=== PATIENT | male | born 1960 | race Caucasian/White ===

== ENCOUNTER → 2016-12-23 | Outpatient (CLI) | payer BC | END | disposition home or self-care (01) | LOC: C.PATHSPEC 11:30 | PROVIDERS: ATTEND Urology | DX: R97.20 Elevated prostate specific antigen [PSA] (principal); N41.1 Chronic prostatitis ==

== ENCOUNTER 2020-03-27 06:36 | Inpatient (IN) ==
[~2020-03-27 06:36] MED LIST: HEPARIN (PORCINE) 1000 UNIT/ML 10 ML (CATH LAB USE ONLY) ONE; MIDAZOLAM HCL 1 MG/ML 2ML VIAL ONE; NITROGLYCERIN/D5W 100MCG/ML 20ML SYR ONE; fentaNYL citrate 100 MCG/2 ML VIAL ONE; niCARdipine HCL INJ 2.5 MG/ML 10 ML AMP ONE
--- OUTSIDE RECORDS SUMMARY | 2020-03-27 06:38 | External Medical Summary | Continuity of Care Document ---
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 Refills: 0 Lisinopril TABS , M.D. Refills: 0 metFORMIN HCl TABS , M.D. Refills: 0 Procedures Procedures not documented Immunizations Immunizations not documented Family History Father Family history of arthritis (V17.7) (Z82.61) Status: Active Social History - Smoking Status Never smoked tobacco Plan of Treatment Planned Observations Planned Goals not documented Results No Known Results Results not documented
[2020-03-27] MEDS ORDERED: BIVALIRUDIN 250 MG VIAL (CATH LAB ONLY) ONE (06:40)
--- NOTE | 2020-03-27 06:48 | Emergency Department Note ---
Impression & Plan Acute ST elevation myocardial infarction (STEMI), Elevated troponin, Hypertension ED Provider Note NAME: JAMILAH MEDINA AGE: 59 SEX: M ARRIVES VIA: Ambulance INFORMANT: Patient, ED PROVIDER(S): Steve Cabezas MD CHIEF COMPLAINT: Chest pain PLAN: Disposition: Admit MEDICAL DECISION MAKING: The patient is a 59-year-old gentleman with a past medical history of obesity, hypertension, hyperlipidemia, diabetes, hypoventilation syndrome/ALMA who presents emergency department with substernal chest pain that began at 430 that felt like a severe pressure on his chest with med command call receiving transmitted EKG concerning for ST elevation MA. Heart alert activated in the field. Patient received aspirin en route, nitroglycerin, and fentanyl. He reports feeling healthy prior today and denies fevers, chills, cough, congestion, nausea, vomiting, diarrhea, urinary symptoms. Has any known COVID- 19 exposures. On arrival patient is uncomfortable but no acute distress, afebrile with stable vital signs. He reports residual 5/10 pain. Pulses are equal. EKG in the emergency department demonstrates anterior as well as some inferior ST elevations with reciprocal depression in AVR. Dr. Kang reviewed with Dr. Spear, interventional cardiology, after medical command call. WBC, H/H and platelets within normal limits. Chemistry without metabolic acidosis. Electrolytes and LFTs unremarkable. Initial troponin elevated at 0.5. COVID-19 RNA, NAAT test was negative. Patient's daughter at the bedside was updated. Dr. Flores, interventional cardiology, evaluated patient at bedside. Consented and taken to cath-lab for intervention. Heparin and Ticagrelor to be given in Cath-lab. Case was discussed with Lupe Rubio, [facility] PAC, with Remy [facility] hospitalist who will evaluate the patient for admission following cath-lab intervention. Triage Nursing notes reviewed and agree them. Prior medical records reviewed Vital Signs: reviewed and remarkable for no significant abnormalities Differential diagnosis: Cardiac ischemia, aortic dissection, pulmonary embolism, pneumothorax, pneumonia, pericarditis, myocarditis, esophageal rupture, GERD, cholecystitis, pancreatitis, musculoskeletal, as well as other pathologies. ER treatment provided: See below. Diagnostics interpreted by me: ECG: Normal sinus rhythm, 62 bpm, no ectopy, anterior and inferior ST elevations with reciprocal depression in aVR. Cardiac Monitoring: An order for continuous cardiac monitoring was placed and demonstrated Normal sinus rhythm, 62 bpm, no ectopy. Laboratory studies: See below Imaging studies: XR chest 1V portable CLINICAL HISTORY: Atypical chest pain COMPARISON STUDY: 12/20/2017 FINDINGS: The heart is mildly enlarged. There is mild elevation of interstitium. Mild pulmonary vascular congestion is suspected. There is no focal pulmonary consolidation. There are no significant pleural effusions.[ IMPRESSION: Cardiomegaly and suspected mild pulmonary vascular congestion. No evidence of focal pulmonary consolidation ACT 112: Negative or not required by law. Consultation(s): Dr. Spear, interventional cardiology, per Dr. Kang after medical command call. Dr. Flores, interventional cardiology, evaluated patient at bedside, taken to cath-lab for intervention. Case was discussed with Luep Rubio, [facility] PAC, with Remy [facility] hospitalist who will evaluate the patient for admission following cath-lab intervention. HPI: The patient is a 59-year-old gentleman with a past medical history of obesity, hypertension, hyperlipidemia, diabetes, hypoventilation syndrome/ALMA who presents emergency department with substernal chest pain that began at 430 that felt like a severe pressure on his chest with med command call receiving tr ansmitted EKG concerning for ST elevation MA. Heart alert activated in the field. Patient received aspirin in route, nitroglycerin, fentanyl. He reports feeling healthy prior today and denies fevers, chills, cough, congestion, nausea, vomiting, diarrhea, urinary symptoms. Has any known COVID-19 exposures ROS: See above HPI for pertinent positives & negatives. A total of 10 systems reviewed and were otherwise negative. PAST MEDICAL HISTORY:See Below PAST SURGICAL HISTORY:See Below FAMILY HISTORY:See Below SOCIAL HISTORY:See Below HOME MEDICATIONS:See Below ALLERGIES:See Below VITALS:See Below PHYSICAL EXAMINATION: GENERAL: Awake, alert, uncomfortable-appearing, in no distress, 51.2. HENT: Normocephalic, atraumatic. Oropharynx unremarkable. EYES: Normal conjunctiva. Sclera non-icteric. NECK: Supple. No nuchal rigidity. FROM. No JVD. RESPIRATORY: Clear to auscultation. CARDIAC: Regular rate, normal rhythm. Extremities warm and well perfused. Pulses equal. ABDOMEN: Soft, non-distended. No tenderness to palpation. No rebound or guarding. No masses. RECTAL: Deferred. MUSCULOSKELETAL: Chest examination reveals no tenderness. The back is symmetric al on inspection without obvious abnormality. There is no CVA tenderness to palpation. No joint edema. LOWER EXTREMITIES: Calves are equal size bilaterally and non-tender. No edema. No discoloration. NEURO: Normal sensorium. No sensory or motor deficits noted. SKIN: No rash or jaundice noted. ED COURSE: Critical Care: I have personally spent greater than 35 minutes of critical care time in the direct management of this patient. This includes bedside care, interpretation of diagnostic studies, and testing, discussion with consultants, patient, and family members, and other required patient management activities. This 35 minutes is in excess of all separately billable procedures. Steve Cabezas MD Past Med/Surg History Medical History Acute ST elevation myocardial infarction (STEMI) Angioedema due to angiotensin converting enzyme inhibitor (KENDELL-I) Atrial fibrillation follows with Dr. Damico Chronic venous stasis dermatitis Diabetes mellitus, type 2 Elevated troponin Hyperlipidemia Hypertension On anticoagulant therapy warfarin daily Surgical History History of colonoscopy Hx of prostate biopsy benign S/P coronary artery stent placement Successful PCI of mid LAD with single drug-eluting stent (3.0 x 33 mm Xience; postdilated with 4.0 NC) Dr Flores, 03/27/20 Family History Father Family history of reaction to anesthesia "heart rate went irregular, was able to fix quick", not sure what he had done or what he was given Cancer Mother Diabetes Sister Celiac disease Denies family history of Heart disease Myocardial infarction Social History Smoking Status: Former smoker packs per day: 1; Years Smoked: 15; Smoking End Date: 1987; Second Hand Exposure: No; Hx Alcohol Use: No Hx Substance Use: No Preferred Language: Serbian Communication Ability: Effective Auto Winder Required: No Beliefs That Will Affect Care: None marital status: Current Living Situation: Spouse current occupational status: employed 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 Feels Safe at Home: Yes Safety Concerns: Feels Safe At This Time Assistive Devices: Glasses Allergies Allergies Allergy/AdvReac Type Severity Reaction Status Date / Time lisinopril Allergy Severe Difficulty Verified 03/27/20 06:43 Breathing Home Meds Home Medications Medication Instructions Recorded Confirmed aspirin 81 mg PO QAM 03/05/18 03/27/20 furosemide [Lasix] 40 mg PO QAM 03/05/18 03/27/20 metoprolol succinate 25 mg PO QAM 03/05/18 03/27/20 spironolactone 25 mg PO QAM 03/05/18 03/27/20 atorvastatin 40 mg PO HS 03/27/20 03/27/20 empagliflozin 25 mg PO DAILY 03/27/20 03/27/20 metformin 2,000 mg PO PM 03/27/20 03/27/20 Previous Rx's Medication Instructions Recorded potassium chloride [Klor-Con] 20 meq PO BID #100 ea 12/21/17 Results & Data (ED) Vital Signs Vital Signs - 24 hr 03/27/20 06:41 03/27/20 07:08 Temperature 36.7 C Temperature Source Oral Pulse Rate 67 66 Pulse Rhythm Regular Pulse Strength Normal Respiratory Rate 21 20 Respiratory Effort / Characteristics Non-Labored Spontaneous Respiratory Depth Normal Respiratory Pattern Regular Blood Pressure 127/73 126/68 Blood Pressure Mean 91 Blood Pressure Position Sitting Pulse Oximetry 96 96 Oxygen Delivery Method Nasal Cannula Nasal Cannula Oxygen Flow Rate 4 2 Sepsis Recent Fever Within 48 Hours No Sepsis New/Unexplained Change in Mental Status No Sepsis Action Taken by Nursing No Action Required Laboratory Data Attestation: I reviewed the patient's lab results. Result diagrams: 03/27/20 06:43 03/27/20 06:43 Lab Results 03/27/20 03/27/20 03/27/20 Range/Units 06:42 06:42 06:43 WBC 10.53 (4.8-10.8) K/uL RBC 5.19 (4.7-6.1) M/uL Hgb 14.8 (14.0-18.0) g/dL POC Hgb (14.0-18.0) g/dl Hct 44.1 (42-52) % POC Hct (42-52) % MCV 85.0 (80-100) fL MCH 28.5 (25-34) pg MCHC 33.6 (32-36) g/dL RDW Std Deviation 44.1 (36.4-46.3) fL RDW Coeff of Stella 14.2 (11.5-14.5) % Plt Count 218 (130-400) K/uL MPV 10.2 (7.4-10.4) fL Immature Gran % (Auto) 0.4 % Neut % (Auto) 68.9 % Lymph % (Auto) 19.8 % Baxter % (Auto) 6.8 % Eos % (Auto) 3.8 % Baso % (Auto) 0.3 % Neut # (Auto) 7.25 H (1.4-6.5) K/uL Lymph # (Auto) 2.09 (1.2-3.4) K/uL Baxter # (Auto) 0.72 H (0.11-0.59) K/uL Eos # (Auto) 0.40 (0-0.5) K/uL Baso # (Auto) 0.03 (0-0.2) K/uL Immature Gran # (Auto) 0.04 H (0.00-0.02) K/uL PT (9.0-12.0) Seconds INR (0.9-1.1) APTT (21.0-31.0) Seconds PTT Ratio Activ Coag Time Kaolin (94-140) SECONDS POC Sodium (135-144) mmol/L Sodium (136-145) mmol/L POC Potassium (3.3-5.0) mmol/L Potassium (3.5-5.1) mmol/L POC Chloride (101-112) mmol/L Chloride (98-107) mmol/L Carbon Dioxide (21-32) mmol/L POC Total CO2 (24-31) mmol/L Anion Gap (3-11) POC Anion Gap (16-25) mmol/L POC BUN (7-18) mg/dl BUN (7-18) mg/dl Creatinine (0.6-1.4) mg/dl POC Creatinine (0.6-1.3) mg/dl Est Cr Clr Drug Dosing ml/min Est GFR ( Amer) Est GFR (Non-Af Amer) BUN/Creatinine Ratio (10-20) Glucose (70-99) mg/dl POC Glucose (other) (70-99) mg/dl Calcium (8.5-10.1) mg/dl POC Ioniz Calcium Quinton (1.12-1.32) mmol/l Magnesium (1.8-2.4) mg/dl Total Bilirubin (0.2-1) mg/dl AST (15-37) U/L ALT (12-78) U/L Alkaline Phosphatase (45-117) U/L Total Creatine Kinase (39-308) U/L CK-MB (CK-2) (0.5-3.6) ng/ml CK/CKMB % Calc (0-3.0) Troponin I (0-0.045) ng/ml Total Protein (6.4-8.2) gm/dl Albumin (3.4-5.0) gm/dl Globulin (2.5-4.0) gm/dl Albumin/Globulin Ratio (0.9-2) Lipase (73-393) U/L Procalcitonin (0-0.5) ng/ml TSH (0.300-4.500) uIu/ml COVID-19 Eval [facility] SARS-CoV-2, RNA, NAAT NEGATIVE (NEGATIVE) 03/27/20 03/27/20 03/27/20 Range/Units 06:43 06:43 06:44 WBC (4.8-10.8) K/uL RBC (4.7-6.1) M/uL Hgb (14.0-18.0) g/dL POC Hgb (14.0-18.0) g/dl Hct (42-52) % POC Hct (42-52) % MCV (80-100) fL MCH (25-34) pg MCHC (32-36) g/dL RDW Std Deviation (36.4-46.3) fL RDW Coeff of Stella (11.5-14.5) % Plt Count (130-400) K/uL MPV (7.4-10.4) fL Immature Gran % (Auto) % Neut % (Auto) % Lymph % (Auto) % Baxter % (Auto) % Eos % (Auto) % Baso % (Auto) % Neut # (Auto) (1.4-6.5) K/uL Lymph # (Auto) (1.2-3.4) K/uL Baxter # (Auto) (0.11-0.59) K/uL Eos # (Auto) (0-0.5) K/uL Baso # (Auto) (0-0.2) K/uL Immature Gran # (Auto) (0.00-0.02) K/uL PT 10.0 (9.0-12.0) Seconds INR 1.0 (0.9-1.1) APTT 23.9 (21.0-31.0) Seconds PTT Ratio 0.9 Activ Coag Time Kaolin (94-140) SECONDS POC Sodium (135-144) mmol/L Sodium 141 (136-145) mmol/L POC Potassium (3.3-5.0) mmol/L Potassium 4.2 (3.5-5.1) mmol/L POC Chloride (101-112) mmol/L Chloride 109 H (98-107) mmol/L Carbon Dioxide 24 (21-32) mmol/L POC Total CO2 (24-31) mmol/L Anion Gap 8.0 (3-11) POC Anion Gap (16-25) mmol/L POC BUN (7-18) mg/dl BUN 20 H (7-18) mg/dl Creatinine 0.98 (0.6-1.4) mg/dl POC Creatinine (0.6-1.3) mg/dl Est Cr Clr Drug Dosing 138.0 ml/min Est GFR ( Amer) 96.7 Est GFR (Non-Af Amer) 83.5 BUN/Creatinine Ratio 20.3 H (10-20) Glucose 182 H (70-99) mg/dl POC Glucose (other) (70-99) mg/dl Calcium 9.3 (8.5-10.1) mg/dl POC Ioniz Calcium Quinton (1.12-1.32) mmol/l Magnesium 2.1 (1.8-2.4) mg/dl Total Bilirubin 0.3 (0.2-1) mg/dl AST 20 (15-37) U/L ALT 29 (12-78) U/L Alkaline Phosphatase 78 (45-117) U/L Total Creatine Kinase 90 (39-308) U/L CK-MB (CK-2) 3.6 (0.5-3.6) ng/ml CK/CKMB % Calc 4.0 H (0-3.0) Troponin I 0.554 H* (0-0.045) ng/ml Total Protein 7.4 (6.4-8.2) gm/dl Albumin 3.3 L (3.4-5.0) gm/dl Globulin 4.1 H (2.5-4.0) gm/dl Albumin/Globulin Ratio 0.8 L (0.9-2) Lipase 222 (73-393) U/L Procalcitonin < 0.05 (0-0.5) ng/ml TSH 3.220 (0.300-4.500) uIu/ml COVID-19 Eval Order SARS-CoV-2, RNA, NAAT (NEGATIVE) 03/27/20 03/27/20 03/27/20 Range/Units 06:59 07:34 07:56 WBC (4.8-10.8) K/uL RBC (4.7-6.1) M/uL Hgb (14.0-18.0) g/dL POC Hgb 14.3 (14.0-18.0) g/dl Hct (42-52) % POC Hct 42 (42-52) % MCV (80-100) fL MCH (25-34) pg MCHC (32-36) g/dL RDW Std Deviation (36.4-46.3) fL RDW Coeff of Stella (11.5-14.5) % Plt Count (130-400) K/uL MPV (7.4-10.4) fL Immature Gran % (Auto) % Neut % (Auto) % Lymph % (Auto) % Baxter % (Auto) % Eos % (Auto) % Baso % (Auto) % Neut # (Auto) (1.4-6.5) K/uL Lymph # (Auto) (1.2-3.4) K/uL Baxter # (Auto) (0.11-0.59) K/uL Eos # (Auto) (0-0.5) K/uL Baso # (Auto) (0-0.2) K/uL Immature Gran # (Auto) (0.00-0.02) K/uL PT (9.0-12.0) Seconds INR (0.9-1.1) APTT (21.0-31.0) Seconds PTT Ratio Activ Coag Time Kaolin 246 H 263 H (94-140) SECONDS POC Sodium 139 (135-144) mmol/L Sodium (136-145) mmol/L POC Potassium 4.0 (3.3-5.0) mmol/L Potassium (3.5-5.1) mmol/L POC Chloride 105 (101-112) mmol/L Chloride (98-107) mmol/L Carbon Dioxide (21-32) mmol/L POC Total CO2 23 L (24-31) mmol/L Anion Gap (3-11) POC Anion Gap 16.0 (16-25) mmol/L POC BUN 20 H (7-18) mg/dl BUN (7-18) mg/dl Creatinine (0.6-1.4) mg/dl POC Creatinine 0.8 (0.6-1.3) mg/dl Est Cr Clr Drug Dosing ml/min Est GFR ( Amer) Est GFR (Non-Af Amer) BUN/Creatinine Ratio (10-20) Glucose (70-99) mg/dl POC Glucose (other) 191 H (70-99) mg/dl Calcium (8.5-10.1) mg/dl POC Ioniz Calcium Quinton 1.24 (1.12-1.32) mmol/l Magnesium (1.8-2.4) mg/dl Total Bilirubin (0.2-1) mg/dl AST (15-37) U/L ALT (12-78) U/L Alkaline Phosphatase (45-117) U/L Total Creatine Kinase (39-308) U/L CK-MB (CK-2) (0.5-3.6) ng/ml CK/CKMB % Calc (0-3.0) Troponin I (0-0.045) ng/ml Total Protein (6.4-8.2) gm/dl Albumin (3.4-5.0) gm/dl Globulin (2.5-4.0) gm/dl Albumin/Globulin Ratio (0.9-2) Lipase (73-393) U/L Procalcitonin (0-0.5) ng/ml TSH (0.300-4.500) uIu/ml COVID-19 Eval Order SARS-CoV-2, RNA, NAAT (NEGATIVE) Administered Medications Aspirin (Aspirin 81 Mg Ectab) 81 mg PO QAM [facility] Stop: 04/26/20 08:59 Last Admin: 03/27/20 10:40 Dose: 81 mg Documented by: [id number] Atorvastatin Calcium (Atorvastatin 40 Mg Tab) 80 mg PO QAM [facility] Stop: 04/26/20 08:59 Last Admin: 03/27/20 10:40 Dose: 80 mg Documented by: [id number] Ceftriaxone Sodium 2,000 mg/ (Dextrose) 70 mls @ 140 mls/hr IV Q24H [facility] Stop: 04/03/20 10:29 Last Infusion: 03/27/20 11:33 Dose: 0 mls/hr Documented by: [id number] Admin: 03/27/20 10:40 Dose: 140 mls/hr Documented by: [id number] Insulin Aspart (Insulin Aspart 100 Units/Ml 3 Ml Pen) 0 units SC ACHS [facility] Stop: 04/26/20 11:29 Last Admin: 03/27/20 12:27 Dose: 4 units Documented by: [id number] Cosigned by: [id number] Metoprolol Tartrate (Metoprolol Tartrate 25 Mg Tab) 25 mg PO BID [facility] Stop: 04/26/20 08:59 Last Admin: 03/27/20 10:40 Dose: 25 mg Documented by: [id number] Spironolactone (Spironolactone 25 Mg Tab) 25 mg PO QAM [facility] Stop: 04/26/20 08:59 Last Admin: 03/27/20 10:40 Dose: 25 mg Documented by: [id number] Discontinued Medications Bivalirudin (Bivalirudin 250 Mg Vial (Heel Turner Only)) Confirm Administered Dose 250 mg .ROUTE .STK-MED ONE Stop: 03/27/20 06:41 Last Admin: 03/27/20 08:44 Dose: Not Given Documented by: [id number] Eptifibatide (Eptifibatide 2 Mg/Ml 10 Ml Vial ([facility] Use Only)) Confirm Administered Dose 20 mg IV .STK-MED ONE Stop: 03/27/20 07:33 Last Admin: 03/27/20 08:46 Dose: Not Given Documented by: [id number] Eptifibatide (Eptifibatide 0.75 Mg/Ml 75mg Vial (Heel Turner Use Only)) Confirm Administered Dose 75 mg .ROUTE .STK-MED ONE Stop: 03/27/20 07:34 Last Admin: 03/27/20 08:46 Dose: Not Given Documented by: [id number] Eptifibatide (Eptifibatide 2 Mg/Ml 10 Ml Vial (Heel Turner Use Only)) Confirm Administered Dose 20 mg IV .STK-MED ONE Stop: 03/27/20 07:36 Last Admin: 03/27/20 08:46 Dose: Not Given Documented by: [id number] Fentanyl Citrate (Fentanyl Citrate 100 Mcg/2 Ml Vial) Confirm Administered Dose 100 mcg .ROUTE .STK-MED ONE Stop: 03/27/20 06:34 Last Admin: 03/27/20 07:03 Dose: 100 mcg Documented by: [id number] Fentanyl Citrate (Fentanyl Citrate 100 Mcg/2 Ml Vial) Confirm Administered Dose 100 mcg .ROUTE .STK-MED ONE Stop: 03/27/20 07:03 Last Admin: 03/27/20 08:45 Dose: Not Given Documented by: [id number] Fentanyl Citrate (Fentanyl Citrate 100 Mcg/2 Ml Vial) 100 mcg IV NOW STA Stop: 03/27/20 07:05 Last Admin: 03/27/20 08:45 Dose: Not Given Documented by: [id number] Fentanyl Citrate (Fentanyl Citrate 100 Mcg/2 Ml Vial) Confirm Administered Dose 100 mcg .ROUTE .STK-MED ONE Stop: 03/27/20 08:17 Last Admin: 03/27/20 08:46 Dose: Not Given Documented by: [id number] Heparin Sodium (Porcine) (Heparin (Porcine) 1000 Unit/Ml 10 Ml (Heel Turner Use Only)) Confirm Administered Dose 10,000 units .ROUTE .STK-MED ONE Stop: 03/27/20 06:34 Last Admin: 03/27/20 08:44 Dose: Not Given Documented by: [id number] Heparin Sodium (Porcine) (Heparin Sod (Porcine) 1000 Unit/Ml 10 Ml Vial) Confirm Administered Dose 10,000 units .ROUTE .STK-MED ONE Stop: 03/27/20 06:54 Last Admin: 03/27/20 08:45 Dose: Not Given Documented by: [id number] Heparin Sodium/Sodium Chloride (Heparin In Nss Infusion 1000 Unit/500 Ml (2 U/Ml) Bag) Confirm Administered Dose 3,000 units IV .STK-MED ONE Stop: 03/27/20 06:34 Last Admin: 03/27/20 08:44 Dose: Not Given Documented by: [id number] Heparin Sodium/Sodium Chloride (Heparin In Nss Infusion 1000 Unit/500 Ml (2 U/Ml) Bag) Confirm Administered Dose 3,000 units IV .STK-MED ONE Stop: 03/27/20 08:17 Last Admin: 03/27/20 08:46 Dose: Not Given Documented by: [id number] Insulin Glargine (Insulin Glargine Solostar 100 Units/Ml 3 Ml Pen) 20 units SC NOW STA Stop: 03/27/20 10:20 Last Admin: 03/27/20 10:41 Dose: 20 units Documented by: [id number] Cosigned by: [id number] Midazolam HCl (Midazolam Hcl 1 Mg/Ml 2ml Vial) Confirm Administered Dose 2 mg .ROUTE .STK-MED ONE Stop: 03/27/20 06:33 Last Admin: 03/27/20 08:43 Dose: Not Given Documented by: [id number] Midazolam HCl (Midazolam Hcl 1 Mg/Ml 2ml Vial) Confirm Administered Dose 2 mg .ROUTE .STK-MED ONE Stop: 03/27/20 08:17 Last Admin: 03/27/20 08:46 Dose: Not Given Documented by: [id number] Nicardipine HCl (Nicardipine Hcl Inj 2.5 Mg/Ml 10 Ml Amp) Confirm Administered Dose 25 mg .ROUTE .STK-MED ONE Stop: 03/27/20 06:34 Last Admin: 03/27/20 08:44 Dose: Not Given Documented by: [id number] Nitroglycerin/Dextrose (Nitroglycerin/D5w 100mcg/Ml 20ml Syr) Confirm Administered Dose 2,000 mcg .ROUTE .STK-MED ONE Stop: 03/27/20 06:34 Last Admin: 03/27/20 08:44 Dose: Not Given Documented by: [id number] Ticagrelor (Ticagrelor 90 Mg Tab) Confirm Administered Dose 180 mg PO .STK-MED ONE Stop: 03/27/20 06:54 Last Admin: 03/27/20 08:46 Dose: 180 mg Documented by: [id number] Discharge Plan Visit Data Chief Complaint: Chest Pain Stated Complaint: CHEST PAIN ED Provider: Steve Cabezas Discharge Problem: Acute ST elevation myocardial infarction (STEMI), Elevated troponin, Hypertension Patient Disposition: Admitted As Inpatient Discharge Instructions Interventions: ED Discharge Assessment Last Done: 03/27/20 07:08 Discharge Problem: Acute ST elevation myocardial infarction (STEMI) Qualifiers: Involved coronary artery: unspecified coronary artery Qualified Code(s): I21.3 - ST elevation (STEMI) myocardial infarction of unspecified site Hypertension Qualifiers: Hypertension type: unspecified Qualified Code(s): I10 - Essential (primary) hypertension
[2020-03-27 06:53] LABS: Basophils # (auto) 0.03 K/uL (0-0.2); Basophils % (auto) 0.3 %; Eosinophils % (auto) 3.8 %; Hematocrit (blood only) 44.1 % (42-52); Hemoglobin 14.8 g/dL (14.0-18.0); Immature Granulocytes # (auto) 0.04 K/uL (0.00-0.02); Immature Granulocytes % (auto) 0.4 %; Lymphocytes # (auto) 2.09 K/uL (1.2-3.4); Lymphocytes % (auto) 19.8 %; Mean Corpuscular Hemoglobin 28.5 pg (25-34); Mean Corpuscular Hgb Conc 33.6 g/dL (32-36); Mean Platelet Volume 10.2 fL (7.4-10.4); Monocytes # (auto) 0.72 K/uL (0.11-0.59); Monocytes % (auto) 6.8 %; Neutrophils # (auto) 7.25 K/uL (1.4-6.5); Neutrophils % (auto) 68.9 %; Platelet Count 218 K/uL (130-400); RDW Coefficient of Variation 14.2 % (11.5-14.5); RDW Standard Deviation 44.1 fL (36.4-46.3); Red Blood Count 5.19 M/uL (4.7-6.1); White Blood Count 10.53 K/uL (4.8-10.8)
[2020-03-27] MEDS ORDERED: TICAGRELOR 90 MG TAB PO ONE (06:53)
[2020-03-27] MEDS ORDERED: HEPARIN SOD (PORCINE) 1000 UNIT/ML ONE (06:53)
[2020-03-27] MEDS ORDERED: fentaNYL citrate 100 MCG/2 ML VIAL ONE ×2 (07:02→08:16)
[2020-03-27] MEDS ORDERED: fentaNYL citrate 100 MCG/2 ML VIAL IV STA (07:04)
[2020-03-27 07:10] LABS: Albumin Level 3.3 gm/dl (3.4-5.0); BUN Creatinine Ratio 20.3 (10-20); Calcium 9.3 mg/dl (8.5-10.1); Est GFR (African American) 96.7; Est GFR (Non-African American) 83.5; Magnesium 2.1 mg/dl (1.8-2.4); Potassium 4.2 mmol/L (3.5-5.1)
--- NOTE | 2020-03-27 07:10 | XRay Report ---
XR chest 1V portable CLINICAL HISTORY: Atypical chest pain COMPARISON STUDY: 12/20/2017 FINDINGS: The heart is mildly enlarged. There is mild elevation of interstitium. Mild pulmonary vascu lar congestion is suspected. There is no focal pulmonary consolidation. There are no significant pleu ral effusions.[ IMPRESSION: Cardiomegaly and suspected mild pulmonary vascular congestion. No evidence of focal pulmo nary consolidation ACT 112: Negative or not required by law. Electronically signed by: Jordan Erickson M.D. 03/27/2020 7:08 AM
[2020-03-27 07:11] LABS: iSTAT Creatinine 0.8 mg/dl (0.6-1.3); iSTAT Hemoglobin 14.3 g/dl (14.0-18.0); iSTAT Ionized Calcium 1.24 mmol/l (1.12-1.32)
[2020-03-27 07:14] LABS: Partial Thromboplastin Ratio 0.9; Partial Thromboplastin Time 23.9 Seconds (21.0-31.0)
[2020-03-27 07:30] LABS: Albumin Globulin Ratio 0.8 (0.9-2); Bilirubin,Total 0.3 mg/dl (0.2-1); Creatine Kinase MB 3.6 ng/ml (0.5-3.6); Globulin 4.1 gm/dl (2.5-4.0); Thyroid Stimulating Hormone 3.22 uIu/ml (0.300-4.500); Total Protein 7.4 gm/dl (6.4-8.2); Troponin I 0.554 ng/ml (0-0.045)
[2020-03-27] MEDS ORDERED: EPTIFIBATIDE 2 MG/ML 10 ML VIAL (CATH LAB USE ONLY) IV ONE ×2 (07:32→07:35)
[2020-03-27] MEDS ORDERED: EPTIFIBATIDE 0.75 MG/ML 75MG VIAL (CATH LAB USE ONLY) ONE (07:33)
--- NOTE | 2020-03-27 08:11 | Pre Anesthesia Assessment ---
Date of Service March 27, 2020 Pre Sedation Assessment Vital Signs Temp Pulse Resp BP Pulse Ox 03/27/20 07:08 66 20 126/68 96 03/27/20 06:41 98.1 F 67 21 127/73 96 Cardiovascular RRR, no murmur, no edema Respiratory normal respiratory effort, lungs clear to auscultation Pre-Sedation Airway Assessment Smoking Status: Former smoker Hx Sleep Apnea: Yes Hx Difficult Intubation: No Short, Thick Neck: No Thyromental Distance: > or= 3.5 Finger Breadths Oral Cavity: + Dental Abnormalities Mallampati Class: III ASA: ASA3 Procedure Planning Contraindications for Sedation: none Current Medications Reviewed: Yes Notes The planned sedation has been discussed with the patient. Informed Consent was obtained. I have identified the patient, determined the appropriateness of sedation and have assessed the patient immediately prior to the procedure. All medicine(s) and interventions are by my order.
[2020-03-27] MEDS ORDERED: ICU PROTOCOL FOR HYPERGLYCEMIA PRN (08:14)
[2020-03-27] MEDS ORDERED: ONDANSETRON INJ 2 MG/ML 2 ML VIAL IV PRN (08:14)
[2020-03-27] MEDS ORDERED: NITROGLYCERIN SL 0.4 MG/TAB TAB SL PRN (08:14)
[2020-03-27] MEDS ORDERED: MIDAZOLAM HCL 1 MG/ML 2ML VIAL ONE (08:16)
--- NOTE | 2020-03-27 08:24 | Post Anesthesia Assessment ---
Date of Service March 27, 2020 Post Sedation Assessment Vital Signs Temp Pulse Resp BP Pulse Ox 03/27/20 07:08 66 20 126/68 96 03/27/20 06:41 98.1 F 67 21 127/73 96 Recovery Score Activity: Moves 4 extremities Respiration: Deep Breath/Cough Circulation: +/-20% PreAnes Value Consciousness: Fully Awake Oxygen Saturation: O2 needed for >90% Discharge Sedation Level of Care: Fast Track Phase II Post Sedation Plan On clinical assessment, the patient appears to have tolerated the sedation without complications. Patient is recovering as anticipated. Patient will continue to be monitored by nursing and may be discharged when sedation discharge criteria are met per below protocol. Upon Completions of procedure up to 15 minutes continue every 5 minute vital signs and the P.A.R. score; then discharge to a Phase I or Fast Track to Phase II per the following guidelines: * Discharge Patient to appropriate Phase II area if PAR is 8 or greater or return to pre- procedure baseline. The post - procedure orders will be as directed. * If PAR score is less than 8 or not return to pre-procedure baseline then patient will follow Phase I monitoring till PAR is reached for Phase II. The Phase I may be done in procedure room or may call to secure a Phase I area. * If naloxone or flumazenil are used for reversal, hold in Phase I for continued monitoring from when last reversal dose was given for a minimum of 60 minutes or longer pending the nurse and/or physician discretion of patient condition before discharge to Phase II. Please call the Sedation Physician to re-evaluate and complete post-note for discharge to Phase II area. Do NOT discharge from procedure sedation or Phase 1 until post- sedation evaluation note is complete by procedure /sedation MD Sedation Discharge Instructions to be given to the patient at discharge to home.
[2020-03-27] MEDS ORDERED: MoRPHine SULFATE 2 MG/ML CARP IV PRN (08:35)
--- NOTE | 2020-03-27 08:47 | Cardiac Catheterization ---
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 Cardiac Status Clinical evaluation leading to the procedure CAD Presenation: STEMI Anginal Classification: CCS IV Heart Failure: No Cardiogenic Shock within 24 Hours: No Cardiac Arrest within 24 Hours: No Imaging Studies Past 6 Months: No Stress Studies Past 6 Months: No Diagnostic Physicians Name: Gold Flores MD Status: Emergency Closure Device Percutaneous Entry Location: Radial Closure Device: Radial Band Recommendations: PCI without planned CABG PCI Indication: Immediate PCI for STEMI Lesion Segment Name: Mid LAD Culprit Artery: Yes Stenosis Prior to Rx (%): 100 Chronic Total Occlusion: No IVUS: No FFR: No Pre-Procedure CHARLES Flow: 0 Previously Treated Lesion: No Lesion Complexity: Non-High/Non-C Lesion Length (mm): 25 Thrombus Present: Yes Bifurcation Lesion: No Guidewire Across Lesion: Stenosis Post-Procedure (%): 0 Post-Procedure CHARLES Flow: 3 Devices(s) Deployed: Yes Yes Intraprocedure Events Significant Disection: No Perforation: No Cardiac Cath Procedure Full Procedure Date March 27, 2020 Pre-Procedure Diagnosis Pre-Procedure Diagnosis: STEMI AUC Score AUC Score: 9 Post-Procedure Diagnosis Post-Procedure Diagnosis: Severe CAD, Successful PCI and Elevated Intracardiac Pressures Procedure(s) Performed Procedure(s) Performed: Coronary Angiography, Left Heart Cath and Drug Eluting Stent Disciplinary Hearing Officer Gold Flores MD Director Of Home Health Services(s) Jay Estimated Blood Loss Estimated Blood Loss: 15 Medication(s) Medication(s): Fentanyl, Heparin, Integrilin, Lidocaine 1%, Nicardipine, Nitroglycerin and Versed Medication(s): Ticagrelor Summary of Findings Indication: STEMI/Heart Alert Access: 6 Fr right radial artery Catheters: EBU 3.5 guide, diagnostic JR4 Findings: LM -large caliber, angiographically normal LAD -large caliber, 100% acute earlymid LAD occlusion just after takeoff of first septal Circumflex -large caliber, no significant disease RCA -dominant, large caliber, small R-PDA with mild diffuse disease. LVEDP -29 -- PCI -- Antithrombotic therapy: Heparin, ticagrelor, IC Integrilin Procedure: Left main cannulated with EBU 3.5 guide BMW wire passed across lesion into distal vessel Mid LAD lesion predilated with 2.5 and 3.0 compliant balloons Dilated lesion stented with 3.0 x 33 mm Xience Sophia drug-eluting stent Stent post-dilated with 4.0 noncompliant balloon IC vasodilators administered for spasm Post procedure CHARLES 3 flow, stent well expanded with minimal residual stenosis and no apparent cardiac complications. Arterial Closure: TR band Summary: 1. Anterior STEMI/100% acute earlymid LAD occlusion 2. Minimal nonculprit CAD 3. Elevated intracardiac filling pressure 4. Successful PCI of mid LAD with single drug-eluting stent (3.0 x 33 mm Xience; postdilated with 4.0 NC). 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 Trend troponins until peak, Check Echo Uptitrate beta-sudheer High-dose statin Consult cardiac Rehab Hemodynamics Rest Ao:: 129/82/110 Final Ao: 138/81/101 LV: 141/29 Recommendations Recommendations: PCI without planned CABG Specimens Specimens: None Radiation Exposure (mGy) 3205 Contrast (mls) 115 Fluids (cc crystalloids) Fluids (cc crystalloids): 115 Drains Drains: None Anesthesia Moderate start 7: 19, and 8: 03 Procedural Complication(s) None Disposition ICU I attest to the content of the Intraoperative Record and any orders documented therein. Any exceptions are noted below. [facility] Card Cath Procedure Codes Cardiac Catheterization Procedure 1: Cardiovascular Cath Procedures: 59130 Coronaries and LHC (+/-LV) Moderate Sedation Procedure 1: Sedation/Anesthesia: 55022 Mod Sedation by the same physician;Init15 Min Child Age 5 & Up Procedure 2: Sedation/Anesthesia: 14844 Mod Sedation by the same physician; Ea [id number] Minutes Stenting Procedure 1: Cardiovascular Stent Procedures: 63268 Perc transluminal revascularization of acute sub/total occl, aMI PG Care Time/CCT Total # of Minutes Spent Total Time Spent with Patient: Total time spent is greater than 50% in coordination of care (as documented) at patient's floor/unit and/or counseling patient:
--- NOTE | 2020-03-27 09:23 | Critical Care Consultation ---
Date of Consultation March 27, 2020 Assessment & Plan (1) Acute ST elevation myocardial infarction (STEMI): Continue post STEMI care with high-dose statin, aspirin, Brilinta and beta-sudheer. Not a candidate for KENDELL inhibitors due to history of angioedema. He is currently on spironolactone for low EF. Echo pending. Encouraged weight loss. Encourage CPAP compliance. Monitor in the ICU for today. Appreciate cardiology input. Wound care nurse consult placed for lower extremity venous stasis changes. (2) Obstructive sleep apnea: (3) Hypertension: (4) Elevated troponin: (5) Chronic venous stasis dermatitis: History of Present Illness Reason for Consultation: Post STEMI ICU monitoring. Requesting Physician: Dr. Gold Flores Attending Physician: Gold Flores MD History of Present Illness 59-year-old male with past medical history of obesity, hypertension, hyperlipidemia, diabetes mellitus, ALMA who presented to the hospital at around 4:30 in the morning due to severe chest pain. EKG was concerning for ST elevation NM. Heart code was activated. Patient underwent coronary catheterization by Dr. Gold Flores. Anterior STEMI/100% acute early mid LAD occlusion was noted. Elevated intracardiac filling pressures were seen. Successful PCI of the mid LAD with single drug-eluting stent was completed. Patient is currently on beta-sudheer, high-dose statin, aspirin and Brilinta. Patient was also started on low-dose spironolactone. Patient continues to have mild 5 out of 10 chest pain in the center of his chest. His is dull pain. He denies any nausea or vomiting. He did feel sweaty this morning. He notes that he has a chronic right lower extremity infection and was recently treated with antibiotics. He says he has 2 to 3 days left of antibiotics. Allergies Allergy/AdvReac Type Severity Reaction Status Date / Time lisinopril Allergy Severe Difficulty Verified 03/27/20 06:43 Breathing Home Medications Medication Instructions Recorded Confirmed Type potassium chloride [Klor-Con] 20 meq PO BID #100 ea 12/21/17 03/27/20 Rx aspirin 81 mg PO QAM 03/05/18 03/27/20 History furosemide [Lasix] 40 mg PO QAM 03/05/18 03/27/20 History metoprolol succinate 25 mg PO QAM 03/05/18 03/27/20 History spironolactone 25 mg PO QAM 03/05/18 03/27/20 History atorvastatin 40 mg PO HS 03/27/20 03/27/20 History empagliflozin 25 mg PO DAILY 03/27/20 03/27/20 History metformin 2,000 mg PO PM 03/27/20 03/27/20 History Patient History Medical History (Updated 03/27/20 @ 09:33 by Stevan Hussein MD) Acute ST elevation myocardial infarction (STEMI) Atrial fibrillation follows with Dr. 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 Beliefs That Will Affect Care: None Current Living Situation: Spouse Feels Safe at Home: Yes Safety Concerns: Feels Safe At This Time Assistive Devices: Glasses Review of Systems Review of Systems: All systems reviewed & are unremarkable except as noted in HPI & below Physical Exam Constitutional: WD/WN, vitals as above + obese Eyes: PERRL, conjunctivae normal, anicteric sclerae ENMT: external ear and nose normal, oropharynx normal Neck: trachea midline, no thyromegaly Respiratory: normal respiratory effort, lungs clear to auscultation Cardiovascular: RRR, no murmur, no edema Gastrointestinal (Abdomen): normal bowel sounds, soft, nontender, no hepatosplenomegaly Musculoskeletal: no cyanosis or clubbing, extremities motor strength 5/5 Skin: no rashes, warm and dry Neurologic: PERRL, EOMI, accommodation nl, no face palsy, no dysarthria Psychiatric: A+Ox3, euthymic affect Results & Data Results & Data ([facility]) Vital Signs (Past 12 Hours) Vital Signs Temp Pulse Resp BP Pulse Ox 03/27/20 08:49 98.4 F 69 16 154/84 H 95 03/27/20 08:45 74 14 94 03/27/20 08:35 97.3 F L 03/27/20 08:33 73 14 149/90 H 93 03/27/20 08:30 79 20 94 03/27/20 07:08 66 20 126/68 96 03/27/20 06:41 98.1 F 67 21 127/73 96 I reviewed the vital signs, labs and imaging Coding Level of Care Code 75073 Inpt Consult Level [address] elevation myocardial infarction (STEMI) I21.3 Obstructive sleep apnea G47.33 Hypertension I10 Elevated troponin R77.8 Chronic venous stasis dermatitis I87.2
--- NOTE | 2020-03-27 10:00 | History & Physical Report ---
Date of Service March 27, 2020 Assessment & Plan (1) Acute ST elevation myocardial infarction (STEMI): (2) Elevated troponin: This is a 59-year-old male who has significant past medical history of T2DM, HTN, HLD, PAF not on oral anticoagulation, KENDELL inhibitor angioedema, chronic lower extremity lymphedema, chronic venous stasis dermatitis, obesity hypoventilation syndrome and ALMA who presented to ED as part alert secondary to chest pain, nausea diaphoresis starting at 4 AM with notable anterior and inferior ST elevations. Anterior STEMI/100% acute early-mid LAD Occlusion, minimal nonculprit CAD, elevated intracardiac filling pressure Successful PCI of mid LAD with single drug-eluting stent (3.0 x 33 mm Xience; postdilated with 4.0 NC). Loaded with ticagrelor 180mg in mechanical laboratory technician [facility] echo, cycle troponins Continue to DAPT x 1 year High-dose statin Uptitrate beta-sudheer as blood pressure allows Contraindication to KENDELL inhibitor secondary to angioedema Manage risk factors including obesity, ALMA, diabetes and HTN (3) Diabetes mellitus: Last A1c 8.3 on 03/16/2020, uncontrolled A1c in a.m. 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 (4) Chronic venous stasis dermatitis: Bilateral chronic venous stasis dermatitis with increased edema/redness to right lateral pretibial region with erythema and mild drainage has been on outpt keflex x 6 days obtain procalcitonin, consult wound nurse obtain b/l venous Doppler IV rocephin for now (5) Atrial fibrillation: R/R controlled hx of PAF, follows [facility] cards not on oral anticoagulation, pt stopped himself continue metoprolol CHADSvasc2 score - 4 (6) Hypertension: BP 148/80 On metoprolol, Lasix and Aldactone Lasix on hold, reevaluate and resume as able (7) Morbid obesity: Morbid obesity, BMI 51.2 Encourage lifestyle and diet modification (8) Obstructive sleep apnea: does not use home cpap do not see sleep study in [facility] will need ALMA evaluation as outpt if not already completed (9) 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: loaded with ticagrelor in mechanical laboratory technician no mechanical ppx given venous stasis dermatitis reassess daily need for chemical prophylaxis DISPO: ICU PCP: Shira FULL CODE Pt was seen and examined in collaboration with Dr. Alberto, please see addendum Admission and Anticipated Discharge Date Admission Date: March 27, 2020 History of Present Illness Chief Complaint: Chest pain, N and diaphoresis @ 4a.m. Primary Care Provider: Howard Silva MD This is a 59-year-old male who has significant past medical history of T2DM, HTN, HLD, PAF not on oral anticoagulation, KENDELL inhibitor angioedema, chronic lower extremity lymphedema, chronic venous stasis dermatitis, obesity hypoventilation syndrome and ALMA who presented to ED as part alert secondary to chest pain, nausea diaphoresis starting at 4 AM with notable anterior and inferior ST elevations. Patient underwent coronary catheterization by Dr. Flores and had resultant anterior STEMI/100% acute early mid LAD occlusion with elevated intracardiac filling pressure. He underwent successful PCI to mid LAD with a single ASUNCION. He was loaded with ticagrelor in [facility]. He was transferred to ICU for further cardiac monitoring. Currently he feels much improved but does still complain of substernal chest pain, 5/10, "feels like a burning like heartburn." He denies any residual diaphoresis, lightheadedness, dizziness or nausea. He states this morning when symptoms started he did feel dizzy and lightheaded. He currently denies any recent illness, fever, chills, sweats, syncope, shortness of breath, palpitations, nausea, vomiting, abdominal pain, changes bowel or urinary habits. He does complain of increased lower extremity edema right greater than left. He states right has been increasingly more red and he is currently on oral Keflex prescribed by his outpatient provider. He does take Lasix and Aldactone to help manage swelling. 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 He does have some openings on his lateral right lower extremity side with drainage. Allergies Allergy/AdvReac Type Severity Reaction Status Date / Time lisinopril Allergy Severe Difficulty Verified 03/27/20 06:43 Breathing Home Medications Medication Instructions Recorded Confirmed Type potassium chloride [Klor-Con] 20 meq PO BID #100 ea 12/21/17 03/27/20 Rx aspirin 81 mg PO QAM 03/05/18 03/27/20 History furosemide [Lasix] 40 mg PO QAM 03/05/18 03/27/20 History metoprolol succinate 25 mg PO QAM 03/05/18 03/27/20 History spironolactone 25 mg PO QAM 03/05/18 03/27/20 History atorvastatin 40 mg PO HS 03/27/20 03/27/20 History empagliflozin 25 mg PO DAILY 03/27/20 03/27/20 History metformin 2,000 mg PO PM 03/27/20 03/27/20 History Past Med/Surg History Medical History (Updated 03/27/20 @ 11:04 by Lupe Rubio PA-C) Acute ST elevation myocardial infarction (STEMI) Angioedema due to angiotensin converting enzyme inhibitor (KENDELL-I) Atrial fibrillation follows with Dr. Damico Chronic venous stasis dermatitis Diabetes mellitus, type 2 Elevated troponin Hyperlipidemia Hypertension On anticoagulant therapy warfarin daily Surgical History (Updated 03/27/20 @ 10:58 by Lupe Rubio PA-C) History of colonoscopy Hx of prostate biopsy benign S/P coronary artery stent placement Successful PCI of mid LAD with single drug-eluting stent (3.0 x 33 mm Xience; postdilated with 4.0 NC) Dr Flores, 03/27/20 Family History (Updated 03/27/20 @ 10:59 by Lupe Rubio PA-C) Father Family history of reaction to anesthesia "heart rate went irregular, was able to fix quick", not sure what he had done or what he was given Cancer Mother Diabetes Sister Celiac disease Denies family history of Heart disease Myocardial infarction Social History (Updated 03/27/20 @ 10:59 by Lupe Rubio PA-C) Smoking Status: Former smoker packs per day: 1; Years Smoked: 15; Smoking End Date: 1987; Second Hand Exposure: No; Hx Alcohol Use: No Hx Substance Use: No Preferred Language: Kyrgyz Communication Ability: Effective Buggy Operator Required: No Beliefs That Will Affect Care: None marital status: Current Living Situation: Spouse current occupational status: employed 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 Travel Feels Safe at Home: Yes Safety Concerns: Feels Safe At This Time Assistive Devices: Glasses Review of Systems Review of Systems: All systems reviewed & are unremarkable except as noted in HPI & below Physical Exam Physical Exam: Constitutional: Morbidly obese, male, unkempt facial hair, WD/WN, vitals as above, NAD, sitting up in bed, pleasant, conversing easily Head: Normocephalic, Atraumatic Eyes: PERRL, conjunctivae normal, anicteric sclerae ENMT: external ear and nose normal, oropharynx normal Neck: trachea midline, no thyromegaly normal visual inspection Respiratory: normal respiratory effort, lungs clear to auscultation, no wheeze, rales, rhonchi. Normal insp/exp effort, no accessory muscle use Cardiovascular: RRR, no murmur, significant lower extremity lymphedema with nodular change, right greater than left, erythema and warmth to lateral right pretibial region, negative Homans Vessels: no JVD or carotid bruit Chest: normal inspection of chest Abdomen: normal bowel sounds, soft, nontender, no hepatosplenomegaly Musculoskeletal: no cyanosis or clubbing, extremities motor strength 5/5 Skin: no rashes, warm and dry normal turgor Neurologic: PERRL, EOMI, accommodation nl, no face palsy, no dysarthria CN's II-XI intact bilaterally and moves all extremities Psychiatric: A+Ox3, euthymic affect : deferred Results & Data Results & Data ([facility]) Vital Signs (Past 12 Hours) Vital Signs Temp Pulse Pulse Resp BP Pulse Ox 03/27/20 09:30 68 14 94 03/27/20 09:21 68 17 94 03/27/20 09:19 68 15 148/80 H 96 03/27/20 09:10 68 16 96 03/27/20 09:04 73 16 152/89 H 94 03/27/20 09:00 69 15 95 03/27/20 08:51 69 16 95 03/27/20 08:49 36.9 C 69 16 154/84 H 95 03/27/20 08:45 74 14 94 03/27/20 08:35 36.3 C L 70 16 93 03/27/20 08:33 73 14 149/90 H 93 03/27/20 08:30 79 20 94 03/27/20 07:08 66 20 126/68 96 03/27/20 06:41 36.7 C 67 21 127/73 96 Diagnostic Findings CXR: IMPRESSION: Cardiomegaly and suspected mild pulmonary vascular congestion. No evidence of focal pulmonary consolidation Cardiac Cath Findings: LM -large caliber, angiographically normal LAD -large caliber, 100% acute earlymid LAD occlusion just after takeoff of first septal Circumflex -large caliber, no significant disease RCA -dominant, large caliber, no significant disease LVEDP -29 -- PCI -- Antithrombotic therapy: Heparin, ticagrelor, IC Integrilin Procedure: Left main cannulated with EBU 3.5 guide BMW wire passed across lesion into distal vessel Mid LAD lesion predilated with 2.5 and 3.0 compliant balloons Dilated lesion stented with 3.0 x 33 mm Xience Sophia drug-eluting stent Stent post-dilated with 4.0 noncompliant balloon IC vasodilators administered for spasm Post procedure CHARLES 3 flow, stent well expanded with minimal residual stenosis and no apparent cardiac complications. Arterial Closure: TR band Summary: 1. Anterior STEMI/100% acute earlymid LAD occlusion 2. Minimal nonculprit CAD 3. Elevated intracardiac filling pressure 4. Successful PCI of mid LAD with single drug-eluting stent (3.0 x 33 mm Xience; postdilated with 4.0 NC). Recommendations: Admit to ICU for continued monitoring Loaded with ticagrelor 180 mg in [facility] Continue dual-antiplatelet therapy for at least 1 year. Trend troponins until peak, Check Echo Uptitrate beta-sudheer High-dose statin Consult cardiac Rehab Medications Administered Aspirin (Aspirin 81 Mg Ectab) 81 mg PO QAM [facility] Stop: 04/26/20 08:59 Last Admin: 03/27/20 10:40 Dose: 81 mg Documented by: [id number] Atorvastatin Calcium (Atorvastatin 40 Mg Tab) 80 mg PO QAM [facility] Stop: 04/26/20 08:59 Last Admin: 03/27/20 10:40 Dose: 80 mg Documented by: [id number] Ceftriaxone Sodium 2,000 mg/ (Dextrose) 70 mls @ 140 mls/hr IV Q24H [facility] Stop: 04/03/20 10:29 Last Admin: 03/27/20 10:40 Dose: 140 mls/hr Documented by: [id number] Metoprolol Tartrate (Metoprolol Tartrate 25 Mg Tab) 25 mg PO BID [facility] Stop: 04/26/20 08:59 Last Admin: 03/27/20 10:40 Dose: 25 mg Documented by: [id number] Spironolactone (Spironolactone 25 Mg Tab) 25 mg PO QAM [facility] Stop: 04/26/20 08:59 Last Admin: 03/27/20 10:40 Dose: 25 mg Documented by: [id number] Discontinued Medications Bivalirudin (Bivalirudin 250 Mg Vial ([facility] Only)) Confirm Administered Dose 250 mg .ROUTE .STK-MED ONE Stop: 03/27/20 06:41 Last Admin: 03/27/20 08:44 Dose: Not Given Documented by: [id number] Eptifibatide (Eptifibatide 2 Mg/Ml 10 Ml Vial ([facility] Use Only)) Confirm Administered Dose 20 mg IV .STK-MED ONE Stop: 03/27/20 07:33 Last Admin: 03/27/20 08:46 Dose: Not Given Documented by: [id number] Eptifibatide (Eptifibatide 0.75 Mg/Ml 75mg Vial ([facility] Use Only)) Confirm Administered Dose 75 mg .ROUTE .STK-MED ONE Stop: 03/27/20 07:34 Last Admin: 03/27/20 08:46 Dose: Not Given Documented by: [id number] Eptifibatide (Eptifibatide 2 Mg/Ml 10 Ml Vial ([facility] Use Only)) Confirm Administered Dose 20 mg IV .STK-MED ONE Stop: 03/27/20 07:36 Last Admin: 03/27/20 08:46 Dose: Not Given Documented by: [id number] Fentanyl Citrate (Fentanyl Citrate 100 Mcg/2 Ml Vial) Confirm Administered Dose 100 mcg .ROUTE .STK-MED ONE Stop: 03/27/20 06:34 Last Admin: 03/27/20 07:03 Dose: 100 mcg Documented by: [id number] Fentanyl Citrate (Fentanyl Citrate 100 Mcg/2 Ml Vial) Confirm Administered Dose 100 mcg .ROUTE .STK-MED ONE Stop: 03/27/20 07:03 Last Admin: 03/27/20 08:45 Dose: Not Given Documented by: [id number] Fentanyl Citrate (Fentanyl Citrate 100 Mcg/2 Ml Vial) 100 mcg IV NOW STA Stop: 03/27/20 07:05 Last Admin: 03/27/20 08:45 Dose: Not Given Documented by: [id number] Fentanyl Citrate (Fentanyl Citrate 100 Mcg/2 Ml Vial) Confirm Administered Dose 100 mcg .ROUTE .STK-MED ONE Stop: 03/27/20 08:17 Last Admin: 02/16/21 08:46 Dose: Not Given Documented by: [id number] Heparin Sodium (Porcine) (Heparin (Porcine) 1000 Unit/Ml 10 Ml ([facility] Use Only)) Confirm Administered Dose 10,000 units .ROUTE .STK-MED ONE Stop: 03/27/20 06:34 Last Admin: 03/27/20 08:44 Dose: Not Given Documented by: [id number] Heparin Sodium (Porcine) (Heparin Sod (Porcine) 1000 Unit/Ml 10 Ml Vial) Confirm Administered Dose 10,000 units .ROUTE .STK-MED ONE Stop: 03/27/20 06:54 Last Admin: 03/27/20 08:45 Dose: Not Given Documented by: [id number] Heparin Sodium/Sodium Chloride (Heparin In Nss Infusion 1000 Unit/500 Ml (2 U/Ml) Bag) Confirm Administered Dose 3,000 units IV .STK-MED ONE Stop: 03/27/20 06:34 Last Admin: 03/27/20 08:44 Dose: Not Given Documented by: [id number] Heparin Sodium/Sodium Chloride (Heparin In Nss Infusion 1000 Unit/500 Ml (2 U/Ml) Bag) Confirm Administered Dose 3,000 units IV .STK-MED ONE Stop: 03/27/20 08:17 Last Admin: 03/27/20 08:46 Dose: Not Given Documented by: [id number] Insulin Glargine (Insulin Glargine Solostar 100 Units/Ml 3 Ml Pen) 20 units SC NOW STA Stop: 03/27/20 10:20 Last Admin: 03/27/20 10:41 Dose: 20 units Documented by: [id number] Cosigned by: [id number] Midazolam HCl (Midazolam Hcl 1 Mg/Ml 2ml Vial) Confirm Administered Dose 2 mg .ROUTE .STK-MED ONE Stop: 03/27/20 06:33 Last Admin: 03/27/20 08:43 Dose: Not Given Documented by: [id number] Midazolam HCl (Midazolam Hcl 1 Mg/Ml 2ml Vial) Confirm Administered Dose 2 mg .ROUTE .STK-MED ONE Stop: 03/27/20 08:17 Last Admin: 03/27/20 08:46 Dose: Not Given Documented by: [id number] Nicardipine HCl (Nicardipine Hcl Inj 2.5 Mg/Ml 10 Ml Amp) Confirm Administered Dose 25 mg .ROUTE .STK-MED ONE Stop: 03/27/20 06:34 Last Admin: 03/27/20 08:44 Dose: Not Given Documented by: [id number] Nitroglycerin/Dextrose (Nitroglycerin/D5w 100mcg/Ml 20ml Syr) Confirm Administered Dose 2,000 mcg .ROUTE .STK-MED ONE Stop: 03/27/20 06:34 Last Admin: 03/27/20 08:44 Dose: Not Given Documented by: [id number] Ticagrelor (Ticagrelor 90 Mg Tab) Confirm Administered Dose 180 mg PO .STK-MED ONE Stop: 03/27/20 06:54 Last Admin: 03/27/20 08:46 Dose: 180 mg Documented by: [id number] ECG Rate (beats per minute): 70 Findings: + acute ischemic change COVID-19 Results Results COVID-19 Adm Lab Results: RBC 5.19 M/uL (4.7-6.1) 03/27/20 WBC 10.53 K/uL (4.8-10.8) 03/27/20 Hgb 14.8 g/dL (14.0-18.0) 03/27/20 Hct 44.1 % (42-52) 03/27/20 Plt Count 218 K/uL (130-400) 03/27/20 Neutrophils (%) (Auto) 68.9 % 03/27/20 Lymphocytes (%) (Auto) 19.8 % 03/27/20 Monocytes # (Auto) 0.72 K/uL (0.11-0.59) H 03/27/20 Eosinophils # (Auto) 0.40 K/uL (0-0.5) 03/27/20 Immature Granulocyte % (Auto) 0.4 % 03/27/20 Neutrophils # (Auto) 7.25 K/uL (1.4-6.5) H 03/27/20 Lymphocytes # (Auto) 2.09 K/uL (1.2-3.4) 03/27/20 Monocytes # (Auto) 0.72 K/uL (0.11-0.59) H 03/27/20 Eosinophils # (Auto) 0.40 K/uL (0-0.5) 03/27/20 Basophils # (Auto) 0.03 K/uL (0-0.2) 03/27/20 Immature Granulocyte # (Auto) 0.04 K/uL (0.00-0.02) H 03/27/20 Na 141 mmol/L (136-145) 03/27/20 K 4.2 mmol/L (3.5-5.1) 03/27/20 Cl 109 mmol/L (98-107) H 03/27/20 CO2 24 mmol/L (21-32) 03/27/20 Anion Gap 8.0 (3-11) 03/27/20 BUN 20 mg/dl (7-18) H 03/27/20 Creatinine 0.98 mg/dl (0.6-1.4) 03/27/20 BUN/Creatinine Ratio 20.3 (10-20) H 03/27/20 Glucose Level 182 mg/dl (70-99) H 03/27/20 Ca 9.3 mg/dl (8.5-10.1) 03/27/20 Total Bilirubin 0.3 mg/dl (0.2-1) 03/27/20 AST/SGOT 20 U/L (15-37) 03/27/20 ALT/SGPT 29 U/L (12-78) 03/27/20 Alkaline Phosphatase 78 U/L (45-117) 03/27/20 Total Protein 7.4 gm/dl (6.4-8.2) 03/27/20 Albumin 3.3 gm/dl (3.4-5.0) L 03/27/20 Globulin 4.1 gm/dl (2.5-4.0) H 03/27/20 Albumin/Globulin Ratio 0.8 (0.9-2) L 03/27/20 Total CK 90 U/L (39-308) 03/27/20 Troponin I 0.554 ng/ml (0-0.045) H* 03/27/20 Procalcitonin < 0.05 ng/ml (0-0.5) 03/27/20 PTT 23.9 Seconds (21.0-31.0) 03/27/20 INR 1.0 (0.9-1.1) 03/27/20 SARS-CoV-2, RNA, NAAT NEGATIVE (NEGATIVE) 03/27/20 Chest X-Ray 03/27/20 Code Status & VTE Plan Code Status Full Code VTE Prophylaxis Plan VTE Prophylaxis will be ordered: Yes Supervising Physician Co-Signing Physician Notes - STEMI status post PCI of mid LAD with a drug-eluting stent -Concern for possible lower extremity cellulitis - History of hypertension, hyperlipidemia, diabetes mellitus type 2, morbid obesity, obesity hypoventilation syndrome, paroxysmal atrial fibrillation not taking anticoagulation by choice, angioedema with KENDELL - Noncompliance Patient was seen in the ICU post cardiac catheterization. He was doing okay. Still continues to have minimal chest pain. Hemodynamically doing okay. Rest of the review of system is negative. Continue dual antiplatelet therapy for at least 1 year as per cardiology. Continue to trend troponin. Thoracic echo is pending. Continue with beta- sudheer and statin. Cardiac rehab at discharge. Started on ceftriaxone for possible lower extremity cellulitis. Thoracic echo is pending. I performed a history and physical examination of the patient on 03/27/20, including specifically History & Physical. I have discussed the patient's management with the advanced practitioner. Please refer to the Lupe Rubio note for the documented findings and plan of care.
[2020-03-27] MEDS ORDERED: CARBOHYDRATES FOR HYPOGLYCEMIA PO PRN (10:03)
[2020-03-27] MEDS ORDERED: GLUCOSE 40% GEL 15 GM TUBE PO PRN (10:03)
[2020-03-27] MEDS ORDERED: DEXTROSE 50% 50 ML SYRINGE IV PRN (10:03)
[2020-03-27] MEDS ORDERED: GLUCAGON FOR INJ 1 MG VIAL SQ PRN (10:03)
[2020-03-27] MEDS ORDERED: GLUCOSE 10 TABS/TUBE PO PRN (10:03)
--- NOTE | 2020-03-27 10:12 | Cardiology Consultation ---
Date of Consultation March 27, 2020 Assessment & Plan (1) Acute ST elevation myocardial infarction (STEMI): (2) Angioedema due to angiotensin converting enzyme inhibitor (EVERETT-I): (3) Hypertension: (4) Hyperlipidemia: (5) Diabetes mellitus: (6) Morbid obesity: (7) Obesity hypoventilation syndrome: (8) Obstructive sleep apnea: (9) Paroxysmal atrial fibrillation with rapid ventricular response: (10) Chronic venous stasis dermatitis: The patient presented with acute ST segment elevation myocardial infarction due to acute occlusion of his mid LAD. He underwent successful intervention with a drug-eluting stent x1 to the mid LAD and loaded with ticagrelor He has been doing well in the intensive care unit since intervention. a single 11 beat run of V. tach this afternoon, asymptomatic. Started on beta-blockade this a.m. Echocardiogram shows moderately reduced LV systolic function with hypokinesis of the LAD distribution. We will transition to evidence-based beta-sudheer in the a.m. Given his history of angioedema due to EVERETT inhibitor no EVERETT or ARB will be initiated. We will likely start on spironolactone prior to discharge to help improve his EF. We will continue to monitor in the ICU for 24 hours and then on telemetry for 48. Patient states he agrees with the above plan. History of Present Illness Attending Physician: Gold Flores MD History of Present Illness Patient seen and examined status post PCI in the ICU. Currently out of bed in chair states that he feels well. Still some slight chest discomfort, 1 out of 10 but nowhere near as severe as presentation. He awoke this morning feeling ill. He thought he was having a very severe case of acid reflux with severe burning in the center of his chest that also had a pressure component to it. He was diaphoretic and short of breath. He became concerned and called his son who was able to rendezvous him with the ambulance. EKG in the field showed ST segment elevations in the inferior and anterior leads and a heart alert was called. He was taken emergently to the cardiac Director Of Instruction where he was found to have a 100% occlusion of his early to mid LAD. He underwent successful PCI with drug-eluting stent and loaded with ticagrelor. Afterwards he was transferred to the ICU where he continued to have slight chest discomfort for the rest of the afternoon. Overall though he feels much better than presentation. He denies any previous similar episodes in the past. Past medical history as per most recent outpatient cardiology visit: 1. Paroxysmal atrial fibrillation, no recurrence on outpatient monitor. metoprolol. Patient chose to stop coumadin. 2. Angioedema from [place] inhibitors 3. Obesity 4. Diabetes mellitus 5. Hypo ventilations syndrome 6. Chronic diastolic HF 7. Hypertension Allergies Allergy/AdvReac Type Severity Reaction Status Date / Time lisinopril Allergy Severe Difficulty Verified 03/27/20 06:43 Breathing Home Medications Medication Instructions Recorded Confirmed Type potassium chloride [Klor-Con] 20 meq PO BID #100 ea 12/21/17 03/27/20 Rx aspirin 81 mg PO QAM 03/05/18 03/27/20 History furosemide [Lasix] 40 mg PO QAM 03/05/18 03/27/20 History metoprolol succinate 25 mg PO QAM 03/05/18 03/27/20 History spironolactone 25 mg PO QAM 03/05/18 03/27/20 History atorvastatin 40 mg PO HS 03/27/20 03/27/20 History empagliflozin 25 mg PO DAILY 03/27/20 03/27/20 History metformin 2,000 mg PO PM 03/27/20 03/27/20 History Patient History Medical History Acute ST elevation myocardial infarction (STEMI) Angioedema due to angiotensin converting enzyme inhibitor (EVERETT-I) Atrial fibrillation follows with Dr. Damico Chronic venous stasis dermatitis Diabetes mellitus, type 2 Elevated troponin Hyperlipidemia Hypertension On anticoagulant therapy warfarin daily Surgical History History of colonoscopy Hx of prostate biopsy benign S/P coronary artery stent placement Successful PCI of mid LAD with single drug-eluting stent (3.0 x 33 mm Xience; postdilated with 4.0 NC) Dr Flores, 03/27/20 Family History Father Family history of reaction to anesthesia "heart rate went irregular, was able to fix quick", not sure what he had done or what he was given Cancer Mother Diabetes Sister Celiac disease Denies family history of Heart disease Myocardial infarction Social History Smoking Status: Former smoker packs per day: 1; Years Smoked: 15; Smoking End Date: 1987; Second Hand Exposure: No; Hx Alcohol Use: No Hx Substance Use: No Preferred Language: Azeri Communication Ability: Effective Commissioned Police Officer Required: No Beliefs That Will Affect Care: None marital status: Current Living Situation: Spouse current occupational status: employed 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 Feels Safe at Home: Yes Safety Concerns: Feels Safe At This Time Assistive Devices: Glasses Review of Systems Review of Systems: All systems reviewed & are unremarkable except as noted in HPI & below Results & Data ([facility]) Vital Signs (Past 12 Hours) Vital Signs Temp Pulse Pulse Resp BP Pulse Ox 03/27/20 09:30 68 14 94 03/27/20 09:21 68 17 94 03/27/20 09:19 68 15 148/80 H 96 03/27/20 09:10 68 16 96 03/27/20 09:04 73 16 152/89 H 94 03/27/20 09:00 69 15 95 03/27/20 08:51 69 16 95 03/27/20 08:49 36.9 C 69 16 154/84 H 95 03/27/20 08:45 74 14 94 03/27/20 08:35 36.3 C L 70 16 93 03/27/20 08:33 73 14 149/90 H 93 03/27/20 08:30 79 20 94 03/27/20 07:08 66 20 126/68 96 03/27/20 06:41 36.7 C 67 21 127/73 96 Laboratory Results Laboratory Results - last 24 hr 03/27/20 03/27/20 03/27/20 06:42 06:42 06:43 WBC 10.53 RBC 5.19 Hgb 14.8 POC Hgb Hct 44.1 POC Hct MCV 85.0 MCH 28.5 MCHC 33.6 RDW Std Deviation 44.1 RDW Coeff of Stella 14.2 Plt Count 218 MPV 10.2 Immature Gran % (Auto) 0.4 Neut % (Auto) 68.9 Lymph % (Auto) 19.8 [place] % (Auto) 6.8 Eos % (Auto) 3.8 Baso % (Auto) 0.3 Neut # (Auto) 7.25 H Lymph # (Auto) 2.09 [place] # (Auto) 0.72 H Eos # (Auto) 0.40 Baso # (Auto) 0.03 Immature Gran # (Auto) 0.04 H PT INR APTT PTT Ratio Activ Coag Time Kaolin POC Sodium Sodium POC Potassium Potassium POC Chloride Chloride Carbon Dioxide POC Total CO2 Anion Gap POC Anion Gap POC BUN BUN Creatinine POC Creatinine Est Cr Clr Drug Dosing Est GFR ( Amer) Est GFR (Non-Af Amer) BUN/Creatinine Ratio Glucose POC Glucose (other) Calcium POC Ioniz Calcium [place] Magnesium Total Bilirubin AST ALT Alkaline Phosphatase Total Creatine Kinase CK-MB (CK-2) CK/CKMB % Calc Troponin I Total Protein Albumin Globulin Albumin/Globulin Ratio Lipase TSH Nasal Screen MRSA (PCR) COVID-19 Eval [facility] SARS-CoV-2, RNA, NAAT NEGATIVE 03/27/20 03/27/20 03/27/20 06:43 06:43 06:59 WBC RBC Hgb POC Hgb 14.3 Hct POC Hct 42 MCV MCH MCHC RDW Std Deviation RDW Coeff of Stella Plt Count MPV Immature Gran % (Auto) Neut % (Auto) Lymph % (Auto) [place] % (Auto) Eos % (Auto) Baso % (Auto) Neut # (Auto) Lymph # (Auto) [place] # (Auto) Eos # (Auto) Baso # (Auto) Immature Gran # (Auto) PT 10.0 INR 1.0 APTT 23.9 PTT Ratio 0.9 Activ Coag Time Kaolin POC Sodium 139 Sodium 141 POC Potassium 4.0 Potassium 4.2 POC Chloride 105 Chloride 109 H Carbon Dioxide 24 POC Total CO2 23 L Anion Gap 8.0 POC Anion Gap 16.0 POC BUN 20 H BUN 20 H Creatinine 0.98 POC Creatinine 0.8 Est Cr Clr Drug Dosing 138.0 Est GFR ( Amer) 96.7 Est GFR (Non-Af Amer) 83.5 BUN/Creatinine Ratio 20.3 H Glucose 182 H POC Glucose (other) 191 H Calcium 9.3 POC Ioniz Calcium [place] 1.24 Magnesium 2.1 Total Bilirubin 0.3 AST 20 ALT 29 Alkaline Phosphatase 78 Total Creatine Kinase 90 CK-MB (CK-2) 3.6 CK/CKMB % Calc 4.0 H Troponin I 0.554 H* Total Protein 7.4 Albumin 3.3 L Globulin 4.1 H Albumin/Globulin Ratio 0.8 L Lipase 222 TSH 3.220 Nasal Screen MRSA (PCR) COVID-19 Eval Order SARS-CoV-2, RNA, NAAT 03/27/20 03/27/20 03/27/20 07:34 07:56 08:55 WBC RBC Hgb POC Hgb Hct POC Hct MCV MCH MCHC RDW Std Deviation RDW Coeff of Stella Plt Count MPV Immature Gran % (Auto) Neut % (Auto) Lymph % (Auto) [place] % (Auto) Eos % (Auto) Baso % (Auto) Neut # (Auto) Lymph # (Auto) [place] # (Auto) Eos # (Auto) Baso # (Auto) Immature Gran # (Auto) PT INR APTT PTT Ratio Activ Coag Time Kaolin 246 H 263 H POC Sodium Sodium POC Potassium Potassium POC Chloride Chloride Carbon Dioxide POC Total CO2 Anion Gap POC Anion Gap POC BUN BUN Creatinine POC Creatinine Est Cr Clr Drug Dosing Est GFR ( Amer) Est GFR (Non-Af Amer) BUN/Creatinine Ratio Glucose POC Glucose (other) Calcium POC Ioniz Calcium [place] Magnesium Total Bilirubin AST ALT Alkaline Phosphatase Total Creatine Kinase CK-MB (CK-2) CK/CKMB % Calc Troponin I Total Protein Albumin Globulin Albumin/Globulin Ratio Lipase TSH Nasal Screen MRSA (PCR) Pending COVID-19 Eval Order SARS-CoV-2, RNA, NAAT Medications Administered Current Inpatient Medications Acetaminophen (Acetaminophen 325 Mg Tab) 650 mg PO Q4H PRN PRN Reason: MILD Pain (Scale 1,2,3) Stop: 04/26/20 08:13 Aspirin (Aspirin 81 Mg Ectab) 81 mg PO QAM [facility] Stop: 04/26/20 08:59 Atorvastatin Calcium (Atorvastatin 40 Mg Tab) 80 mg PO QAM [facility] Stop: 04/26/20 08:59 Dextrose (Dextrose 50% 50 Ml Syringe) 25 - 50 ml IV UD PRN; Protocol PRN Reason: Hypoglycemia Protocol Stop: 04/26/20 10:02 Glucagon (Glucagon For Inj 1 Mg Vial) 1 mg SQ UD PRN; Protocol PRN Reason: Hypoglycemia Protocol Stop: 04/26/20 10:02 Glucose (Glucose 10 Tabs/Tube) 4 - 8 tabs PO UD PRN; Protocol PRN Reason: Hypoglycemia Protocol Stop: 04/26/20 10:02 Glucose (Glucose 40% Gel 15 Gm Tube) 15 - 30 gm PO UD PRN; Protocol PRN Reason: Hypoglycemia Protocol Stop: 04/26/20 10:02 Ceftriaxone Sodium 2,000 mg/ (Dextrose) 70 mls @ 140 mls/hr IV Q24H [facility] Stop: 04/03/20 10:29 Metoprolol Tartrate (Metoprolol Tartrate 25 Mg Tab) 25 mg PO BID [facility] Stop: 04/26/20 08:59 Miscellaneous (Icu Protocol For Hyperglycemia) 1 ea N/A PRN PRN; Protocol PRN Reason: Hyperglycemia Protocol Stop: 03/29/20 08:13 Miscellaneous (Carbohydrates For Hypoglycemia ) 15 - 30 gm PO UD PRN PRN Reason: Hypoglycemia Protocol Stop: 04/26/20 10:02 Morphine Sulfate (Morphine Sulfate 2 Mg/Ml Carp) 2 mg IV Q2H PRN PRN Reason: MODERATE to SEVERE Pain Stop: 04/10/20 08:34 Nitroglycerin (Nitroglycerin Sl 0.4 Mg/Tab Tab) 0.4 mg SL PRN PRN PRN Reason: Chest Pain Stop: 04/26/20 08:13 Ondansetron HCl (Ondansetron Inj 2 Mg/Ml 2 Ml Vial) 4 mg IV Q6H PRN PRN Reason: Nausea And Vomiting Stop: 04/26/20 08:13 Spironolactone (Spironolactone 25 Mg Tab) 25 mg PO QAM [facility] Stop: 04/26/20 08:59 Ticagrelor (Ticagrelor 90 Mg Tab) 90 mg PO BID [facility] Stop: 04/26/20 18:14
[2020-03-27] MEDS ORDERED: cefTRIAXone SODIUM 2,000 MG in DEXTROSE 5% 50 ML IV SCH (10:15)
[2020-03-27] MEDS ORDERED: INSULIN GLARGINE SOLOSTAR 100 UNITS/ML 3 ML PEN SC STA (10:19)
[2020-03-27] MEDS ORDERED: PHARMACY GLYCEMIC MGMT CONSULT PRN (10:21)
[2020-03-27] MEDS: ASPIRIN 81 MG ECTAB PO SCH (10:40)
[2020-03-27] MEDS: cefTRIAXone SODIUM 2,000 MG in DEXTROSE 5% 50 ML IV SCH (10:40)
[2020-03-27] MEDS: METOPROLOL TARTRATE 25 MG TAB PO SCH ×2 (10:40→20:37)
[2020-03-27] MEDS: SPIRONOLACTONE 25 MG TAB PO SCH (10:40)
[2020-03-27] MEDS: ATORVASTATIN 40 MG TAB PO SCH (10:40)
[2020-03-27] MEDS: INSULIN ASPART 100 UNITS/ML 3 ML PEN SC SCH ×3 (12:27→20:37)
--- NOTE | 2020-03-27 12:30 | Ultrasound Report ---
BILATERAL LOWER EXTREMITY VENOUS DOPPLER HISTORY: Acute edema of the bilateral lower legs edema COMPARISON STUDY: Duplex venous Doppler study 09/07/2015. FINDINGS: There is normal compressibility, flow, and augmentation within the bilateral lower extremit y deep venous systems. Subcutaneous edema is noted bilaterally. IMPRESSION: No DVT within the right or left lower extremity. ACT 112: Negative or not required by law. Electronically signed by: Miguel Angel Raphael M.D. 03/27/2020 12:29 PM
--- NOTE | 2020-03-27 15:12 | Pharmacy Report ---
Pharmacy Glycemic Short Note 2 - Date of Service March 27, 2020 - Glycemic Short BSG Results (Last 24 hours): 03/27/20 03/27/20 03/27/20 06:43 06:59 11:36 Glucose 182 H POC Glucose 125 H POC Glucose (other) 191 H OUTPATIENT ANTIDIABETIC REGIMEN: * empagliflozin 25 mg PO QD * Metformin 2000mg qpm ASSESSMENT: * Patient presenting post STEMI with some hyperglycemia this morning. * Will utilize a moderate stress weight based dosing regimen using adjusted body weight given BMI > 50. * Patient is tolerating a diet. PLAN FOR INPATIENT GLYCEMIC CONTROL: * Hold outpatient oral diabetes medications * Basal insulin * Lantus 20 units SQ this morning X 1 * 0,10,or 20 units this evening per BSG-See MAR for details * Bolus insulin * NovoLog per scale ACHS or Q6hrs while NPO * Goal Range: Low 110 mg/dL - High 140 mg/dL * Correction Factor: 20 mg/dL/unit * Nutritional / Prandial insulin per carb ratio of 1 unit per 6 grams CHO consumed
[2020-03-27] MEDS: TICAGRELOR 90 MG TAB PO SCH (18:09)
[2020-03-27 19:50] LABS: BUN Creatinine Ratio 14.5 (10-20); Calcium 9.9 mg/dl (8.5-10.1); Creatinine Clr Calc Pharmacy 109.1 ml/min; Est GFR (African American) 72.8; Est GFR (Non-African American) 62.8; Potassium 3.9 mmol/L (3.5-5.1)
[2020-03-27] MEDS: INSULIN GLARGINE SOLOSTAR 100 UNITS/ML 3 ML PEN SC SCH (20:37)
[2020-03-28] MEDS: TICAGRELOR 90 MG TAB PO SCH ×3 (00:59→20:07)
[2020-03-28] MEDS ORDERED: POTASSIUM CHLORIDE / WTR 10 MEQ/100 ML PLCT IV ONE (02:34)
[2020-03-28] MEDS ORDERED: POTASSIUM CHLORIDE CRTAB 20 MEQ TABCR PO STA ×2 (02:35→07:07)
[2020-03-28 05:18] LABS: Basophils # (auto) 0.04 K/uL (0-0.2); Basophils % (auto) 0.3 %; Eosinophils # (auto) 0.37 K/uL (0-0.5); Eosinophils % (auto) 2.7 %; Hematocrit (blood only) 46.3 % (42-52); Hemoglobin 15.4 g/dL (14.0-18.0); Immature Granulocytes # (auto) 0.03 K/uL (0.00-0.02); Immature Granulocytes % (auto) 0.2 %; Lymphocytes # (auto) 2.66 K/uL (1.2-3.4); Lymphocytes % (auto) 19.3 %; Mean Corpuscular Hemoglobin 28.4 pg (25-34); Mean Corpuscular Hgb Conc 33.3 g/dL (32-36); Mean Corpuscular Volume 85.3 fL (80-100); Mean Platelet Volume 9.9 fL (7.4-10.4); Monocytes # (auto) 1.29 K/uL (0.11-0.59); Monocytes % (auto) 9.4 %; Neutrophils % (auto) 68.1 %; Platelet Count 290 K/uL (130-400); RDW Coefficient of Variation 14.4 % (11.5-14.5); RDW Standard Deviation 44.9 fL (36.4-46.3); Red Blood Count 5.43 M/uL (4.7-6.1); White Blood Count 13.79 K/uL (4.8-10.8)
[2020-03-28 05:44] LABS: BUN Creatinine Ratio 14.1 (10-20); Blood Urea Nitrogen 16 mg/dl (7-18); Calcium 9.3 mg/dl (8.5-10.1); Carbon Dioxide 26 mmol/L (21-32); Chloride 106 mmol/L (98-107); Creatinine Clr Calc Pharmacy 117.6 ml/min; Est GFR (African American) 79.7; Est GFR (Non-African American) 68.8; Glucose 149 mg/dl (70-99); Magnesium 2.2 mg/dl (1.8-2.4); Potassium 3.9 mmol/L (3.5-5.1); Sodium 139 mmol/L (136-145)
--- NOTE | 2020-03-28 06:00 | Electrocardiogram Report ---
Test Reason : Blood Pressure : / mmHG Vent. Rate : 062 BPM Atrial Rate : 062 BPM P-R Int : 172 ms QRS Dur : 112 ms QT Int : 420 ms P-R-T Axes : 067 000 063 degrees QTc Int : 426 ms Normal sinus rhythm Low voltage QRS ST elevation, consider anterior STEMI ACUTE OR / STEMI Abnormal ECG When compared with ECG of 21-DEC-2017 08:57, Acute Anterior infarct is now Present Confirmed by Waldemar Cook ([id number]) on 03/28/2020 6:00:16 AM Referred By: REFERRED SELF Confirmed By:Waldemar Cook
--- NOTE | 2020-03-28 06:09 | Electrocardiogram Report ---
Test Reason : Blood Pressure : / mmHG Vent. Rate : 070 BPM Atrial Rate : 070 BPM P-R Int : 176 ms QRS Dur : 104 ms QT Int : 406 ms P-R-T Axes : 069 -18 063 degrees QTc Int : 438 ms Normal sinus rhythm Low voltage QRS Inferior infarct Anterior infarct Abnormal ECG When compared with ECG of 27-MAR-2020 06:39, Serial changes of evolving Anterior infarct Present Confirmed by Waldemar Cook ([id number]) on 03/28/2020 6:09:19 AM Referred By: REFERRED SELF Confirmed By:Waldemar Cook
[2020-03-28 06:10] LABS: Chol HDL Ratio 3; Cholesterol 106 mg/dl (0-200); HDL Cholesterol 37 mg/dl; LDL Cholesterol Direct 57 mg/dl; Triglycerides 122 mg/dl (0-150); VLDL Cholesterol 24 mg/dl
[2020-03-28 07:13] LABS: Estimated Average Glucose 180 mg/dl; Hemoglobin A1C 7.9 % (4.5-5.6)
[2020-03-28] MEDS: ASPIRIN 81 MG ECTAB PO SCH (07:42)
[2020-03-28] MEDS: SPIRONOLACTONE 25 MG TAB PO SCH (07:42)
[2020-03-28] MEDS: ATORVASTATIN 40 MG TAB PO SCH (07:43)
[2020-03-28] MEDS: METOPROLOL SUCC 50MG EXT REL TAB PO SCH (07:43)
[2020-03-28] MEDS: INSULIN ASPART 100 UNITS/ML 3 ML PEN SC SCH ×4 (07:44→20:06)
[2020-03-28] MEDS ORDERED: INSULIN GLARGINE SOLOSTAR 100 UNITS/ML 3 ML PEN SC SCH (09:00)
--- NOTE | 2020-03-28 09:09 | Critical Care Progress Note ---
Date of Service March 28, 2020 Assessment & Plan (1) Acute ST elevation myocardial infarction (STEMI): Continue high-dose statin, aspirin, Brilinta and beta-sudheer. Not a candidate for KENDELL inhibitors due to history of angioedema. Placed on angiotensin receptor sduheer by cardiology. He is currently on spironolactone for low EF. EF of 35 to 40%. Severe septal hypokinesis and severe anterior wall hypokinesis. Rocephin was started by the hospitalist service for lower extremity cellulitis. Pro-Davon was negative. Patient was on oral antibiotics as an outpatient. ICU will sign off at this time. Patient is stable for downgrade to the floor with telemetry. (2) Obstructive sleep apnea: (3) Hypertension: (4) Elevated troponin: (5) Chronic venous stasis dermatitis: Admission and Anticipated Discharge Date Admission Date: March 27, 2020 Subjective Patient hemodynamically stable with no significant tachyarrhythmias overnight. He denies any chest pain. Eating his breakfast and tolerating it well. Review of Systems Review of Systems: All systems reviewed & are unremarkable except as noted in HPI & below Physical Exam Constitutional: WD/WN, vitals as above + obese Eyes: PERRL, conjunctivae normal, anicteric sclerae ENMT: external ear and nose normal, oropharynx normal Neck: trachea midline, no thyromegaly Respiratory: normal respiratory effort, lungs clear to auscultation Cardiovascular: RRR, no murmur, no edema Gastrointestinal (Abdomen): normal bowel sounds, soft, nontender, no hepatosplenomegaly Musculoskeletal: no cyanosis or clubbing, extremities motor strength 5/5 Skin: no rashes, warm and dry Neurologic: PERRL, EOMI, accommodation nl, no face palsy, no dysarthria Psychiatric: A+Ox3, euthymic affect Results & Data Results & Data ([facility]) Vital Signs (Past 12 Hours) Vital Signs Temp Pulse Resp BP Pulse Ox 03/28/20 08:00 98.1 F 76 24 94 03/28/20 07:05 64 17 154/89 H 93 03/28/20 07:00 66 18 93 03/28/20 06:05 64 17 159/79 H 93 03/28/20 06:00 69 20 95 03/28/20 05:50 63 17 93 03/28/20 05:40 63 18 95 03/28/20 05:30 64 18 94 02/21 05:20 66 18 93 21 05:14 63 16 144/83 H 94 03/28/20 05:10 73 27 H 95 03/28/20 05:09 72 18 94 0221 05:00 74 30 H 94 03/28/20 04:51 79 18 161/85 H 95 03/28/20 04:50 72 17 93 03/28/20 04:40 60 18 95 03/28/20 04:35 60 17 95 02 04:30 61 17 94 03/28/20 04:20 66 17 150/91 H 92 03/28/20 04:10 62 17 94 03/28/20 04:00 98.1 F 68 18 94 03/28/20 03:51 66 19 122/82 92 03/28/20 03:50 62 16 94 03/28/20 03:40 66 15 94 03/28/20 03:35 67 18 147/82 H 92 03/28/20 03:30 64 18 93 03/28/20 03:20 62 16 137/88 92 03/28/20 03:10 63 17 95 03/28/20 03:05 66 19 144/98 H 94 03/28/20 03:00 66 16 94 03/28/20 02:50 57 L 15 122/84 93 03/28/20 02:40 63 19 94 03/28/20 02:35 62 17 130/82 92 03/28/20 02:30 72 19 92 03/28/20 02:20 61 17 126/79 93 03/28/20 02:10 62 17 93 03/28/20 02:05 62 17 108/74 93 03/28/20 02:00 60 16 93 0217/21 01:50 61 16 140/84 93 17/21 01:40 63 16 92 0217/21 01:35 60 18 128/81 93 17/21 01:30 61 16 93 0217/21 01:20 64 17 131/83 93 17/21 01:10 64 18 92 17/21 01:05 63 18 122/88 93 1721 01:00 64 17 92 1721 00:50 64 17 127/95 93 03/28/20 00:44 98.2 F 03/28/20 00:40 67 18 94 03/28/20 00:35 67 22 162/92 H 93 03/28/20 00:30 66 18 92 03/28/20 00:21 62 19 160/94 H 94 03/28/20 00:20 64 18 94 03/28/20 00:10 65 19 92 03/28/20 00:06 64 18 149/86 H 93 03/28/20 00:00 64 18 92 03/27/20 23:50 64 18 93 03/27/20 23:40 61 19 94 03/27/20 23:35 62 18 153/87 H 93 03/27/20 23:30 71 20 92 03/27/20 23:21 62 19 139/83 94 03/27/20 23:20 66 18 93 03/27/20 23:10 68 21 95 03/27/20 23:05 71 16 132/75 03/27/20 23:00 67 18 03/27/20 22:51 67 20 03/27/20 22:50 65 18 137/78 03/27/20 22:40 75 13 03/27/20 22:35 69 19 144/98 H 03/27/20 22:30 72 17 03/27/20 22:20 67 17 111/61 03/27/20 22:10 67 23 03/27/20 22:05 68 19 153/99 H 03/27/20 22:00 69 20 03/27/20 21:51 70 19 03/27/20 21:50 68 18 164/95 H 03/27/20 21:40 78 16 03/27/20 21:20 72 19 163/93 H 03/27/20 21:10 71 18 93 03/27/20 21:05 70 21 176/93 H 96 I reviewed vital signs, labs and imaging. Coding Level of Care Code 83833 Subseq Hosp Care Lvl [address] elevation myocardial infarction (STEMI) I21.3 Involved coronary artery: unspecified coronary artery Obstructive sleep apnea G47.33 Hypertension I10 Elevated troponin R77.8 Chronic venous stasis dermatitis I87.2 (1) Acute ST elevation myocardial infarction (STEMI) Involved coronary artery: unspecified coronary artery Qualified Code(s): I21.3 - ST elevation (STEMI) myocardial infarction of unspecified site
[2020-03-28] MEDS: cefTRIAXone SODIUM 2,000 MG in DEXTROSE 5% 50 ML IV SCH (10:27)
--- NOTE | 2020-03-28 11:32 | Cardiology Progress Note ---
Date of Service March 28, 2020 Assessment & Plan (1) Acute ST elevation myocardial infarction (STEMI): (2) Angioedema due to angiotensin converting enzyme inhibitor (KENDELL-I): (3) Hypertension: (4) Hyperlipidemia: (5) Diabetes mellitus: (6) Morbid obesity: (7) Obesity hypoventilation syndrome: (8) Obstructive sleep apnea: (9) Paroxysmal atrial fibrillation with rapid ventricular response: (10) Chronic venous stasis dermatitis: The patient presented with acute ST segment elevation myocardial infarction due to acute occlusion of his mid LAD. He underwent successful intervention with a drug-eluting stent x1 to the mid LAD and loaded with ticagrelor He has been doing well in the intensive care unit since intervention. No further significant ventricular ectopy, okay to transfer to telemetry. Tolerating beta-blockade well and will uptitrate as necessary. Given his history of angioedema due to KENDELL inhibitor no KENDELL or ARB will be initiated. We will take this opportunity to add spironolactone not only for further blood pressure control but also for aldosterone antagonism, will need follow-up blood work to follow his renal function and potassium levels as an outpatient. We will continue to monitor in the ICU for 24 hours and then on telemetry for 48. Patient states he agrees with the above plan. Admission and Anticipated Discharge Date Admission Date: March 27, 2020 Subjective Patient seen and examined, chart reviewed. No complaints overnight. Denies any chest pain, shortness of breath, palpitations, lightheadedness, dizziness or syncope. Telemetry reviewed: Normal sinus rhythm without further ventricular ectopy. Review of Systems Review of Systems: All systems reviewed & are unremarkable except as noted in HPI & below Physical Exam Physical Exam: General: Awake, alert and oriented x 3. No acute distress. HEENT: Normocephalic, atraumatic. Pupils equal, round and reactive to light and accommodation. Extraocular muscles are intact. Anicteric sclera. Moist mu cous membranes. Neck: No JVD. No bruit. Cardiovascular: Regular. Positive S-4. Normal S-1 and S-2. No S-3. No murmurs or rubs. Pulmonary: Clear to auscultation B/L. No rales, rhonchi or wheezing Abdomen: Bowel sounds x 4, soft. No rebound, guarding or tenderness. No organomegaly. Extremities: No clubbing, cyanosis or edema. +2 pedal pulses bilaterally. Skin: Warm and dry. Results & Data ([facility]) Vital Signs (Past 12 Hours) Vital Signs Temp Pulse Resp BP Pulse Ox 03/28/20 08:00 36.7 C 76 24 94 03/28/20 07:05 64 17 154/89 H 93 03/28/20 07:00 66 18 93 03/28/20 06:05 64 17 159/79 H 93 03/28/20 06:00 69 20 95 03/28/20 05:50 63 17 93 03/28/20 05:40 63 18 95 03/28/20 05:30 64 18 94 03/28/20 05:20 66 18 93 03/28/20 05:14 63 16 144/83 H 94 03/28/20 05:10 73 27 H 95 03/28/20 05:09 72 18 94 03/28/20 05:00 74 30 H 94 03/28/20 04:51 79 18 161/85 H 95 03/28/20 04:50 72 17 93 03/28/20 04:40 60 18 95 03/28/20 04:35 60 17 95 03/28/20 04:30 61 17 94 03/28/20 04:20 66 17 150/91 H 92 03/28/20 04:10 62 17 94 03/28/20 04:00 36.7 C 68 18 94 03/28/20 03:51 66 19 122/82 92 03/28/20 03:50 62 16 94 03/28/20 03:40 66 15 94 03/28/20 03:35 67 18 147/82 H 92 03/28/20 03:30 64 18 93 03/28/20 03:20 62 16 137/88 92 03/28/20 03:10 63 17 95 03/28/20 03:05 66 19 144/98 H 94 03/28/20 03:00 66 16 94 03/28/20 02:50 57 L 15 122/84 93 03/28/20 02:40 63 19 94 03/28/20 02:35 62 17 130/82 92 03/28/20 02:30 72 19 92 03/28/20 02:20 61 17 126/79 93 03/28/20 02:10 62 17 93 03/28/20 02:05 62 17 108/74 93 02/17/21 02:00 60 16 93 03/28/20 01:50 61 16 140/84 93 03/28/20 01:40 63 16 92 03/28/20 01:35 60 18 128/81 93 03/28/20 01:30 61 16 93 03/28/20 01:20 64 17 131/83 93 03/28/20 01:10 64 18 92 03/28/20 01:05 63 18 122/88 93 03/28/20 01:00 64 17 92 03/28/20 00:50 64 17 127/95 93 03/28/20 00:44 36.8 C 03/28/20 00:40 67 18 94 03/28/20 00:35 67 22 162/92 H 93 03/28/20 00:30 66 18 92 03/28/20 00:21 62 19 160/94 H 94 03/28/20 00:20 64 18 94 03/28/20 00:10 65 19 92 03/28/20 00:06 64 18 149/86 H 93 03/28/20 00:00 64 18 92 03/27/20 23:50 64 18 93 03/27/20 23:40 61 19 94 03/27/20 23:35 62 18 153/87 H 93 03/27/20 23:30 71 20 92 (1) Acute ST elevation myocardial infarction (STEMI) Involved coronary artery: unspecified coronary artery Qualified Code(s): I21.3 - ST elevation (STEMI) myocardial infarction of unspecified site
--- NOTE | 2020-03-28 13:46 | Hospitalist Progress Note ---
Date of Service March 28, 2020 Assessment & Plan (1) Acute ST elevation myocardial infarction (STEMI): This is a 59-year-old male who has significant past medical history of T2DM, HTN, HLD, PAF not on oral anticoagulation, KENDELL inhibitor angioedema, chronic lower extremity lymphedema, chronic venous stasis dermatitis, obesity hypoventilation syndrome and ALMA who presented to ED as part alert secondary to chest pain, nausea diaphoresis starting at 4 AM with notable anterior and inferior ST elevations. Anterior STEMI/100% acute early-mid LAD Occlusion, minimal nonculprit CAD, elevated intracardiac filling pressure Successful PCI of mid LAD with single drug-eluting stent (3.0 x 33 mm Xience; postdilated with 4.0 NC). Loaded with ticagrelor 180mg in laboratory courier Appreciate cardiology input and recommendation No more KENDELL inhibitor and/or ARB with history of angioedema Has been getting his prolactin and beta-sudheer Clinically much better and will transfer him to telemetry unit (2) Elevated troponin: As above (3) Diabetes mellitus: Last A1c 8.3 on 03/16/2020, uncontrolled A1c in a.m. Glycemic pharmacist on board Hold Metformin and [place] primary special educator consulted (4) Chronic venous stasis dermatitis: Bilateral chronic venous stasis dermatitis with increased edema/redness to right lateral pretibial region with erythema and mild drainage has been on outpt keflex x 6 days obtain procalcitonin-is not elevated and noted to be less than 0.05 Appreciate wound care input and recommendation Has cellulitis and has been on intravenous ceftriaxone (5) Atrial fibrillation: R/R controlled hx of PAF, follows [facility] cards not on oral anticoagulation, pt stopped himself continue metoprolol CHADSvasc2 score - 4 We will discuss about continued anticoagulation with the visual supervisor (6) Hypertension: BP 148/80 On metoprolol, Lasix and Aldactone Lasix on hold, reevaluate and resume as able Beta-sudheer doses have been adjusted (7) Morbid obesity: Morbid obesity, BMI 51.2 Encourage lifestyle and diet modification (8) Obstructive sleep apnea: does not use home cpap do not see sleep study in [facility] will need ALMA evaluation as outpt if not already completed (9) 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: loaded with ticagrelor in laboratory courier no mechanical ppx given venous stasis dermatitis We will add heparin subcu twice daily DISPO: ICU PCP: Doberstein FULL CODE Admission and Anticipated Discharge Date Admission Date: March 27, 2020 Subjective 03/28/2020 The patient was seen and examined in ICU He is a status post cardiac cath and ASUNCION placement to mid LAD He denies any symptoms as of today and has been feeling a lot better No significant arrhythmias noted on the monitor He will be transferred to telemetry unit Review of Systems Review of Systems: All systems reviewed and are unremarkable except as noted below Neurologic: + generalized weakness Physical Exam Physical Exam: Sitting on a chair without any acute distress Constitutional: well developed, well nourished and + obese; not ill appearing Eyes: PERRL, conjunctivae normal, anicteric sclerae ENMT: external ear and nose normal, oropharynx normal Neck: trachea midline, no thyromegaly Respiratory: normal respiratory effort; no respiratory distress Auscultation: lungs clear to auscultation bilaterally Cardiovascular: Rate/Rhythm: regular rate and regular rhythm Heart Sounds: no murmur Extremities: + edema (1+ edema bilaterally with redness involving the right lower leg) Gastrointestinal (Abdomen): Inspection/Auscultation: + abdomen distended and normal bowel sounds Percussion/Palpation: abdomen soft; abdomen nontender Musculoskeletal: No acute arthritis involving any joint Neurologic: Alert, awake and oriented x3. Generally weak but no focal neuro deficit Psychiatric: A+Ox3, euthymic affect Lymphatic: no cervical or axillary lymphadenopathy Results & Data Results & Data ([facility]) Vital Signs (Past 12 Hours) Vital Signs Temp Pulse Resp BP Pulse Ox 03/28/20 08:00 36.7 C 76 24 94 03/28/20 07:05 64 17 154/89 H 93 03/28/20 07:00 66 18 93 03/28/20 06:05 64 17 159/79 H 93 03/28/20 06:00 69 20 95 03/28/20 05:50 63 17 93 03/28/20 05:40 63 18 95 03/28/20 05:30 64 18 94 03/28/20 05:20 66 18 93 03/28/20 05:14 63 16 144/83 H 94 03/28/20 05:10 73 27 H 95 03/28/20 05:09 72 18 94 03/28/20 05:00 74 30 H 94 03/28/20 04:51 79 18 161/85 H 95 03/28/20 04:50 72 17 93 03/28/20 04:40 60 18 95 03/28/20 04:35 60 17 95 03/28/20 04:30 61 17 94 03/28/20 04:20 66 17 150/91 H 92 03/28/20 04:10 62 17 94 03/28/20 04:00 36.7 C 68 18 94 03/28/20 03:51 66 19 122/82 92 03/28/20 03:50 62 16 94 03/28/20 03:40 66 15 94 03/28/20 03:35 67 18 147/82 H 92 03/28/20 03:30 64 18 93 03/28/20 03:20 62 16 137/88 92 03/28/20 03:10 63 17 95 03/28/20 03:05 66 19 144/98 H 94 03/28/20 03:00 66 16 94 03/28/20 02:50 57 L 15 122/84 93 03/28/20 02:40 63 19 94 03/28/20 02:35 62 17 130/82 92 03/28/20 02:30 72 19 92 03/28/20 02:20 61 17 126/79 93 03/28/20 02:10 62 17 93 03/28/20 02:05 62 17 108/74 93 03/28/20 02:00 60 16 93 03/28/20 01:50 61 16 140/84 93 03/28/20 01:40 63 16 92 Laboratory Results Short CBC 03/28/20 Range/Units 05:03 WBC 13.79 H (4.8-10.8) K/uL Hgb 15.4 (14.0-18.0) g/dL Hct 46.3 (42-52) % Plt Count 290 (130-400) K/uL BMP 03/27/20 03/28/20 19:21 05:03 Sodium 139 139 Potassium 3.9 3.9 Chloride 107 106 Carbon Dioxide 23 26 BUN 18 16 Creatinine 1.24 1.15 Glucose 148 H 149 H Calcium 9.9 9.3 Cardiac Enzymes 03/27/20 03/27/20 03/28/20 Range/Units 13:55 19:21 05:03 Troponin I > 200.000 H* > 200.000 H* 122.000 H* (0-0.045) ng/ml Medications Administered Current Inpatient Medications Acetaminophen (Acetaminophen 325 Mg Tab) 650 mg PO Q4H PRN PRN Reason: MILD Pain (Scale 1,2,3) Stop: 04/26/20 08:13 Aspirin (Aspirin 81 Mg Ectab) 81 mg PO [facility] Stop: 04/26/20 08:59 Last Admin: 03/28/20 07:42 Dose: 81 mg Documented by: Atorvastatin Calcium (Atorvastatin 40 Mg Tab) 80 mg PO [facility] Stop: 04/26/20 08:59 Last Admin: 03/28/20 07:43 Dose: 80 mg Documented by: Dextrose (Dextrose 50% 50 Ml Syringe) 25 - 50 ml IV UD PRN; Protocol PRN Reason: Hypoglycemia Protocol Stop: 04/26/20 10:02 Glucagon (Glucagon For Inj 1 Mg Vial) 1 mg SQ UD PRN; Protocol PRN Reason: Hypoglycemia Protocol Stop: 04/26/20 10:02 Glucose (Glucose 10 Tabs/Tube) 4 - 8 tabs PO UD PRN; Protocol PRN Reason: Hypoglycemia Protocol Stop: 04/26/20 10:02 Glucose (Glucose 40% Gel 15 Gm Tube) 15 - 30 gm PO UD PRN; Protocol PRN Reason: Hypoglycemia Protocol Stop: 04/26/20 10:02 Ceftriaxone Sodium 2,000 mg/ (Dextrose) 70 mls @ 140 mls/hr IV Q24H [facility] Stop: 04/03/20 10:29 Last Infusion: 03/28/20 11:07 Dose: Infused Documented by: Insulin Aspart (Insulin Aspart 100 Units/Ml 3 Ml Pen) 0 units SC [facility] Stop: 04/26/20 11:29 Last Admin: 03/28/20 11:41 Dose: 13 units Documented by: Insulin Glargine (Insulin Glargine Solostar 100 Units/Ml 3 Ml Pen) 0 units SC [facility]; Protocol Stop: 04/26/20 20:59 Last Admin: 03/27/20 20:37 Dose: Not Given Documented by: Insulin Glargine (Insulin Glargine Solostar 100 Units/Ml 3 Ml Pen) 20 units SC [facility] Stop: 04/27/20 08:59 Last Admin: 03/28/20 07:43 Dose: 20 units Documented by: Metoprolol Succinate (Metoprolol Succ 50mg Ext Rel Tab) 50 mg PO QAM [facility] Stop: 04/27/20 08:59 Last Admin: 03/28/20 07:43 Dose: 50 mg Documented by: Miscellaneous (Icu Protocol For Hyperglycemia) 1 ea N/A PRN PRN; Protocol PRN Reason: Hyperglycemia Protocol Stop: 03/29/20 08:13 Miscellaneous (Carbohydrates For Hypoglycemia ) 15 - 30 gm PO UD PRN PRN Reason: Hypoglycemia Protocol Stop: 04/26/20 10:02 Miscellaneous Information (Pharmacy Glycemic Mgmt Consult) 1 ea N/A UD PRN PRN Reason: Consult Stop: 04/26/20 10:20 Morphine Sulfate (Morphine Sulfate 2 Mg/Ml Carp) 2 mg IV Q2H PRN PRN Reason: MODERATE to SEVERE Pain Stop: 04/10/20 08:34 Nitroglycerin (Nitroglycerin Sl 0.4 Mg/Tab Tab) 0.4 mg SL PRN PRN PRN Reason: Chest Pain Stop: 04/26/20 08:13 Ondansetron HCl (Ondansetron Inj 2 Mg/Ml 2 Ml Vial) 4 mg IV Q6H PRN PRN Reason: Nausea And Vomiting Stop: 04/26/20 08:13 Spironolactone (Spironolactone 25 Mg Tab) 25 mg PO QAM [facility] Stop: 04/26/20 08:59 Last Admin: 03/28/20 07:42 Dose: 25 mg Documented by: Ticagrelor (Ticagrelor 90 Mg Tab) 90 mg PO BID [facility] Stop: 04/26/20 18:14 Last Admin: 03/28/20 07:42 Dose: 90 mg Documented by: (1) Acute ST elevation myocardial infarction (STEMI) Involved coronary artery: unspecified coronary artery Qualified Code(s): I21.3 - ST elevation (STEMI) myocardial infarction of unspecified site
[2020-03-28] MEDS: ACETAMINOPHEN 325 MG TAB PO PRN ×2 (15:59→20:13)
[2020-03-28] MEDS: INSULIN GLARGINE SOLOSTAR 100 UNITS/ML 3 ML PEN SC SCH (20:07)
[2020-03-28] MEDS: HEPARIN SOD 5,000 UNIT/0.5 ML VIAL SQ SCH (20:08)
--- NOTE | 2020-03-29 06:07 | Electrocardiogram Report ---
Test Reason : Blood Pressure : / mmHG Vent. Rate : 070 BPM Atrial Rate : 070 BPM P-R Int : 174 ms QRS Dur : 102 ms QT Int : 402 ms P-R-T Axes : 077 -85 114 degrees QTc Int : 434 ms Normal sinus rhythm Inferior infarct Anterior infarct Abnormal ECG When compared with ECG of 27-MAR-2020 09:49, Serial changes of evolving Anterior infarct Present Serial changes of evolving Anterolateral infarct Present Confirmed by Waldemar Cook ([id number]) on 03/29/2020 6:06:59 AM Referred By: REFERRED SELF Confirmed By:Waldemar Cook
[2020-03-29 06:15] LABS: Basophils # (auto) 0.04 K/uL (0-0.2); Basophils % (auto) 0.4 %; Eosinophils # (auto) 0.38 K/uL (0-0.5); Eosinophils % (auto) 3.7 %; Immature Granulocytes # (auto) 0.03 K/uL (0.00-0.02); Immature Granulocytes % (auto) 0.3 %; Lymphocytes # (auto) 2.02 K/uL (1.2-3.4); Lymphocytes % (auto) 19.8 %; Mean Corpuscular Hemoglobin 28.1 pg (25-34); Mean Corpuscular Hgb Conc 33.3 g/dL (32-36); Mean Corpuscular Volume 84.2 fL (80-100); Mean Platelet Volume 9.9 fL (7.4-10.4); Monocytes # (auto) 1.09 K/uL (0.11-0.59); Monocytes % (auto) 10.7 %; Neutrophils # (auto) 6.62 K/uL (1.4-6.5); Neutrophils % (auto) 65.1 %; Platelet Count 236 K/uL (130-400); RDW Coefficient of Variation 14.3 % (11.5-14.5); Red Blood Count 4.99 M/uL (4.7-6.1); White Blood Count 10.18 K/uL (4.8-10.8)
[2020-03-29 06:45] LABS: BUN Creatinine Ratio 14.8 (10-20); Calcium 9.1 mg/dl (8.5-10.1); Creatinine Clr Calc Pharmacy 137.9 ml/min; Est GFR (African American) 101.7; Est GFR (Non-African American) 87.8; Magnesium 2.2 mg/dl (1.8-2.4); Phosphorus 2.8 mg/dl (2.5-4.9); Potassium 4.3 mmol/L (3.5-5.1)
[2020-03-29] MEDS: INSULIN ASPART 100 UNITS/ML 3 ML PEN SC SCH ×2 (07:44→12:00)
[2020-03-29] MEDS: SPIRONOLACTONE 25 MG TAB PO SCH (07:49)
[2020-03-29] MEDS: ASPIRIN 81 MG ECTAB PO SCH (07:50)
[2020-03-29] MEDS: HEPARIN SOD 5,000 UNIT/0.5 ML VIAL SQ SCH (07:50)
[2020-03-29] MEDS: ATORVASTATIN 40 MG TAB PO SCH (07:50)
[2020-03-29] MEDS: TICAGRELOR 90 MG TAB PO SCH (07:50)
[2020-03-29] MEDS: METOPROLOL SUCC 50MG EXT REL TAB PO SCH (07:51)
[2020-03-29] MEDS ORDERED: INSULIN GLARGINE SOLOSTAR 100 UNITS/ML 3 ML PEN SC SCH (09:00)
[2020-03-29] MEDS: cefTRIAXone SODIUM 2,000 MG in DEXTROSE 5% 50 ML IV SCH (11:03)
--- NOTE | 2020-03-29 11:32 | Cardiology Progress Note ---
Date of Service March 29, 2020 Assessment & Plan (1) Acute ST elevation myocardial infarction (STEMI): (2) Angioedema due to angiotensin converting enzyme inhibitor (KENDELL-I): (3) Hypertension: (4) Hyperlipidemia: (5) Diabetes mellitus: (6) Morbid obesity: (7) Obesity hypoventilation syndrome: (8) Obstructive sleep apnea: (9) Paroxysmal atrial fibrillation with rapid ventricular response: (10) Chronic venous stasis dermatitis: The patient presented with acute ST segment elevation myocardial infarction due to acute occlusion of his mid LAD. He underwent successful intervention with a drug-eluting stent x1 to the mid LAD and loaded with ticagrelor He has been doing well without further symptoms No further significant ventricular ectopy Tolerating beta-blockade well and will uptitrate as necessary. Given his history of angioedema due to KENDELL inhibitor no KENDELL or ARB will be initiated. cont spironolactone consideration can be given to additon of Corlanor as an outpatient will ask case managemet to look into cost of Brilinta, can change to plavix if cost prohibitive Okay to discharge to home from a cardiac standpoint. Already scheduled to see Dr. Perdomo on 04/13/2020, recommend keep this appointment. Admission and Anticipated Discharge Date Admission Date: March 27, 2020 Subjective Patient seen and examined, chart reviewed. Currently out of bed in chair stating that he feels well. Denies any cardiac complaints of chest pain, shortness of breath, palpitations, lightheadedness, dizziness or syncope. : Telemetry reviewed: Normal sinus rhythm without arrhythmia. Review of Systems Review of Systems: All systems reviewed & are unremarkable except as noted in HPI & below Physical Exam Physical Exam: General: Awake, alert and oriented x 3. No acute distress. HEENT: Normocephalic, atraumatic. Pupils equal, round and reactive to light and accommodation. Extraocular muscles are intact. Anicteric sclera. Moist mucous membranes. Neck: No JVD. No bruit. Cardiovascular: Regular. Positive S-4. Normal S-1 and S-2. No S-3. No murmurs or rubs. Pulmonary: Clear to auscultation B/L. No rales, rhonchi or wheezing Abdomen: Bowel sounds x 4, soft. No rebound, guarding or tenderness. No organomegaly. Extremities: No clubbing, cyanosis or edema. +2 pedal pulses bilaterally. Skin: Warm and dry. Results & Data ([facility]) Vital Signs (Past 12 Hours) Vital Signs Temp Pulse Pulse Resp BP Pulse Ox 03/29/20 08:00 60 03/29/20 07:49 36.6 C 66 18 125/63 96 03/29/20 03:59 36.8 C 61 19 112/69 94 03/28/20 23:53 60 (1) Acute ST elevation myocardial infarction (STEMI) Involved coronary artery: unspecified coronary artery Qualified Code(s): I21.3 - ST elevation (STEMI) myocardial infarction of unspecified site
--- NOTE | 2020-03-29 11:53 | Pharmacy Report ---
Pharmacy Glycemic Short Note 2 - Date of Service March 29, 2020 - Glycemic Short BSG Results (Last 24 hours): 03/28/20 03/28/20 03/29/20 16:09 20:06 05:52 Glucose 138 H POC Glucose 119 H 139 H 03/29/20 03/29/20 07:46 11:19 Glucose POC Glucose 147 H 150 H OUTPATIENT ANTIDIABETIC REGIMEN: * empagliflozin 25 mg PO QD * Metformin 2000mg qpm ASSESSMENT: 03/29: * BSGs extremely well controlled on 73 units of insulin yesterday (30 of which were basal). Fasting this morning adequate. Will increase AM dose of lantus with the goal of once daily dosing. Will leave a scale on for this evening, but anticipate being able to utilize once daily dosing going forward * Post prandials well controlled on current NovoLog scale. 03/27 * Patient presenting post STEMI with some hyperglycemia this morning. * Will utilize a moderate stress weight based dosing regimen using adjusted body weight given BMI > 50. * Patient is tolerating a diet. PLAN FOR INPATIENT GLYCEMIC CONTROL: * Hold outpatient oral diabetes medications * Basal insulin * Lantus 30 units SQ qam * 0, or 10 units this evening per BSG-See MAR for details * Bolus insulin * NovoLog per scale ACHS or Q6hrs while NPO * Goal Range: Low 110 mg/dL - High 140 mg/dL * Correction Factor: 20 mg/dL/unit * Nutritional / Prandial insulin per carb ratio of 1 unit per 6 grams CHO consumed
--- NOTE | 2020-03-29 13:03 | Hospitalist Progress Note ---
Date of Service March 29, 2020 Assessment & Plan (1) Acute ST elevation myocardial infarction (STEMI): This is a 59-year-old male who has significant past medical history of T2DM, HTN, HLD, PAF not on oral anticoagulation, KENDELL inhibitor angioedema, chronic lower extremity lymphedema, chronic venous stasis dermatitis, obesity hypoventilation syndrome and ALMA who presented to ED as part alert secondary to chest pain, nausea diaphoresis starting at 4 AM with notable anterior and inferior ST elevations. Anterior STEMI/100% acute early-mid LAD Occlusion, minimal nonculprit CAD, elevated intracardiac filling pressure Successful PCI of mid LAD with single drug-eluting stent (3.0 x 33 mm Xience; postdilated with 4.0 NC). 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 Appreciate cardiology input and recommendation No more KENDELL inhibitor and/or ARB with history of angioedema Has been getting spironolactone and beta-sudheer Clinically much better and will transfer him to telemetry unit Remains stable without any symptoms and will be discharged home this afternoon (2) Elevated troponin: As above (3) Diabetes mellitus: Last A1c 8.3 on 03/16/2020, uncontrolled Glycemic pharmacist on board Hold Metformin and [place] public health educator consulted Globin A1c-7.9 and the patient will be better off on insulin as an outpatient We will continue current oral medications on discharge (4) Chronic venous stasis dermatitis: Bilateral chronic venous stasis dermatitis with increased edema/redness to right lateral pretibial region with erythema and mild drainage has been on outpt keflex x 6 days obtain procalcitonin-is not elevated and noted to be less than 0.05 Appreciate wound care input and recommendation Has cellulitis and has been on intravenous ceftriaxone Will continue with oral Keflex for next few days (5) Atrial fibrillation: R/R controlled hx of PAF, follows [facility] cards not on oral anticoagulation, pt stopped himself continue metoprolol CHADSvasc2 score - 4 We will discuss about continued anticoagulation with the life agent Patient has been back in sinus rhythm and digoxin has been added to control the rate (6) Hypertension: BP 148/80 On metoprolol, Lasix and Aldactone Lasix on hold, reevaluate and resume as able Beta-sudheer doses have been adjusted (7) Morbid obesity: Morbid obesity, BMI 51.2 Encourage lifestyle and diet modification (8) Obstructive sleep apnea: does not use home cpap do not see sleep study in [facility] will need ALMA evaluation as outpt if not already completed (9) 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: 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 venous stasis dermatitis We will add heparin subcu twice daily DISPO: ICU PCP: Shira FULL CODE We will discharge home this afternoon Admission and Anticipated Discharge Date Admission Date: March 27, 2020 Subjective 03/28/2020 The patient was seen and examined in ICU He is a status post cardiac cath and ASUNCION placement to mid LAD He denies any symptoms as of today and has been feeling a lot better No significant arrhythmias noted on the monitor He will be transferred to telemetry unit 03/29/2020 The patient was seen and examined in telemetry unit He has been doing much better and denies any symptoms He has been ambulating in the room without any significant symptoms He will be discharged home this afternoon Review of Systems Review of Systems: All systems reviewed and are unremarkable except as noted below Neurologic: no generalized weakness Physical Exam Physical Exam: Sitting on a chair without any acute distress Constitutional: well developed, well nourished and + obese; not ill appearing Eyes: PERRL, conjunctivae normal, anicteric sclerae ENMT: external ear and nose normal, oropharynx normal Neck: trachea midline, no thyromegaly Respiratory: normal respiratory effort; no respiratory distress Auscultation: lungs clear to auscultation bilaterally Cardiovascular: Rate/Rhythm: regular rate and regular rhythm Heart Sounds: no murmur Extremities: + edema (1+ edema bilaterally with redness involving the right lower leg) Gastrointestinal (Abdomen): Inspection/Auscultation: + abdomen distended and normal bowel sounds Percussion/Palpation: abdomen soft; abdomen nontender Musculoskeletal: No acute arthritis in any joint Neurologic: Alert, awake and oriented x3. No focal sensory and/or motor deficit appreciated Psychiatric: A+Ox3, euthymic affect Lymphatic: no cervical or axillary lymphadenopathy Results & Data Results & Data ([facility]) Vital Signs (Past 12 Hours) Vital Signs Temp Pulse Pulse Resp BP Pulse Ox 03/29/20 12:00 37.1 C 60 20 121/60 98 03/29/20 08:00 60 03/29/20 07:49 36.6 C 66 18 125/63 96 03/29/20 03:59 36.8 C 61 19 112/69 94 Laboratory Results Short CBC 03/29/20 Range/Units 05:52 WBC 10.18 (4.8-10.8) K/uL Hgb 14.0 (14.0-18.0) g/dL Hct 42.0 (42-52) % Plt Count 236 (130-400) K/uL BMP 03/29/20 05:52 Sodium 138 Potassium 4.3 Chloride 107 Carbon Dioxide 26 BUN 14 Creatinine 0.94 Glucose 138 H Calcium 9.1 Medications Administered Current Inpatient Medications Acetaminophen (Acetaminophen 325 Mg Tab) 650 mg PO Q4H PRN PRN Reason: MILD Pain (Scale 1,2,3) Stop: 04/26/20 08:13 Last Admin: 03/28/20 20:13 Dose: 650 mg Documented by: Aspirin (Aspirin 81 Mg Ectab) [facility] Stop: 04/26/20 08:59 Last Admin: 03/29/20 07:50 Dose: 81 mg Documented by: Atorvastatin Calcium (Atorvastatin 40 Mg Tab) [address] [facility] Stop: 04/26/20 08:59 Last Admin: 03/29/20 07:50 Dose: 80 mg Documented by: Dextrose (Dextrose 50% 50 Ml Syringe) 25 - 50 ml IV UD PRN; Protocol PRN Reason: Hypoglycemia Protocol Stop: 04/26/20 10:02 Glucagon (Glucagon For Inj 1 Mg Vial) 1 mg SQ UD PRN; Protocol PRN Reason: Hypoglycemia Protocol Stop: 04/26/20 10:02 Glucose (Glucose 10 Tabs/Tube) 4 - 8 tabs PO UD PRN; Protocol PRN Reason: Hypoglycemia Protocol Stop: 04/26/20 10:02 Glucose (Glucose 40% Gel 15 Gm Tube) 15 - 30 gm PO UD PRN; Protocol PRN Reason: Hypoglycemia Protocol Stop: 04/26/20 10:02 Heparin Sodium (Porcine) (Heparin Sod 5,000 Unit/0.5 Ml Vial) 5,000 units SQ Q12 [facility] Stop: 04/27/20 20:59 Last Admin: 03/29/20 07:50 Dose: 5,000 units Documented by: Ceftriaxone Sodium 2,000 mg/ (Dextrose) 70 mls @ 140 mls/hr IV Q24H [facility] Stop: 04/03/20 10:29 Last Infusion: 03/29/20 12:00 Dose: Infused Documented by: Insulin Aspart (Insulin Aspart 100 Units/Ml 3 Ml Pen) 0 units SC [facility] Stop: 04/26/20 11:29 Last Admin: 03/29/20 12:00 Dose: 6 units Documented by: Insulin Glargine (Insulin Glargine Solostar 100 Units/Ml 3 Ml Pen) 0 units SC [facility]; Protocol Stop: 04/26/20 20:59 Last Admin: 03/28/20 20:07 Dose: 10 units Documented by: Insulin Glargine (Insulin Glargine Solostar 100 Units/Ml 3 Ml Pen) [address] [facility] Stop: 04/28/20 08:59 Last Admin: 03/29/20 09:11 Dose: 30 units Documented by: Metoprolol Succinate (Metoprolol Succ 50mg Ext Rel Tab) [address] [facility] Stop: 04/27/20 08:59 Last Admin: 03/29/20 07:51 Dose: 50 mg Documented by: Miscellaneous (Carbohydrates For Hypoglycemia ) 15 - 30 gm PO UD PRN PRN Reason: Hypoglycemia Protocol Stop: 04/26/20 10:02 Miscellaneous Information (Pharmacy Glycemic Mgmt Consult) 1 ea N/A UD PRN PRN Reason: Consult Stop: 04/26/20 10:20 Morphine Sulfate (Morphine Sulfate 2 Mg/Ml Carp) 2 mg IV Q2H PRN PRN Reason: MODERATE to SEVERE Pain Stop: 04/10/20 08:34 Nitroglycerin (Nitroglycerin Sl 0.4 Mg/Tab Tab) 0.4 mg SL PRN PRN PRN Reason: Chest Pain Stop: 04/26/20 08:13 Ondansetron HCl (Ondansetron Inj 2 Mg/Ml 2 Ml Vial) 4 mg IV Q6H PRN PRN Reason: Nausea And Vomiting Stop: 04/26/20 08:13 Spironolactone (Spironolactone 25 Mg Tab) [address] [facility] Stop: 04/26/20 08:59 Last Admin: 03/29/20 07:49 Dose: 25 mg Documented by: Ticagrelor (Ticagrelor 90 Mg Tab) 90 mg PO BID [facility] Stop: 04/26/20 18:14 Last Admin: 03/29/20 07:50 Dose: 90 mg Documented by: (1) Acute ST elevation myocardial infarction (STEMI) Involved coronary artery: unspecified coronary artery Qualified Code(s): I21.3 - ST elevation (STEMI) myocardial infarction of unspecified site
--- NOTE | 2020-03-29 18:35 | Discharge Summary ---
Date of Service March 29, 2020 Admission HPI Per Admitting Provider This is a 59-year-old male who has significant past medical history of T2DM, HTN, HLD, PAF not on oral anticoagulation, KENDELL inhibitor angioedema, chronic lower extremity lymphedema, chronic venous stasis dermatitis, obesity hypoventilation syndrome and ALMA who presented to ED as part alert secondary to chest pain, nausea diaphoresis starting at 4 AM with notable anterior and inferior ST elevations. Patient underwent coronary catheterization by Dr. Florse and had resultant anterior STEMI/100% acute early mid LAD occlusion with elevated intracardiac filling pressure. He underwent successful PCI to mid LAD with a single ASUNCION. He was loaded with ticagrelor in [employer]. He was transferred to ICU for further cardiac monitoring. Currently he feels much improved but does still complain of substernal chest pain, 5/10, "feels like a burning like heartburn." He denies any residual diaphoresis, lightheadedness, dizziness or nausea. He states this morning when symptoms started he did feel dizzy and lightheaded. He currently denies any recent illness, fever, chills, sweats, syncope, shortness of breath, palpitations, nausea, vomiting, abdominal pain, changes bowel or urinary habits. He does complain of increased lower extremity edema right greater than left. He states right has been increasingly more red and he is currently on oral Keflex prescribed by his outpatient provider. He does take Lasix and Aldactone to help manage swelling. 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 He does have some openings on his lateral right lower extremity side with drainage. Admission Exam Per Admitting Provider Physical Exam: Constitutional: Morbidly obese, male, unkempt facial hair, WD/WN, vitals as above, NAD, sitting up in bed, pleasant, conversing easily Head: Normocephalic, Atraumatic Eyes: PERRL, conjunctivae normal, anicteric sclerae ENMT: external ear and nose normal, oropharynx normal Neck: trachea midline, no thyromegaly normal visual inspection Respiratory: normal respiratory effort, lungs clear to auscultation, no wheeze, rales, rhonchi. Normal insp/exp effort, no accessory muscle use Cardiovascular: RRR, no murmur, significant lower extremity lymphedema with nodular change, right greater than left, erythema and warmth to lateral right pretibial region, negative Homans Vessels: no JVD or carotid bruit Chest: normal inspection of chest Abdomen: normal bowel sounds, soft, nontender, no hepatosplenomegaly Musculoskeletal: no cyanosis or clubbing, extremities motor strength 5/5 Skin: no rashes, warm and dry normal turgor Neurologic: PERRL, EOMI, accommodation nl, no face palsy, no dysarthria CN's II-XI intact bilaterally and moves all extremities Psychiatric: A+Ox3, euthymic affect : deferred Principal Diagnosis Acute ST elevation RI, status post cardiac cath with single drug-eluting stent in mid LAD, type 2 diabetes, chronic venous status dermatitis with cellulitis of legs, ALMA Discharge Exam Constitutional well developed, well nourished and + obese; not ill appearing Eyes PERRL, conjunctivae normal, anicteric sclerae ENMT external ear and nose normal, oropharynx normal Neck trachea midline, no thyromegaly Respiratory normal respiratory effort; no respiratory distress Auscultation: lungs clear to auscultation bilaterally Cardiovascular Rate/Rhythm: regular rate and regular rhythm Heart Sounds: no murmur Extremities: + edema (1+ edema bilaterally with redness involving the right lower leg) Gastrointestinal (Abdomen) Inspection/Auscultation: + abdomen distended and normal bowel sounds Percussion/Palpation: abdomen soft; abdomen nontender Psychiatric A+Ox3, euthymic affect Lymphatic no cervical or axillary lymphadenopathy Discharge Data Allergies Allergy/AdvReac Type Severity Reaction Status Date / Time lisinopril Allergy Severe Difficulty Verified 03/27/20 06:43 Breathing Consultations 03/27/20 07:58 ED Decision to Admit Stat 03/27/20 08:18 Consult Cardiac Rehabilitation Routine Consult Case Management - Discharge Planning Routine Consult Timber Sprinkler Routine 03/27/20 10:15 Consult Cardiology Routine Procedures Performed Operation Date: 03/27/20 06:40 Actual Procedures p Aspiration/PCI w/ASUNCION for Stemi - Kirk Flores MD s Cath, Left with Cors and Vent - Kirk Flores MD s Cineradiography w/Routine Exam - Kirk Flores MD Ordered Studies 03/27/20 06:31 CL Cath Imgs for PACS use only Stat 03/27/20 10:01 US venous doppler LE BI Routine Hospital Course (1) Acute ST elevation myocardial infarction (STEMI): This is a 59-year-old male who has significant past medical history of T2DM, HTN, HLD, PAF not on oral anticoagulation, KENDELL inhibitor angioedema, chronic lower extremity lymphedema, chronic venous stasis dermatitis, obesity hypoventilation syndrome and ALMA who presented to ED as part alert secondary to chest pain, nausea diaphoresis starting at 4 AM with notable anterior and inferior ST elevations. Anterior STEMI/100% acute early-mid LAD Occlusion, minimal nonculprit CAD, elevated intracardiac filling pressure Successful PCI of mid LAD with single drug-eluting stent (3.0 x 33 mm Xience; postdilated with 4.0 NC). Loaded with ticagrelor 180mg in collaborative physician Appreciate cardiology input and recommendation No more KENDELL inhibitor and/or ARB with history of angioedema Has been getting spironolactone and beta-sudheer Clinically much better and will transfer him to telemetry unit Remains stable without any symptoms and will be discharged home this afternoon (2) Elevated troponin: As above (3) Diabetes mellitus: Last A1c 8.3 on 03/16/2020, uncontrolled Glycemic pharmacist on board Hold Metformin and [place] perioperative educator consulted Globin A1c-7.9 and the patient will be better off on insulin as an outpatient We will continue current oral medications on discharge (4) Chronic venous stasis dermatitis: Bilateral chronic venous stasis dermatitis with increased edema/redness to right lateral pretibial region with erythema and mild drainage has been on outpt keflex x 6 days obtain procalcitonin-is not elevated and noted to be less than 0.05 Appreciate wound care input and recommendation Has cellulitis and has been on intravenous ceftriaxone Will continue with oral Keflex for next few days (5) Atrial fibrillation: R/R controlled hx of PAF, follows [facility] cards not on oral anticoagulation, pt stopped himself continue metoprolol CHADSvasc2 score - 4 We will discuss about continued anticoagulation with the station manager Patient has been back in sinus rhythm and digoxin has been added to control the rate (6) Hypertension: BP 148/80 On metoprolol, Lasix and Aldactone Lasix on hold, reevaluate and resume as able Beta-sudheer doses have been adjusted (7) Morbid obesity: Morbid obesity, BMI 51.2 Encourage lifestyle and diet modification (8) Obstructive sleep apnea: does not use home cpap do not see sleep study in [facility] will need ALMA evaluation as outpt if not already completed (9) 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: loaded with ticagrelor in collaborative physician no mechanical ppx given venous stasis dermatitis We will add heparin subcu twice daily DISPO: ICU PCP: Shira FULL CODE We will discharge home this afternoon Total Time Total Time Spent Total Time Spent (In Minutes): 35 minutes Total Time Includes: Examination of the Patient, Discharge Planning, Medication Reconciliation and Communication With Other Providers Discharge Plan Discharge Items Patient Disposition: Home - Self-Care Reason For Visit: STEMI Discharge Diagnosis: Acute ST elevation RI, status post cardiac cath with single drug-eluting stent in mid LAD, type 2 diabetes, chronic venous status dermatitis with cellulitis of legs, ALMA Condition on Discharge: Fair Activity: As commented below Activity Comment: Take it easy for the next couple of weeks Non-emergency contact: Primary Care Provider Call non-emergency contact if: you have any medication questions and your symptoms worsen Follow-up/Referrals: Howard Silva MD [Primary Care Provider] - 04/02/20 11:00 am (Please follow up with Dr. Silva on Thursday04/02/20 at 11:00 am. Please arrive to the office at 10:45 am for your appointment. If you are unable to keep this appointment, please call the office to reschedule at [phone].) Diet: Carb Consistent or DM2 and Heart Healthy Addtl Attending Provider Instructions: Please take precaution to avoid falls Take your medications as directed Please keep appointment with your station manager on 04/13/2020 Your diabetes will be better controlled with insulin and discuss that option with your primary care provider Pending Studies at Discharge: No Stand-Alone Forms: My [employer], Smoking Cessation Medications and DC Order Prescriptions: New Brilinta 90 mg Tablet 90 mg PO BID Qty: 60 RF: 0 metoprolol succinate 50 mg Tablet Extended Release 24 Hr 50 mg PO QAM Qty: 30 RF: 0 nitroglycerin [Nitrostat] 0.4 mg Tablet, Sublingual 0.4 mg sublingual PRN PRN (Reason: chest pain) Qty: 30 RF: 0 cephalexin 500 mg capsule 500 mg PO Q8H 7 Days Qty: 21 RF: 0 atorvastatin 80 mg tablet 80 mg PO DAILY 30 Days Qty: 30 RF: 0 Continued metformin 500 mg Tablet Extended Release 24 Hr 2,000 mg PO PM RF: 0 empagliflozin 25 mg Tablet 25 mg PO DAILY RF: 0 potassium chloride [Klor-Con] 20 mEq packet 20 meq PO BID Qty: 100 RF: 0 furosemide [Lasix] 40 mg tablet 40 mg PO QAM RF: 0 aspirin 81 mg Tablet,Delayed Release (Dr/Ec) 81 mg PO QAM RF: 0 spironolactone 25 mg Tablet 25 mg PO QAM RF: 0 Discontinued atorvastatin 40 mg Tablet 40 mg PO HS RF: 0 metoprolol succinate 25 mg Tablet Extended Release 24 Hr 25 mg PO QAM RF: 0 Discharge Orders: Discharge Order (Routine); Ordered 03/29/20 Ordered By: Rosalie Jefferson/Other Patient Handouts: High Blood Sugar (Hyperglycemia), Hypoglycemia (Low Blood Sugar), 5 Steps for Eating Healthier Admission Data Admit Date/Time: 03/27/20 08:14 Attending Provider: Rosalie Brooks Admit Provider: Kirk Flores Primary Care Provider: Howard Silva Other Providers: Giorgio Alberto ; Chema Arce ; Stevan Hussein ; Jimenez Sanchez Other Interventions: Discharge Summary Assessment (RN) Last Done: 03/29/20 13:29
--- NOTE | 2020-04-09 10:47 | Coding Query ---
CODING QUERY FOR UNCONTROLLED DIABETES To promote full compliance with coding requirements relating to patient care, provider participation is requested in all cases of certified professional coder uncertainty. Please assist us with the question(s) below: Coding Question: The term uncontrolled Diabetes was used throughout the record. To be able to code this diagnosis properly, could you please clarify the diagnosis below: ( ) Uncontrolled Diabetes meaning hypoglycemia ( + ) Uncontrolled Diabetes meaning hyperglycemia ( ) Other (please specify) Hb A1c Clarifies that the diabetes was uncontrolled.Advice was given to use Insulin as an out patient Principal Diagnosis: "that condition established after study, to be chiefly responsible for occasioning the admission of the patient to the hospital for care." Co-Existing Principal Diagnosis: "when two or more diagnoses equally meet the criteria for principal diagnosis as determined by the circumstances of admission, diagnostic work up, and/or therapy provided, and the Alphabetic Index, Tabular List, or another coding guideline does not provide sequencing direction, any one of the diagnoses may be sequenced first." "When the physician has documented what appears to be a current diagnosis in the body of the record, but has not included the diagnosis in the final diagnostic statement, the physician should be asked whether the diagnosis should be added." (Source Coding [facility] 2 QTR90. p3-4) LISA
== END 2020-03-29 14:17 | disposition home or self-care (01) | DRG 247 ==
LOC: ED 06:36 → CC 07:10 → 1E 07:11 → SUATTDRO 08:14 → 2S 03-28 15:36

== ENCOUNTER 2020-11-26 06:46 | Inpatient (IN) ==
--- NOTE | 2020-11-26 07:19 | Emergency Department Note ---
History of Present Illness General Chief complaint: Respiratory Problems Stated complaint: HAVING TROUBLE BREATHING Time Seen by Provider: 11/26/20 07:07 Source: patient Mode of arrival: ambulatory Limitations: no limitations History of Present Illness Maximum Pain Intensity: 2 This patient is a 60-year-old male who comes in after having shortness of breath and chest pain. Started this morning it hurts when he breathes most of his right side of his chest he feels like his had a head cold and he has had some coughing. Is mostly dyspnea on exertion. He denies nausea vomiting or diarrhea. No blood or melena stool. No history of blood clots. He has a history of cardiac disease and had a VT defibrillator placed. He has not had the Covid vaccine. he does have a history of A. fib Home Medications Medication Instructions Recorded Confirmed Type potassium chloride 20 mEq oral 20 meq PO BID #100 ea 12/21/17 11/26/20 Rx packet (Klor-Con) aspirin 81 mg tablet,delayed 81 mg PO QAM 03/05/18 11/26/20 History release furosemide 40 mg tablet (Lasix) 40 mg PO QAM 03/05/18 11/26/20 History spironolactone 25 mg tablet 25 mg PO QAM 03/05/18 11/26/20 History empagliflozin 25 mg tablet 25 mg PO DAILY 03/27/20 11/26/20 History (Jardiance) metformin 500 mg tablet,extended 2,000 mg PO PM 03/27/20 11/26/20 History release 24 hr metoprolol succinate 50 mg 50 mg PO QAM #30 tab 03/29/20 11/26/20 Rx tablet,extended release 24 hr nitroglycerin 0.4 mg sublingual 0.4 mg SUBLINGUAL PRN PRN #30 tab 03/29/20 11/26/20 Rx tablet (Nitrostat) ticagrelor 90 mg tablet (Brilinta) 90 mg PO BID #60 tab 03/29/20 11/26/20 Rx atorvastatin 80 mg tablet (Lipitor) 80 mg PO DAILY 08/14/20 11/26/20 History clobetasol 0.05 % topical cream 1 applic TOPICAL BID PRN 08/14/20 11/26/20 History (Temovate) Allergies Allergy/AdvReac Type Severity Reaction Status Date / Time lisinopril Allergy Severe Difficulty Verified 11/26/20 07:32 Breathing Past Med/Surg History Medical History Acute ST elevation myocardial infarction (STEMI) Angioedema due to angiotensin converting enzyme inhibitor (KENDELL-I) Atrial fibrillation follows with Dr. Damico Chronic venous stasis dermatitis Diabetes mellitus, type 2 Elevated troponin Hyperlipidemia Hypertension On anticoagulant therapy warfarin daily Surgical History History of colonoscopy Hx of prostate biopsy benign S/P coronary artery stent placement Successful PCI of mid LAD with single drug-eluting stent (3.0 x 33 mm Xience; postdilated with 4.0 NC) Dr Flores, 03/27/20 Family History Father Family history of reaction to anesthesia "heart rate went irregular, was able to fix quick", not sure what he had done or what he was given Cancer Mother Diabetes Sister Celiac disease Denies family history of Heart disease Myocardial infarction Social History (Updated 11/26/20 @ 09:52 by Lupe Nelson PA-C) Smoking Status: Former smoker packs per day: 1; Years Smoked: 15; Number of Years Since Quit: 40; Second Hand Exposure: No; Do You Dip or Chew Tobacco: No; Hx Alcohol Use: No Hx Substance Use: No Preferred Language: Comoran Communication Ability: Effective 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 Beliefs That Will Affect Care: None marital status: Current Living Situation: Spouse current occupational status: previously employed 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 Other Information That Helps Us Care for You: No Feels Safe at Home: Yes Assistive Devices: None Review of Systems A total of 10 systems reviewed and were otherwise negative Physical Exam Vital Signs Vital Signs - 24 hr 11/26/20 06:51 11/26/20 07:20 Temperature 36.9 C Temperature Source Temporal Artery Scan Pulse Rate 106 H Pulse Rate [Finger] 97 H Respiratory Rate 28 H 20 Respiratory Depth Normal Blood Pressure 148/80 H Blood Pressure [Left Arm] 115/70 Blood Pressure Mean 102 Blood Pressure Mean [Left Arm] 85 Pulse Oximetry 87 L 97 Oxygen Delivery Method Room Air Nasal Cannula Oxygen Flow Rate 2 Sepsis Recent Fever Within 48 Hours No Sepsis New/Unexplained Change in Mental Status N/A Sepsis Action Taken by Nursing No Action Required General: Well developed well nourished male who appears in no acute distress, breathing comfortably on room air. Normal speech HEENT: Normal cephalic atraumatic. Pupils are equal round and reactive to light. Extraocular movements are intact. Oropharynx is pink with moist mucous membranes. No swelling of the mouth lips or tongue. Neck: Supple with a midline trachea. No meningeal signs or stiffness, no JVD or bruits. No Stridor. Chest: Clear to auscultation bilaterally. No wheezes or rhonchi. No increased work of breathing. Heart: Regular rate and rhythm without murmurs or gallops. Abdomen: Soft nontender, nondistended without rebound guarding or rigidity. Extremities: No cyanosis clubbing chronic bilateral lower extremity edema right greater than left which the patient says is baseline Spine/Back. Non tender to palpation. No CVA tenderness Skin: Good turgor without rashes. Neurologic exam: Cranial nerves two through 12 are intact. Motor and sensation are intact and symmetrical throughout. Course Administered Medications Cephalexin HCl (Cephalexin 500 Mg Cap) 500 mg PO QID [facility] Stop: 12/03/20 12:59 Last Admin: 11/26/20 13:03 Dose: 500 mg Documented by: [id number] Doxycycline Hyclate (Doxycycline Hyclate 100 Mg Cap) 100 mg PO BID@1000,2200 [facility] Stop: 12/03/20 10:42 Last Admin: 11/26/20 12:19 Dose: 100 mg Documented by: [id number] Heparin Sodium/Dextrose (Heparin Sodium/Dextrose) 25,000 units in 500 mls @ 37 mls/hr IV .[id number] [facility]; Protocol Stop: 12/26/20 09:29 Last Admin: 11/26/20 12:07 Dose: Not Given Documented by: [id number] Lactated Ringer's (Lr) 1,000 mls @ 60 mls/hr IV .[id number] [facility] Stop: 11/27/20 03:39 Last Admin: 11/26/20 12:18 Dose: 60 mls/hr Documented by: [id number] Insulin Aspart (Insulin Aspart 100 Units/Ml 3 Ml Pen) 0 units SC ACHS [facility] Stop: 12/26/20 11:29 Last Admin: 11/26/20 13:02 Dose: 8 units Documented by: [id number] Cosigned by: [id number] Discontinued Medications Dexamethasone Sodium Phosphate (DexamethasonePf 10 Mg/Ml Vial) 6 mg IV NOW ONE Stop: 11/26/20 09:08 Last Admin: 11/26/20 09:38 Dose: 6 mg Documented by: [id number] Heparin Sodium (Porcine) (Heparin Sod (Porcine) 1000 Unit/Ml) 8,000 units IV NOW ONE Stop: 11/26/20 09:29 Last Admin: 11/26/20 12:07 Dose: Not Given Documented by: [id number] Heparin Sodium (Porcine) (Heparin Sod (Porcine) 1000 Unit/Ml) Confirm Administered Dose 1,000 units .ROUTE .STK-MED ONE Stop: 11/26/20 09:30 Last Admin: 11/26/20 09:44 Dose: 8,000 units Documented by: [id number] Cosigned by: [id number] Heparin Sodium/Dextrose (Heparin Iv Adult Wt-Based Standard With Bolus Protocol) 1 ea IV NOW STA; Protocol Stop: 11/26/20 09:21 Last Admin: 11/26/20 09:46 Dose: Not Given Documented by: [id number] Heparin Sodium/Dextrose (Heparin 85163 Unit/500 Ml D5w) Confirm Administered Dose 25,000 units IV .STK-MED ONE Stop: 11/26/20 09:29 Last Admin: 11/26/20 09:44 Dose: 1,850 units Documented by: [id number] Cosigned by: [id number] Insulin Glargine (Insulin Glargine Solostar 100 Units/Ml 3 Ml Pen) 30 units SQ NOW ONE Stop: 11/26/20 12:16 Last Admin: 11/26/20 13:16 Dose: 30 units Documented by: [id number] Cosigned by: [id number] Ioversol (Optiray 320 125ml) 120 ml IV ONCE ONE Stop: 11/26/20 08:46 Last Admin: 11/26/20 08:46 Dose: 120 ml Documented by: [id number] Perflutren Lipid Microsphere (Perflutren Lipid Microsphere (Definity)) 2 ml IV ONCE ONE Stop: 11/26/20 14:36 Last Admin: 11/26/20 14:36 Dose: 2 ml Documented by: [id number] Critical Care Time Critical Care Time: Yes Total Critical Care Time: 30 Due to the patient's hypoxemia, need for frequent reassessment, IV heparin and treatment for bilateral PEs and Covid, I have personally spent greater than 30 minutes of critical care time in the direct management of this patient. This includes bedside care, interpretation of diagnostic studies, and testing, discussion with consultants, patient, and family members, and other required patient management activities. This 30 minutes is in excess of all separately billable procedures. Medical Decision Making Differential Diagnosis Covid, pneumonia, acute coronary syndrome, arrhythmia, PE, pneumothorax, CHF, URI, sepsis Medical Records Attestation: I reviewed the patient's medical records. Home Medications Current Medication List: was personally reviewed by me Laboratory Data Attestation: I reviewed the patient's lab results. Result diagrams: 11/26/20 07:20 11/26/20 07:20 Lab Results 11/26/20 11/26/20 11/26/20 Range/Units 07:20 07:20 07:20 WBC 15.88 H (4.8-10.8) K/uL RBC 4.99 (4.7-6.1) M/uL Hgb 14.2 (14.0-18.0) g/dL Hct 41.8 L (42-52) % MCV 83.8 (80-100) fL MCH 28.5 (25-34) pg MCHC 34.0 (32-36) g/dL RDW Std Deviation 40.7 (36.4-46.3) fL RDW Coeff of Stella 13.4 (11.5-14.5) % Plt Count 387 (130-400) K/uL MPV 9.7 (7.4-10.4) fL Immature Gran % (Auto) 0.4 % Neut % (Auto) 82.8 % Lymph % (Auto) 7.9 % [place] % (Auto) 8.3 % Eos % (Auto) 0.4 % Baso % (Auto) 0.2 % Neut # (Auto) 13.15 H (1.4-6.5) K/uL Lymph # (Auto) 1.25 (1.2-3.4) K/uL [place] # (Auto) 1.32 H (0.11-0.59) K/uL Eos # (Auto) 0.07 (0-0.5) K/uL Baso # (Auto) 0.03 (0-0.2) K/uL Immature Gran # (Auto) 0.06 H (0.00-0.02) K/uL ESR (0-20) mm/hr PT 12.1 H (9.0-12.0) Seconds INR 1.2 H (0.9-1.1) APTT 23.9 (21.0-31.0) Seconds PTT Ratio 0.9 D-Dimer 37154 H* (0-500) ug/L FEU Sodium 134 L (136-145) mmol/L Potassium 3.6 (3.5-5.1) mmol/L Chloride 102 (98-107) mmol/L Carbon Dioxide 17 L (21-32) mmol/L Anion Gap 15.0 H (3-11) BUN 10 (7-18) mg/dl Creatinine 0.98 (0.6-1.4) mg/dl Est Cr Clr Drug Dosing 115.8 ml/min Est GFR ( Amer) 96.1 ml/min Est GFR (Non-Af Amer) 82.9 ml/min BUN/Creatinine Ratio 9.9 L (10-20) Glucose 151 H (70-99) mg/dl Calcium 9.1 (8.5-10.1) mg/dl Ferritin (8-388) ng/ml Total Bilirubin 1.1 H (0.2-1) mg/dl AST 19 (15-37) U/L ALT 23 (12-78) U/L Alkaline Phosphatase 62 (45-117) U/L Troponin I 0.099 H* (0-0.045) ng/ml C-Reactive Protein (0-0.29) mg/dl NT-Pro-B Natriuret Pep 2069 H (0-900) pg/ml Total Protein 8.0 (6.4-8.2) gm/dl Albumin 2.4 L (3.4-5.0) gm/dl Globulin 5.6 H (2.5-4.0) gm/dl Albumin/Globulin Ratio 0.4 L (0.9-2) Lipase 102 (73-393) U/L Procalcitonin (0-0.5) ng/ml COVID-19 Eval Order SARS-CoV-2 (PCR) (Negative) 11/26/20 11/26/20 11/26/20 Range/Units 07:20 07:20 07:20 WBC (4.8-10.8) K/uL RBC (4.7-6.1) M/uL Hgb (14.0-18.0) g/dL Hct (42-52) % MCV (80-100) fL MCH (25-34) pg MCHC (32-36) g/dL RDW Std Deviation (36.4-46.3) fL RDW Coeff of Stella (11.5-14.5) % Plt Count (130-400) K/uL MPV (7.4-10.4) fL Immature Gran % (Auto) % Neut % (Auto) % Lymph % (Auto) % [place] % (Auto) % Eos % (Auto) % Baso % (Auto) % Neut # (Auto) (1.4-6.5) K/uL Lymph # (Auto) (1.2-3.4) K/uL [place] # (Auto) (0.11-0.59) K/uL Eos # (Auto) (0-0.5) K/uL Baso # (Auto) (0-0.2) K/uL Immature Gran # (Auto) (0.00-0.02) K/uL ESR 94 H (0-20) mm/hr PT (9.0-12.0) Seconds INR (0.9-1.1) APTT (21.0-31.0) Seconds PTT Ratio D-Dimer (0-500) ug/L FEU Sodium (136-145) mmol/L Potassium (3.5-5.1) mmol/L Chloride (98-107) mmol/L Carbon Dioxide (21-32) mmol/L Anion Gap (3-11) BUN (7-18) mg/dl Creatinine (0.6-1.4) mg/dl Est Cr Clr Drug Dosing ml/min Est GFR ( Amer) ml/min Est GFR (Non-Af Amer) ml/min BUN/Creatinine Ratio (10-20) Glucose (70-99) mg/dl Calcium (8.5-10.1) mg/dl Ferritin 848.2 H (8-388) ng/ml Total Bilirubin (0.2-1) mg/dl AST (15-37) U/L ALT (12-78) U/L Alkaline Phosphatase (45-117) U/L Troponin I (0-0.045) ng/ml C-Reactive Protein 17.20 H (0-0.29) mg/dl NT-Pro-B Natriuret Pep (0-900) pg/ml Total Protein (6.4-8.2) gm/dl Albumin (3.4-5.0) gm/dl Globulin (2.5-4.0) gm/dl Albumin/Globulin Ratio (0.9-2) Lipase (73-393) U/L Procalcitonin 0.12 (0-0.5) ng/ml COVID-19 Eval Order SARS-CoV-2 (PCR) (Negative) 11/26/20 11/26/20 Range/Units 07:38 07:38 WBC (4.8-10.8) K/uL RBC (4.7-6.1) M/uL Hgb (14.0-18.0) g/dL Hct (42-52) % MCV (80-100) fL MCH (25-34) pg MCHC (32-36) g/dL RDW Std Deviation (36.4-46.3) fL RDW Coeff of Stella (11.5-14.5) % Plt Count (130-400) K/uL MPV (7.4-10.4) fL Immature Gran % (Auto) % Neut % (Auto) % Lymph % (Auto) % [place] % (Auto) % Eos % (Auto) % Baso % (Auto) % Neut # (Auto) (1.4-6.5) K/uL Lymph # (Auto) (1.2-3.4) K/uL [place] # (Auto) (0.11-0.59) K/uL Eos # (Auto) (0-0.5) K/uL Baso # (Auto) (0-0.2) K/uL Immature Gran # (Auto) (0.00-0.02) K/uL ESR (0-20) mm/hr PT (9.0-12.0) Seconds INR (0.9-1.1) APTT (21.0-31.0) Seconds PTT Ratio D-Dimer (0-500) ug/L FEU Sodium (136-145) mmol/L Potassium (3.5-5.1) mmol/L Chloride (98-107) mmol/L Carbon Dioxide (21-32) mmol/L Anion Gap (3-11) BUN (7-18) mg/dl Creatinine (0.6-1.4) mg/dl Est Cr Clr Drug Dosing ml/min Est GFR ( Amer) ml/min Est GFR (Non-Af Amer) ml/min BUN/Creatinine Ratio (10-20) Glucose (70-99) mg/dl Calcium (8.5-10.1) mg/dl Ferritin (8-388) ng/ml Total Bilirubin (0.2-1) mg/dl AST (15-37) U/L ALT (12-78) U/L Alkaline Phosphatase (45-117) U/L Troponin I (0-0.045) ng/ml C-Reactive Protein (0-0.29) mg/dl NT-Pro-B Natriuret Pep (0-900) pg/ml Total Protein (6.4-8.2) gm/dl Albumin (3.4-5.0) gm/dl Globulin (2.5-4.0) gm/dl Albumin/Globulin Ratio (0.9-2) Lipase (73-393) U/L Procalcitonin (0-0.5) ng/ml COVID-19 Eval Order Covid19 at [facility] SARS-CoV-2 (PCR) POSITIVE A* (Negative) Imaging Data Attestation: I personally reviewed and interpreted this imaging study as follows: My Impression: Chest x-rayThere are bilateral fluffy infiltrates likely consistent with Covid or possibly pulmonary edema Radiologist's Impression: Chest X-Ray 11/26/20 07:16 XR chest 1V portable CLINICAL HISTORY: Atypical chest pain. COMPARISON STUDY: Chest radiograph August 14, 2020. FINDINGS: Left subclavian pacer/AICD is in place. There is no pneumothorax or pleural effusion. Cardiomediastinal silhouette is stable. Interstitial thickening and bilateral opacities are present. IMPRESSION: Interval development of interstitial thickening and bilateral opacities. An infectious process is favored however pulmonary edema could appear similar. Radiographic follow up to ensure resolution is recommended. ACT 112: Negative or not required by law. Electronically signed by: Pk Medeiros M.D. 11/26/2020 8:15 AM Chest CTA 11/26/20 08:16 CT ANGIOGRAM OF THE CHEST CLINICAL HISTORY: Dyspnea. COMPARISON STUDY: Chest x-ray dated 11/26/2020. TECHNIQUE: Following the IV administration of 120 cc of Optiray 320, CT angiogram of the chest was performed from the upper abdomen to the thoracic inlet utilizing the pulmonary embolus protocol. Images are reviewed in the axial, sagittal, and coronal planes. 3-D MIPS images are created and assessed. IV contrast was administered without complication. A dose lowering technique was utilized adhering to the principles of ALARA. The examination is degraded by motion artifact. CT DOSE: 1077.70 mGy.cm FINDINGS: Thyroid: Normal in size and heterogeneous in attenuation. Thoracic aorta: There is atherosclerotic calcification of the thoracic aorta, which is normal in caliber and demonstrates standard 3-vessel arch anatomy. No dissection is seen. Pulmonary vasculature: The main pulmonary arteries are dilated suggesting pulmonary artery hypertension. There is thrombus within the distal right main pulmonary artery. This extends into the right upper, middle, and lower lobar pu lmonary arteries into segmental and subsegmental branches. Pulmonary embolus is also seen within the distal left main pulmonary artery. This extends into the left lower lobe and lingular pulmonary arteries. Segmental and subsegmental pulmonary emboli are seen throughout the left upper and left lower lobes. Heart: A 2-lead cardiac pacemaker is present in the left chest wall. The heart is enlarged and without pericardial effusion. There are coronary artery calcifications. A left coronary artery stent is suggested. Lungs and pleural spaces: Evaluation of the lung parenchyma is compromised by motion artifact. Multifocal airspace consolidation is seen throughout both lungs, greatest at the lung bases. No pleural effusion is identified. The tra emma and central airways are clear. Mediastinum: There are numerous enlarged mediastinal lymph nodes. Precarinal nodes measure up to 1.8 cm in short axis. Stephanie: There is bilateral hilar adenopathy. Hilar nodes measure up to 1.7 cm in short axis. Axillae: There is no axillary lymphadenopathy. Upper abdomen: The spleen is enlarged measuring 15.3 cm in length. There is a small hiatal hernia. Skeletal structures: The skeletal structures are osteopenic. Spondylotic change is noted throughout the thoracic spine. Arthritic change is noted in the shoulders. No lytic or blastic bony lesions are seen. IMPRESSION: 1. Fairly extensive bilateral pulmonary embolus as above. 2. Cardiomegaly with evidence of pulmonary artery hypertension. 3. Multifocal airspace consolidation is typical for pneumonia. Clinical correlation will be required and radiographic follow-up to resolution is recommended. 4. Enlarged mediastinal and hilar lymph nodes are likely reactive. 5. Splenomegaly. ACT 112: Negative or not required by law. Electronically signed by: Charles Hendricks M.D. 11/26/2020 9:08 AM ECG Data Attestation: I personally reviewed and interpreted this ECG as follows: Indication: + SOB/dyspnea Rate (beats per minute): 100 Rhythm: + sinus tachycardia ECG Intervals/blocks: + Normal QRS, + Normal QT and + Normal HI ECG [place]: + Left axis deviation ECG Findings: + PVCs; no PACs Comparison ECG Date: from (08/14/20) Change: the following changes noted (Normal sinus rhythm has replaced placed a paced rhythm) MDM Narrative This patient comes in as described above. He was placed on a engine monitor in room B8. Multiple blood testing was obtained. He was reassessed frequently. He was Covid tested. IV access was established EKG and chest x-ray were obtained. His chest x-ray is very concerning for Covid. There could also be CHF component. EKG does not show any acute ischemic changes or significant arrhythmia. His troponin is mildly elevated at 0.099. He has no chest pain or ischemic changes seen on EKG. His D-dimer is significantly elevated. In light of this I did do a CTA he has bilateral PEs. There is no saddle emboli. He was started on heparin bolus and hourly rate IV. I do think he needs to be admitted he is also hypoxemic although he is resting comfortably with the oxygen. His vital signs have been stable. He will be admitted to the [facility] team for further patient treatment and evaluation Impression & Plan Bilateral pulmonary embolism, Hypoxia, Elevated troponin, COVID Discharge Plan Visit Data Chief Complaint: Respiratory Problems Stated Complaint: HAVING TROUBLE BREATHING ED Provider: Alberto Chen Discharge Problem: Bilateral pulmonary embolism, Hypoxia, Elevated troponin, COVID Patient Disposition: Admitted As Inpatient Discharge Instructions Interventions: ED Discharge Assessment Last Done: 11/26/20 09:58
[2020-11-26 07:39] LABS: Basophils # (auto) 0.03 K/uL (0-0.2); Basophils % (auto) 0.2 %; Eosinophils # (auto) 0.07 K/uL (0-0.5); Eosinophils % (auto) 0.4 %; Hematocrit (blood only) 41.8 % (42-52); Hemoglobin 14.2 g/dL (14.0-18.0); Immature Granulocytes # (auto) 0.06 K/uL (0.00-0.02); Immature Granulocytes % (auto) 0.4 %; Lymphocytes # (auto) 1.25 K/uL (1.2-3.4); Lymphocytes % (auto) 7.9 %; Mean Corpuscular Hemoglobin 28.5 pg (25-34); Mean Corpuscular Volume 83.8 fL (80-100); Mean Platelet Volume 9.7 fL (7.4-10.4); Monocytes # (auto) 1.32 K/uL (0.11-0.59); Monocytes % (auto) 8.3 %; Neutrophils # (auto) 13.15 K/uL (1.4-6.5); Neutrophils % (auto) 82.8 %; Platelet Count 387 K/uL (130-400); RDW Coefficient of Variation 13.4 % (11.5-14.5); RDW Standard Deviation 40.7 fL (36.4-46.3); Red Blood Count 4.99 M/uL (4.7-6.1); White Blood Count 15.88 K/uL (4.8-10.8)
[2020-11-26 07:51] LABS: Albumin Level 2.4 gm/dl (3.4-5.0); BUN Creatinine Ratio 9.9 (10-20); Calcium 9.1 mg/dl (8.5-10.1); Creatinine Clr Calc Pharmacy 115.8 ml/min; Est GFR (African American) 96.1 ml/min; Est GFR (Non-African American) 82.9 ml/min; Potassium 3.6 mmol/L (3.5-5.1)
[2020-11-26 07:59] LABS: Albumin Globulin Ratio 0.4 (0.9-2); Bilirubin,Total 1.1 mg/dl (0.2-1); Globulin 5.6 gm/dl (2.5-4.0); Troponin I 0.099 ng/ml (0-0.045)
[2020-11-26 08:09] LABS: INR 1.2 (0.9-1.1); Partial Thromboplastin Ratio 0.9; Partial Thromboplastin Time 23.9 Seconds (21.0-31.0); Prothrombin Time 12.1 Seconds (9.0-12.0)
[2020-11-26 08:11] LABS: D Dimer 23620 ug/L FEU (0-500)
--- NOTE | 2020-11-26 08:16 | XRay Report ---
XR chest 1V portable CLINICAL HISTORY: Atypical chest pain. COMPARISON STUDY: Chest radiograph August 14, 2020. FINDINGS: Left subclavian pacer/AICD is in place. There is no pneumothorax or pleural effusion. Cardi omediastinal silhouette is stable. Interstitial thickening and bilateral opacities are present. IMPRESSION: Interval development of interstitial thickening and bilateral opacities. An infectious p rocess is favored however pulmonary edema could appear similar. Radiographic follow up to ensure reso lution is recommended. ACT 112: Negative or not required by law. Electronically signed by: Pk Medeiros M.D. 11/26/2020 8:15 AM
[2020-11-26] MEDS ORDERED: OPTIRAY 320 125ml IV ONE (08:45)
[2020-11-26] MEDS ORDERED: dexAMETHasone**PF** 10 MG/ML VIAL IV ONE (09:07)
--- NOTE | 2020-11-26 09:09 | CT Scan Report ---
CT ANGIOGRAM OF THE CHEST CLINICAL HISTORY: Dyspnea. COMPARISON STUDY: Chest x-ray dated 11/26/2020. TECHNIQUE: Following the IV administration of 120 cc of Optiray 320, CT angiogram of the chest was pe rformed from the upper abdomen to the thoracic inlet utilizing the pulmonary embolus protocol. Images are reviewed in the axial, sagittal, and coronal planes. 3-D MIPS images are created and assessed. I V contrast was administered without complication. A dose lowering technique was utilized adhering to the principles of ALARA. The examination is degraded by motion artifact. CT DOSE: 1077.70 mGy.cm FINDINGS: Thyroid: Normal in size and heterogeneous in attenuation. Thoracic aorta: There is atherosclerotic calcification of the thoracic aorta, which is normal in kushal marcos and demonstrates standard 3-vessel arch anatomy. No dissection is seen. Pulmonary vasculature: The main pulmonary arteries are dilated suggesting pulmonary artery hypertensi on. There is thrombus within the distal right main pulmonary artery. This extends into the right uppe r, middle, and lower lobar pulmonary arteries into segmental and subsegmental branches. Pulmonary emb olus is also seen within the distal left main pulmonary artery. This extends into the left lower lobe and lingular pulmonary arteries. Segmental and subsegmental pulmonary emboli are seen throughout the left upper and left lower lobes. Heart: A 2-lead cardiac pacemaker is present in the left chest wall. The heart is enlarged and withou t pericardial effusion. There are coronary artery calcifications. A left coronary artery stent is sug gested. Lungs and pleural spaces: Evaluation of the lung parenchyma is compromised by motion artifact. Multif ocal airspace consolidation is seen throughout both lungs, greatest at the lung bases. No pleural eff usion is identified. The trachea and central airways are clear. Mediastinum: There are numerous enlarged mediastinal lymph nodes. Precarinal nodes measure up to 1.8 cm in short axis. Stephanie: There is bilateral hilar adenopathy. Hilar nodes measure up to 1.7 cm in short axis. Axillae: There is no axillary lymphadenopathy. Upper abdomen: The spleen is enlarged measuring 15.3 cm in length. There is a small hiatal hernia. Skeletal structures: The skeletal structures are osteopenic. Spondylotic change is noted throughout t he thoracic spine. Arthritic change is noted in the shoulders. No lytic or blastic bony lesions are s een. IMPRESSION: 1. Fairly extensive bilateral pulmonary embolus as above. 2. Cardiomegaly with evidence of pulmonary artery hypertension. 3. Multifocal airspace consolidation is typical for pneumonia. Clinical correlation will be required and radiographic follow-up to resolution is recommended. 4. Enlarged mediastinal and hilar lymph nodes are likely reactive. 5. Splenomegaly. ACT 112: Negative or not required by law. Electronically signed by: Charles Hendricks M.D. 11/26/2020 9:08 AM
[2020-11-26] MEDS ORDERED: Heparin IV Adult Wt-Based Standard WITH Bolus Protocol IV SCH (09:14)
[2020-11-26] MEDS ORDERED: Heparin IV Adult Wt-Based Standard WITH Bolus Protocol IV STA (09:20)
[2020-11-26] MEDS ORDERED: HEPARIN SOD (PORCINE) 1000 UNIT/ML IV ONE ×3 (09:28→19:15)
[2020-11-26] MEDS ORDERED: HEPARIN 25000 UNIT/500 ML D5W IV ONE (09:28)
[2020-11-26] MEDS ORDERED: HEPARIN SOD (PORCINE) 1000 UNIT/ML ONE (09:29)
[2020-11-26] MEDS ORDERED: HEPARIN SODIUM/DEXTROSE 25,000 UNITS/500 ML BAG IV SCH (09:45)
--- NOTE | 2020-11-26 09:47 | History & Physical Report ---
Date of Service November 26, 2020 Assessment & Plan (1) Bilateral pulmonary embolism: (2) Pneumonia due to COVID-19 virus: (3) Hypoxia: (4) Metabolic acidosis: (5) Elevated troponin: (6) Ischemic cardiomyopathy: (7) Atrial fibrillation: (8) Diabetes mellitus: (9) Hypertension: (10) Morbid obesity: Plan: This is a 60-year-old male who has significant past medical history of CAD with history of STEMI 04/01 with ASUNCION to mid LAD and residual ischemic cardiomyopathy EF 30 to 35%, dual-chamber pacemaker and AICD in place, PAF not anticoagulated, HTN, HLD, T2DM who presents to ED due to ill feeling x1 month. Patient met SIRS criteria on admission per current CMS criteria with tachycardia and leukocytosis Blood cultures obtained Source: Viral Covid pneumonia, possible cellulitis, tachycardia likely also as a result of bilateral pulmonary embolism but sepsis not entirely ruled out Bilateral pulmonary embolism Hypoxia admit to PCU IV heparin with bolus obtain echocardiogram to eval for right heart strain consult pulmonology Covid pneumonia hypoxia Unvaccinated status pt does not meet criteria for remdesivir given duration of sx Dexamethasone 6mg IV daily x 10 days Pulmonary toilet with nebulizer as needed, incentive spirometry Tessalon Perles, encourage self proning supplemental o2 as needed Elevated troponin CAD Ischemic cardiomyopathy status post dual-chamber pacemaker defibrillator Patient's chest pain is pleuritic and likely due to pulmonary embolism EKG unchanged Cycle troponins for completeness, obtain echo to eval for right heart strain Low threshold for cardiology consult Continue aspirin, Brilinta, statin, metoprolol and Aldactone Patient not on KENDELL inhibitor secondary to angioedema Hold Lasix and potassium for now as patient appears dry on exam, monitor daily and restart when appropriate Metabolic acidosis Hold Metformin Follow labs Gentle LR at 60 cc/h x 1 L Chronic venous insufficiency Left lower extremity wound, unstageable Consult wound care Procalcitonin WNL Given mild elevation in white count will treat with oral Keflex 500 mg 4 times daily and doxycycline 100 mg twice daily Monitor closely Atrial Fibrillation, paroxysmal Currently in normal sinus rhythm Continue metoprolol [id number] 3, not on anticoagulation T2DM Last A1c 7.9 on 03/28/2020, obtain A1c in a.m. Lantus/NovoLog per protocol Consult glycemic pharmacy in setting of IV dexamethasone use, appreciate their input hold metformin and jardiance Morbid obesity BMI 40 Encourage lifestyle and diet modifications DVT ppx: IV Heparin Dispo: PCU PCP: Shira FULL CODE Patient was seen and examined in collaboration with, Dr. Baker, please see addendum History of Present Illness Chief Complaint: Chest pain with inspiration, LUND, ill feeling x 1 month. Primary Care Provider: Howard Silva MD This is a 60-year-old male who has significant past medical history of CAD with history of STEMI 04/01 with ASUNCION to mid LAD and residual ischemic cardiomyopathy EF 30 to 35%, dual-chamber pacemaker and AICD in place, PAF not anticoagulated, HTN, HLD, T2DM who presents to ED due to ill feeling x1 month. He states for the past 3 to 4 weeks he has just felt unwell. He initially chalked it up to a, "cold." He states typically he takes [place] and symptoms resolved. Initially symptoms were sinus congestion, fatigue and lack of appetite. It then worsened to right-sided chest pain with inspiration and shortness breath with exertion. He states even minimal activity causes him to be, "played out." He denies any documented fever, chills, sweats, lightheadedness, dizziness, syncope, chest pain at rest, hemoptysis, palpitations, nausea, vomiting, abdominal pain, diarrhea, change in bowel or urinary habits. His last bowel movement was yesterday. He does admit to a cough that is off and on, feels it is productive and purulent when he coughs. He denies any increasing lower extremity edema or weight gain. If anything he admits to likely losing weight due to poor appetite. He does have a wound to his left lateral leg that he is not receiving treatment for. He is not vaccinated for Covid. In ED patient made hemodynamically stable although he was hypoxic requiring 2 L of O2. He was also tachycardic. He met SIRS criteria secondary to tachycardia and leukocytosis. Chest x-ray was concerning interstitial thickening and bilateral opacities favoring pulmonary edema versus infectious process. He did have a significantly elevated D-dimer at 23,000 and CTA was ordered. CT revealed fairly extensive bilateral pulmonary emboli, cardiomegaly with evidence of pulmonary artery hypertension, multifocal airspace consolidation typical for pneumonia, enlarged mediastinal hilar lymph nodes likely reactive and splenomegaly. He further had elevated troponin at 0.099, but EKG was unchanged. Allergies Allergy/AdvReac Type Severity Reaction Status Date / Time lisinopril Allergy Severe Difficulty Verified 11/26/20 07:32 Breathing Home Medications Medication Instructions Recorded Confirmed Type potassium chloride 20 mEq oral 20 meq PO BID #100 ea 12/21/17 11/26/20 Rx packet (Klor-Con) aspirin 81 mg tablet,delayed 81 mg PO QAM 03/05/18 11/26/20 History release furosemide 40 mg tablet (Lasix) 40 mg PO QAM 03/05/18 11/26/20 History spironolactone 25 mg tablet 25 mg PO QAM 03/05/18 11/26/20 History empagliflozin 25 mg tablet 25 mg PO DAILY 03/27/20 11/26/20 History (Jardiance) metformin 500 mg tablet,extended 2,000 mg PO PM 03/27/20 11/26/20 History release 24 hr metoprolol succinate 50 mg 50 mg PO QAM #30 tab 03/29/20 11/26/20 Rx tablet,extended release 24 hr nitroglycerin 0.4 mg sublingual 0.4 mg SUBLINGUAL PRN PRN #30 tab 03/29/20 11/26/20 Rx tablet (Nitrostat) ticagrelor 90 mg tablet (Brilinta) 90 mg PO BID #60 tab 03/29/20 11/26/20 Rx atorvastatin 80 mg tablet (Lipitor) 80 mg PO DAILY 08/14/20 11/26/20 History clobetasol 0.05 % topical cream 1 applic TOPICAL BID PRN 08/14/20 11/26/20 History (Temovate) Past Med/Surg History Medical History Acute ST elevation myocardial infarction (STEMI) Angioedema due to angiotensin converting enzyme inhibitor (KENDELL-I) Atrial fibrillation follows with Dr. Damico Chronic venous stasis dermatitis Diabetes mellitus, type 2 Elevated troponin Hyperlipidemia Hypertension On anticoagulant therapy warfarin daily Surgical History History of colonoscopy Hx of prostate biopsy benign S/P coronary artery stent placement Successful PCI of mid LAD with single drug-eluting stent (3.0 x 33 mm Xience; postdilated with 4.0 NC) Dr Flores, 03/27/20 Family History Father Family history of reaction to anesthesia "heart rate went irregular, was able to fix quick", not sure what he had done or what he was given Cancer Mother Diabetes Sister Celiac disease Denies family history of Heart disease Myocardial infarction Social History (Updated 11/26/20 @ 09:52 by Lupe Nelson PA-C) Smoking Status: Former smoker packs per day: 1; Years Smoked: 15; Number of Years Since Quit: 40; Second Hand Exposure: No; Do You Dip or Chew Tobacco: No; Hx Alcohol Use: No Hx Substance Use: No Preferred Language: Georgian Communication Ability: Effective 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 Beliefs That Will Affect Care: None marital status: Current Living Situation: Spouse current occupational status: previously employed 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 Other Information That Helps Us Care for You: No Feels Safe at Home: Yes Assistive Devices: None Review of Systems Review of Systems: All systems reviewed & are unremarkable except as noted in HPI & below Physical Exam Physical Exam: Constitutional: Morbidly obese, male, unkempt, WD/WN, vitals as above, NAD, sitting up in bed, flat affect, conversing easily Head: Normocephalic, Atraumatic Eyes: PERRL, conjunctivae normal, anicteric sclerae ENMT: external ear and nose normal, oropharynx normal Neck: trachea midline, no thyromegaly normal visual inspection Respiratory: normal respiratory effort, lungs clear to auscultation, no wheeze, rales, rhonchi. Normal insp/exp effort, no accessory muscle use Cardiovascular: RRR, no murmur, no edema, negative Homans vessels: no JVD or carotid bruit Chest: normal inspection of chest Abdomen: Obese abdomen, normal bowel sounds, soft, nontender, no hepatosplenomegaly appreciated Musculoskeletal: no cyanosis or clubbing, extremities motor strength 5/5 Skin: Left lower extremity wound, superior to lateral malleolus with eschar and surrounding erythema, no warmth, no rashes, warm and dry normal turgor Neurologic: PERRL, EOMI, accommodation nl, no face palsy, no dysarthria CN's II-XI intact bilaterally and moves all extremities Psychiatric: A+Ox3, euthymic affect Lymphatic: no cervical or axillary lymphadenopathy : deferred Results & Data Results & Data ([facility]) Vital Signs (Past 12 Hours) Vital Signs Temp Pulse Pulse Resp BP BP Pulse Ox 11/26/20 07:20 97 H 20 115/70 97 11/26/20 06:51 36.9 C 106 H 28 H 148/80 H 87 L Diagnostic Findings Chest X-Ray 11/26/20 07:16 XR chest 1V portable CLINICAL HISTORY: Atypical chest pain. COMPARISON STUDY: Chest radiograph August 14, 2020. FINDINGS: Left subclavian pacer/AICD is in place. There is no pneumothorax or pleural effusion. Cardiomediastinal silhouette is stable. Interstitial thickening and bilateral opacities are present. IMPRESSION: Interval development of interstitial thickening and bilateral opacities. An infectious process is favored however pulmonary edema could appear similar. Radiographic follow up to ensure resolution is recommended. ACT 112: Negative or not required by law. Electronically signed by: Pk Medeiros M.D. 11/26/2020 8:15 AM Chest CTA 11/26/20 08:16 CT ANGIOGRAM OF THE CHEST CLINICAL HISTORY: Dyspnea. COMPARISON STUDY: Chest x-ray dated 11/26/2020. TECHNIQUE: Following the IV administration of 120 cc of Optiray 320, CT angiogram of the chest was performed from the upper abdomen to the thoracic inlet utilizing the pulmonary embolus protocol. Images are reviewed in the axial, sagittal, and coronal planes. 3-D MIPS images are created and assessed. IV contrast was administered without complication. A dose lowering technique was utilized adhering to the principles of ALARA. The examination is degraded by motion artifact. CT DOSE: 1077.70 mGy.cm FINDINGS: Thyroid: Normal in size and heterogeneous in attenuation. Thoracic aorta: There is atherosclerotic calcification of the thoracic aorta, which is normal in caliber and demonstrates standard 3-vessel arch anatomy. No dissection is seen. Pulmonary vasculature: The main pulmonary arteries are dilated suggesting pulmonary artery hypertension. There is thrombus within the distal right main pulmonary artery. This extends into the right upper, middle, and lower lobar pulmonary arteries into segmental and subsegmental branches. Pulmonary embolus is also seen within the distal left main pulmonary artery. This extends into the left lower lobe and lingular pulmonary arteries. Segmental and subsegmental pulmonary emboli are seen throughout the left upper and left lower lobes. Heart: A 2-lead cardiac pacemaker is present in the left chest wall. The heart is enlarged and without pericardial effusion. There are coronary artery calcifications. A left coronary artery stent is suggested. Lungs and pleural spaces: Evaluation of the lung parenchyma is compromised by motion artifact. Multifocal airspace consolidation is seen throughout both lungs, greatest at the lung bases. No pleural effusion is identified. The trachea and central airways are clear. Mediastinum: There are numerous enlarged mediastinal lymph nodes. Precarinal nodes measure up to 1.8 cm in short axis. Stephanie: There is bilateral hilar adenopathy. Hilar nodes measure up to 1.7 cm in short axis. Axillae: There is no axillary lymphadenopathy. Upper abdomen: The spleen is enlarged measuring 15.3 cm in length. There is a small hiatal hernia. Skeletal structures: The skeletal structures are osteopenic. Spondylotic change is noted throughout the thoracic spine. Arthritic change is noted in the shoulders. No lytic or blastic bony lesions are seen. IMPRESSION: 1. Fairly extensive bilateral pulmonary embolus as above. 2. Cardiomegaly with evidence of pulmonary artery hypertension. 3. Multifocal airspace consolidation is typical for pneumonia. Clinical correlation will be required and radiographic follow-up to resolution is recommended. 4. Enlarged mediastinal and hilar lymph nodes are likely reactive. 5. Splenomegaly. ACT 112: Negative or not required by law. Electronically signed by: Charles Hendricks M.D. 11/26/2020 9:08 AM Medications Administered Medication List Discontinued Medications Dexamethasone Sodium Phosphate (DexamethasonePf 10 Mg/Ml Vial) 6 mg IV NOW ONE Stop: 11/26/20 09:08 Last Admin: 11/26/20 09:38 Dose: 6 mg Documented by: [id number] Heparin Sodium (Porcine) (Heparin Sod (Porcine) 1000 Unit/Ml) Confirm Administered Dose 1,000 units .ROUTE .STK-MED ONE Stop: 11/26/20 09:30 Last Admin: 11/26/20 09:44 Dose: 8,000 units Documented by: [id number] Cosigned by: [id number] Heparin Sodium/Dextrose (Heparin Iv Adult Wt-Based Standard With Bolus Protocol) 1 ea IV NOW STA; Protocol Stop: 11/26/20 09:21 Last Admin: 11/26/20 09:46 Dose: Not Given Documented by: [id number] Heparin Sodium/Dextrose (Heparin 45726 Unit/500 Ml D5w) Confirm Administered Dose 25,000 units IV .STK-MED ONE Stop: 11/26/20 09:29 Last Admin: 11/26/20 09:44 Dose: 1,850 units Documented by: [id number] Cosigned by: [id number] Ioversol (Optiray 320 125ml) 120 ml IV ONCE ONE Stop: 11/26/20 08:46 Last Admin: 11/26/20 08:46 Dose: 120 ml Documented by: [id number] ECG Rate (beats per minute): 100 Rhythm: sinus tachycardia Findings: + LAFB and + PVC Additional Comments: Compared to EKG from 04/28/2020 T wave inversions no longer evident anterior laterally, PVCs present COVID-19 Results Results COVID-19 Adm Lab Results: RBC 4.99 M/uL (4.7-6.1) 11/26/20 WBC 15.88 K/uL (4.8-10.8) H 11/26/20 Hgb 14.2 g/dL (14.0-18.0) 11/26/20 Hct 41.8 % (42-52) L 11/26/20 Plt Count 387 K/uL (130-400) 11/26/20 Neutrophils (%) (Auto) 82.8 % 11/26/20 Lymphocytes (%) (Auto) 7.9 % 11/26/20 Monocytes # (Auto) 1.32 K/uL (0.11-0.59) H 11/26/20 Eosinophils # (Auto) 0.07 K/uL (0-0.5) 11/26/20 Immature Granulocyte % (Auto) 0.4 % 11/26/20 Neutrophils # (Auto) 13.15 K/uL (1.4-6.5) H 11/26/20 Lymphocytes # (Auto) 1.25 K/uL (1.2-3.4) 11/26/20 Monocytes # (Auto) 1.32 K/uL (0.11-0.59) H 11/26/20 Eosinophils # (Auto) 0.07 K/uL (0-0.5) 11/26/20 Basophils # (Auto) 0.03 K/uL (0-0.2) 11/26/20 Immature Granulocyte # (Auto) 0.06 K/uL (0.00-0.02) H 11/26/20 Na 134 mmol/L (136-145) L 11/26/20 K 3.6 mmol/L (3.5-5.1) 11/26/20 Cl 102 mmol/L (98-107) 11/26/20 CO2 17 mmol/L (21-32) L 11/26/20 Anion Gap 15.0 (3-11) H 11/26/20 BUN 10 mg/dl (7-18) 11/26/20 Creatinine 0.98 mg/dl (0.6-1.4) 11/26/20 BUN/Creatinine Ratio 9.9 (10-20) L 11/26/20 Glucose Level 151 mg/dl (70-99) H 11/26/20 Ca 9.1 mg/dl (8.5-10.1) 11/26/20 Total Bilirubin 1.1 mg/dl (0.2-1) H 11/26/20 AST/SGOT 19 U/L (15-37) 11/26/20 ALT/SGPT 23 U/L (12-78) 11/26/20 Alkaline Phosphatase 62 U/L (45-117) 11/26/20 Total Protein 8.0 gm/dl (6.4-8.2) 11/26/20 Albumin 2.4 gm/dl (3.4-5.0) L 11/26/20 Globulin 5.6 gm/dl (2.5-4.0) H 11/26/20 Albumin/Globulin Ratio 0.4 (0.9-2) L 11/26/20 Troponin I 0.067 ng/ml (0-0.045) H* 11/26/20 HO-Qzs-E-Type Natriuretic Pep 2069 pg/ml (0-900) H 11/26/20 CRP 17.20 mg/dl (0-0.29) H 11/26/20 Procalcitonin 0.12 ng/ml (0-0.5) 11/26/20 Ferritin 848.2 ng/ml (8-388) H 11/26/20 D-Dimer 84573 ug/L FEU (0-500) H* 11/26/20 PTT 34.2 Seconds (21.0-31.0) H 11/26/20 INR 1.2 (0.9-1.1) H 11/26/20 COVID-19 PCR POSITIVE (Negative) A* 11/26/20 Chest X-Ray 11/26/20 Code Status & VTE Plan Code Status Full code VTE Prophylaxis Plan VTE Prophylaxis will be ordered: Yes Supervising Physician Co-Signing Physician Notes Patient is a 60-year-old male with history of's, hypertension, diabetes and other medical problems presents with history of ongoing flulike symptoms since 1 month duration. He states having sinus congestion, poor appetite initially. Currently states having pleuritic chest discomfort associated with dyspnea on exertion. Please review HPI for complete details of presentation. He was tested positive for Covid. CTA showed extensive bilateral pulmonary embolism, cardiomegaly with evidence of pulmonary artery hypertension, multifocal consoli dation typical for pneumonia and enlarged mediastinal and hilar lymphadenopathy, splenomegaly. His saturation was 87% on room air while in ED. Noted to have leukocytosis 15 K, mild troponin elevation, BNP elevated 2069, metabolic acidosis with bicarb of 17. On exam patient is morbidly obese, no apparent distress, normocephalic atraumatic, EOMI, lungs are decreased breath sounds, clear to auscultation, S1-S2, no murmur, bilateral lower extremity edema right greater than left, alert, awake, oriented, grossly no focal deficits. Patient is admitted for management of acute respiratory failure with hypoxia secondary to COVID-19 pneumonia, bilateral pulmonary embolism. Will start on IV heparin. Monitor for bleeding issues. Continue supplemental oxygen. Start on dexamethasone for COVID-19 pneumonia. Appreciate pulmonology input. Procalcitonin within normal limits. Continue nebs, Lasix as needed. I personally reviewed the record. Patient is interviewed and examined at bedside. Patient's care is coordinated with Lupe Nelson PA-C. Please refer to the documentation above for details of patient's presentation and for discussion of other issues.
[2020-11-26 09:50] LABS: C Reactive Protein 17.2 mg/dl (0-0.29); Ferritin 848.2 ng/ml (8-388)
[2020-11-26] MEDS ORDERED: GLUCOSE 10 TABS/TUBE PO PRN (10:43)
[2020-11-26] MEDS ORDERED: DEXTROSE 50% 50 ML SYRINGE IV PRN (10:43)
[2020-11-26] MEDS ORDERED: BENZONATATE 100 MG CAPSULE PO PRN (10:43)
[2020-11-26] MEDS ORDERED: ALUMINUM/MAGNESIUM SUSP 30 ML UDC PO PRN (10:43)
[2020-11-26] MEDS ORDERED: MAGNESIUM HYDROXIDE SUSP 30 ML UDC PO PRN (10:43)
[2020-11-26] MEDS ORDERED: GLUCOSE 40% GEL 15 GM TUBE PO PRN (10:43)
[2020-11-26] MEDS ORDERED: PHARMACY GLYCEMIC MGMT CONSULT PRN (10:43)
[2020-11-26] MEDS ORDERED: POLYETHYLENE (MIRALAX) 17 GM PACK PO PRN (10:43)
[2020-11-26] MEDS ORDERED: GLUCAGON FOR INJ 1 MG VIAL SQ PRN (10:43)
[2020-11-26] MEDS ORDERED: CARBOHYDRATES FOR HYPOGLYCEMIA PO PRN (10:43)
[2020-11-26] MEDS ORDERED: ACETAMINOPHEN 325 MG TAB PO PRN (10:43)
[2020-11-26] MEDS ORDERED: ONDANSETRON INJ 2 MG/ML 2 ML VIAL IV PRN (10:43)
[2020-11-26] MEDS ORDERED: ALBUT/IPRATROP 3MG/0.5MG NEB 3 ML VIAL NEB PRN (10:43)
[2020-11-26] MEDS ORDERED: NITROGLYCERIN SL 0.4 MG/TAB TAB SL PRN (10:43)
[2020-11-26] MEDS ORDERED: LACTATED RINGER'S 1,000 ML IV SCH (11:00)
[2020-11-26] MEDS ORDERED: INSULIN GLARGINE SOLOSTAR 100 UNITS/ML 3 ML PEN SQ ONE ×2 (12:00→12:15)
[2020-11-26] MEDS: HEPARIN SODIUM/DEXTROSE 25,000 UNITS/500 ML BAG IV SCH ×3 (12:07→21:05)
[2020-11-26] MEDS: DOXYCYCLINE HYCLATE 100 MG CAP PO SCH ×2 (12:19→21:10)
[2020-11-26] MEDS ORDERED: FLUARIX QUADRIVALENT 0.5 ML SYR IM ONE (13:00)
[2020-11-26] MEDS: INSULIN ASPART 100 UNITS/ML 3 ML PEN SC SCH ×3 (13:02→20:37)
[2020-11-26] MEDS: cephALEXin 500 MG CAP PO SCH ×3 (13:03→20:27)
--- NOTE | 2020-11-26 13:47 | Pharmacy Report ---
Pharmacy Glycemic Short Note 2 - Date of Service November 26, 2020 - Glycemic Short BSG Results (Last 24 hours): 11/26/20 11/26/20 07:20 11:44 Glucose 151 H POC Glucose 148 H OUTPATIENT ANTIDIABETIC REGIMEN: * Jardiance 25 mg PO daily * metformin 2000 mg qPM ASSESSMENT: * Mr Thrasher is a 60 y/o M with a PMH of T2DM who presents with COVID. * Patient received dexamethasone 6 mg this morning in ER and BSG on PRP is 151 mg/dL. Lunch BSG was 148 mg/dL. * Start with Lantus 30 unit x 1. This is almost full weight-based stress of 2. No NPH for today since > 4 hours since dexamethasone administration. * Novolog weight-based stress of 3. PLAN FOR INPATIENT GLYCEMIC CONTROL: * Hold outpatient oral diabetes medications * Basal insulin * Lantus 30 units SQ x 1 then ongoing based on BSG with doses of 10-30 daily * NPH 40 units SQ daily with dexamethasone starting 11/27 * Bolus insulin * NovoLog per scale ACHS or Q6hrs while NPO * Goal Range: Low 110 mg/dL - High 140 mg/dL * Correction Factor: 15 mg/dL/unit * Nutritional / Prandial insulin per carb ratio of 1 unit per 5 grams CHO consumed PLAN FOR DISCHARGE: * HbA1C ordered
[2020-11-26] MEDS ORDERED: PERFLUTREN LIPID MICROSPHERE (DEFINITY) IV ONE (14:35)
--- NOTE | 2020-11-26 14:35 | Pulmonary Consultation ---
Date of Consultation November 26, 2020 Assessment & Plan (1) Pneumonia due to COVID-19 virus: (2) Hypoxia: (3) Bilateral pulmonary embolism: (4) Morbid obesity with BMI of 40.0-44.9, adult: Impression: 60-year-old unvaccinated male with morbid obesity and cardiomyopathy presenting with acute PEs and Covid pneumonia. He appears hemodynamically stable. Has been initiated on dexamethasone. Recommendations: 1. Acute PE: Agree with anticoagulation in the form of heparin. Depending on echocardiogram results, may be able to transition to oral oral anticoagulants relatively quickly. At least 6 months of anticoagulation is recommended given PE associated with Covid. 2. Covid pneumonitis: Patient does meet criteria for dexamethasone. While his CRP is elevated, it is unclear how much of his hypoxemia is actually related to the PE and other underlying medical issues. I would hold off on baricitinib for now unless the patient should clinically deteriorate. 3. Hypoxemic respiratory failure: On a minimal amount of oxygen currently. Continue supplemental oxygen titrated to keep saturations at or above 90%. 4. Should the patient's oxygenation deteriorate, would have a low threshold for placing him on CPAP or BiPAP. 5. The patient's sleep study from 2013 was reviewed. It demonstrated severe sleep apnea with an AHI of 70 corrected with CPAP at 12 cm of water. Recommend that he use CPAP at 12 cm of water on a nightly basis when sleeping. 6. Weight loss is recommended We will continue to follow this patient over the next 12 to 24 hours to see how he does. Feel free to contact us with additional questions History of Present Illness Attending Physician: Liborio Baker MD History of Present Illness Asked by hospitalist to evaluate this patient with hypoxemia, PE, and Covid infection. History is obtained from discussion with the patient as well as review the electronic medical record. Patient is a 60-year-old unvaccinated morbidly obese male with coronary disease and an ischemic cardiomyopathy who presented to the emergency room with 3 to 4 weeks of general malaise. His impetus for presenting to the emergency room was some right-sided chest pain which appear to be pleuritic in nature as well as progressive shortness of breath. She had intermittent cough. He was noted to be hypoxemic in the emergency room requiring [address] angiogram showed bilateral PEs. He was treated with IV heparin and admitted to telemetry. He is currently undergoing an echocardiogram. He is on oxygen. He does not appear in any distress currently Allergies Allergy/AdvReac Type Severity Reaction Status Date / Time lisinopril Allergy Severe Difficulty Verified 11/26/20 07:32 Breathing Home Medications Medication Instructions Recorded Confirmed Type potassium chloride 20 mEq oral 20 meq PO BID #100 ea 12/21/17 11/26/20 Rx packet (Klor-Con) aspirin 81 mg tablet,delayed 81 mg PO QAM 03/05/18 11/26/20 History release furosemide 40 mg tablet (Lasix) 40 mg PO QAM 03/05/18 11/26/20 History spironolactone 25 mg tablet 25 mg PO QAM 03/05/18 11/26/20 History empagliflozin 25 mg tablet 25 mg PO DAILY 03/27/20 11/26/20 History (Jardiance) metformin 500 mg tablet,extended 2,000 mg PO PM 03/27/20 11/26/20 History release 24 hr metoprolol succinate 50 mg 50 mg PO QAM #30 tab 03/29/20 11/26/20 Rx tablet,extended release 24 hr nitroglycerin 0.4 mg sublingual 0.4 mg SUBLINGUAL PRN PRN #30 tab 03/29/20 11/26/20 Rx tablet (Nitrostat) ticagrelor 90 mg tablet (Brilinta) 90 mg PO BID #60 tab 03/29/20 11/26/20 Rx atorvastatin 80 mg tablet (Lipitor) 80 mg PO DAILY 08/14/20 11/26/20 History clobetasol 0.05 % topical cream 1 applic TOPICAL BID PRN 08/14/20 11/26/20 History (Temovate) Patient History Medical History Acute ST elevation myocardial infarction (STEMI) Angioedema due to angiotensin converting enzyme inhibitor (KENDELL-I) Atrial fibrillation follows with Dr. Damico Chronic venous stasis dermatitis Diabetes mellitus, type 2 Elevated troponin Hyperlipidemia Hypertension On anticoagulant therapy warfarin daily Surgical History History of colonoscopy Hx of prostate biopsy benign S/P coronary artery stent placement Successful PCI of mid LAD with single drug-eluting stent (3.0 x 33 mm Xience; postdilated with 4.0 NC) Dr Flores, 03/27/20 Family History Father Family history of reaction to anesthesia "heart rate went irregular, was able to fix quick", not sure what he had done or what he was given Cancer Mother Diabetes Sister Celiac disease Denies family history of Heart disease Myocardial infarction Social History (Updated 11/26/20 @ 09:52 by Lupe Nelson PA-C) Smoking Status: Former smoker packs per day: 1; Years Smoked: 15; Number of Years Since Quit: 40; Second Hand Exposure: No; Do You Dip or Chew Tobacco: No; Hx Alcohol Use: No Hx Substance Use: No Preferred Language: Maltese Communication Ability: Effective Bat Lathe Operator Required: No Beliefs That Will Affect Care: None marital status: Current Living Situation: Spouse current occupational status: previously employed 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 No additions or deletions Physical Exam Constitutional: WD/WN, vitals as above Morbidly obese Neck: trachea midline, no thyromegaly Respiratory: normal respiratory effort, lungs clear to auscultation Cardiovascular: Rate/Rhythm: regular rate Heart Sounds: normal S1 and normal S2; no murmur Extremities: + edema Gastrointestinal (Abdomen): normal bowel sounds, soft, nontender, no hepatosplenomegaly Musculoskeletal: Extremities: extremities normal to inspection Skin: no rashes, warm and dry Neurologic: Nonfocal exam Lymphatic: no cervical lymphadenopathy Results & Data Results & Data ([facility]) Vital Signs (Past 12 Hours) Vital Signs Temp Pulse Pulse Resp BP BP Pulse Ox 11/26/20 10:43 37.5 C 68 22 135/68 94 11/26/20 09:37 93 H 22 133/68 95 11/26/20 07:20 97 H 20 115/70 97 11/26/20 06:51 36.9 C 106 H 28 H 148/80 H 87 L Laboratory Results D-dimer 23 620 Ferritin 848 Initial troponin 0 0.099 now down to 0.067 CRP 17 proBNP 2000 Procalcitonin 0.12 Critical Care Results & Data Vital Signs (Past 12 Hours) Vital Signs Temp Pulse Pulse Resp BP BP Pulse Ox 11/26/20 10:43 37.5 C 68 22 135/68 94 11/26/20 09:37 93 H 22 133/68 95 11/26/20 07:20 97 H 20 115/70 97 11/26/20 06:51 36.9 C 106 H 28 H 148/80 H 87 L Lab & Micro Results (Past 24 Hours) RBC 4.99 M/uL (4.7-6.1) 11/26/20 WBC 15.88 K/uL (4.8-10.8) H 11/26/20 Hgb 14.2 g/dL (14.0-18.0) 11/26/20 Hct 41.8 % (42-52) L 11/26/20 MCV 83.8 fL (80-100) 11/26/20 MCH 28.5 pg (25-34) 11/26/20 MCHC 34.0 g/dL (32-36) 11/26/20 RDW Standard Deviation 40.7 fL (36.4-46.3) 11/26/20 RDW Coefficient of Variation 13.4 % (11.5-14.5) 11/26/20 Plt Count 387 K/uL (130-400) 11/26/20 MPV 9.7 fL (7.4-10.4) 11/26/20 Neutrophils (%) (Auto) 82.8 % 11/26/20 Lymphocytes (%) (Auto) 7.9 % 11/26/20 Monocytes # (Auto) 1.32 K/uL (0.11-0.59) H 11/26/20 Eosinophils # (Auto) 0.07 K/uL (0-0.5) 11/26/20 Immature Granulocyte % (Auto) 0.4 % 11/26/20 Neutrophils # (Auto) 13.15 K/uL (1.4-6.5) H 11/26/20 Lymphocytes # (Auto) 1.25 K/uL (1.2-3.4) 11/26/20 Monocytes # (Auto) 1.32 K/uL (0.11-0.59) H 11/26/20 Eosinophils # (Auto) 0.07 K/uL (0-0.5) 11/26/20 Basophils # (Auto) 0.03 K/uL (0-0.2) 11/26/20 Immature Granulocyte # (Auto) 0.06 K/uL (0.00-0.02) H 11/26/20 Na 134 mmol/L (136-145) L 11/26/20 K 3.6 mmol/L (3.5-5.1) 11/26/20 Cl 102 mmol/L (98-107) 11/26/20 CO2 17 mmol/L (21-32) L 11/26/20 Anion Gap 15.0 (3-11) H 11/26/20 BUN 10 mg/dl (7-18) 11/26/20 Creatinine 0.98 mg/dl (0.6-1.4) 11/26/20 Estimated GFR ( Amer) 96.1 ml/min 11/26/20 Estimated GFR (Non-Af Amer) 82.9 ml/min 11/26/20 BUN/Creatinine Ratio 9.9 (10-20) L 11/26/20 Glu 151 mg/dl (70-99) H 11/26/20 Ca 9.1 mg/dl (8.5-10.1) 11/26/20 Total Bilirubin 1.1 mg/dl (0.2-1) H 11/26/20 AST 19 U/L (15-37) 11/26/20 ALT 23 U/L (12-78) 11/26/20 Alkaline Phosphatase 62 U/L (45-117) 11/26/20 TP 8.0 gm/dl (6.4-8.2) 11/26/20 Albumin 2.4 gm/dl (3.4-5.0) L 11/26/20 Globulin 5.6 gm/dl (2.5-4.0) H 11/26/20 Albumin/Globulin Ratio 0.4 (0.9-2) L 11/26/20 Calcium Level 9.1 mg/dl (8.5-10.1) 11/26/20 07:20 11/26/20 Prothromb Time International Ratio 1.2 (0.9-1.1) H 11/26/20 07:20 11/26/20 Diagnostic Findings (Past 24 Hours) Chest X-Ray 11/26/20 07:16 XR chest 1V portable CLINICAL HISTORY: Atypical chest pain. COMPARISON STUDY: Chest radiograph August 14, 2020. FINDINGS: Left subclavian pacer/AICD is in place. There is no pneumothorax or pleural effusion. Cardiomediastinal silhouette is stable. Interstitial thickening and bilateral opacities are present. IMPRESSION: Interval development of interstitial thickening and bilateral opacities. An infectious process is favored however pulmonary edema could appear similar. Radiographic follow up to ensure resolution is recommended. ACT 112: Negative or not required by law. Electronically signed by: Pk Medeiros M.D. 11/26/2020 8:15 AM Chest CTA 11/26/20 08:16 CT ANGIOGRAM OF THE CHEST CLINICAL HISTORY: Dyspnea. COMPARISON STUDY: Chest x-ray dated 11/26/2020. TECHNIQUE: Following the IV administration of 120 cc of Optiray 320, CT angiogram of the chest was performed from the upper abdomen to the thoracic inlet utilizing the pulmonary embolus protocol. Images are reviewed in the axial, sagittal, and coronal planes. 3-D MIPS images are created and assessed. IV contrast was administered without complication. A dose lowering technique was utilized adhering to the principles of ALARA. The examination is degraded by motion artifact. CT DOSE: 1077.70 mGy.cm FINDINGS: Thyroid: Normal in size and heterogeneous in attenuation. Thoracic aorta: There is atherosclerotic calcification of the thoracic aorta, which is normal in caliber and demonstrates standard 3-vessel arch anatomy. No dissection is seen. Pulmonary vasculature: The main pulmonary arteries are dilated suggesting pulmonary artery hypertension. There is thrombus within the distal right main pulmonary artery. This extends into the right upper, middle, and lower lobar pulmonary arteries into segmental and subsegmental branches. Pulmonary embolus is also seen within the distal left main pulmonary artery. This extends into the left lower lobe and lingular pulmonary arteries. Segmental and subsegmental pulmonary emboli are seen throughout the left upper and left lower lobes. Heart: A 2-lead cardiac pacemaker is present in the left chest wall. The heart is enlarged and without pericardial effusion. There are coronary artery calcifications. A left coronary artery stent is suggested. Lungs and pleural spaces: Evaluation of the lung parenchyma is compromised by motion artifact. Multifocal airspace consolidation is seen throughout both lungs, greatest at the lung bases. No pleural effusion is identified. The trachea and central airways are clear. Mediastinum: There are numerous enlarged mediastinal lymph nodes. Precarinal nodes measure up to 1.8 cm in short axis. Stephanie: There is bilateral hilar adenopathy. Hilar nodes measure up to 1.7 cm in short axis. Axillae: There is no axillary lymphadenopathy. Upper abdomen: The spleen is enlarged measuring 15.3 cm in length. There is a small hiatal hernia. Skeletal structures: The skeletal structures are osteopenic. Spondylotic change is noted throughout the thoracic spine. Arthritic change is noted in the shoulders. No lytic or blastic bony lesions are seen. IMPRESSION: 1. Fairly extensive bilateral pulmonary embolus as above. 2. Cardiomegaly with evidence of pulmonary artery hypertension. 3. Multifocal airspace consolidation is typical for pneumonia. Clinical correlation will be required and radiographic follow-up to resolution is recommended. 4. Enlarged mediastinal and hilar lymph nodes are likely reactive. 5. Splenomegaly. ACT 112: Negative or not required by law. Electronically signed by: Charles Hendricks M.D. 11/26/2020 9:08 AM I & O Totals 24 Hours 11/25/20 11/26/20 11/27/20 06:59 06:59 06:59 Intake Total 550 / 550 Output Total 800 / 800 Balance -250 / -250 Cumulative 11/26/20 06:46 thru 11/26/20 14:00 Intake Total 550 Output Total 800 Balance -250 RT Ventilator Mngmt (Last Documented) Ventilator Ordered Settings Respiratory Rate 22 11/26/20 10:43 Ventilator - PT Measurements Respiratory Rate 22 PG Care Time/CCT Total # of Minutes Spent Total Time Spent with Patient: Total time spent is greater than 50% in coordination of care (as documented) at patient's floor/unit and/or counseling patient: Coding Level of Care Code 68171 Inpt Consult Level 4 Diagnoses Pneumonia due to COVID-19 virus U07.1; J12.82 Hypoxia R09.02 Bilateral pulmonary embolism I26.99 Morbid obesity with BMI of 40.0-44.9, adult E66.01; Z68.41
[2020-11-26] MEDS ORDERED: PNEUMOCOCCAL Polysaccharide Vaccine 25mcg/0.5mL vial/Syr IM ONE (15:15)
[2020-11-26 16:25] LABS: Partial Thromboplastin Ratio 1.3; Partial Thromboplastin Time 34.2 Seconds (21.0-31.0)
[2020-11-26] MEDS: TICAGRELOR 90 MG TAB PO SCH (21:42)
[2020-11-27] MEDS: INSULIN ASPART 100 UNITS/ML 3 ML PEN SC SCH ×6 (01:04→21:06)
[2020-11-27 01:38] LABS: Basophils # (auto) 0.02 K/uL (0-0.2); Basophils % (auto) 0.1 %; Hematocrit (blood only) 39.9 % (42-52); Hemoglobin 13.8 g/dL (14.0-18.0); Immature Granulocytes # (auto) 0.06 K/uL (0.00-0.02); Immature Granulocytes % (auto) 0.4 %; Lymphocytes # (auto) 1.41 K/uL (1.2-3.4); Lymphocytes % (auto) 10.5 %; Mean Corpuscular Hemoglobin 28.6 pg (25-34); Mean Corpuscular Hgb Conc 34.6 g/dL (32-36); Mean Corpuscular Volume 82.6 fL (80-100); Mean Platelet Volume 9.8 fL (7.4-10.4); Monocytes # (auto) 0.78 K/uL (0.11-0.59); Monocytes % (auto) 5.8 %; Neutrophils % (auto) 83.2 %; Platelet Count 373 K/uL (130-400); RDW Coefficient of Variation 13.4 % (11.5-14.5); RDW Standard Deviation 40.7 fL (36.4-46.3); Red Blood Count 4.83 M/uL (4.7-6.1); White Blood Count 13.47 K/uL (4.8-10.8)
[2020-11-27 01:48] LABS: Partial Thromboplastin Ratio 1.7; Partial Thromboplastin Time 44.5 Seconds (21.0-31.0)
[2020-11-27 01:56] LABS: BUN Creatinine Ratio 20.3 (10-20); Calcium 9.4 mg/dl (8.5-10.1); Creatinine Clr Calc Pharmacy 154.1 ml/min; Est GFR (African American) 112.9 ml/min; Est GFR (Non-African American) 97.4 ml/min; Magnesium 2.3 mg/dl (1.8-2.4); Potassium 3.9 mmol/L (3.5-5.1)
[2020-11-27 08:24] LABS: Estimated Average Glucose 171 mg/dl; Hemoglobin A1C 7.6 % (4.5-5.6)
[2020-11-27] MEDS ORDERED: INSULIN GLARGINE SOLOSTAR 100 UNITS/ML 3 ML PEN SQ SCH (09:00)
[2020-11-27] MEDS: HEPARIN SODIUM/DEXTROSE 25,000 UNITS/500 ML BAG IV SCH ×3 (09:35→21:04)
[2020-11-27] MEDS: ASPIRIN 81 MG ECTAB PO SCH (09:47)
[2020-11-27] MEDS: cephALEXin 500 MG CAP PO SCH ×4 (09:47→21:06)
[2020-11-27] MEDS: DOXYCYCLINE HYCLATE 100 MG CAP PO SCH ×2 (09:47→21:08)
[2020-11-27] MEDS: SPIRONOLACTONE 25 MG TAB PO SCH (09:47)
[2020-11-27] MEDS: dexAMETHasone 6 MG in SYRINGE 0 ML IV SCH (09:48)
[2020-11-27] MEDS: ATORVASTATIN 40 MG TAB PO SCH (09:48)
[2020-11-27] MEDS: METOPROLOL SUCC 50MG EXT REL TAB PO SCH (09:48)
--- NOTE | 2020-11-27 09:49 | Pulmonology Progress Note ---
Date of Service November 27, 2020 Assessment & Plan (1) Pneumonia due to COVID-19 virus: (2) Hypoxia: (3) Bilateral pulmonary embolism: (4) Morbid obesity with BMI of 40.0-44.9, adult: Plan: Impression: 60-year-old unvaccinated male with morbid obesity and cardiomyopathy presenting with acute PEs and Covid pneumonia. He appears hemodynamically stable. Has been initiated on dexamethasone. Echocardiogram showed reduced ejection fraction with multiple wall motion abnormalities. Recommendations: 1. Acute PE: Agree with anticoagulation in the form of heparin. Echo shows no evidence of RV dilatation or failure. At least 6 months of anticoagulation is recommended given PE associated with Covid. 2. Covid pneumonitis: Patient does meet criteria for dexamethasone. While his CRP is elevated, it is unclear how much of his hypoxemia is actually related to the PE and other underlying medical issues. I would hold off on baricitinib for now unless the patient should clinically deteriorate. 3. Hypoxemic respiratory failure: On a minimal amount of oxygen currently. Continue supplemental oxygen titrated to keep saturations at or above 90%. 4. Consider cardiology consultation given wall motion abnormalities and EF of 35 to 40% 5. The patient's sleep study from 2013 was reviewed. It demonstrated severe sleep apnea with an AHI of 70 corrected with CPAP at 12 cm of water. Recommend that he use CPAP at 12 cm of water on a nightly basis when sleeping. 6. Weight loss is recommended Patient appears relatively stable at this point time. Pulmonary will sign off. Feel free to contact us should the patient's clinical condition deteriorate or w ith any new respiratory Admission and Anticipated Discharge Date Admission Date: November 26, 2020 Subjective Patient seen and examined. EMR reviewed. The patient reports that he used CPAP last night. He is unclear if it offered him a clinical benefit. He is up to the chair today. His chest pain is resolved. He is on oxygen. He does not report any palpitations syncope or presyncope. Is not having any chest pains. His breathing is okay. He is not coughing or expectorating significant phlegm. He does not report any wheezing. Review of Systems Review of Systems: All systems reviewed & are unremarkable except as noted in Subjective Physical Exam Constitutional: WD/WN, vitals as above Neck: trachea midline, no thyromegaly Respiratory: normal respiratory effort, lungs clear to auscultation Cardiovascular: Rate/Rhythm: regular rate Heart Sounds: normal S1 and normal S2; no murmur Extremities: + edema Gastrointestinal (Abdomen): normal bowel sounds, soft, nontender, no hepatosplenomegaly Musculoskeletal: Extremities: extremities normal to inspection Skin: no rashes, warm and dry Lymphatic: no cervical lymphadenopathy Results & Data Results & Data ([facility]) Vital Signs (Past 12 Hours) Vital Signs Temp Pulse Pulse Resp BP Pulse Ox Pulse Ox 11/27/20 08:00 60 96 11/27/20 07:57 36.4 C L 60 22 120/78 92 11/27/20 07:16 60 11/27/20 04:02 36.3 C L 61 20 116/81 96 11/26/20 22:45 36.0 C L 63 19 116/78 95 Laboratory Results 11/27/20 01:21 11/27/20 01:21 Diagnostic Findings Echocardiogram performed yesterday was a technically difficult study. EF was 35-40 with reduced systolic function. Akinesis of the apical anterior and anterior septal and apical inferior pimentel. Grade 2 diastolic dysfunction was noted. Right ventricular function was normal. PG Care Time/CCT Total # of Minutes Spent Total Time Spent with Patient: Total time spent is greater than 50% in coordination of care (as documented) at patient's floor/unit and/or counseling patient: Coding Level of Care Code 87214 Subseq Hosp Care Lvl 2 Diagnoses Pneumonia due to COVID-19 virus U07.1; J12.82 Hypoxia R09.02 Bilateral pulmonary embolism I26.99 Morbid obesity with BMI of 40.0-44.9, adult E66.01; Z68.41
[2020-11-27 11:04] LABS: Partial Thromboplastin Ratio 1.1; Partial Thromboplastin Time 30.2 Seconds (21.0-31.0)
[2020-11-27] MEDS: TICAGRELOR 90 MG TAB PO SCH ×2 (11:20→21:08)
[2020-11-27] MEDS: INSULIN HUMAN NPH SC SCH (11:20)
[2020-11-27] MEDS ORDERED: HEPARIN SOD (PORCINE) 1000 UNIT/ML IV ONE (11:40)
--- NOTE | 2020-11-27 12:02 | Electrocardiogram Report ---
Test Reason : Blood Pressure : / mmHG Vent. Rate : 100 BPM Atrial Rate : 100 BPM P-R Int : 156 ms QRS Dur : 092 ms QT Int : 380 ms P-R-T Axes : 038 -73 058 degrees QTc Int : 490 ms Sinus rhythm with occasional Premature ventricular complexes Left anterior fascicular block Inferior infarct (cited on or before 27-MAR-2020) Anterolateral infarct (cited on or before 27-MAR-2020) Abnormal ECG When compared with ECG of 14-AUG-2020 11:51, Atrial-paced rhythm is no longer Present Confirmed by Shawn Montes ([id number]) on 11/27/2020 12:01:49 PM Referred By: REFERRED SELF Confirmed By:Shawn Montes
--- NOTE | 2020-11-27 17:36 | Hospitalist Progress Note ---
Date of Service November 27, 2020 Assessment & Plan (1) Bilateral pulmonary embolism: (2) Pneumonia due to COVID-19 virus: (3) Hypoxia: (4) Metabolic acidosis: (5) Elevated troponin: (6) Ischemic cardiomyopathy: (7) Atrial fibrillation: (8) Diabetes mellitus: (9) Hypertension: (10) Morbid obesity: Plan: Patient is a 60 yr male with H/O CAD with history of STEMI 04/01 with ASUNCION to mid LAD and residual ischemic cardiomyopathy EF 30 to 35%, dual-chamber pacemaker and AICD in place, PAF not anticoagulated, HTN, HLD, T2DM who presents to ED due to ill feeling x1 month. Pneumonia due to COVID-19 virus Left lower extremity wound/cellulitis Suspected Sepsis Acute respiratory failure with hypoxia Unvaccinated for Covid Blood cultures: No growth Continue dexamethasone Not a candidate for remdesivir Appreciate pulmonary input Continue supplemental oxygen as needed Acute Bilateral pulmonary embolism Likely associated with Covid ECHO: Unchanged from prior ECHO Continue IV heparin Start on oral anticoagulation likely tomorrow Elevated troponin Likely demand ischemia secondary to above H/O CAD Ischemic cardiomyopathy status post dual-chamber pacemaker defibrillator EKG unchanged Troponin trended down ECHO unchanged from prior Continue aspirin, Brilinta, statin, metoprolol and Aldactone Patient not on KENDELL inhibitor secondary to angioedema Resume home diuretic as able Metabolic acidosis Hold Metformin Resolved Chronic venous insufficiency Left lower extremity wound, unstageable Consult wound care Continue Keflex and doxycycline Atrial Fibrillation, paroxysmal Currently in normal sinus rhythm Continue metoprolol [id number] 3, not on anticoagulation Previously on Coumadin DM II Last A1c 7.9 on 03/28/2020, obtain A1c in a.m. Lantus/NovoLog per protocol Consult glycemic pharmacy in setting of IV dexamethasone use, appreciate their input hold metformin and jardiance Morbid obesity BMI 40 Encourage lifestyle and diet modifications DVT px: IV Heparin Code Status Full Code Admission and Anticipated Discharge Date Admission Date: November 26, 2020 Subjective Patient is seen and examined at bedside States feeling much better today Pleuritic pain resolved Minimal cough Less dyspnea today On IV heparin No bleeding issues Review of Systems Review of Systems: All systems reviewed & are unremarkable except as noted in Subjective Physical Exam Physical Exam: Physical Exam: Vitals signs as noted above General Appearance: Morbidly obese, no apparent distress Head: normocephalic, Atraumatic Eyes: normal inspection, EOMI Neck: supple, Trachea midline Respiratory/Chest: Decreased breath sounds, CTA, No accessory muscle use Cardiovascular: S1, S2, No murmur Abdomen/GI:Soft, Non tender, Bowel sounds present Extremities/Musculoskeletal:normal inspection, no edema, LLE lateral mallolar wound Neurologic/Psych:AAOX3, grossly no focal neurological deficits Skin: normal color, warm Results & Data Results & Data ([facility]) Vital Signs (Past 12 Hours) Vital Signs Temp Pulse Pulse Resp BP Pulse Ox Pulse Ox 11/27/20 15:34 36.7 C 70 19 107/73 93 11/27/20 12:29 98 11/27/20 11:20 36.8 C 69 23 119/64 96 11/27/20 11:15 98 11/27/20 08:00 60 96 11/27/20 07:57 36.4 C L 60 22 120/78 92 11/27/20 07:16 60 Laboratory Results Short CBC 11/27/20 Range/Units 01:21 WBC 13.47 H (4.8-10.8) K/uL Hgb 13.8 L (14.0-18.0) g/dL Hct 39.9 L (42-52) % Plt Count 373 (130-400) K/uL BMP 11/27/20 01:21 Sodium 136 Potassium 3.9 Chloride 106 Carbon Dioxide 23 BUN 16 D Creatinine 0.78 Glucose 190 H Calcium 9.4 Cardiac Enzymes 11/26/20 Range/Units 16:04 Troponin I 0.041 (0-0.045) ng/ml
[2020-11-27 19:29] LABS: Partial Thromboplastin Ratio 1.7
[2020-11-27 19:44] LABS: Partial Thromboplastin Time 45.8 Seconds (21.0-31.0)
[2020-11-28 03:29] LABS: Hematocrit (blood only) 40.7 % (42-52); Hemoglobin 13.9 g/dL (14.0-18.0); Mean Corpuscular Hemoglobin 28.8 pg (25-34); Mean Corpuscular Hgb Conc 34.2 g/dL (32-36); Mean Corpuscular Volume 84.3 fL (80-100); Platelet Count 382 K/uL (130-400); RDW Coefficient of Variation 13.3 % (11.5-14.5); RDW Standard Deviation 40.9 fL (36.4-46.3); Red Blood Count 4.83 M/uL (4.7-6.1); White Blood Count 17.91 K/uL (4.8-10.8)
[2020-11-28 03:41] LABS: Partial Thromboplastin Ratio 1.6; Partial Thromboplastin Time 42.9 Seconds (21.0-31.0)
[2020-11-28 03:47] LABS: BUN Creatinine Ratio 21.7 (10-20); Calcium 9.5 mg/dl (8.5-10.1); Creatinine Clr Calc Pharmacy 123.8 ml/min; Est GFR (African American) 96.1 ml/min; Est GFR (Non-African American) 82.9 ml/min; Potassium 3.7 mmol/L (3.5-5.1)
[2020-11-28] MEDS: HEPARIN SODIUM/DEXTROSE 25,000 UNITS/500 ML BAG IV SCH ×4 (04:39→18:24)
[2020-11-28] MEDS: ASPIRIN 81 MG ECTAB PO SCH (08:08)
[2020-11-28] MEDS: ATORVASTATIN 40 MG TAB PO SCH (08:09)
[2020-11-28] MEDS: cephALEXin 500 MG CAP PO SCH ×4 (08:09→21:01)
[2020-11-28] MEDS: SPIRONOLACTONE 25 MG TAB PO SCH (08:10)
[2020-11-28] MEDS: dexAMETHasone 6 MG in SYRINGE 0 ML IV SCH (08:10)
[2020-11-28] MEDS: METOPROLOL SUCC 50MG EXT REL TAB PO SCH (08:10)
[2020-11-28] MEDS: TICAGRELOR 90 MG TAB PO SCH ×2 (08:11→21:01)
[2020-11-28] MEDS: DOXYCYCLINE HYCLATE 100 MG CAP PO SCH ×2 (09:47→21:00)
[2020-11-28] MEDS: INSULIN ASPART 100 UNITS/ML 3 ML PEN SC SCH ×4 (09:48→20:57)
[2020-11-28] MEDS: INSULIN GLARGINE SOLOSTAR 100 UNITS/ML 3 ML PEN SQ SCH (10:02)
[2020-11-28] MEDS: INSULIN HUMAN NPH SC SCH (10:02)
--- NOTE | 2020-11-28 10:21 | Pharmacy Report ---
Pharmacy Glycemic Short Note 2 - Date of Service November 28, 2020 - Glycemic Short BSG Results (Last 24 hours): 11/27/20 11/27/20 11/27/20 11:19 16:57 20:38 Glucose POC Glucose 183 H 199 H 177 H 11/28/20 11/28/20 03:08 07:54 Glucose 182 H POC Glucose 130 H OUTPATIENT ANTIDIABETIC REGIMEN: * Jardiance 25 mg PO daily * metformin 2000 mg qPM ASSESSMENT: 11/28/20 * Pt has received 104 units of insulin over the past 24hrs * 30 units of basal with Lantus * 40 units of NPH for steroid induced hyperglycemia with dex 6mg IV daily * 34 units of bolus with NovoLog * BSGs trending downwards with current regimen. Fasting GLU still elevated at 182 mg/dl and correctional insulin required at HS. Will increase Lantus slightly. No other changes needed today. * Will significantly decrease insulin regimen when steroids dc. 11/26/20 * Mr Thrasher is a 60 y/o M with a PMH of T2DM who presents with COVID. * Patient received dexamethasone 6 mg this morning in ER and BSG on PRP is 151 mg/dL. Lunch BSG was 148 mg/dL. * Start with Lantus 30 unit x 1. This is almost full weight-based stress of 2. No NPH for today since > 4 hours since dexamethasone administration. * Novolog weight-based stress of 3. PLAN FOR INPATIENT GLYCEMIC CONTROL: * Hold outpatient oral diabetes medications * Basal insulin * Lantus 35 units SQ daily * NPH 40 units SQ daily with dexamethasone starting * Bolus insulin * NovoLog per scale ACHS or Q6hrs while NPO * Goal Range: Low 110 mg/dL - High 140 mg/dL * Correction Factor: 15 mg/dL/unit * Nutritional / Prandial insulin per carb ratio of 1 unit per 5 grams CHO consumed PLAN FOR DISCHARGE: * HbA1C 7.6% on 11/27/20. No changes needed to outpatient regimen.
[2020-11-28 11:33] LABS: Partial Thromboplastin Ratio 1.2; Partial Thromboplastin Time 31.2 Seconds (21.0-31.0)
[2020-11-28] MEDS ORDERED: HEPARIN SOD (PORCINE) 1000 UNIT/ML IV ONE (12:15)
--- NOTE | 2020-11-28 12:15 | Electrocardiogram Report ---
Test Reason : Blood Pressure : / mmHG Vent. Rate : 069 BPM Atrial Rate : 068 BPM P-R Int : 000 ms QRS Dur : 104 ms QT Int : 430 ms P-R-T Axes : 000 -34 022 degrees QTc Int : 460 ms Poor data quality, interpretation may be adversely affected Sinus rhythm Left axis deviation Inferior infarct (cited on or before 27-MAR-2020) Anterolateral infarct (cited on or before 27-MAR-2020) Abnormal ECG When compared with ECG of 26-NOV-2020 07:10, No significant change Confirmed by Shawn Montes ([id number]) on 11/28/2020 12:14:48 PM Referred By: REFERRED SELF Confirmed By:Shawn Montes
[2020-11-28] MEDS ORDERED: LOVENOX TEACHING KIT ONE (15:49)
[2020-11-28] MEDS ORDERED: ENOXAPARIN 1 MG/KG SQ SCH (16:00)
[2020-11-28] MEDS ORDERED: STOP HEPARIN DRIP ORDER SCH (16:00)
--- NOTE | 2020-11-28 16:10 | Hospitalist Progress Note ---
Date of Service November 28, 2020 Assessment & Plan (1) Bilateral pulmonary embolism: (2) Pneumonia due to COVID-19 virus: (3) Hypoxia: (4) Metabolic acidosis: (5) Elevated troponin: (6) Ischemic cardiomyopathy: (7) Atrial fibrillation: (8) Diabetes mellitus: (9) Hypertension: (10) Morbid obesity: Plan: Patient is a 60 yr male with H/O CAD with history of STEMI 04/01 with ASUNCION to mid LAD and residual ischemic cardiomyopathy EF 30 to 35%, dual-chamber pacemaker and AICD in place, PAF not anticoagulated, HTN, HLD, T2DM who presents to ED due to ill feeling x1 month. Pneumonia due to COVID-19 virus Left lower extremity wound/cellulitis Suspected Sepsis Acute respiratory failure with hypoxia Unvaccinated for Covid Blood cultures: No growth to date Continue dexamethasone as per protocol Not a candidate for remdesivir Appreciate pulmonary input Suturing low 90s on room air Leukocytosis likely secondary to steroids Continue supplemental oxygen as needed Acute Bilateral pulmonary embolism Likely associated with Covid ECHO: Unchanged from prior ECHO IV heparin transition to Lovenox SQ Started on Coumadin Monitor INR Elevated troponin Likely demand ischemia secondary to above H/O CAD Ischemic cardiomyopathy status post dual-chamber pacemaker defibrillator EKG unchanged Troponin trended down ECHO unchanged from prior Continue aspirin, Brilinta, statin, metoprolol and Aldactone Patient not on KENDELL inhibitor secondary to angioedema Resume home diuretic as able Metabolic acidosis Hold Metformin Resolved Chronic venous insufficiency Left lower extremity wound, unstageable Consult wound care Continue Keflex and doxycycline Atrial Fibrillation, paroxysmal Currently in normal sinus rhythm Continue metoprolol [id number] 3, not on anticoagulation on presentation Resumed on on Coumadin DM II Last A1c 7.9 on 03/28/2020, obtain A1c in a.m. Lantus/NovoLog per protocol Consult glycemic pharmacy in setting of IV dexamethasone use, appreciate their input hold metformin and jardiance Morbid obesity BMI 40 Encourage lifestyle and diet modifications DVT px: SQ Lovenox, Coumadin Code Status Full Code Admission and Anticipated Discharge Date Admission Date: November 26, 2020 Subjective Patient is seen and examined at bedside Less cough today Pleuritic chest pain completely resolved Denies any dyspnea Saturating 94% on room air Currently on IV heparin Denies any bleeding issues Review of Systems Review of Systems: All systems reviewed & are unremarkable except as noted in Subjective Physical Exam Physical Exam: Physical Exam: Vitals signs as noted above General Appearance: Morbidly obese, no apparent distress Head: normocephalic, Atraumatic Eyes: normal inspection, EOMI Neck: supple, Trachea midline Respiratory/Chest: Decreased breath sounds, CTA, No accessory muscle use Cardiovascular: S1, S2, No murmur Abdomen/GI:Soft, Non tender, Bowel sounds present Extremities/Musculoskeletal:normal inspection, no edema, LLE lateral mallolar wound Neurologic/Psych:AAOX3, grossly no focal neurological deficits Skin: normal color, warm Results & Data Results & Data ([facility]) Vital Signs (Past 12 Hours) Vital Signs Temp Pulse Resp BP Pulse Ox 11/28/20 12:00 36.3 C L 60 19 108/65 94 11/28/20 07:53 36.5 C 64 18 102/64 97 Laboratory Results Short CBC 11/28/20 Range/Units 03:08 WBC 17.91 H (4.8-10.8) K/uL Hgb 13.9 L (14.0-18.0) g/dL Hct 40.7 L (42-52) % Plt Count 382 (130-400) K/uL BMP 11/28/20 03:08 Sodium 136 Potassium 3.7 Chloride 104 Carbon Dioxide 29 BUN 21 H Creatinine 0.98 Glucose 182 H Calcium 9.5
[2020-11-28] MEDS ORDERED: ENOXAPARIN 150 MG/ML SYR SQ ONE (16:30)
[2020-11-28] MEDS: WARFARIN SOD 7.5 MG TAB PO SCH (17:28)
[2020-11-29] MEDS: ENOXAPARIN 150 MG/ML SYR SQ SCH ×2 (05:32→17:17)
[2020-11-29] MEDS: SPIRONOLACTONE 25 MG TAB PO SCH (08:09)
[2020-11-29] MEDS: ATORVASTATIN 40 MG TAB PO SCH (08:09)
[2020-11-29] MEDS: dexAMETHasone 6 MG in SYRINGE 0 ML IV SCH (08:09)
[2020-11-29] MEDS: cephALEXin 500 MG CAP PO SCH ×3 (08:09→16:59)
[2020-11-29] MEDS: TICAGRELOR 90 MG TAB PO SCH (08:09)
[2020-11-29] MEDS: METOPROLOL SUCC 50MG EXT REL TAB PO SCH (08:09)
[2020-11-29] MEDS: ASPIRIN 81 MG ECTAB PO SCH (08:09)
[2020-11-29] MEDS: DOXYCYCLINE HYCLATE 100 MG CAP PO SCH (08:09)
[2020-11-29] MEDS: INSULIN GLARGINE SOLOSTAR 100 UNITS/ML 3 ML PEN SQ SCH (08:10)
[2020-11-29] MEDS: INSULIN HUMAN NPH SC SCH (08:10)
[2020-11-29] MEDS: INSULIN ASPART 100 UNITS/ML 3 ML PEN SC SCH (08:13)
[2020-11-29 08:26] LABS: Hematocrit (blood only) 42.5 % (42-52); Hemoglobin 14.4 g/dL (14.0-18.0); Mean Corpuscular Hemoglobin 28.1 pg (25-34); Mean Corpuscular Hgb Conc 33.9 g/dL (32-36); Mean Corpuscular Volume 82.8 fL (80-100); Platelet Count 396 K/uL (130-400); RDW Coefficient of Variation 13.4 % (11.5-14.5); RDW Standard Deviation 40.4 fL (36.4-46.3); Red Blood Count 5.13 M/uL (4.7-6.1); White Blood Count 11.35 K/uL (4.8-10.8)
[2020-11-29 08:30] LABS: INR 1.2 (0.9-1.1); Prothrombin Time 11.8 Seconds (9.0-12.0)
[2020-11-29 08:46] LABS: BUN Creatinine Ratio 21.7 (10-20); Calcium 9.7 mg/dl (8.5-10.1); Creatinine Clr Calc Pharmacy 161.7 ml/min; Est GFR (African American) 114.8 ml/min; Potassium 3.9 mmol/L (3.5-5.1)
[2020-11-29] MEDS ORDERED: INSULIN GLARGINE SOLOSTAR 100 UNITS/ML 3 ML PEN SQ SCH (09:00)
[2020-11-29] MEDS ORDERED: INSULIN ASPART 100 UNITS/ML 3 ML PEN SC SCH ×2 (11:30→21:00)
--- NOTE | 2020-11-29 11:33 | Pharmacy Report ---
Pharmacy Glycemic Short Note 2 - Date of Service November 29, 2020 - Glycemic Short BSG Results (Last 24 hours): 11/28/20 11/28/20 11/28/20 12:01 16:21 20:36 Glucose POC Glucose 193 H 194 H 168 H 11/29/20 11/29/20 11/29/20 07:49 07:58 07:59 Glucose 79 POC Glucose 68 L* 67 L* 11/29/20 11/29/20 11/29/20 08:21 08:27 09:00 Glucose POC Glucose 60 L* 60 L* 95 OUTPATIENT ANTIDIABETIC REGIMEN: * Jardiance 25 mg PO daily * metformin 2000 mg qPM ASSESSMENT: 11/29 * HYPOGLYCEMIC event this morning. BSG just slightly low at 67mg/dl. Will decrease basal insulin with Lantus from 35 units to 25 units. However, 35 units already given this morning therefore will start this change tomorrow. Will hold NovoLog at HS since Lantus already given this morning without dose reduction. * No changes needed to NovoLog or NPH for steroid induced hyperglycemia 11/28/20 * Pt has received 104 units of insulin over the past 24hrs * 30 units of basal with Lantus * 40 units of NPH for steroid induced hyperglycemia with dex 6mg IV daily * 34 units of bolus with NovoLog * BSGs trending downwards with current regimen. Fasting GLU still elevated at 182 mg/dl and correctional insulin required at HS. Will increase Lantus slightly. No other changes needed today. * Will significantly decrease insulin regimen when steroids dc. 11/26/20 * Mr Thrasher is a 60 y/o M with a PMH of T2DM who presents with COVID. * Patient received dexamethasone 6 mg this morning in ER and BSG on PRP is 151 mg/dL. Lunch BSG was 148 mg/dL. * Start with Lantus 30 unit x 1. This is almost full weight-based stress of 2. No NPH for today since > 4 hours since dexamethasone administration. * Novolog weight-based stress of 3. PLAN FOR INPATIENT GLYCEMIC CONTROL: * Hold outpatient oral diabetes medications * Basal insulin * DECREASE Lantus 25 units SQ daily * NPH 40 units SQ daily with dexamethasone starting * Bolus insulin * NovoLog per scale ACHS or Q6hrs while NPO * Goal Range: Low 110 mg/dL - High 140 mg/dL * Correction Factor: 15 mg/dL/unit (CR = 40 at HS only) * Nutritional / Prandial insulin per carb ratio of 1 unit per 5 grams CHO consumed (no CR at HS) PLAN FOR DISCHARGE: * HbA1C 7.6% on 11/27/20. No changes needed to outpatient regimen.
--- NOTE | 2020-11-29 15:11 | Hospitalist Progress Note ---
Date of Service November 29, 2020 Assessment & Plan (1) Bilateral pulmonary embolism: (2) Pneumonia due to COVID-19 virus: (3) Hypoxia: (4) Metabolic acidosis: (5) Elevated troponin: (6) Ischemic cardiomyopathy: (7) Atrial fibrillation: (8) Diabetes mellitus: (9) Hypertension: (10) Morbid obesity: Plan: Patient is a 60 yr male with H/O CAD with history of STEMI 04/01 with ASUNCION to mid LAD and residual ischemic cardiomyopathy EF 30 to 35%, dual-chamber pacemaker and AICD in place, PAF not anticoagulated, HTN, HLD, T2DM who presents to ED due to ill feeling x1 month. Pneumonia due to COVID-19 virus Left lower extremity wound/cellulitis Suspected Sepsis Acute respiratory failure with hypoxia Unvaccinated for Covid Blood cultures: No growth to date Continue dexamethasone as per protocol Not a candidate for remdesivir Appreciate pulmonary input Suturing low 94% on room air Leukocytosis trended down Weaned off of supplemental oxygen Acute Bilateral pulmonary embolism Likely associated with Covid ECHO: Unchanged from prior ECHO IV heparin transition to Lovenox SQ Continue Coumadin Monitor INR: 1.2 Advised to follow-up with Coumadin clinic upon discharge Elevated troponin Likely demand ischemia secondary to above H/O CAD Ischemic cardiomyopathy status post dual-chamber pacemaker defibrillator EKG unchanged Troponin trended down ECHO unchanged from prior Continue aspirin, Brilinta, statin, metoprolol and Aldactone Patient not on KENDELL inhibitor secondary to angioedema Resumed home diuretic Metabolic acidosis Hold Metformin Resolved Chronic venous insufficiency Left lower extremity wound, unstageable Consult wound care Continue Keflex and doxycycline Atrial Fibrillation, paroxysmal Currently in normal sinus rhythm Continue metoprolol [id number] 3, not on anticoagulation on presentation Resumed on on Coumadin DM II Last A1c 7.9 on 03/28/2020, obtain A1c in a.m. Lantus/NovoLog per protocol Consult glycemic pharmacy in setting of IV dexamethasone use, appreciate their input hold metformin and jardiance Morbid obesity BMI 40 Encourage lifestyle and diet modifications DVT px: SQ Lovenox, Coumadin Code Status Full Code Admission and Anticipated Discharge Date Admission Date: November 26, 2020 Subjective Patient is seen and examined at bedside Offers no new complaints Sitting in chair during my encounter Saturating 96% on room air Denies any bleeding issues Also denies chest pain, dyspnea, dizziness, nausea, abdominal pain Eager to get discharged Review of Systems Review of Systems: All systems reviewed & are unremarkable except as noted in Subjective Physical Exam Physical Exam: Physical Exam: Vitals signs as noted above General Appearance: Morbidly obese, no apparent distress Head: normocephalic, Atraumatic Eyes: normal inspection, EOMI Neck: supple, Trachea midline Respiratory/Chest: Decreased breath sounds, CTA, No accessory muscle use Cardiovascular: S1, S2, No murmur Abdomen/GI:Soft, Non tender, Bowel sounds present Extremities/Musculoskeletal:normal inspection, no edema, LLE lateral mallolar wound Neurologic/Psych:AAOX3, grossly no focal neurological deficits Skin: normal color, warm Results & Data Results & Data ([place]) Vital Signs (Past 12 Hours) Vital Signs Temp Pulse Resp BP BP Pulse Ox 11/29/20 11:14 36.5 C 60 18 104/65 93 11/29/20 07:53 36.3 C L 81 18 116/74 95 11/29/20 04:06 36.4 C L 63 18 110/75 93 Laboratory Results Short CBC 11/29/20 Range/Units 07:49 WBC 11.35 H (4.8-10.8) K/uL Hgb 14.4 (14.0-18.0) g/dL Hct 42.5 (42-52) % Plt Count 396 (130-400) K/uL BMP 11/29/20 07:49 Sodium 139 Potassium 3.9 Chloride 106 Carbon Dioxide 27 BUN 16 Creatinine 0.75 Glucose 79 Calcium 9.7
--- NOTE | 2020-11-29 16:29 | Discharge Summary ---
Date of Service November 29, 2020 Admission HPI Per Admitting Provider This is a 60-year-old male who has significant past medical history of CAD with history of STEMI 04/01 with ASUNCION to mid LAD and residual ischemic cardiomyopathy EF 30 to 35%, dual-chamber pacemaker and AICD in place, PAF not anticoagulated, HTN, HLD, T2DM who presents to ED due to ill feeling x1 month. He states for the past 3 to 4 weeks he has just felt unwell. He initially chalked it up to a, "cold." He states typically he takes Alissa-[employer]son and symptoms resolved. Initially symptoms were sinus congestion, fatigue and lack of appetite. It then worsened to right-sided chest pain with inspiration and shortness breath with exertion. He states even minimal activity causes him to be, "played out." He denies any documented fever, chills, sweats, lightheadedness, dizziness, syncope, chest pain at rest, hemoptysis, palpitations, nausea, vomiting, abdominal pain, diarrhea, change in bowel or urinary habits. His last bowel movement was yesterday. He does admit to a cough that is off and on, feels it is productive and purulent when he coughs. He denies any increasing lower extremity edema or weight gain. If anything he admits to likely losing weight due to poor appetite. He does have a wound to his left lateral leg that he is not receiving treatment for. He is not vaccinated for Covid. In ED patient made hemodynamically stable although he was hypoxic requiring 2 L of O2. He was also tachycardic. He met SIRS criteria secondary to tachycardia and leukocytosis. Chest x-ray was concerning interstitial thickening and bilateral opacities favoring pulmonary edema versus infectious process. He did have a significantly elevated D-dimer at 23,000 and [address]A was ordered. CT revealed fairly extensive bilateral pulmonary emboli, cardiomegaly with evidence of pulmonary artery hypertension, multifocal airspace consolidation typical for pneumonia, enlarged mediastinal hilar lymph nodes likely reactive and splenomegaly. He further had elevated troponin at 0.099, but EKG was unchanged. Admission Exam Per Admitting Provider Physical Exam Physical Exam: Constitutional: Morbidly obese, male, unkempt, WD/WN, vitals as above, NAD, sitting up in bed, flat affect, conversing easily Head: Normocephalic, Atraumatic Eyes: PERRL, conjunctivae normal, anicteric sclerae ENMT: external ear and nose normal, oropharynx normal Neck: trachea midline, no thyromegaly normal visual inspection Respiratory: normal respiratory effort, lungs clear to auscultation, no wheeze, rales, rhonchi. Normal insp/exp effort, no accessory muscle use Cardiovascular: RRR, no murmur, no edema, negative Homans vessels: no JVD or carotid bruit Chest: normal inspection of chest Abdomen: Obese abdomen, normal bowel sounds, soft, nontender, no hepatosplenomegaly appreciated Musculoskeletal: no cyanosis or clubbing, extremities motor strength 5/5 Skin: Left lower extremity wound, superior to lateral malleolus with eschar and surrounding erythema, no warmth, no rashes, warm and dry normal turgor Neurologic: PERRL, EOMI, accommodation nl, no face palsy, no dysarthria CN's II-XI intact bilaterally and moves all extremities Psychiatric: A+Ox3, euthymic affect Lymphatic: no cervical or axillary lymphadenopathy : deferred Principal Diagnosis Pneumonia due to COVID-19 virus Acute bilateral pulmonary embolism Acute respiratory failure with hypoxia Discharge Data Allergies Allergy/AdvReac Type Severity Reaction Status Date / Time lisinopril Allergy Severe Difficulty Verified 11/26/20 07:32 Breathing Consultations 11/26/20 08:57 ED Decision to Admit Stat 11/26/20 09:42 Consult Pulmonology Routine Ordered Studies 11/26/20 08:16 CT angio chest PE protocol Stat Hospital Course (1) Bilateral pulmonary embolism: (2) Pneumonia due to COVID-19 virus: (3) Hypoxia: (4) Metabolic acidosis: (5) Elevated troponin: (6) Ischemic cardiomyopathy: (7) Atrial fibrillation: (8) Diabetes mellitus: (9) Hypertension: (10) Morbid obesity: Patient is a 60 yr male with H/O CAD with history of STEMI 04/01 with ASUNCION to mid LAD and residual ischemic cardiomyopathy EF 30 to 35%, dual-chamber pacemaker and AICD in place, PAF not anticoagulated, HTN, HLD, T2DM who presents to ED due to ill feeling x1 month. Pneumonia due to COVID-19 virus Left lower extremity wound/cellulitis Suspected Sepsis Acute respiratory failure with hypoxia Unvaccinated for Covid Blood cultures: No growth to date Continue dexamethasone as per protocol Not a candidate for remdesivir Appreciate pulmonary input Suturing low 94% on room air Leukocytosis trended down Weaned off of supplemental oxygen Acute Bilateral pulmonary embolism Likely associated with Covid ECHO: Unchanged from prior ECHO IV heparin transition to Lovenox SQ Continue Coumadin Monitor INR: 1.2 Advised to follow-up with Coumadin clinic upon discharge Elevated troponin Likely demand ischemia secondary to above H/O CAD Ischemic cardiomyopathy status post dual-chamber pacemaker defibrillator EKG unchanged Troponin trended down ECHO unchanged from prior Continue aspirin, Brilinta, statin, metoprolol and Aldactone Patient not on KENDELL inhibitor secondary to angioedema Resumed home diuretic Metabolic acidosis Hold Metformin Resolved Chronic venous insufficiency Left lower extremity wound, unstageable Consult wound care Continue Keflex and doxycycline Atrial Fibrillation, paroxysmal Currently in normal sinus rhythm Continue metoprolol [id number] 3, not on anticoagulation on presentation Resumed on on Coumadin DM II Last A1c 7.9 on 03/28/2020, obtain A1c in a.m. Lantus/NovoLog per protocol Consult glycemic pharmacy in setting of IV dexamethasone use, appreciate their input hold metformin and jardiance Morbid obesity BMI 40 Encourage lifestyle and diet modifications DVT px: SQ Lovenox, Coumadin Code Status Full Code Total Time Total Time Spent Total Time Spent (In Minutes): 44 minutes Discharge Plan Discharge Items Patient Disposition: Home - Self-Care Reason For Visit: COVID PNA Discharge Diagnosis: Pneumonia due to COVID-19 virus Acute bilateral pulmonary embolism Acute respiratory failure with hypoxia Activity: Per Instructions section Exercise/Sports: Wait until after follow-up appointment Non-emergency contact: Primary Care Provider and Specialist Call non-emergency contact if: you have any medication questions, your symptoms worsen, your pain is concerning for you and you have a fever Follow-up/Referrals: Howard Silva MD [Primary Care Provider] - (Date & Time 12/04/2020 11:00 AM Provider Howard Silva MD Department General Internal Medicine [facility] PLEASE NOTE THAT THIS IS A TELEHEALTH APPOINTMENT. PLEASE FOLLOW THE INSTRUCTIONS PROVIDED IN YOUR EMAIL. IF YOU HAVE ANY QUESTIONS REGARDING THIS APPOINTMENT, PLEASE CALL ) Diet: Carb Consistent or DM2, Heart Healthy and Low Sodium (2gm) Addtl Attending Provider Instructions: Follow-up with your primary care physician on 12/04/2020 11:00 AM --Follow-up with your Coumadin clinic for management of PT/INR and dosing your Coumadin --Continue Lovenox as prescribed until your INR is therapeutic between 2.0-3.0. Further instructions will be given by Coumadin clinic. -Your INR is 1.2 today (11/29/20)....Get Blood test PT/INR tomorrow (11/30/20) and follow-up with Coumadin clinic for dosing of Coumadin tomorrow. Seek immediate medical attention if your symptoms reoccur or worsen Please take all medications as instructed on discharge list below. Please call if you have any questions or problems. You can reach a [facility] hospitalist on duty at [facility] 24 hours a day by calling [phone] Home Isolation COVID-19 Instructions The following information about Home Isolation is from the CDC Website: https://www.cdc.gov/coronavirus/2019-ncov/hcp/pegkmiwz-epvtzah-xgorvf.html Stay home except to get medical care People who are mildly ill with COVID-19 are able to isolate at home during their illness. You should restrict activities outside your home, except for getting medical care. Do not go to work, school, or public areas. Avoid using public transportation, ride-sharing, or taxis. Separate yourself from other people and animals in your home People: As much as possible, you should stay in a specific room and away from other people in your home. Also, you should use a separate bathroom, if available. Animals: You should restrict contact with pets and other animals while you are sick with COVID-19, just like you would around other people. Although there have not been reports of pets or other animals becoming sick with COVID-19, it is still recommended that people sick with COVID-19 limit contact with animals until more information is known about the virus. When possible, have another member of your household care for your animals while you are sick. If you are sick with COVID-19, avoid contact with your pet, including petting, snuggling, being kissed or licked, and sharing food. If you must care for your pet or be around animals while you are sick, wash your hands before and after you interact with pets and wear a face mask. Call ahead before visiting your doctor If you have a medical appointment, call the healthcare provider and tell them that you have or may have COVID-19. This will help the healthcare providers office take steps to keep other people from getting infected or exposed. Wear a face mask You should wear a face mask when you are around other people (e.g., sharing a room or vehicle) or pets and before you enter a healthcare providers office. If you are not able to wear a face mask (for example, because it causes trouble breathing), then people who live with you should not stay in the same room with you, or they should wear a face mask if they enter your room. Cover your coughs and sneezes Cover your mouth and nose with a tissue when you cough or sneeze. Throw used tissues in a lined trash can. Immediately wash your hands with soap and water for at least 20 seconds or, if soap and water are not available, clean your hands with an alcohol-based hand blood coordinator that contains at least 60% alcohol. Clean your hands often Wash your hands often with soap and water for at least 20 seconds, especially after blowing your nose, coughing, or sneezing; going to the bathroom; and before eating or preparing food. If soap and water are not readily available, use an alcohol-based hand blood coordinator with at least 60% alcohol, covering all surfaces of your hands and rubbing them together until they feel dry. Soap and water are the best option if hands are visibly dirty. Avoid touching your eyes, nose, and mouth with unwashed hands. Avoid sharing personal household items You should not share dishes, drinking glasses, cups, eating utensils, towels, or bedding with other people or pets in your home. After using these items, they should be washed thoroughly with soap and water. Clean all high-touch surfaces everyday High touch surfaces include counters, tabletops, doorknobs, bathroom fixtures, toilets, phones, keyboards, tablets, and bedside tables. Also, clean any surfaces that may have blood, stool, or body fluids on them. Use a household cleaning spray or wipe, according to the label instructions. Labels contain instructions for safe and effective use of the cleaning product including precautions you should take when applying the product, such as wearing gloves and making sure you have good ventilation during use of the product. Monitor your symptoms Seek prompt medical attention if your illness is worsening (e.g., difficulty breathing).Beforeseeking care, call your healthcare provider and tell them that you have, or are being evaluated for, COVID-19. Put on a face mask before you enter the facility. These steps will help the healthcare providers office to keep other people in the office or waiting room from getting infected or exposed. Ask your healthcare provider to call the local or state health department. Persons who are placed under active monitoring or facilitated self- monitoring should follow instructions provided by their local health department or occupational health professionals, as appropriate. When working with your local health department check their available hours. If you have a medical emergency and need to call 911, notify the dispatch personnel that you have, or are being evaluated for COVID-19. If possible, put on a face mask before emergency medical services arrive. Discontinuing home isolation Patients with confirmed COVID-19 should remain under home isolation precautions until the risk of secondary transmission to others is thought to be low. The decision to discontinue home isolation precautions should be made on a cuko-ve-odwj basis, in consultation with healthcare providers and state and [facility] health departments. Coronavirus disease 2019 (COVID-19) is a virus that causes a respiratory illness. It is caused by a coronavirus called 2019 novel coronavirus (2019- nCoV). There are many types of coronavirus. Coronaviruses are a very common cause of bronchitis. They may sometimes cause lung infection(pneumonia). Symptoms can range from mild to severe respiratory illness. These viruses are also foundin some animals. COVID-19 was first found in people in [facility], in late 2019. In 2020, several cases of COVID-19 have been confirmed in the [place] Public health officials are working to find the source. How the virus spreads is not yet fully known. It may be spread through droplets of fluid that a person coughs or sneezes into the air. It may be spread if you touch a surface with virus on it, such as a handle or object, and then touch your mouth. What are the symptoms of COVID-19? Some people have no symptoms or mild symptoms. Symptoms may appear 2 to 14 days after contact with the virus. Symptoms can include: Fever Coughing Trouble breathing What are possible complications from COVID-19? In many cases, this virus can cause infection (pneumonia) in both lungs. In some cases, this can cause . How is COVID-19 diagnosed? Your healthcare provider will ask about your symptoms. He or she will also ask about your recent travel and contact with sick people. Testing for the virus is only done through the CDC. If yourhealthcare provider thinks you may have COVID- 19, he or she will work with your local health department and the CDC on testing. Follow all instructions from your healthcare provider. COVID-19 is diagnosed by: Nasal and throat swab. A cotton-tipped swab is wiped inside your nose or throat. This is done to check for viruses in your nasal mucus. Sputum culture. A small sample of mucus coughed from your lungs (sputum) is collected if you have a cough. It is checked for the virus. How is COVID-19 treated? There is currently no medicine to treat the virus. Treatment is done to help your body while it fights the virus. This is known as supportive care. Supportive care may include: Pain medicine. These include acetaminophen and ibuprofen. They are used to help ease pain and reduce fever. Bed rest. This helps your body fight the illness. For severe illness, you may need to stay in the hospital. Care during severe illness may include: IV (intravenous) fluids.These are given through a vein to help keep your body hydrated. Oxygen. Supplemental oxygen or ventilation with a breathing machine (ventilator) may be given. This is done to keep enough oxygen in your body. Are you at risk for COVID-19? If youve been to a place where people have been sick with this virus, you are at risk for infection. You are at risk if you: Recently traveled to an affected area Had contact with a sick person who recently traveled to this area Had contact with a person who was diagnosed with COVID-19 How can COVID-19 be prevented? There is no vaccine yet. The best prevention is to not have contact with the virus. The CDC advises that people should not travel to areas where there are COVID-19 outbreaks right now for any reason that is not urgent. To help prevent spreading the infection, wash your hands often, or use an alcohol-basedhand blood coordinator. If you are in an area with COVID-19: Wash your hands often. Or use an alcohol-based hand blood coordinator often. Only touch your eyes, nose, or mouth with clean hands. Dont have contact with people who are sick. Follow local instructions about being in public. For example, you may be told to not use public transport for a period of time. Stay away from markets that have live or animals. Wash your hands after touching any animals. Don't touch animals that may be sick. Dont share eating or drinking tools with sick people. Dont kiss someone who is sick. Clean surfaces often with disinfectant. If you were in an area with COVID-19 in the last 14 days: Call your healthcare provider. He or she can talk with local health staff to see what action may be needed. Follow all instructions from your provider. Take your temperature every morning and evening for at least 14 days. This is to check for fever. Keep a record of the readings. Keep watch for symptoms of the virus. Tell your provider right away if you have symptoms. If you were in an area with COVID-19 and have a fever or other symptoms: Dont panic. Keep in mind that other illnesses can cause similar symptoms. Stay away from work, school, and public places. Limit physical contact with family members. Don't kiss anyone or share eating or drinking utensils. Clean surfaces you touch with disinfectant. This is to help prevent the virus from spreading. Call your healthcare provider. Explain that you have been exposed to COVID-19 and have symptoms. Do this before going to any hospital. Wait for instructions. Keep in mind that healthcare staff may wear protective equipment such as masks, gowns, gloves, and eye protection. You may be put in a separate room. This is to prevent the possible virus from spreading. Tell the healthcare staff about recent travel. This includes local travel on public transport. Staff may need to find other people you have been in contact with. Follow all instructions the healthcare staff give you. If you have been diagnosed with COVID-19 Follow all instructions from your healthcare provider. Dont leave your home, except to get medical care. Call your healthcare providers office before going. They can prepare and give you instructions. This will help prevent the virus from spreading. Dont go to work, school, or public areas. Dont use public transport or taxis. Stay away from other people in your home. Have them wear face masks around you. Dont share household items or food. Wear a face mask if you can. This includes at home or in a medical facility. Cover your face with a tissue when you cough or sneeze. Throw the tissue away. Wash your hands. Wash your hands often. Caregivers should: Follow all instructions from healthcare staff. Wear a face mask and protective clothing as advised. Wash hands often. Keep track of the sick persons symptoms. Clean surfaces, fabrics, and laundry thoroughly. Keep other people away from the sick person. When to call your healthcare provider Call your healthcare provider: If youve recently traveled and have symptoms If you have been diagnosed with COVID-19 and your symptoms are worse To learn more To find out more about COVID-19, visit the CDC website at www.cdc.gov/coronavirus/2019-ncov/index.html. [employer]. [address] [place] [address]. All rights reserved. This information is not intended as a substitute for professional medical care. Always follow your healthcare professional's instructions. This information has been adapted from [employer] Pending Studies at Discharge: No Stand-Alone Forms: [facility], Smoking Cessation Medications and DC Order Prescriptions: New enoxaparin [Lovenox] 150 mg/mL Syringe 150 mg subcut Q12H 5 Days Qty: 10 RF: 0 cephalexin 500 mg Capsule 500 mg PO QID 3 Days Qty: 12 RF: 0 doxycycline hyclate 100 mg Capsule 100 mg PO BID@1000,2200 3 Days Qty: 6 RF: 0 warfarin 5 mg tablet 5 mg PO UD Qty: 60 RF: 0 warfarin 1 mg tablet 1 mg PO UD Qty: 100 RF: 0 Continued metformin 500 mg Tablet Extended Release 24 Hr 2,000 mg PO PM RF: 0 Jardiance 25 mg Tablet 25 mg PO DAILY RF: 0 Brilinta 90 mg Tablet 90 mg PO BID Qty: 60 RF: 0 metoprolol succinate 50 mg Tablet Extended Release 24 Hr 50 mg PO QAM Qty: 30 RF: 0 nitroglycerin [Nitrostat] 0.4 mg Tablet, Sublingual 0.4 mg sublingual PRN PRN (Reason: chest pain) Qty: 30 RF: 0 potassium chloride [Klor-Con] 20 mEq packet 20 meq PO BID Qty: 100 RF: 0 furosemide [Lasix] 40 mg tablet 40 mg PO QAM RF: 0 aspirin 81 mg Tablet,Delayed Release (Dr/Ec) 81 mg PO QAM RF: 0 spironolactone 25 mg Tablet 25 mg PO QAM RF: 0 atorvastatin [Lipitor] 80 mg Tablet 80 mg PO DAILY RF: 0 clobetasol [Temovate] 0.05 % Cream 1 applic TOPICAL BID PRN (Reason: Itching) RF: 0 Discharge Orders: Discharge Order (Routine); Ordered 11/29/20 Ordered By: Liborio Jefferson/Other Patient Handouts: A1C, Managing Type 2 Diabetes Admission Data Admit Date/Time: 11/26/20 09:06 Attending Provider: Liborio Baker Admit Provider: Liborio Baker Primary Care Provider: Howard Silva Other Providers: Thomas Ireland ; Liborio Baker
[2020-11-29] MEDS: WARFARIN SOD 7.5 MG TAB PO SCH (16:58)
[2020-11-30] MEDS ORDERED: INSULIN GLARGINE SOLOSTAR 100 UNITS/ML 3 ML PEN SQ SCH (09:00)
== END 2020-11-29 17:32 | disposition home or self-care (01) | DRG 871 ==
LOC: ED 06:46 → 2S 09:06

== ENCOUNTER 2023-10-26 20:19 | Inpatient (IN) ==
[2023-10-26] MEDS: OPTIRAY 320 125ml IV ONE (20:31)
--- NOTE | 2023-10-26 20:54 | CT Scan Report ---
Exam(s): CT HEAD Without Contrast EXAM: CT Head Without Intravenous Contrast CLINICAL HISTORY: Reason for exam: neuro deficit, acute stroke suspected. TECHNIQUE: Axial computed tomography images of the head/brain without intravenous contrast. CTDI is 45.62 mGy and DLP is 774.27 mGy-cm. Automated exposure control was utilized for the study. A dose lowering technique was utilized adhering to the principles of ALARA. COMPARISON: None FINDINGS: Brain: No acute infarct or hemorrhage. No extra-axial fluid collection. No mass effect or midline shift. Ventricles and sulci: Normal. No ventriculomegaly or intraventricular hemorrhage. Bones: Mild hyperostosis frontalis interna. No bony lesion or acute fracture. Subcutaneous tissues: Normal. Sinuses: Normal. No air-fluid levels or mucosal thickening. Mastoid air cells: Normal. Orbits: Grossly unremarkable. IMPRESSION: No acute intracranial abnormality. Further evaluation could be performed with MRI if clinically indicated. Communications: Call Doctor Stroke Electronically signed by: Kumar Kwong M.D. 10/26/23 20:54 PM
[2023-10-26] MEDS: SODIUM CHLORIDE 0.9% 1,000 ML IV SCH (20:57)
[2023-10-26 20:58] VITALS: TEMP 98.2
--- NOTE | 2023-10-26 20:58 | CT Scan Report ---
Exam(s): CTA NECK With Contrast IV Amt: 118 cc opti 320 EXAM: CT Angiography Neck With Intravenous Contrast CLINICAL HISTORY: Reason for exam: neuro deficit, acute stroke suspected. TECHNIQUE: Routine carotid CT angiography protocol was performed with intravenous contrast. NASCET criteria using the distal ICAs for comparison were used for evaluation of stenoses. CTDI is 14.07 mGy and DLP is 626.69 mGy-cm. Automated exposure control was utilized for the study. A dose lowering technique was utilized adhering to the principles of ALARA. MIP reconstructed images were created and reviewed. CONTRAST: Patient received 118 cc opti 320 of IV contrast COMPARISON: None FINDINGS: VASCULATURE: Right common carotid artery: Unremarkable. No occlusion or significant stenosis. No dissection. Right internal carotid artery: Mild atherosclerotic calcification in the right carotid bulb. No significant stenosis. Medially coursing right ICA. No dissection. Right external carotid artery: Unremarkable. No occlusion. Right vertebral artery: Unremarkable. No occlusion or significant stenosis. No dissection. Left common carotid artery: Unremarkable. No occlusion or significant stenosis. No dissection. Left internal carotid artery: Medially coursing left ICA. Extracranial segment is patent with no occlusion or significant stenosis. No dissection. Left external carotid artery: Unremarkable. No occlusion. Left vertebral artery: Unremarkable. No occlusion or significant stenosis. No dissection. Aorta: Atherosclerotic changes in the aorta. 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 Degenerative changes of the spine. No acute fracture. Soft tissues: Unremarkable. Lung apices: Clear. CAROTID STENOSIS REFERENCE USING NASCET CRITERIA: % ICA stenosis = (1 - narrowest ICA diameter/diameter of distal cervical ICA) x 100. Mild - <50% stenosis. Moderate - 50-69% stenosis. Severe - 70-94% stenosis. Near occlusion - 95-99% stenosis. Occluded - 100% stenosis. IMPRESSION: No significant stenosis, occlusion, or dissection. Communications: Call Doctor Stroke Electronically signed by: Kumar Kwong M.D. 10/26/23 20:58 PM
--- NOTE | 2023-10-26 21:01 | CT Scan Report ---
Exam(s): CTA HEAD With Contrast IV Amt: 118 cc opti 320 EXAM: CT Angiography Head With Intravenous Contrast CLINICAL HISTORY: Reason for exam: neuro deficit, acute stroke suspected. TECHNIQUE: Axial computed tomographic angiography images of the head with intravenous contrast. CTDI is 14.07 mGy and DLP is 626.69 mGy-cm. Automated exposure control was utilized for the study. A dose lowering technique was utilized adhering to the principles of ALARA. MIP reconstructed images were created and reviewed. CONTRAST: Patient received 118 cc opti 320 of IV contrast COMPARISON: None FINDINGS: Right internal carotid artery: No acute findings. Intracranial segment is patent with no significant stenosis. No aneurysm. Right anterior cerebral artery: Unremarkable. No occlusion or significant stenosis. No aneurysm. Right middle cerebral artery: Unremarkable. No occlusion or significant stenosis. No aneurysm. Right posterior cerebral artery: Unremarkable. No occlusion or significant stenosis. No aneurysm. Right vertebral artery: Unremarkable as visualized. Left internal carotid artery: No acute findings. Intracranial segment is patent with no significant stenosis. No aneurysm. Left anterior cerebral artery: Unremarkable. No occlusion or significant stenosis. No aneurysm. Left middle cerebral artery: Unremarkable. No occlusion or significant stenosis. No aneurysm. Left posterior cerebral artery: Unremarkable. No occlusion or significant stenosis. No aneurysm. Left vertebral artery: Unremarkable as visualized. Basilar artery: Unremarkable. No occlusion or significant stenosis. No aneurysm. IMPRESSION: Normal head CTA. Communications: 10/26/23 21:01 Call Doctor Regarding Stroke, called Dr. Ortiz on 10/25 21:00 (-04:00) Electronically signed by: Kumar Kwong M.D. 10/26/23 21:00 PM
[2023-10-26 21:03] LABS: Basophils # (auto) 0.05 K/uL (0.00-0.20); Basophils % (auto) 0.7 %; Eosinophils # (auto) 0.21 K/uL (0.00-0.50); Eosinophils % (auto) 2.8 %; Hematocrit (blood only) 44.3 % (42.0-52.0); Hemoglobin 14.4 g/dl (14.0-18.0); Immature Granulocytes # (auto) 0.03 K/uL (0.01-0.20); Immature Granulocytes % (auto) 0.4 %; Lymphocytes # (auto) 1.55 K/uL (1.20-3.40); Lymphocytes % (auto) 20.4 %; Mean Corpuscular Hemoglobin 27.9 pg (25.0-34.0); Mean Corpuscular Hgb Conc 32.5 g/dL (32.0-36.0); Mean Corpuscular Volume 85.9 fL (80.0-100.0); Mean Platelet Volume 10.1 fL (9.4-12.4); Monocytes # (auto) 0.61 K/uL (0.11-0.59); Neutrophils # (auto) 5.16 K/uL (1.40-6.50); Neutrophils % (auto) 67.7 %; Platelet Count 194 K/uL (130-400); RDW Coefficient of Variation 13.9 % (11.5-14.5); RDW Standard Deviation 43.5 fL (36.4-46.3); Red Blood Count 5.16 M/uL (4.70-6.10); White Blood Count 7.61 K/ul (4.8-10.8)
[2023-10-26 21:14] LABS: INR 2.8 (0.9-1.1); Partial Thromboplastin Ratio 1.3; Partial Thromboplastin Time 36 Seconds (21-31); Prothrombin Time 27.7 Seconds (9.0-12.0)
[2023-10-26 21:24] LABS: Albumin Globulin Ratio 1.1 (0.9-2); Albumin Level 3.6 gm/dl (3.4-5.0); BUN Creatinine Ratio 10.8 (10-20); Bilirubin,Total 0.4 mg/dl (0.2-1.0); Calcium 9.4 mg/dl (8.6-10.3); Creatinine Clr Calc Pharmacy 59.7 ml/min; Est GFR (African American) 36.8 ml/min; Est GFR (Non-African American) 31.7 ml/min; Globulin 3.3 gm/dl (2.5-4.0); Magnesium 1.9 mg/dl (1.7-2.4); Potassium 4.4 mmol/L (3.5-5.1); Total Protein 6.9 gm/dl (6.0-8.3)
[2023-10-26 21:32] LABS: Troponin I High Sensitivity 8.8 pg/ml (0-20)
[2023-10-26] MEDS: SODIUM CHLORIDE 0.9% 500 ML IV ONE (21:54)
[2023-10-26 23:35] LABS: Appearance Urine Clear (Clear); Bilirubin Urine Negative (Negative); Blood Urine Negative (Negative); Color Urine Yellow; Glucose Urine UA 3+ (Negative); Ketones Urine Trace (Negative); Leukocyte Esterase Urine Negative (Negative); Nitrite Urine Negative (Negative); Protein Urine Negative (Negative); Specific Gravity Urine > 1.045 (1.000-1.030); Urobilinogen Urine Negative (Negative)
[2023-10-27] MEDS ORDERED: POLYETHYLENE (MIRALAX) 17 GM PACK PO PRN (01:03)
[2023-10-27] MEDS ORDERED: LABETALOL HCL IV 5 MG/ML 20ML IV PRN (01:03)
[2023-10-27] MEDS ORDERED: GLUCOSE 40% GEL 15 GM TUBE PO PRN (01:03)
[2023-10-27] MEDS ORDERED: PHARMACIST DISCHARGE MED REC CONSULT PRN (01:03)
[2023-10-27] MEDS ORDERED: GLUCAGON FOR INJ 1 MG VIAL SQ PRN (01:03)
[2023-10-27] MEDS ORDERED: DEXTROSE 50% 50 ML SYRINGE IV PRN (01:03)
[2023-10-27] MEDS ORDERED: ACETAMINOPHEN 325 MG TAB PO PRN (01:03)
[2023-10-27] MEDS ORDERED: CARBOHYDRATES FOR HYPOGLYCEMIA PO PRN (01:03)
[2023-10-27] MEDS ORDERED: NITROGLYCERIN SL 0.4 MG/TAB TAB SL PRN (01:03)
[2023-10-27] MEDS ORDERED: GLUCOSE 10 TAB/TUBE PO PRN (01:03)
[2023-10-27] MEDS: ATORVASTATIN 40 MG TAB PO STA (01:06)
--- NOTE | 2023-10-27 01:12 | Emergency Department Note ---
Impression & Plan Stroke-like symptoms ED Provider Note NAME: JAMILAH MEDINA AGE: 63 SEX: Male INFORMANT: Patient ED PROVIDER(S): Alessio Ortiz MD CHIEF COMPLAINT: Strokelike symptom PLAN: Disposition: Admitted Outpatient prescription management: none Referral: None MEDICAL DECISION MAKING: Patient was made a stroke alert prehospital. Patient presented because strokelike symptoms. Patient was taken emergently to CT imaging. On physical examination after arrival his symptoms had resolved and his NIH was 0. Patient underwent CT and CT angiography of the head and neck and this did not reveal any acute findings. Patient's blood work was unremarkable except for mild elevation of creatinine. Telestroke consult was placed with Ella and I did discuss the findings with Dr. Steinberg. The patient is not a TNK candidate. Patient was evaluated by her via telestroke. Patient was recommended for atorvastatin, echo, as well as MR imaging. Patient's INR is therapeutic. [facility]. Patient was evaluated in the ER and admitted for further management Care/management discussed with: senior case manager, telestroke Level of care consideration(s): After review of the information above and other included data, I feel the patient requires escalation of care to admission Triage Nursing notes: reviewed and agree them. Vital Signs: reviewed and remarkable for hypertension no significant abnormalities Additional History obtained from: none Chronic Medical/Social Conditions affecting care: Hypertension, diabetes, A-fib, anticoagulation Prior/ Outside/ External records reviewed: none Differential Diagnosis: CVA, TIA,Infection, dehydration, metabolic abnormality, hypo/hyperglycemia, electrolyte disturbance, anemia, hypoxia, cardiac sources, intracerebral event, toxicologic, neurologic, as well as other pathologies. Diagnostics, independently interpreted by me: ECG: Twelve-lead ECG was sinus rhythm with PACs at 78 bpm. Inferior and anterior Q waves present. No ST elevation. Cardiac Monitoring: Cardiac monitoring ordered by me: The patient was placed on continuous cardiac monitoring and observed. It revealed a sinus rhythm at 64 beats per minute without evidence of dysrhythmia. Medical decision rules: none Imaging studies: Head CT: A noncontrast CT scan of the head was performed and was negative for tumor, fracture, intracranial hemorrhage, or other acute pathology. Chest x-ray. Findings: A chest x-ray was performed and revealed no pneumothorax, effusion, infiltrate, pulmonary edema, free air under the diaphragm, or wide mediastinum. Pacer defibrillator noted. Mild cardiomegaly. I refer you to the EMR for further details. HPI: 63 year old Male arrives for evaluation of strokelike symptoms. This started about 30 minutes prior to arrival and is resolved. The patient also notes the following associated symptoms, acute onset of right arm weakness and about 10 minutes of slightly slurred speech. The patient has taken no medication for relieving factors. Current pain is rated as 0/10. No prior history of stroke. Patient is on warfarin. Pt denies LOC, headache, fevers, chills, diaphoresis, visual changes, neck pain, chest pain, breathing difficulties, nausea, vomiting, abdominal pain, back pain, melena, hematochezia, urinary symptoms, numbness, lymphadenopathy, rash, or other complaints.. PAST MEDICAL HISTORY: See Below, hypertension, diabetes, A-fib PAST SURGICAL HISTORY: See Below, SOCIAL HISTORY: See Below, non-smoker HOME MEDICATIONS: See Below ALLERGIES: See Below VITALS: See Below PHYSICAL EXAMINATION: GENERAL: Awake, alert, well-appearing, in no distress HENT: Normocephalic, atraumatic. Oropharynx unremarkable. EYES: Normal conjunctiva. Sclera non-icteric. PERRLA. EOMI. NECK: Inspection normal. Non-tender. Supple. No nuchal rigidity. FROM. No masses. RESPIRATORY: Clear to auscultation. No wheezes. No rales. Normal respiratory effort. CARDIAC: Normal rate. Normal rhythm. No murmurs. No rubs. Extremities warm and well perfused. Pulses equal. No JVD. GI: Soft, non-distended. No tenderness to palpation. No rebound or guarding. No masses. RECTAL: Deferred. MUSCULOSKELETAL: Atraumatic. Chest examination reveals no tenderness. The back is symmetrical on inspection without obvious abnormality. There is no CVA tenderness to palpation. No joint edema. LOWER EXTREMITIES: Calves are equal size bilaterally and non-tender. 2-3+ edema. Chronic venous discoloration. NEURO: Normal sensorium. No sensory or motor deficits noted. No drift. Speech normal. NIH 0. SKIN: No rash or jaundice noted. PROCEDURES: none CRITICAL CARE: none OBSERVATION NOTE: none Past Med/Surg History Problem List (Updated 10/27/23 @ 01:12 by Alessio Ortiz MD) Stroke-like symptoms (Acute) COVID (Acute) Morbid obesity with BMI of 40.0-44.9, adult Elevated troponin (Acute) Metabolic acidosis Hypoxia (Acute) Pneumonia due to COVID-19 virus Bilateral pulmonary embolism (Acute) Ischemic cardiomyopathy Atrial fibrillation follows with Dr. Damico Chronic venous stasis dermatitis Acute ST elevation myocardial infarction (STEMI) (Acute) Encounter for pre-operative examination Hyperglycemia Hypertension Hyperlipidemia Diabetes mellitus Morbid obesity Obesity hypoventilation syndrome Obstructive sleep apnea Medical History Acute ST elevation myocardial infarction (STEMI) Angioedema due to angiotensin converting enzyme inhibitor (KENDELL-I) Atrial fibrillation follows with Dr. Damico Chronic venous stasis dermatitis Diabetes mellitus, type 2 Elevated troponin Hyperlipidemia Hypertension On anticoagulant therapy warfarin daily Surgical History History of colonoscopy Hx of prostate biopsy benign S/P coronary artery stent placement Successful PCI of mid LAD with single drug-eluting stent (3.0 x 33 mm Xience; postdilated with 4.0 NC) Dr Flores, 03/27/20 Family History Father Family history of reaction to anesthesia "heart rate went irregular, was able to fix quick", not sure what he had done or what he was given Cancer Mother Diabetes Sister Celiac disease Denies family history of Heart disease Myocardial infarction Social History (Updated 11/26/20 @ 09:52 by Lupe Nelson PA-C) Smoking Status: Never smoker packs per day: 1; Second Hand Exposure: No; Do You Dip or Chew Tobacco: No; Hx Alcohol Use: No Hx Substance Use: No Preferred Language: Liberian Communication Ability: Effective Mva Operator Required: No Beliefs That Will Affect Care: None marital status: Current Living Situation: Spouse current occupational status: previously employed current occupation: [employer] Feels Safe at Home: Yes Assistive Devices: None Allergies Allergies Allergy/AdvReac Type Severity Reaction Status Date / Time lisinopril Allergy Severe Difficulty Verified 11/26/20 07:32 Breathing Home Meds Home Medications Medication Instructions Recorded Confirmed amiodarone 200 mg tablet 200 mg PO DAILY 10/27/23 10/27/23 atorvastatin 40 mg tablet 40 mg PO DAILY 10/27/23 10/27/23 empagliflozin 25 mg tablet 25 mg PO DAILY 10/27/23 10/27/23 (Jardiance) furosemide 40 mg tablet 40 mg PO DAILY 10/27/23 10/27/23 gabapentin 300 mg capsule 300 mg PO HS 10/27/23 10/27/23 metformin 500 mg tablet,extended 2,000 mg PO HS 10/27/23 10/27/23 release 24 hr metoprolol succinate 50 mg 50 mg PO DAILY 10/27/23 10/27/23 tablet,extended release 24 hr nitroglycerin 0.4 mg sublingual 0.4 mg sublingual UD 10/27/23 10/27/23 tablet spironolactone 25 mg tablet 25 mg PO DAILY 10/27/23 10/27/23 tamsulosin 0.4 mg capsule 0.4 mg PO DAILY 10/27/23 10/27/23 warfarin 5 mg tablet 5 mg PO UD 10/27/23 10/27/23 Results & Data (ED) Vital Signs Vital Signs - 24 hr 10/26/23 20:29 10/26/23 20:43 10/26/23 20:47 Temperature 36.8 C Temperature Source Oral Pulse Rate 75 Pulse Rate [Apical] 80 Respiratory Rate 20 Respiratory Effort / Characteristics Respiratory Depth Blood Pressure [Right Arm] 166/84 H Blood Pressure Mean [Right Arm] 111 Pulse Oximetry 93 Oxygen Delivery Method Room Air Sepsis Recent Fever Within 48 Hours No Sepsis New/Unexplained Change in Mental Status No Sepsis Action Taken by Nursing No Action Required 10/26/23 21:03 10/26/23 21:54 Temperature Temperature Source Pulse Rate Pulse Rate [Apical] 73 70 Respiratory Rate 20 16 Respiratory Effort / Characteristics Non-Labored Spontaneous Non-Labored Spontaneous Respiratory Depth Normal Normal Blood Pressure [Right Arm] 149/65 H Blood Pressure Mean [Right Arm] 93 Pulse Oximetry 94 93 Oxygen Delivery Method Room Air Room Air Sepsis Recent Fever Within 48 Hours Sepsis New/Unexplained Change in Mental Status Sepsis Action Taken by Nursing Laboratory Data 10/26/23 20:48 10/26/23 20:48 Lab Results 10/26/23 10/26/23 10/26/23 Range/Units 20:30 20:48 23:23 WBC 7.61 (4.8-10.8) K/ul RBC 5.16 (4.70-6.10) M/uL Hgb 14.4 (14.0-18.0) g/dl Hct 44.3 (42.0-52.0) % MCV 85.9 (80.0-100.0) fL MCH 27.9 (25.0-34.0) pg MCHC 32.5 (32.0-36.0) g/dL RDW Std Deviation 43.5 (36.4-46.3) fL RDW Coeff of Stella 13.9 (11.5-14.5) % Plt Count 194 (130-400) K/uL MPV 10.1 (9.4-12.4) fL Immature Gran % (Auto) 0.4 % Neut % (Auto) 67.7 % Lymph % (Auto) 20.4 % Sargent % (Auto) 8.0 % Eos % (Auto) 2.8 % Baso % (Auto) 0.7 % Neut # (Auto) 5.16 (1.40-6.50) K/uL Lymph # (Auto) 1.55 (1.20-3.40) K/uL Sargent # (Auto) 0.61 H (0.11-0.59) K/uL Eos # (Auto) 0.21 (0.00-0.50) K/uL Baso # (Auto) 0.05 (0.00-0.20) K/uL Immature Gran # (Auto) 0.03 (0.01-0.20) K/uL PT 27.7 H (9.0-12.0) Seconds INR 2.8 H (0.9-1.1) APTT 36 H (21-31) Seconds PTT Ratio 1.3 Sodium 134 L (136-145) mmol/L Potassium 4.4 (3.5-5.1) mmol/L Chloride 101 (98-107) mmol/L Carbon Dioxide 27 (21-32) mmol/L Anion Gap 6 (3-11) BUN 23 (6-23) mg/dl Creatinine 2.13 H (0.6-1.4) mg/dl Est Cr Clr Drug Dosing 59.7 ml/min Est GFR ( Amer) 36.8 ml/min Est GFR (Non-Af Amer) 31.7 ml/min BUN/Creatinine Ratio 10.8 (10-20) Glucose 164 H (70-99(Fasting)) mg/dl POC Glucose 148 H (70-99) mg/dl Calcium 9.4 (8.6-10.3) mg/dl Magnesium 1.9 (1.7-2.4) mg/dl Total Bilirubin 0.4 (0.2-1.0) mg/dl AST 14 (13-39) U/L ALT 12 (7-52) U/L Alkaline Phosphatase 57 (34-104) U/L Troponin I High Sens 8.8 (0-20) pg/ml Total Protein 6.9 (6.0-8.3) gm/dl Albumin 3.6 (3.4-5.0) gm/dl Globulin 3.3 (2.5-4.0) gm/dl Albumin/Globulin Ratio 1.1 (0.9-2) Urine Color Yellow Urine Appearance Clear (Clear) Urine pH 6.0 (4.5-7.5) Ur Specific Riley > 1.045 H (1.000-1.030) Urine Protein Negative (Negative) Urine Glucose (UA) 3+ H (Negative) Urine Ketones Trace H (Negative) Urine Blood Negative (Negative) Urine Nitrite Negative (Negative) Urine Bilirubin Negative (Negative) Urine Urobilinogen Negative (Negative) Ur Leukocyte Esterase Negative (Negative) Blood Type A Positive Antibody Screen NEGATIVE Administered Medications Discontinued Medications Sodium Chloride (Nss) 1,000 mls @ 50 mls/hr IV .Q20H ERICH Stop: 11/25/23 20:29 Last Infusion: 10/26/23 21:53 Dose: 0 mls/hr Documented By: Admin: 10/26/23 20:57 Dose: 50 mls/hr Documented By: NELLA Sodium Chloride (Nss) 500 mls @ 999 mls/hr IV .Q31M ONE Stop: 10/26/23 22:01 Last Infusion: 10/26/23 22:34 Dose: Infused Documented By: Admin: 10/26/23 21:54 Dose: 999 mls/hr Documented By: NELLA Ioversol (Optiray 320 125ml) 118 ml IV ONCE ONE Stop: 10/26/23 20:32 Last Admin: 10/26/23 20:31 Dose: 118 ml Documented By: GES Imaging Data Radiologist's Impression: Head CT 10/26/23 20:21 CR Exam(s): CT HEAD Without Contrast EXAM: CT Head Without Intravenous Contrast CLINICAL HISTORY: Reason for exam: neuro deficit, acute stroke suspected. TECHNIQUE: Axial computed tomography images of the head/brain without intravenous contrast. CTDI is 45.62 mGy and DLP is 774.27 mGy-cm. Automated exposure control was utilized for the study. A dose lowering technique was utilized adhering to the principles of ALARA. COMPARISON: None FINDINGS: Brain: No acute infarct or hemorrhage. No extra-axial fluid collection. No mass effect or midline shift. Ventricles and sulci: Normal. No ventriculomegaly or intraventricular hemorrhage. Bones: Mild hyperostosis frontalis interna. No bony lesion or acute fracture. Subcutaneous tissues: Normal. Sinuses: Normal. No air-fluid levels or mucosal thickening. Mastoid air cells: Normal. Orbits: Grossly unremarkable. IMPRESSION: No acute intracranial abnormality. Further evaluation could be performed with MRI if clinically indicated. Communications: Call Doctor Stroke Electronically signed by: Kumar Kwong M.D. 10/26/23 20:54 PM Head CTA 10/26/23 20:21 CR Exam(s): CTA HEAD With Contrast IV Amt: 118 cc opti 320 EXAM: CT Angiography Head With Intravenous Contrast CLINICAL HISTORY: Reason for exam: neuro deficit, acute stroke suspected. TECHNIQUE: Axial computed tomographic angiography images of the head with intravenous contrast. CTDI is 14.07 mGy and DLP is 626.69 mGy-cm. Automated exposure control was utilized for the study. A dose lowering technique was utilized adhering to the principles of ALARA. MIP reconstructed images were created and reviewed. CONTRAST: Patient received 118 cc opti 320 of IV contrast COMPARISON: None FINDINGS: Right internal carotid artery: No acute findings. Intracranial segment is patent with no significant stenosis. No aneurysm. Right anterior cerebral artery: Unremarkable. No occlusion or significant stenosis. No aneurysm. Right middle cerebral artery: Unremarkable. No occlusion or significant stenosis. No aneurysm. Right posterior cerebral artery: Unremarkable. No occlusion or significant stenosis. No aneurysm. Right vertebral artery: Unremarkable as visualized. Left internal carotid artery: No acute findings. Intracranial segment is patent with no significant stenosis. No aneurysm. Left anterior cerebral artery: Unremarkable. No occlusion or significant stenosis. No aneurysm. Left middle cerebral artery: Unremarkable. No occlusion or significant stenosis. No aneurysm. Left posterior cerebral artery: Unremarkable. No occlusion or significant stenosis. No aneurysm. Left vertebral artery: Unremarkable as visualized. Basilar artery: Unremarkable. No occlusion or significant stenosis. No aneurysm. IMPRESSION: Normal head CTA. Communications: 10/26/23 21:01 Call Doctor Regarding Stroke, called Dr. Ortiz on 10/25 21:00 (-04:00) Electronically signed by: Kumar Kwong M.D. 10/26/23 21:00 PM Neck CTA 10/26/23 20:21 CR Exam(s): CTA NECK With Contrast IV Amt: 118 cc opti 320 EXAM: CT Angiography Neck With Intravenous Contrast CLINICAL HISTORY: Reason for exam: neuro deficit, acute stroke suspected. TECHNIQUE: Routine carotid CT angiography protocol was performed with intravenous contrast. NASCET criteria using the distal ICAs for comparison were used for evaluation of stenoses. CTDI is 14.07 mGy and DLP is 626.69 mGy-cm. Automated exposure control was utilized for the study. A dose lowering technique was utilized adhering to the principles of ALARA. MIP reconstructed images were created and reviewed. CONTRAST: Patient received 118 cc opti 320 of IV contrast COMPARISON: None FINDINGS: VASCULATURE: Right common carotid artery: Unremarkable. No occlusion or significant stenosis. No dissection. Right internal carotid artery: Mild atherosclerotic calcification in the right carotid bulb. No significant stenosis. Medially coursing right ICA. No dissection. Right external carotid artery: Unremarkable. No occlusion. Right vertebral artery: Unremarkable. No occlusion or significant stenosis. No dissection. Left common carotid artery: Unremarkable. No occlusion or significant stenosis. No dissection. Left internal carotid artery: Medially coursing left ICA. Extracranial segment is patent with no occlusion or significant stenosis. No dissection. Left external carotid artery: Unremarkable. No occlusion. Left vertebral artery: Unremarkable. No occlusion or significant stenosis. No dissection. Aorta: Atherosclerotic changes in the aorta. 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 Degenerative changes of the spine. No acute fracture. Soft tissues: Unremarkable. Lung apices: Clear. CAROTID STENOSIS REFERENCE USING NASCET CRITERIA: % ICA stenosis = (1 - narrowest ICA diameter/diameter of distal cervical ICA) x 100. Mild - <50% stenosis. Moderate - 50-69% stenosis. Severe - 70-94% stenosis. Near occlusion - 95-99% stenosis. Occluded - 100% stenosis. IMPRESSION: No significant stenosis, occlusion, or dissection. Communications: Call Doctor Stroke Electronically signed by: Kumar Kwong M.D. 10/26/23 20:58 PM Discharge Plan Visit Data Chief Complaint: Stroke Alert Stated Complaint: R SIDED WEAKNESS, SX RESOLVED ED Provider: Alessio Ortiz Discharge Problem: Stroke-like symptoms Discharge Instructions Interventions: ED Discharge Assessment Last Done: 10/27/23 01:04
[2023-10-27] MEDS: SODIUM CHLORIDE 0.9% 1,000 ML IV SCH (01:42)
--- NOTE | 2023-10-27 02:16 | History & Physical Report ---
Date of Service October 27, 2023 Assessment & Plan (1) Stroke-like symptoms: Plan: 63-year-old male with past medical history significant for type 2 diabetes, hyperlipidemia, chronic systolic CHF, paroxysmal atrial fibrillation, CAD, chronic venous insufficiency, sustained V. tach, status post ICD, history of PE, splenomegaly, history of angioedema comes because of strokelike symptoms. Around 7 PM he was cleaning his dishes when suddenly he felt he could not use his right hand, he sat down and at the time he had some difficulty speaking and his called EMS. By the time EMS came his symptoms resolved. He thinks all symptoms lasted for about 15 minutes. Since then is doing fine. Denies any headache. No dizziness. Vision is okay. No runny nose or sore throat. No headache. No cough. No difficulty swallowing. Denies chest pain or shortness of breath. No nausea. No abdominal pain. Normal bowel and bladder movements. Resting comfortably and hemodynamically stable. Strokelike symptoms Patient was not able to use his right hand and had speech difficulty from 7 PM to 7:15 PM Since then is doing okay Possible TIA CT head, CTA head and neck unremarkable [place] [facility] recommended MRI scan and permissive hypertension .To use lab etalol if systolic blood pressure greater than 200 and diastolic blood pressure within 100, to check TSH, lipid profile and homocystine levels. And recommended Lipitor 80 mg daily. Also recommended to restart Coumadin based on MRI results. Follow-up MRI brain and echo Neurochecks Telemetry Speech evaluation PT OT evaluation Neuroconsult in a.m. for further recommendation Close monitor Chronic systolic CHF EF 35 to 40% on echo done in 11/2020 On Lasix and spironolactone and metoprolol succinate holding lasix and aldactone for permissive htn reduced metoprolol dose to 12.5mg for now Monitor for volume overload History of paroxysmal atrial fibrillation On amiodarone and metoprolol succinate reducing metoprolol dose for permissive hn On Coumadin. INR is 2.8 History of CAD History of MS status post ASUNCION to LAD On statin aspirin and beta-sudheer History of sustained V. tach S/p ICD History of PE On Coumadin Diabetes Hold home p.o. medications Sliding scale Will follow HbA1c levels Monitor blood sugars History of angioedema From ACEI Morbid obesity Needs counseling Lymphedema On diuretics 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 INR 2.8 Disposition Telemetry Full code. History of Present Illness Chief Complaint: Strokelike symptoms Primary Care Provider: Howard Silva MD 63-year-old male with past medical history significant for type 2 diabetes, hyperlipidemia, chronic systolic CHF, paroxysmal atrial fibrillation, CAD, c hronic venous insufficiency, sustained V. tach, status post ICD, history of PE, splenomegaly, history of angioedema comes because of strokelike symptoms. Around 7 PM he was cleaning his dishes when suddenly he felt he could not use his right hand, he sat down and at the time he had some difficulty speaking and his called EMS. By the time EMS came his symptoms resolved. He thinks all symptoms lasted for about 15 minutes. Since then is doing fine. Denies any headache. No dizziness. Vision is okay. No runny nose or sore throat. No headache. No cough. No difficulty swallowing. Denies chest pain or shortness of breath. No nausea. No abdominal pain. Normal bowel and bladder movements. Resting comfortably and hemodynamically stable. Past medical history. As mentioned above Past surgical history. Colonoscopy. Status post ICD Social history. . Quit smoking 1987. Smoked 0.8 pack a day for 15 years. No alcohol use. No drug use. Family history. Mother had brain aneurysm. Father had cancer. Allergies Allergy/AdvReac Type Severity Reaction Status Date / Time lisinopril Allergy Severe Difficulty Verified 11/26/20 07:32 Breathing Home Medications Medication Instructions Recorded Confirmed Type amiodarone 200 mg tablet 200 mg PO DAILY 10/27/23 10/27/23 History atorvastatin 40 mg tablet 40 mg PO DAILY 10/27/23 10/27/23 History empagliflozin 25 mg tablet 25 mg PO DAILY 10/27/23 10/27/23 History (Jardiance) furosemide 40 mg tablet 40 mg PO DAILY 10/27/23 10/27/23 History gabapentin 300 mg capsule 300 mg PO HS 10/27/23 10/27/23 History metformin 500 mg tablet,extended 2,000 mg PO HS 10/27/23 10/27/23 History release 24 hr metoprolol succinate 50 mg 50 mg PO DAILY 10/27/23 10/27/23 History tablet,extended release 24 hr nitroglycerin 0.4 mg sublingual 0.4 mg sublingual UD 10/27/23 10/27/23 History tablet spironolactone 25 mg tablet 25 mg PO DAILY 10/27/23 10/27/23 History tamsulosin 0.4 mg capsule 0.4 mg PO DAILY 10/27/23 10/27/23 History warfarin 5 mg tablet 5 mg PO UD 10/27/23 10/27/23 History Past Med/Surg History Problem List (Updated 10/27/23 @ 01:12 by Alessio Ortiz MD) Stroke-like symptoms (Acute) COVID (Acute) Morbid obesity with BMI of 40.0-44.9, adult Elevated troponin (Acute) Metabolic acidosis Hypoxia (Acute) Pneumonia due to COVID-19 virus Bilateral pulmonary embolism (Acute) Ischemic cardiomyopathy Atrial fibrillation follows with Dr. Damico Chronic venous stasis dermatitis Acute ST elevation myocardial infarction (STEMI) (Acute) Encounter for pre-operative examination Hyperglycemia Hypertension Hyperlipidemia Diabetes mellitus Morbid obesity Obesity hypoventilation syndrome Obstructive sleep apnea Medical History Acute ST elevation myocardial infarction (STEMI) Angioedema due to angiotensin converting enzyme inhibitor (KENDELL-I) Atrial fibrillation follows with Dr. Damico Chronic venous stasis dermatitis Diabetes mellitus, type 2 Elevated troponin Hyperlipidemia Hypertension On anticoagulant therapy warfarin daily Surgical History History of colonoscopy Hx of prostate biopsy benign S/P coronary artery stent placement Successful PCI of mid LAD with single drug-eluting stent (3.0 x 33 mm Xience; postdilated with 4.0 NC) Dr Flores, 03/27/20 Family History Father Family history of reaction to anesthesia "heart rate went irregular, was able to fix quick", not sure what he had done or what he was given Cancer Mother Diabetes Sister Celiac disease Denies family history of Heart disease Myocardial infarction Social History (Updated 11/26/20 @ 09:52 by Lupe Nelson PA-C) Smoking Status: Former smoker packs per day: 1; Second Hand Exposure: No; Do You Dip or Chew Tobacco: No; Hx Alcohol Use: No Hx Substance Use: No Preferred Language: Divehi Communication Ability: Effective [employer] Required: No Beliefs That Will Affect Care: None marital status: Current Living Situation: Spouse current occupational status: previously employed 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 ENT- oropharynx clear Neck- supple, no JVD. Lungs- clear to auscultation no wheezing or crackles Heart- regular rate and rhythm; no murmur, no gallop. Abdomen- normal bowel sounds, soft, nontender, no distension Extremities- b/l lower extremity chronic lymphedema with chronic skin changes .seen Neuro- alert, oriented PERRL, EOMI; no facial palsy; no dysarthria; power 5/5 upper extremities 4/5 lower extremities, co ordination of movements ok. No pronator drift, sensations and position sense intact. Results & Data Results & Data Vital Signs (Past 12 Hours) Vital Signs Temp Pulse Pulse Resp BP Pulse Ox O2 Del Method 10/26/23 21:54 70 16 149/65 H 93 Room Air 10/26/23 21:03 73 20 94 Room Air 10/26/23 20:47 75 10/26/23 20:43 36.8 C 80 20 166/84 H 93 Room Air Diagnostic Findings Laboratory Results WBC 7.61 K/ul (4.8-10.8) 10/26/23 20:48 RBC 5.16 M/uL (4.70-6.10) 10/26/23 20:48 Hgb 14.4 g/dl (14.0-18.0) 10/26/23 20:48 Hct 44.3 % (42.0-52.0) 10/26/23 20:48 MCV 85.9 fL (80.0-100.0) 10/26/23 20:48 MCH 27.9 pg (25.0-34.0) 10/26/23 20:48 MCHC 32.5 g/dL (32.0-36.0) 10/26/23 20:48 RDW Std Deviation 43.5 fL (36.4-46.3) 10/26/23 20:48 RDW Coeff of Stella 13.9 % (11.5-14.5) 10/26/23 20:48 Plt Count 194 K/uL (130-400) 10/26/23 20:48 MPV 10.1 fL (9.4-12.4) 10/26/23 20:48 Immature Gran % (Auto) 0.4 % 10/26/23 20:48 Neut % (Auto) 67.7 % 10/26/23 20:48 Lymph % (Auto) 20.4 % 10/26/23 20:48 Cochran % (Auto) 8.0 % 10/26/23 20:48 Eos % (Auto) 2.8 % 10/26/23 20:48 Baso % (Auto) 0.7 % 10/26/23 20:48 Neut # (Auto) 5.16 K/uL (1.40-6.50) 10/26/23 20:48 Lymph # (Auto) 1.55 K/uL (1.20-3.40) 10/26/23 20:48 Cochran # (Auto) 0.61 K/uL (0.11-0.59) H 10/26/23 20:48 Eos # (Auto) 0.21 K/uL (0.00-0.50) 10/26/23 20:48 Baso # (Auto) 0.05 K/uL (0.00-0.20) 10/26/23 20:48 Immature Gran # (Auto) 0.03 K/uL (0.01-0.20) 10/26/23 20:48 PT 27.7 Seconds (9.0-12.0) H 10/26/23 20:48 INR 2.8 (0.9-1.1) H 10/26/23 20:48 APTT 36 Seconds (21-31) H 10/26/23 20:48 PTT Ratio 1.3 10/26/23 20:48 Sodium 134 mmol/L (136-145) L 10/26/23 20:48 Potassium 4.4 mmol/L (3.5-5.1) 10/26/23 20:48 Chloride 101 mmol/L (98-107) 10/26/23 20:48 Carbon Dioxide 27 mmol/L (21-32) 10/26/23 20:48 Anion Gap 6 (3-11) 10/26/23 20:48 BUN 23 mg/dl (6-23) 10/26/23 20:48 Creatinine 2.13 mg/dl (0.6-1.4) H 10/26/23 20:48 Est Cr Clr Drug Dosing 59.7 ml/min 10/26/23 20:48 Est GFR ( Amer) 36.8 ml/min 10/26/23 20:48 Est GFR (Non-Af Amer) 31.7 ml/min 10/26/23 20:48 BUN/Creatinine Ratio 10.8 (10-20) 10/26/23 20:48 Glucose 164 mg/dl (70-99(Fasting)) H 10/26/23 20:48 POC Glucose 148 mg/dl (70-99) H 10/26/23 20:30 Calcium 9.4 mg/dl (8.6-10.3) 10/26/23 20:48 Magnesium 1.9 mg/dl (1.7-2.4) 10/26/23 20:48 Total Bilirubin 0.4 mg/dl (0.2-1.0) 10/26/23 20:48 AST 14 U/L (13-39) 10/26/23 20:48 ALT 12 U/L (7-52) 10/26/23 20:48 Alkaline Phosphatase 57 U/L (34-104) 10/26/23 20:48 Troponin I High Sens 8.8 pg/ml (0-20) 10/26/23 20:48 Total Protein 6.9 gm/dl (6.0-8.3) 10/26/23 20:48 Albumin 3.6 gm/dl (3.4-5.0) 10/26/23 20:48 Globulin 3.3 gm/dl (2.5-4.0) 10/26/23 20:48 Albumin/Globulin Ratio 1.1 (0.9-2) 10/26/23 20:48 Urine Color Yellow 10/26/23 23:23 Urine Appearance Clear (Clear) 10/26/23 23:23 Urine pH 6.0 (4.5-7.5) 10/26/23 23:23 Ur Specific [place] > 1.045 (1.000-1.030) H 10/26/23 23:23 Urine Protein Negative (Negative) 10/26/23 23:23 Urine Glucose (UA) 3+ (Negative) H 10/26/23 23:23 Urine Ketones Trace (Negative) H 10/26/23 23:23 Urine Blood Negative (Negative) 10/26/23 23:23 Urine Nitrite Negative (Negative) 10/26/23 23:23 Urine Bilirubin Negative (Negative) 10/26/23 23:23 Urine Urobilinogen Negative (Negative) 10/26/23 23:23 Ur Leukocyte Esterase Negative (Negative) 10/26/23 23:23 Blood Type A Positive 10/26/23 20:48 Antibody Screen NEGATIVE 10/26/23 20:[address] 10/26/23 20:21 CR Exam(s): CT HEAD Without Contrast EXAM: CT Head Without Intravenous Contrast CLINICAL HISTORY: Reason for exam: neuro deficit, acute stroke suspected. TECHNIQUE: Axial computed tomography images of the head/brain without intravenous contrast. CTDI is 45.62 mGy and DLP is 774.27 mGy-cm. Automated exposure control was utilized for the study. A dose lowering technique was utilized adhering to the principles of ALARA. COMPARISON: None FINDINGS: Brain: No acute infarct or hemorrhage. No extra-axial fluid collection. No mass effect or midline shift. Ventricles and sulci: Normal. No ventriculomegaly or intraventricular hemorrhage. Bones: Mild hyperostosis frontalis interna. No bony lesion or acute fracture. Subcutaneous tissues: Normal. Sinuses: Normal. No air-fluid levels or mucosal thickening. Mastoid air cells: Normal. Orbits: Grossly unremarkable. IMPRESSION: No acute intracranial abnormality. Further evaluation could be performed with MRI if clinically indicated. Communications: Call Doctor Stroke Electronically signed by: Kumar Kwong M.D. 10/26/23 20:54 PM Head CTA 10/26/23 20:21 CR Exam(s): CTA HEAD With Contrast IV Amt: 118 cc opti 320 EXAM: CT Angiography Head With Intravenous Contrast CLINICAL HISTORY: Reason for exam: neuro deficit, acute stroke suspected. TECHNIQUE: Axial computed tomographic angiography images of the head with intravenous contrast. CTDI is 14.07 mGy and DLP is 626.69 mGy-cm. Automated exposure control was utilized for the study. A dose lowering technique was utilized adhering to the principles of ALARA. MIP reconstructed images were created and reviewed. CONTRAST: Patient received 118 cc opti 320 of IV contrast COMPARISON: None FINDINGS: Right internal carotid artery: No acute findings. Intracranial segment is patent with no significant stenosis. No aneurysm. Right anterior cerebral artery: Unremarkable. No occlusion or significant stenosis. No aneurysm. Right middle cerebral artery: Unremarkable. No occlusion or significant stenosis. No aneurysm. Right posterior cerebral artery: Unremarkable. No occlusion or significant stenosis. No aneurysm. Right vertebral artery: Unremarkable as visualized. Left internal carotid artery: No acute findings. Intracranial segment is patent with no significant stenosis. No aneurysm. Left anterior cerebral artery: Unremarkable. No occlusion or significant stenosis. No aneurysm. Left middle cerebral artery: Unremarkable. No occlusion or significant stenosis. No aneurysm. Left posterior cerebral artery: Unremarkable. No occlusion or significant stenosis. No aneurysm. Left vertebral artery: Unremarkable as visualized. Basilar artery: Unremarkable. No occlusion or significant stenosis. No aneurysm. IMPRESSION: Normal head CTA. Communications: 10/26/23 21:01 Call Doctor Regarding Stroke, called Dr. Ortiz on 10/25 21:00 (-04:00) Electronically signed by: Kumar Kwong M.D. 10/26/23 21:00 PM Neck CTA 10/26/23 20:21 CR Exam(s): CTA NECK With Contrast IV Amt: 118 cc opti 320 EXAM: CT Angiography Neck With Intravenous Contrast CLINICAL HISTORY: Reason for exam: neuro deficit, acute stroke suspected. TECHNIQUE: Routine carotid CT angiography protocol was performed with intravenous contrast. NASCET criteria using the distal ICAs for comparison were used for evaluation of stenoses. CTDI is 14.07 mGy and DLP is 626.69 mGy-cm. Automated exposure control was utilized for the study. A dose lowering technique was utilized adhering to the principles of ALARA. MIP reconstructed images were created and reviewed. CONTRAST: Patient received 118 cc opti 320 of IV contrast COMPARISON: None FINDINGS: VASCULATURE: Right common carotid artery: Unremarkable. No occlusion or significant stenosis. No dissection. Right internal carotid artery: Mild atherosclerotic calcification in the right carotid bulb. No significant stenosis. Medially coursing right ICA. No dissection. Right external carotid artery: Unremarkable. No occlusion. Right vertebral artery: Unremarkable. No occlusion or significant stenosis. No dissection. Left common carotid artery: Unremarkable. No occlusion or significant stenosis. No dissection. Left internal carotid artery: Medially coursing left ICA. Extracranial segment is patent with no occlusion or significant stenosis. No dissection. Left external carotid artery: Unremarkable. No occlusion. Left vertebral artery: Unremarkable. No occlusion or significant stenosis. No dissection. Aorta: Atherosclerotic changes in the aorta. 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 Degenerative changes of the spine. No acute fracture. Soft tissues: Unremarkable. Lung apices: Clear. CAROTID STENOSIS REFERENCE USING NASCET CRITERIA: % ICA stenosis = (1 - narrowest ICA diameter/diameter of distal cervical ICA) x 100. Mild - <50% stenosis. Moderate - 50-69% stenosis. Severe - 70-94% stenosis. Near occlusion - 95-99% stenosis. Occluded - 100% stenosis. IMPRESSION: No significant stenosis, occlusion, or dissection. Communications: Call Doctor Stroke Electronically signed by: Kumar Kwong M.D. 10/26/23 20:58 PM ECG Additional Comments: EG. Sinus rhythm with PACs rate of 78. Possible left atrial enlargement. QTc 430. Code Status & VTE Plan VTE Prophylaxis Plan VTE Prophylaxis will be ordered: Yes
--- OUTSIDE RECORDS SUMMARY | 2023-10-27 03:43 | External Medical Summary | Summary of Care ---
Author Name Unknown Organization [facility] Address [address] [facility] [place] [address] Phone [phone] Care Team Providers Care Gunite Nozzle Operator Name Role Phone Howard Silva MD Primary Care Provider + Reason for Visit * Reason Onset Date Comments Pre Op Discussion 09/16/2023 Encounter Details Date Type Department Care Team (Late st Contact Info) Description 09/16/2023 Telephone ENDO [facility], Endoscopy [address] [facility] [address] [place] [address] Sudhakar Salcedo, DO [address] [place] [address] Pre Op Discussion Allergies Active Allergy Reactions Criticality Noted Date Comments Lisinopril Edema face/lips/tongue High 12/21/2017 Angioedema, prompting airway emergency , intubation, [facility] 12/2017 documented as of this encounter (statuses as of 09/16/2023) Medications Medication Sig Dispensed Refills Start Date End Date Status aspirin enteric coated 81 MG TBEC Take 1 Tablet by mouth in the morning. 100 Tab 3 07/15/2016 Active Nitroglycerin 0.4 MG Sublingual Tablet Sublingual (Nitrostat) Place 1 Tablet under the tongue as needed for Pain, Chest. 03/29/2020 Active Spironolactone 25 MG Oral Tablet (Aldactone)Indicati ons:HTN, goal below 140/90 Take 1 Tablet by mouth in the morning. 90 Tablet 3 09/23/2022 Active Metoprolol Succinate ER 50 MG Oral Tablet Extended Release 24 Hour (toPROL XL)Indications:Margaux nary artery disease involving [place] coronary artery of [place] heart without angina pectoris Take 1 Tablet by mouth in the morning. 90 Tablet 3 10/21/2022 Active Furosemide 40 MG Oral Tablet (Lasix)Indications: HTN, goal below 140/90 Take 1 Tablet by mouth in the morning. 90 Tablet 1 12/18/2022 Active Tamsulosin HCl 0.4 MG Oral Capsule (Flomax) Take 1 Capsule by mouth in the morning. 90 Capsule 3 02/20/2023 Active Warfarin Sodium 5 MG Oral Tablet (Coumadin)Indicatio ns: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,shelter current use of anticoagulant therapy,Acute saddle pulmonary embolism without acute cor pulmonale (HCC) Take 5mg (1 tablet) Mon, Thu & Thu; 7.5mg (1 1/2 tablets) all other days or as directed by anticoagulation clinic 180 Tablet 3 03/18/2023 Active Gabapentin 300 MG Oral Capsule (Neurontin)Indicati ons:Numbness and tingling of leg Take 1 Capsule by mouth at bedtime. 90 Capsule 5 04/09/2023 Active Atorvastatin Calcium 40 MG Oral Tablet (Lipitor)Indication s:Coronary artery disease involving [place] coronary artery of [place] heart without angina pectoris,Mixed hyperlipidemia Take 1 Tablet by mouth in the morning. 90 Tablet 3 04/12/2023 Active metFORMIN HCl ER 500 MG Oral Tablet Extended Release 24 Hour (Glucophage XR)Indications:Type 2 diabetes mellitus with hemoglobin A1c goal of less than 7.0% (HCC) TAKE 4 TABLETS BY MOUTH DAILY WITH DINNER 360 Tablet 2 07/13/2023 Active Empagliflozin 25 MG Oral Tablet (Jardiance)Indicati ons:Type 2 diabetes mellitus with hemoglobin A1c goal of less than 7.0% (HCC) Take 1 Tablet by mouth in the morning. 90 Tablet 1 08/09/2023 Active Amiodarone HCl 200 MG Oral Tablet (Cordarone)Indicati ons:Paroxysmal atrial fibrillation (HCC),Sustained VT (ventricular tachycardia) (HCC) Take 1 Tablet by mouth in the morning. 90 Tablet 3 08/19/2023 Active documented as of this encounter (statuses as of 09/16/2023) Active Problems Problem Noted Date Diagnosed Date History of angioedema 04/24/2023 Sustained VT (ventricular tachycardia) Chronic systolic heart failure 12/24/2021 Splenomegaly 03/21/2021 Chronic venous insufficiency 12/11/2020 S/P ICD (internal cardiac defibrillator) procedu re 12/11/2020 History of AL (myocardial infarction) 12/11/2020 Personal history of pulmonary embolism Overview: Historical-use of Z86.711 Personal History of Pulmonary Embolism is appropriate Ischemic cardiomyopathy 07/17/2020 Coronary artery disease invo lving [place] coronary artery of [place] heart without angina pectoris 04/02/2020 Overview: Stent to LAD Paroxysmal atrial fibrillation 12/25/2017 Elevated prostate specific antigen (PSA) 018 Hypertensive heart disease with HF (heart failur e) 04/11/2016 Overview: Updated Diagnosis to reflect Hypertensive heart disease with Heart Failure Type 2 diabetes mellitus wit h hemoglobin A1c goal of less than 7.0% 08/15/2011 Overview: ICD-10 update of inactive term Mixed hyperlipidemia 08/15/2011 Overview: ICD-10 update of inactive term documented as of this encounter (statuses as of 09/16/2023) Resolved Problems Problem Noted Date Diagnosed Date Resolved Date Adenopathy 03/26/2021 04/24/2023 Old myocardial infarct 04/02/202004/02 Overview: N Stemi-- from 03/2020 changed to Old Mi (Hx of AL) I25.2 Old myocardial infarct 04/02/202005/31 Overview: 03/2020, ASUNCION to LAD Body mass index (BMI) of 50. 0 to 59.9 in adult 04/19/2018 03/16/2020 Overview: Per Obesity protocol #1 - - Body mass index (BMI) of 45. 0 to 49.9 in adult 01/18/2018 04/20/2018 Overview: Per Obesity protocol #1 - Angioedema 12/24/2017 04/24/2023 Overview: Historical-from 2018-please resolve Body mass index (BMI) of 50. 0 to 59.9 in adult 11/10/2016 01/22/2018 Overview: Per Obesity protocol #1 Elevated lipids 04/14/2016 02/26/2018 Leg edema, right 10/12/2015 06/28/2021 Cellulitis of right lower extremity 09/07/2015 09/07/2015 Obesity, morbid (more than 1 00 lbs over ideal weight or BMI > 40) 07/09/2011 11/13/2016 Overview: Per Obesity protocol #1 documented as of this encounter (statuses as of 09/16/2023) Immunizations Name Administration Dates Next Due Hepatitis B, 20+ yrs 02/20/2017,09/19/2016,08/15 Pneumococcal Polysaccharide PPV23 (Pneumovax) 04/11/2016 TD, Preservative Free 12/24/2021 TDAP, Age 7 and older, IM (Adacel) 07/09/2011 Zoster Vaccine Recombinant (Shingrix) 07/22/2019 ,02/11/2019 documented as of this encounter Social History Tobacco Use Types Packs/Day Years Used Date Smoking Tobacco: Former Cigarettes 0.8 15 0 02/10/1972 - 02/09/1987 Smokeless Tobacco: Current Snuff Alcohol Use Standard Drinks/Week Comments No 0 (1 standard drink = 0.6 oz pur e alcohol) PHQ-2 Answer Date Recorded PHQ Adult Total Score 0 04/24/2023 Hunger Vital Sign Answer Date Recorded Within the past 12 months, y ou worried that your food would run out before you got the money to buy more. Never true 12/25/19 22 Within the past 12 months, t he food you bought just didn't last and you didn't have money to get more. Never true 12/24/2021 Utilities Answer Date Recorded Do you have trouble paying y our heating, water, or electric bill? (Adult - for ages 18 years and over) Not on file 07/28/2023 Is your family able to pay t he heat, water, or electric bill? (Household - for ages 0-17 years) Not on file 07/28/2023 Does your family have access to good internet? (Household - for ages 0-17 years) Not on file 07/28/2023 Social Connections Answer Date Recorded How often do you feel lonely or isolated from those around you? (Adult - for ages 18 years and over) Not on file 07/28/2023 Sex and Gender Information Value Date Recorded Sex Assigned at Male 08/13/2018 7:33 AM EDT Gender Identity Male 08/13/2018 7:33 AM EDT Sexual Orientation Straight 08/13/2018 7: 33 AM EDT Job Start Date Occupation Industry Not on file Not on file Not on file documented as of this encounter Miscellaneous Notes * Telephone Encounter - Krish Dias [facility] - 09/16/2023 11:29 AM EDT Medication Therapy Disease Management - 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 Patient: Roldan Thrasher | : 1960 Subjective Contacts Type Contact Phone/Fax 09/16/2023 11:07 AM EDT Phone (Outgoing) Roldan Thrasher (Self) [phone] (M) 09/16/2023 11:30 AM EDT Phone (Outgoing) Roldan Thrasher (Self) [phone] (M) Spoke to Patient - Educated pt on the regimen noted in comments of pt findings section. will f/u atnext INR fingerstick appt Patient-Reported Symptoms: Patient Findings Positives: Upcoming invasive procedure (Colonoscopy scheduled on 09/23/23 - per Dr. Gomez no Lovenox required despite hx of PE) Comments: Plan to hold warfarin x5 days (last dose on 09/16) prior to colonoscopy on 09/23/23 without bridging (per Dr. Gomez) - restart warfarin the night of the procedure at 10 mg x 2 days then resume regular regimen Objective Current Warfarin Dose As of 09/16/2023 Warfarin maintenance plan: 7.5 mg (5 mg x 1.5) every day INR Result As of 09/16/2023 INR goal: 2.0-3.0 INR used for dosing: Assessment & Plan Warfarin Plan As of 09/16/2023 Full warfarin instructions: 09/17: Hold; 8/10: Hold; 09/19: Hold; 09/20: Hold; 09/21: Hold; 09/22: 10 mg;09/23: 10 mg; Otherwise 7.5 mg every day Next INR check: 10/30/2023 Repeat PT/INR in 6 week(s) Weekly dose: not changed Additional Dosing Information: Description Takes in PM I spent a total of 10-19 minutes (exact time 19 mins) on the date of service in preparation, delivery, and documentation of the care provided to Roldan Thrasher excluding any time spent in the performance of separately billed services or time spent by another provider/QHP. Krish (Connie) Arun PharmD, [facility] PGY1 Director Of Sales And Marketing Medication Therapy Management [facility] 09/16/2023 11:36 AM * Telephone Encounter - Akua Peck RN - 09/16/2023 11:07 AM EDT Roldan is scheduled for a colonoscopy 09/23/23 for history of colon polyps, please advise him on hiswarfarin. Thank you for your assistance. documented in this encounter Plan of Treatment Upcoming Encounters Date Type Department Care Team (Latest Contact Info) Description 09/23/2023 8:31 AM EDT Hospital Encounter OR [facility], Operating Room, [facility] - 4th Floor [address] [place] [address] Sudhakar Salcedo, DO [address] [place] [address] 09/23/2023 8:31 AM EDT - 09/23/2023 9:11 AM EDT Surgery OR [facility], Operating Room, [facility] - 4th Floor [address] [place] [address] Sudhakar Salcedo, DO [address] [place] [address] COLONOSCOPY FLEXIBLE PROXIMAL DIAGNOSTIC 10/30/2023 8:10 AM EDT 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 Pharmacy, [facility] [address] [facility] [place] [address] Pharmacist2, [facility] [address] [facility] [place] [address] 10/30/2023 8:20 AM EDT Office Visit Pharmacy, [facility] [address] [facility] [place] [address] Pharmacist2, [facility] [address] [facility] [place] [address] 10/30/2023 9:20 AM EDT Office Visit General Internal Medicine [facility] [address] [facility] [place] [address] Howard Silva MD [address] [facility] [place] [address] 11/17/2023 8:45 AM EDT Office Visit Urology, [facility] [address] [facility] [place] [address] Gordon Muniz MD [address] [place] [address] Scheduled Procedures Name Priority Associated Diagnoses Date/Ti me COLONOSCOPY FLEXIBLE PROXIMAL DIAGNOSTIC History of colonic polyps 09/23/2023 8:31 AM EDT Health Maintenance Due Date Last Done Comments Cologuard 08/31/2004 Fecal Occult Blood Test 08/31/2004 Sigmoidoscopy 08/31/2004 Pneumococcal Vaccine: Pediatrics (0 to 5 Years) and At-Risk Patients (6 to 64 Years) (2 of 2 - PCV) 04/11/2017 04/11/2016 Albumin/Creatinine Ratio 08/14/2019 08/13/2018 Colonoscopy 03/12/2021 03/12/2018 Colorectal Cancer Screening 03/12/2021 Diabetic Foot Exam 06/28/2022 06/28/2021, 0 03/16/2020, 08/13/2018, Additional history exists Diabetic Eye Exam 08/09/2022 08/09/2021, 04/27/2020 COVID-19 Vaccine ( - 2022- season) 2022 Influenza Vaccine (FLU shot) (#1) 2023 HbA1c 01/23/2024 07/24/2023, 04/09, 12/24/2021, Additional history exists B-12 04/23/2024 04/24/2023, 06/10, 03/16/2020, Additional history exists Depression Screening 04/23/2024 04/24/2023 GFR 04/23/2024 04/24/2023, 03/2022, 03/04/2022, Additional history exists DTaP,Tdap,and Td Vaccines (3 - Td or Tdap) 12/25/2031 12/24/2021, 07/09/2011 Hepatitis B Vaccine Completed 02/20/2017, 09/19/2016, 08/15/2016 Zoster Vaccines Completed 07/22/2019, 02/11/2019 HPV (Gardasil) Vaccine Aged Out No lo nger eligible based on patient's age to complete this topic MENINGOCOCCAL (MENACTRA/MENVEO) Aged Out No longer eligible based on patient's age to complete this topic documented as of this encounter Medical Devices Not on filedocumented as of this encounter Visit Diagnoses Diagnosis Personal history of pulmonary embolism- Primary History of colonic polyps Personal history of colonic polyps documented in this encounter Care Teams Gunite Nozzle Operator Relationship Specialty Start Date End Date Howard Silva MD [address] [place] [address] PCP - General Internal Medicine 09/07/15 documented as of this encounter"
--- OUTSIDE RECORDS SUMMARY | 2023-10-27 03:43 | External Medical Summary | Summary of Care ---
Author Name Unknown Organization [facility] Address [address] [place] [address] Phone [phone] Care Team Providers Care Maple Products Supervisor Name Role Phone Howard Silva MD Primary Care Provider + Encounter Details Date Type Department Care Team (Late st Contact Info) Description 09/27/2023 Result Scan Unspecified Department [facility]anda Gomez, DO [address] [facility] [place] [address] <No scans attached> Allergies Active Allergy Reactions Criticality Noted Date Comments Lisinopril Edema face/lips/tongue High 12/21/2017 Angioedema, prompting airway emergency , intubation, [facility] 12/2017 documented as of this encounter (statuses as of 09/27/2023) Medications Medication Sig Dispensed Refills Start Date [...] Hour (toPROL XL)Indications:Margaux nary artery disease involving [place] coronary artery of [place] heart without angina pectoris Take 1 Tablet [...] 5 MG Oral Tablet (Coumadin)Indicatio ns: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,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 90 Capsule 5 04/09/2023 Active Atorvastatin Calcium 40 MG Oral Tablet (Lipitor)Indication s:Coronary artery disease involving [place] coronary artery of [place] heart without angina pectoris,Mixed hyperlipidemia Take 1 [...] as of this encounter (statuses as of 09/27/2023) Active Problems Problem Noted Date Diagnosed Date History of angioedema 04/24/2023 Sustained VT (ventricular tachycardia) Chronic systolic heart failure 12/24/2021 Splenomegaly 03/21/2021 Chronic venous insufficiency 12/11/2020 S/P ICD (internal cardiac defibrillator) procedu re 12/11/2020 History of [place] (myocardial infarction) 12/11/2020 Personal history of pulmonary embolism Overview: Historical-use of Z86.711 Personal History of Pulmonary Embolism is appropriate Ischemic cardiomyopathy 07/17/2020 Coronary artery disease invo lving [place] coronary artery of [place] heart without angina pectoris 04/02/2020 Overview: Stent [...] as of this encounter (statuses as of 09/27/2023) Resolved Problems Problem Noted Date Diagnosed Date Resolved Date Adenopathy 03/26/2021 04/24/2023 Old myocardial infarct 04/02/202004/02 Overview: N Stemi-- from 03/2020 changed to Old Mi (Hx of [place]) I25.2 Old myocardial infarct 04/02/202005/31 Overview: 03/2020, [...] as of this encounter (statuses as of 09/27/2023) Immunizations Name Administration Dates Next Due Hepatitis [...] on file documented as of this encounter Plan of Treatment Upcoming Encounters Date Type Department Care Team (Late st Contact Info) Description 10/30/2023 8:10 AM EDT 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 Pharmacy, [facility] [address] [facility] [place] [address] Pharmacist2, [facility] [address] [facility] [place] [address] 10/30/2023 8:20 AM EDT Office Visit Pharmacy, [facility] [address] [facility] [place] [address] Pharmacist2, [facility] [address] [place] [address] 10/30/2023 9:20 AM EDT Office Visit General Internal Medicine [facility] [address] [facility] [place] [address] Howard Silva MD [address] [facility] [place] [address] 11/17/2023 8:45 AM EDT Office Visit Urology, [facility] [address] [facility] [place] [address] Gordon Muniz MD [address] [place] [id number] Scheduled Procedures Name Priority Associated Diagnoses Date/Ti me COLONOSCOPY FLEXIBLE PROXIMA L DIAGNOSTIC Recall History of colonic polyps Health Maintenance Due Date Last Done Comments [...] Exam 08/09/2022 08/09/2021, 04/27/2020 COVID-19 Vaccine ( season) 2022 Influenza Vaccine (FLU shot) (#1) [...] Not on filedocumented as of this encounter Procedures Procedure Name Priority Date/Time Associated Diagnosis Comments CARDIOLOGY SCANNED RESULT 09/27/2023 documented in this encounter Results * CARDIOLOGY SCANNED RESULT (09/27/2023) 09/27/2023 Shawanda MARIANO documented in this encounter Care Teams Maple Products Supervisor Relationship Specialty Start Date End Date Howrad Silva MD [address] [place] [address] PCP - General Internal Medicine 09/07/15 documented as of this encounter
--- OUTSIDE RECORDS SUMMARY | 2023-10-27 03:44 | External Medical Summary | Summary of Care ---
Author Name Unknown Organization [facility] Address [address] [facility] [place] [address] Phone [phone] Care Team Providers Care Statistical Machine Mechanic Name Role Phone Howard Silva MD Primary Care Provider + Reason for Visit * Reason Onset Date Comments Fax 07/07/2023 [facility] Encounter Details Date Type Department Care Team (Late st Contact Info) Description 07/07/2023 Telephone Wound Care, [facility] [address] [facility] [place] [id number] Holli Lira DPM [address] [facility] [place] [address] Fax (Tomorrow [facility]) Allergies Active Allergy Reactions Criticality Noted Date Comments Lisinopril Edema face/lips/tongue High 12/21/2017 Angioedema, prompting airway emergency , intubation, [facility] 12/2017 documented as of this encounter (statuses as of 07/07/2023) Medications Medication Sig Dispensed Refills Start Date End Date Status aspirin enteric coated 81 MG TBEC Take 1 Tablet by mouth in the morning. 100 Tab 3 07/15/2016 Active Nitroglycerin 0.4 MG Sublingual Tablet Sublingual (Nitrostat) Place 1 Tablet under the tongue as needed for Pain, Chest. 03/29/2020 Active Empagliflozin 25 MG Oral Tablet (Jardiance)Indicati ons:Type 2 diabetes mellitus with hemoglobin A1c goal of less than 7.0% (HCC) Take 1 Tablet by mouth in the morning. 30 Tablet 11 06/11/2022 Active Amiodarone HCl 200 MG Oral Tablet (Cordarone) Take 1 Tablet by mouth in the morning. 30 Tablet 11 07/14/2022 Active Spironolactone 25 MG Oral Tablet (Aldactone)Indicati ons:HTN, goal below 140/90 Take 1 Tablet by mouth in the morning. 90 Tablet 3 09/23/2022 Active Metoprolol Succinate ER 50 MG Oral Tablet Extended Release 24 Hour (toPROL XL)Indications:Margaux nary artery disease involving [place] coronary artery of [place] heart without angina pectoris Take 1 Tablet by mouth in the morning. 90 Tablet 3 10/21/2022 Active metFORMIN HCl ER 500 MG Oral Tablet Extended Release 24 Hour (Glucophage XR)Indications:Type 2 diabetes mellitus with hemoglobin A1c goal of less than 7.0% (HCC) Take 4 Tablets by mouth daily with dinner. 360 Tablet 1 12/04/2022 Active Furosemide 40 MG Oral Tablet (Lasix)Indications: HTN, goal below 140/90 Take 1 Tablet by mouth in the morning. 90 Tablet 1 12/18/2022 Active Tamsulosin HCl 0.4 MG Oral Capsule (Flomax) Take 1 Capsule by mouth in the morning. 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 90 Tablet 3 04/12/2023 Active documented as of this encounter (statuses as of 07/07/2023) Active Problems Problem Noted Date Diagnosed Date History of angioedema 04/24/2023 Sustained VT (ventricular tachycardia) Chronic systolic heart failure 12/24/2021 Splenomegaly 03/21/2021 Chronic venous insufficiency 12/11/2020 S/P ICD (internal cardiac defibrillator) procedu re 12/11/2020 History of [place] (myocardial infarction) 12/11/2020 Personal history of pulmonary embolism Overview: Historical-use of Z86.711 Personal History of Pulmonary Embolism is appropriate Ischemic cardiomyopathy 07/17/2020 Coronary artery disease invo lving [place] coronary artery of [place] heart without angina pectoris 04/02/2020 Overview: Stent [...] as of this encounter (statuses as of 07/07/2023) Resolved Problems Problem Noted Date Diagnosed Date Resolved Date Adenopathy 03/26/2021 04/24/2023 Old myocardial infarct 04/02/202004/02 Overview: N Stemi-- from 03/2020 changed to Old Mi (Hx of [place]) I25.2 Old myocardial infarct 04/02/202005/31 Overview: 03/2020, [...] as of this encounter (statuses as of 07/07/2023) Immunizations Name Administration Dates Next Due Hepatitis B, 20+ yrs 02/20/2017,09/19/2016,08/15 Pneumococcal Polysaccharide PPV23 (Pneumovax) 04/11/2016 TD, Preservative Free 12/24/2021 TDAP (age 11 and older)(Adacel) 07/09/2011 Zoster Vaccine Recombinant (Shingrix) 07/22/2019 ,02/11/2019 [...] money to get more. Never true 12/24/2021 Sex and Gender Information Value Date Recorded Sex Assigned at Male 08/13/2018 7:33 AM EDT Gender Identity Male 08/13/2018 7:33 AM EDT Sexual Orientation Straight 08/13/2018 7: 33 AM EDT Job Start Date Occupation Industry Not on file Not on file Not on file documented as of this encounter Miscellaneous Notes * Telephone Encounter - Leslie Coronado OSA - 07/07/2023 12:44 PM EDT Office note from 04/15/23 and demographics sheet were faxed to [employer] using their coversheet (#[phone]). documented in this encounter Plan of Treatment Upcoming Encounters Date Type Department Care Team (Latest Contact Info) Description 07/24/2023 8:30 AM EDT 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 Pharmacy, [facility] [address] [facility] [place] [address] Pharmacist2, [facility] [address] [facility] [place] [address] 07/24/2023 8:40 AM EDT Office Visit Pharmacy, [facility] [address] [facility] [place] [address] Pharmacist2, [facility] [address] [facility] [place] [address] 09/23/2023 8:41 AM EDT Hospital Encounter OR [facility], Operating Room, [facility] - 4th Floor [address] [place] [address] [place] [address] Sudhakar Salcedo, DO [address] [place] [address] 09/23/2023 8:41 AM EDT - 09/23/2023 9:21 AM EDT Surgery OR [facility], Operating Room, [facility] - 4th Floor [address] [place] [address] Sudhakar Salcedo, DO [address] [place] [address] COLONOSCOPY FLEXIBLE PROXIMAL DIAGNOSTIC 09/28/2023 8:30 AM EDT Cardiac Studies Cardiology, [facility] [address] [place] [address] [facility] [address] [place] [address] 10/30/2023 9:20 AM EDT Office Visit General Internal Medicine [facility] [address] [facility] [place] [address] Howard Silva MD [address] [facility] [place] [address] 11/17/2023 8:45 AM EDT Office Visit Urology, [facility] 132 [facility] [place] [address] Gordon Muniz MD 27 [facility] [address] [place] [address] Scheduled Procedures Name Priority Associated Diagnoses Date/Ti me COLONOSCOPY FLEXIBLE PROXIMAL DIAGNOSTIC History of colonic polyps 09/23/2023 8:41 AM EDT Health Maintenance Due Date Last [...] history exists Diabetic Eye Exam 08/09/2022 08/09/2021, , 08/15/2011 COVID-19 Vaccine ( season) 2022 Influenza Vaccine (FLU shot) (Season Ended) 2023 HbA1c 10/25/2023 04/24/2023, 12/10, 09/16/2021, Additional history exists B-12 04/23/2024 04/24/2023, 06/10, 03/16/2020, Additional history exists Depression Screening 04/23/2024 04/24/2023 GFR 04/23/2024 04/24/2023, 11/0 03/2022, 03/04/2022, Additional history exists DTaP,Tdap,and Td Vaccines (3 - Td or Tdap) 12/25/2031 12/24/2021, 07/09/2011 Hepatitis B Completed 02/20/2017, 09/09, 08/15/2016 Zoster Vaccines Completed 07/22/2019, 02/11/2019 GARDASIL-HPV IMMUNIZATION SERIES Aged Out No longer eligible based on patient's age to complete this topic MENINGOCOCCAL (MENACTRA/MENVEO) Aged Out No longer eligible based on patient's age to complete this topic documented as of this encounter Medical Devices Not on filedocumented as of this encounter Care Teams Statistical Machine Mechanic Relationship Specialty Start Date End Date Howard Silva MD [address] [place] [address] PCP - General Internal Medicine 09/07/15 documented as of this encounter
--- OUTSIDE RECORDS SUMMARY | 2023-10-27 03:44 | External Medical Summary | Summary of Care ---
Author Name Unknown Organization [facility] Address [address] [place] [address] Phone [phone] Care Team Providers Care Principal Security Architect Name Role Phone Howard Silva MD Primary Care Provider + Reason for Visit * Reason Onset Date Comments Medication Refill 07/13/2023 Encounter Details Date Type Department Care Team (Late st Contact Info) Description 07/13/2023 Refill General Internal Medicine [facility] [address] [facility] [place] [address] Howard Silva MD 200 [place] [address] Type 2 diabetes mellitus with hemoglobin A1c goal of less than 7.0% (HCC) Allergies Active Allergy Reactions Criticality Noted Date Comments Lisinopril Edema face/lips/tongue High 12/21/2017 Angioedema, prompting airway emergency , intubation, [facility] 12/2017 documented as of this encounter (statuses as of 07/14/2023) Medications Medication Sig Dispensed Refills Start Date [...] Hour (toPROL XL)Indications:Margaux nary artery disease involving [place] coronary artery of [place] heart without angina pectoris Take 1 Tablet [...] 5 MG Oral Tablet (Coumadin)Indicatio ns: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,longterm current use of anticoagulant therapy,Acute saddle pulmonary [...] Oral Tablet (Lipitor)Indication s:Coronary artery disease involving [place] coronary artery of [place] heart without angina pectoris,Mixed hyperlipidemia Take 1 Tablet by mouth in the morning. 90 Tablet 3 04/12/2023 Active metFORMIN HCl ER 500 MG Oral Tablet Extended Release 24 Hour (Glucophage XR)Indications:Type 2 diabetes mellitus with hemoglobin A1c goal of less than 7.0% (HCC) TAKE 4 TABLETS BY MOUTH DAILY WITH DINNER 360 Tablet 2 07/13/2023 Active documented as of this encounter (statuses as of 07/14/2023) Active Problems Problem Noted Date Diagnosed Date History of angioedema 04/24/2023 Sustained VT (ventricular tachycardia) Chronic systolic heart failure 12/24/2021 Splenomegaly 03/21/2021 Chronic venous insufficiency 12/11/2020 S/P ICD (internal cardiac defibrillator) procedu re 12/11/2020 History of [place] (myocardial infarction) 12/11/2020 Personal history of pulmonary embolism Overview: Historical-use of Z86.711 Personal History of Pulmonary Embolism is appropriate Ischemic cardiomyopathy 07/17/2020 Coronary artery disease invo lving [place] coronary artery of [place] heart without angina pectoris 04/02/2020 Overview: Stent [...] as of this encounter (statuses as of 07/14/2023) Resolved Problems Problem Noted Date Diagnosed Date Resolved Date Adenopathy 03/26/2021 04/24/2023 Old myocardial infarct 04/02/202004/02 Overview: N Stemi-- from 03/2020 changed to Old Mi (Hx of [place]) I25.2 Old myocardial infarct 04/02/202005/31 Overview: 03/2020, [...] as of this encounter (statuses as of 07/14/2023) Immunizations Name Administration Dates Next Due Hepatitis [...] encounter Miscellaneous Notes * Telephone Encounter - Bee Levine [facility] - 07/14/2023 4:41 PM EDT Refused Prescriptions: Disp Refills metFORMIN HCl ER 500 MG Oral Tablet Extend*360 Ta*2 Sig: Take 4Tablets by mouth daily with dinner.Refused By: BEE LEVINEReason for Refusal: Duplicate Request documented in this encounter Plan of Treatment Upcoming Encounters Date Type Department Care Team (Latest Contact Info) Description 07/24/2023 8:30 AM EDT 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 Pharmacy, [facility] [address] [facility] [place] [address] Pharmacist2, [facility] [address] [facility] [place] [address] 07/24/2023 8:40 AM EDT Office Visit Pharmacy, [facility] [address] [facility] [place] [address] Pharmacist2, [facility] [address] [facility] [place] [address] 09/23/2023 8:41 AM EDT Hospital Encounter OR [facility], Operating Room, [facility] - 4th Floor [address] [place] [address] Sudhakar Salcedo, DO [address] [place] [address] 09/23/2023 8:41 AM EDT - 09/23/2023 9:21 AM EDT Surgery OR [facility], Operating Room, [facility] - 4th Floor [address] [place] [address] Sudhakar Salcedo, DO [address] [place] [address] COLONOSCOPY FLEXIBLE PROXIMAL DIAGNOSTIC 09/28/2023 8:30 AM EDT Cardiac Studies Cardiology, [facility] [address] [facility] [place] [address] [facility] [address] [facility] [place] [address] 10/30/2023 9:20 AM EDT Office Visit General Internal Medicine [facility] [address] [facility] [place] [address] Howard Silva MD 200 [facility] [place] [address] 11/17/2023 8:45 AM EDT Office Visit Urology, [facility] [address] [facility] [place] [address] Gordon Muniz MD 27 [facility] [place] [address] [place] [address] Scheduled Procedures Name Priority Associated Diagnoses Date/Ti [...] as of this encounter Visit Diagnoses Diagnosis Type 2 diabetes mellitus with hemoglobin A1c goal of less than 7.0% (HCC) History of colonic polyps Personal history of colonic polyps documented in this encounter Care Teams Principal Security Architect Relationship Specialty Start Date End Date Howard Silva MD [address] [place] [address] PCP - General Internal Medicine 09/07/15 documented as of this encounter
--- OUTSIDE RECORDS SUMMARY | 2023-10-27 03:44 | External Medical Summary ---
Author Name Unknown Address Unknown Organization K09:[facility] [place] [address] Laboratory Report Ordering Provider Test Date Status ABHILASH,PHARMACIST2 07/24/2023 08:01:08 Final Observation Date Value Abnormality Reference (Units ) Status HbA1C 07/24/2023 08:01:08 8.7 Above high normal 4. 0-5.6 (%) Final Performing Location [facility] [place] [address]
--- OUTSIDE RECORDS SUMMARY | 2023-10-27 03:44 | External Medical Summary | Summary of Care ---
Author Name Unknown Organization [facility] Address [address] [place] [address] Phone [phone] Care Team Providers Care Anesthesia Tech Name Role Phone Howard Silva MD Primary Care Provider + Reason for Visit * Reason Comments Dosage Adjustment In Person (Anticoag Cl inic) Encounter Details Date Type Department Care Team (Latest Contact Info) Description 07/24/2023 8:30 AM EDT 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 Pharmacy, [facility] 200 [place] [address] Pharmacist2, [facility] 200 [facility] [place] [address] Personal history of pulmonary embolism*; 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 Allergies Active Allergy Reactions Criticality Noted Date Comments Lisinopril Edema face/lips/tongue High 12/21/2017 Angioedema, prompting airway emergency , intubation, [facility] 12/2017 documented as of this encounter (statuses as of 07/24/2023) Medications Medication Sig Dispensed Refills Start Date [...] Hour (toPROL XL)Indications:Margaux nary artery disease involving [place] coronary artery of [place] heart without angina pectoris Take 1 Tablet [...] 5 MG Oral Tablet (Coumadin)Indicatio ns: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,[facility] current use of anticoagulant therapy,Acute saddle pulmonary [...] Oral Tablet (Lipitor)Indication s:Coronary artery disease involving [place] coronary artery of [place] heart without angina pectoris,Mixed hyperlipidemia Take 1 [...] as of this encounter (statuses as of 07/24/2023) Active Problems Problem Noted Date Diagnosed Date History of angioedema 04/24/2023 Sustained VT (ventricular tachycardia) Chronic systolic heart failure 12/24/2021 Splenomegaly 03/21/2021 Chronic venous insufficiency 12/11/2020 S/P ICD (internal cardiac defibrillator) procedu re 12/11/2020 History of [place] (myocardial infarction) 12/11/2020 Personal history of pulmonary embolism Overview: Historical-use of Z86.711 Personal History of Pulmonary Embolism is appropriate Ischemic cardiomyopathy 07/17/2020 Coronary artery disease invo lving [place] coronary artery of [place] heart without angina pectoris 04/02/2020 Overview: Stent [...] as of this encounter (statuses as of 07/24/2023) Resolved Problems Problem Noted Date Diagnosed Date Resolved Date Adenopathy 03/26/2021 04/24/2023 Old myocardial infarct 04/02/202004/02 Overview: N Stemi-- from 03/2020 changed to Old Mi (Hx of [place]) I25.2 Old myocardial infarct 04/02/202005/31 Overview: 03/2020, [...] as of this encounter (statuses as of 07/24/2023) Immunizations Name Administration Dates Next Due Hepatitis [...] on file documented as of this encounter Progress Notes * Gold [facility] - 07/24/2023 8:39 AM EDT Medication Therapy Disease Management - 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 Patient: Roldan Thrasher | : 1960 Subjective Patient-Reported Symptoms: Patient Findings Negatives: Signs/symptoms of thrombosis, Signs/symptoms of bleeding, Change in health, Change in alcohol use, Change in activity, Upcoming invasive procedure, Missed doses, Extra doses, Change in medications, Change in diet/appetite, Bruising Objective Current Warfarin Dose As of 07/24/2023 Warfarin maintenance plan: 7.5 mg (5 mg x 1.5) every day INR Result As of 07/24/2023 INR goal: 2.0-3.0 INR used for dosin.6 (07/24/2023) Assessment & Plan Warfarin Plan As of 07/24/2023 Full warfarin instructions: 7.5 mg every day No change documented: Gold Sanders RPh Next INR check: 09/04/2023 Repeat PT/INR in 6 week(s) Weekly dose: not changed Additional Dosing Information: Description Takes in PM Gold Sanders [facility] Clinical Pharmacist 07/24/2023, 8:39 AM documented in this encounter Plan of Treatment Upcoming Encounters Date Type Department Care Team (Latest Contact Info) Description 09/04/2023 9:30 AM EDT 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 Pharmacy, [facility] [place] [address] [address] Pharmacist2, [facility] [address] [address] 09/04/2023 9:40 AM EDT Office Visit Pharmacy, [facility] [place] [address] [address] Pharmacist2, [facility] [address] [address] 09/23/2023 8:41 AM EDT Hospital Encounter OR [facility], Operating Room, [facility] - 4th Floor [address] [place] [address] [place] [address] Sudhakar Salcedo, DO [address] [place] [address] 09/23/2023 8:41 AM EDT - 09/23/2023 9:21 AM EDT Surgery OR [facility], Operating Room, [facility] - 4th Floor [address] [facility] [place] [address] Sudhakar Salcedo, DO [address] [place] [address] COLONOSCOPY FLEXIBLE PROXIMAL DIAGNOSTIC 09/28/2023 8:30 AM EDT Cardiac Studies Cardiology, [facility] 132 [facility] [place] [address] [facility] [address] [place] [address] 10/30/2023 9:20 AM EDT Office Visit General Internal Medicine [facility] 200 [place] [address] Howard Silva MD [facility] [address] 11/17/2023 8:45 AM EDT Office Visit Urology, [facility] 132 [facility] [place] [address] Gordon Muniz MD [address] [place] [address] [place] [address] Scheduled Procedures Name Priority Associated Diagnoses Date/Ti [...] Vaccine (FLU shot) (Season Ended) 2023 HbA1c 01/23/2024 07/24/2023, 04/09, 12/24/2021, Additional history exists B-12 04/23/2024 04/24/2023, 06/10, 03/16/2020, Additional history exists Depression Screening 04/23/2024 04/24/2023 GFR 04/23/2024 04/24/2023, 1103/2022, 03/04/2022, Additional history exists DTaP,Tdap,and Td Vaccines [...] Procedure Name Priority Date/Time Associated Diagnosis Comments INR FINGERSTICK, POINT OF CARE STAT 07/24/2023 8:42 AM EDT Personal history of pulmonary embolism 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 documented in this encounter Results * INR FINGERSTICK, POINT OF CARE (07/24/2023 8:42 AM EDT) Fingerstick INR 2.6 INR 9:09 AM EDT [facility] 56-02 Blood 07/24/2023 8:42 AM EDT 07/24/2023 9:[address] [facility] 56-02 - 07/24/2023 9:09 AM EDT Therapeutic ranges for non-operative patients: Prophylaxsis/treatment of DVT: (Range:2.0-3.0) Treatment of pulmonary embolism:(Range:2.0-3.0) Prevention of systemic embolism from: -tissue heart valves -acute myocardial infarction -valvular heart disease -atrial fibrillation (Range: 2.0-3.0) Mechanical prosthetic valves: (Range: 2.5-3.5) Gold Sanders [facility] LAB POINT O F CARE TEST DOCKED DEVICE UNSOLICITED RESULTS [facility] 56 [address] [facility] [address] documented in this encounter Visit Diagnoses Diagnosis Personal history of pulmonary embolism- Primary 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 Encounter for therapeutic drug monitoring History of colonic polyps Personal history of colonic polyps documented in this encounter Care Teams Anesthesia Tech Relationship Specialty Start Date End Date Howard Silva MD [facility] [address] PCP - General Internal Medicine 09/07/15 documented as of this encounter"
--- OUTSIDE RECORDS SUMMARY | 2023-10-27 03:44 | External Medical Summary | Summary of Care ---
Author Name Unknown Organization [facility] Address [address] [place] [address] Phone [phone] Care Team Providers Care Artist Representative Name Role Phone Howard Silva MD Primary Care Provider + Reason for Visit * Reason Comments Dosage Adjustment In Person (Anticoag Cl inic) Diabetes Management * Evaluate & Treat - Unlimited Visits (Within 10 days (routine)) - Authorized Specialty Diagnoses / Procedures Referred By Conttammy t Referred To Contact Pharmacist / Pharmacy Diagnoses Type 2 diabetes mellitus with hemoglobin A1c goal of less than 7.0% ([facility]) Howard Silva MD [address] [facility] [place] [address] Referral ID Status Reason Start Date Expiration Date Visits Requested Visits Authorized [id number] Authorized Specialty Services Required 04/26/2023 99 99 Encounter Details Date Type Department Care Team (Late st Contact Info) Description 07/24/2023 8:40 AM EDT Office Visit Pharmacy, [facility] [place] [address] [place] [address] Pharmacist2, [facility] 200 [facility] [place] [address] Type 2 diabetes mellitus with hemoglobin A1c goal of less than 7.0% ([facility])* Allergies Active Allergy Reactions Criticality Noted Date Comments Lisinopril Edema face/lips/tongue High 12/21/2017 Angioedema, prompting airway emergency , intubation, [facility] 12/2017 documented as of this [...] Hour (toPROL XL)Indications:Margaux nary artery disease involving chickahominy indians-eastern division coronary artery of chick[place]om[place] indians-eastern division heart without angina pectoris Take 1 Tablet [...] 5 MG Oral Tablet (Coumadin)Indicatio ns: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,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 therapy,Acute saddle pulmonary [...] Oral Tablet (Lipitor)Indication s:Coronary artery disease involving chickahominy indians-eastern division coronary artery of chick[place]om[place] indians-eastern division heart without angina pectoris,Mixed hyperlipidemia Take 1 [...] cardiac defibrillator) procedu re 12/11/2020 History of [place] (myocardial infarction) 12/11/2020 Personal history of pulmonary embolism Overview: Historical-use of Z86.711 Personal History of Pulmonary Embolism is appropriate Ischemic cardiomyopathy 07/17/2020 Coronary artery disease invo lving chickahominy indians-eastern division coronary artery of chick[place]om[place] indians-eastern division heart without angina pectoris 04/02/2020 Overview: Stent [...] 03/2020 changed to Old Mi (Hx of [place]) I25.2 Old myocardial infarct 04/02/202005/31 Overview: 03/2020, [...] of this encounter Progress Notes * Gold Sanders, [facility] - 07/24/2023 8:39 AM EDT Medication Therapy Disease Management Clinic - Diabetes Management Progress Note Roldan Thrasher, identified by name and date of , is a 62 year old male being seen for diabetes management/education. Patient presents for initial diabetic visit. Past Medical History: Diagnosis Date Acute ST elevation myocardial infarction (STEMI) involving left anterior descending (LAD) coronary artery ([facility]) 04/02/2020 Adenopathy 03/26/2021 Angioedema 12/24/2017 Chronic systolic heart failure (HCC) 12/24/2021 Coronary artery disease involving chickahominy indians-eastern division coronary artery of chickahominy indians-eastern division heart without angina pectoris 04/02/2020 DM type 2, goal A1c below 7 08/15/2011 Elevated lipids 04/14/2016 History of [place] (myocardial infarction) 12/11/2020 Hyperlipidemia LDL goal < 100 08/15/2011 Leg edema, right 10/12/2015 Splenomegaly 03/21/2021 Diagnosis: Type 2 Age of diabetes diagnosis: 57 Family history of diabetes: Denies Microvascular complications: none Macrovascular complications: hypertension dyslipidemia coronary artery disease History of Treatment Barriers: Lifestyle: None Therapy considerations: None Medication: None DIABETES: Current diabetic medications: Metformin ER 500mg 4 tabs Daily Jardiance 25mg QAM Medication Injection Site: Abdomen Lifestyle: Diet: Reviewed plate method and effect of certain foods on BG. Also reviewed food label, focusing on "total carbohydrates" and "serving size." Patient verbalized understanding. Glucose Review/SMBG: Readings per patient memory/recall: Patient is currently testing 0 times a day Hypoglycemia: Does your blood sugar go below 70 mg/dL? No Hyperglycemia symptoms present: none Recent Labs Units 07/24/23 0801 04/24/23 0926 12/24/21 1100 HEMOGLOBIN A1C - [facility] % -- 8.7* 7.9* HEMOGLOBIN A1C POCT - [facility] % 8.7* -- -- Recent Labs Units 04/24/23 0926 12/11/22 1101 03/04/22 1250 ESTIMATED GLOMERULAR FILTRATION RATE - [facility] mL/min 82 75 >90 CREATININE - [facility] mg/dL 1.0 1.1 0.9 HYPERTENSION: Patient on ACEi/ARB: no, BP controlled BP Readings from Last 3 Encounters: 06/18/23 138/72 04/24/23 138/80 03/03/23 132/62 Blood pressure at goal: yes HYPERLIPIDEMIA: Patient is taking moderate or high intensity statin: yes HEALTH MAINTENANCE REVIEW: Health Maintenance Due Topic Date Due Pneumococcal Vaccine: Pediatrics (0 to 5 Years) and At-Risk Patients (6 to 64 Years) (2 of 2 - PCV)04/11/2017 Albumin/Creatinine Ratio 08/14/2019 Colorectal Cancer Screening 03/12/2021 Diabetic Foot Exam 06/28/2022 Diabetic Eye Exam 08/09/2022 COVID-19 Vaccine ( season) Never done ASSESSMENT & PLAN: ICD-10-CM 1. Type 2 diabetes mellitus with hemoglobin A1c goal of less than 7.0% (HCC) E11.9 BG Readings - Blood sugars uncontrolled. Pt not checking his BG now, A1c 8.7% on POCT A1c. Medications - Reviewed current regimen, patient is adherent to regimen. Discussed ozempic with patient. He would like to consider it until the next visit, in the mean time he is going to check his blood sugar once daily. Diet, Exercise, Lifestyle - No significant lifestyle changes since last visit. Patient is agreeable to SMBG 1 time(s) daily. Patient aware to contact clinic if any hypoglycemia before next visit. MEDICATION CHANGES: no change Diabetic Medications: Metformin ER 500mg 4 tabs Daily Jardiance 25mg QAM HEALTH MAINTENANCE INTERVENTIONS: Labs: Up to Date Immunizations: Due Foot Exam: Up to Date Eye Exam: Up to Date Annual Wellness Visit: Up to Date FOLLOW UP: Return to clinic in 6 weeks 09/04/2023 Gold Sanders RPh Clinical Pharmacist - Sheet Metal Engineer Medication Therapy Management Clinic 07/24/2023, 8:39 AM documented in this encounter Plan of Treatment Upcoming Encounters Date Type Department Care Team (Latest Contact Info) Description 09/04/2023 9:30 AM EDT 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 Pharmacy, [facility] 200 [facility] [place] [address] Pharmacist2, [facility] [address] [address] 09/04/2023 9:40 AM EDT Office Visit Pharmacy, [facility] 200 [facility] [place] [address] Pharmacist2, [facility] [address] [address] 09/23/2023 8:41 AM EDT Hospital Encounter OR [facility], Operating Room, [facility] - 4th Floor [address] [place] [address] Sudhakar Salcedo, DO [address] [place] [address] 09/23/2023 8:41 AM EDT - 09/23/2023 9:21 AM EDT Surgery OR [facility], Operating Room, [facility] - 4th Floor [address] [facility] [place] [address] Sudhakar Salcedo, DO [address] [place] [address] COLONOSCOPY FLEXIBLE PROXIMAL DIAGNOSTIC 09/28/2023 8:30 AM EDT Cardiac Studies Cardiology, [facility] [address] [place] [address] [facility] [address] [place] [address] 10/30/2023 9:20 AM EDT Office Visit General Internal Medicine [facility] [address] [address] Howard Silva MD [address] [place] [address] 11/17/2023 8:45 AM EDT Office Visit Urology, [facility] [address] [place] [address] Gordon Muniz MD 27 [facility] [address] [place] [address] Scheduled Procedures Name Priority Associated Diagnoses [...] Procedure Name Priority Date/Time Associated Diagnosis Comments HEMOGLOBIN A1C, POINT OF CARE MARIZA 07/24/2023 8:01 AM EDT Type 2 diabetes mellitus with hemoglobin A1c goal of less than 7.0% (HCC) documented in this encounter Results * (ABNORMAL) HEMOGLOBIN A1C, POINT OF CARE (07/24/2023 8:01 AM EDT) Hemoglobin A1c 8.7(H) 4.0 - 5.6 % 07/24/2023 9:12 AM EDT [facility] 56-02 Blood 07/24/2023 8:01 AM EDT 07/24/2023 9:12 AM EDT [facility] Pharmacist2 LAB POINT OF C ARE TEST DOCKED DEVICE UNSOLICITED RESULTS [facility] 56-02 200 [facility] [place] [address] documented in this encounter Visit Diagnoses Diagnosis Type 2 diabetes mellitus with hemoglobin A1c goal of less than 7.0% (HCC)- Primary History of colonic polyps Personal history of colonic polyps documented in this encounter Care Teams Artist Representative Relationship Specialty Start Date End Date Howard Silva MD 200 [facility] [place] [address] PCP - General Internal Medicine 09/07/15 documented as of this encounter
--- OUTSIDE RECORDS SUMMARY | 2023-10-27 03:44 | External Medical Summary | Summary of Care ---
Author Name Unknown Organization [facility] Address [address] [place] [address] Phone [phone] Care Team Providers Care Fruit Vendor Name Role Phone Howard Silva MD Primary Care Provider + Reason for Visit * Reason Onset Date Comments Appointment 09/08/2023 [facility] appointment Encounter Details Date Type Department Care Team (Late st Contact Info) Description 09/08/2023 Telephone Cardiology, [facility] [address] [facility] [address] [facility] [address] Appointment ([facility] appointment ) Allergies Active Allergy Reactions Criticality Noted Date Comments Lisinopril Edema face/lips/tongue High 12/21/2017 Angioedema, prompting airway emergency , intubation, [facility] 12/2017 documented as of this encounter (statuses as of 09/08/2023) Medications Medication Sig Dispensed Refills Start Date [...] Hour (toPROL XL)Indications:Margaux nary artery disease involving [place] coronary artery of [place] heart without angina pectoris Take 1 Tablet [...] 5 MG Oral Tablet (Coumadin)Indicatio ns: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,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 of anticoagulant therapy,Acute saddle pulmonary [...] Oral Tablet (Lipitor)Indication s:Coronary artery disease involving [place] coronary artery of [place] heart without angina pectoris,Mixed hyperlipidemia Take 1 [...] as of this encounter (statuses as of 09/08/2023) Active Problems Problem Noted Date Diagnosed Date History of angioedema 04/24/2023 Sustained VT (ventricular tachycardia) Chronic systolic heart failure 12/24/2021 Splenomegaly 03/21/2021 Chronic venous insufficiency 12/11/2020 S/P ICD (internal cardiac defibrillator) procedu re 12/11/2020 History of [place] (myocardial infarction) 12/11/2020 Personal history of pulmonary embolism Overview: Historical-use of Z86.711 Personal History of Pulmonary Embolism is appropriate Ischemic cardiomyopathy 07/17/2020 Coronary artery disease invo lving [place] coronary artery of [place] heart without angina pectoris 04/02/2020 Overview: Stent [...] as of this encounter (statuses as of 09/08/2023) Resolved Problems Problem Noted Date Diagnosed Date Resolved Date Adenopathy 03/26/2021 04/24/2023 Old myocardial infarct 04/02/202004/02 Overview: N Stemi-- from 03/2020 changed to Old Mi (Hx of [place]) I25.2 Old myocardial infarct 04/02/202005/31 Overview: 03/2020, [...] as of this encounter (statuses as of 09/08/2023) Immunizations Name Administration Dates Next Due Hepatitis [...] encounter Miscellaneous Notes * Telephone Encounter - Shamika Ramey LPN - 09/08/2023 12:39 PM EDT [employer] message sent to patient regarding cancellation of [facility] appointment 09/28/2023. Patient monitoredremotely IOC not indicated at this time. documented in this encounter Plan of Treatment Upcoming Encounters Date Type Department Care Team (Latest Contact Info) Description 09/23/2023 8:31 AM EDT Hospital Encounter OR [facility], Operating Room, [facility] - 4th Floor [address] [place] [address] Sudhakar Salcedo, DO [address] [place] [address] 09/23/2023 8:31 AM EDT - 09/23/2023 9:11 AM EDT Surgery OR [facility], Operating Room, [facility] - 4th Floor [address] [place] [address] Sudhakar Salcedo, DO [address] [place] [address] COLONOSCOPY FLEXIBLE PROXIMAL DIAGNOSTIC 09/28/2023 8:30 AM EDT Cardiac Studies Cardiology, [facility] [address] [place] [address] Neli Pacer [facility] 132 [facility] [place] [address] 10/30/2023 8:10 AM EDT 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 Pharmacy, [facility] [address] [place] [address] Pharmacist2, [facility] 200 [facility] [place] [address] 10/30/2023 8:20 AM EDT Office Visit Pharmacy, [facility] [address] [place] [address] Pharmacist2, [facility] 200 [facility] [place] [address] 10/30/2023 9:20 AM EDT Office Visit General Internal Medicine [facility] [address] [place] [address] Howard Silva MD [address] [place] [address] 11/17/2023 8:45 AM EDT Office Visit Urology, [facility] 132 [facility] [place] [address] Gordon Muniz MD [address] [place] [...] 08/09/2022 08/09/2021, 04/27/2020 COVID-19 Vaccine ( - season) 2022 Influenza Vaccine (FLU shot) (#1) 2023 HbA1c 01/23/2024 07/24/2023, 04/09, 12/24/2021, Additional history exists B-12 04/23/2024 04/24/2023, 06/10, 03/16/2020, Additional history exists Depression Screening 04/23/2024 04/24/2023 GFR 04/23/2024 04/24/2023, 03/2022, 03/04/2022, Additional history exists DTaP,Tdap,and Td Vaccines (3 - Td or Tdap) 12/25/2031 12/24/2021, 07/09/2011 HIV Screening Completed 08/15/2016 Hepatitis C Screening Completed 08/15/2016 Hepatitis B Vaccine Completed 02/20/2017, 09/19/2016, 08/15/2016 Zoster Vaccines Completed 07/22/2019, 02/11/2019 HPV (Gardasil) Vaccine Aged Out No lo nger eligible based on patient's age to complete this topic MENINGOCOCCAL (MENACTRA/MENVEO) Aged Out No longer eligible based on patient's age to complete this topic documented as of this encounter Medical Devices Not on filedocumented as of this encounter Care Teams Fruit Vendor Relationship Specialty Start Date End Date Howard Silva MD [address] [place] [address] PCP - General Internal Medicine 09/07/15 documented as of this encounter
--- OUTSIDE RECORDS SUMMARY | 2023-10-27 03:44 | External Medical Summary | Summary of Care ---
Author Name Unknown Organization [facility] Address [address] [place] [address] Phone [phone] Care Team Providers Care Gravity Flow Irrigator Name Role Phone Howard Silva MD Primary Care Provider + Reason for Visit * Reason Onset Date Comments Medication Refill 08/08/2023 Encounter Details Date Type Department Care Team (Late st Contact Info) Description 08/08/2023 Refill General Internal Medicine [facility] [place] 200 [facility] [place] [address] Howard Silva MD 200 [place] [address] Type 2 diabetes mellitus with hemoglobin A1c goal of less than 7.0% ([facility]) Allergies Active Allergy Reactions Criticality Noted Date Comments Lisinopril Edema face/lips/tongue High 12/21/2017 Angioedema, prompting airway emergency , intubation, [facility] 12/2017 documented as of this encounter (statuses as of 08/09/2023) Medications Medication Sig Dispensed Refills Start Date End Date Status aspirin enteric coated 81 MG TBEC Take 1 Tablet by mouth in the morning. 100 Tab 3 7 Active Nitroglycerin 0.4 MG Sublingual Tablet Sublingual (Nitrostat) Place 1 Tablet under the tongue as needed for Pain, Chest. 1 Active Amiodarone HCl 200 MG Oral Tablet (Cordarone) Take 1 Tablet by mouth in the morning. 30 Tablet 11 3 Active Spironolactone 25 MG Oral Tablet (Aldactone)Indicat ions:HTN, goal below 140/90 Take 1 Tablet by mouth in the morning. 90 Tablet 3 3 Active Metoprolol Succinate ER 50 MG Oral Tablet Extended Release 24 Hour (toPROL XL)Indications:Cor onary artery disease involving eastern cherokee coronary artery of eastern che[place] heart without angina pectoris Take 1 Tablet by mouth in the morning. 90 Tablet 3 3 Active Furosemide 40 MG Oral Tablet (Lasix)Indications :HTN, goal below 140/90 Take 1 Tablet by mouth in the morning. 90 Tablet 1 3 Active Tamsulosin HCl 0.4 MG Oral Capsule (Flomax) Take 1 Capsule by mouth in the morning. 90 Capsule 3 4 Active Warfarin Sodium 5 MG Oral Tablet (Coumadin)Indicati ons:Anticoagulatio n 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,half-way current use of anticoagulant therapy,Acute saddle pulmonary embolism without acute cor pulmonale (HCC) Take 5mg (1 tablet) Mon, Wed & Fri; 7.5mg (1 1/2 tablets) all other days or as directed by anticoagulation clinic 180 Tablet 3 4 Active Gabapentin 300 MG Oral Capsule (Neurontin)Indicat ions:Numbness and tingling of leg Take 1 Capsule by mouth at bedtime. 90 Capsule 5 4 Active Atorvastatin Calcium 40 MG Oral Tablet (Lipitor)Indicatio ns:Coronary artery disease involving eastern cherokee coronary artery of eastern cherokee heart without angina pectoris,Mixed hyperlipidemia Take 1 Tablet by mouth in the morning. 90 Tablet 3 4 Active metFORMIN HCl ER 500 MG Oral Tablet Extended Release 24 Hour (Glucophage XR)Indications:Typ e 2 diabetes mellitus with hemoglobin A1c goal of less than 7.0% (HCC) TAKE 4 TABLETS BY MOUTH DAILY WITH DINNER 360 Tablet 2 4 Active Empagliflozin 25 MG Oral Tablet (Jardiance)Indicat ions:Type 2 diabetes mellitus with hemoglobin A1c goal of less than 7.0% (HCC) Take 1 Tablet by mouth in the morning. 90 Tablet 1 4 Active Empagliflozin 25 MG Oral Tablet (Jardiance)Indicat ions:Type 2 diabetes mellitus with hemoglobin A1c goal of less than 7.0% (HCC) Take 1 Tablet by mouth in the morning. 30 Tablet 11 3 08/08/19 24 Discontinu ed(Refill) documented as of this encounter (statuses as of 08/09/2023) Active Problems Problem Noted Date Diagnosed Date History of angioedema 04/24/2023 Sustained VT (ventricular tachycardia) 4 Chronic systolic heart failure 12/24/2021 Splenomegaly 03/21/2021 Chronic venous insufficiency 12/11/2020 S/P ICD (internal cardiac defibrillator) procedu re 12/11/2020 History of [place] (myocardial infarction) 12/11/2020 Personal history of pulmonary embolism Overview: Historical-use of Z86.711 Personal History of Pulmonary Embolism is appropriate Ischemic cardiomyopathy 07/17/2020 Coronary artery disease invo lving eastern che[place] coronary artery of eastern [place] heart without angina pectoris 04/02/2020 Overview: Stent [...] as of this encounter (statuses as of 08/09/2023) Resolved Problems Problem Noted Date Diagnosed Date Resolved Date Adenopathy 03/26/2021 04/24/2023 Old myocardial infarct 04/02/202004/02 Overview: N Stemi-- from 03/2020 changed to Old Mi (Hx of [place]) I25.2 Old myocardial infarct 04/02/202005/31 Overview: 03/2020, [...] as of this encounter (statuses as of 08/09/2023) Immunizations Name Administration Dates Next Due Hepatitis [...] encounter Miscellaneous Notes * Telephone Encounter - Nathan Hart RPh - 08/09/2023 6:48 PM EDTSigned Prescriptions: Disp Refills Empagliflozin 25 MG Oral Tablet (Jardiance)90 Tab*1 Sig: Take 1 Tablet by mouth in the morning.Authorizing Provider: HOWARD SILVA User: NATHAN HART documented in this encounter Plan of Treatment Upcoming Encounters Date Type Department Care Team (Latest Contact Info) Description 09/04/2023 9:30 AM EDT 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 Pharmacy, [facility] [place] [address] [address] Pharmacist2, [facility] [address] [address] 09/04/2023 9:40 AM EDT [facility] [place] [address] [address] Pharmacist2, [facility] 200 [facility] [place] [address] 09/23/2023 8:41 AM EDT Hospital Encounter OR [facility], Operating Room, [facility] - 4th Floor [address] [place], [place] [address] Sudhakar Salcedo, DO [address] [place] [address] 09/23/2023 8:41 AM EDT - 09/23/2023 9:21 AM EDT Surgery OR [facility], Operating Room, [facility] - 4th Floor [address] [place] [address] Sudhakar Salcedo, DO [address] [place] [address] COLONOSCOPY FLEXIBLE PROXIMAL DIAGNOSTIC 09/28/2023 8:30 AM EDT Cardiac Studies Cardiology, [facility] 132 [facility] [place] [address] Angeline Quinteros [facility] [address] [place] [address] 10/30/2023 9:20 AM EDT Office Visit General Internal Medicine [facility] [place] 200 [facility] [place] [address] Howard Silva MD 200 [facility] [place] [address] 11/17/2023 8:45 AM EDT Office Visit Urology, [facility] [address] [place] [address] Gordon Muniz MD [address] [place] [address] Scheduled Procedures Name Priority Associated Diagnoses Date/Ti [...] polyps documented in this encounter Care Teams Gravity Flow Irrigator Relationship Specialty Start Date End Date Howard Silva MD [address] [place] [address] PCP - General Internal Medicine 09/07/15 documented as of this encounter
--- OUTSIDE RECORDS SUMMARY | 2023-10-27 03:44 | External Medical Summary ---
Author Name Unknown Address Unknown Organization K09[facility] [place] [address] Laboratory Report Ordering Provider Test Date Status BAYLEE ZEE 07/24/2023 08:42:53 Final Therapeutic ranges for non-o perative patients:
Prophylaxsis/treatment of DVT: (Range:2.0-3.0)
Treatment of pulmonary embolism:(Range:2.0-3.0)
Prevention of systemic embolism from:
-tissue heart valves
-acute myocardial infarction
-valvular heart disease
-atrial fibrillation
(Range: 2.0-3.0)
Mechanical prosthetic valves: (Range: 2.5-3.5) Observation Date Value Abnormality Reference (Units ) Status INR in Capillary blood by Coagulation assay 07/24/2023 08:42:53 2.6 (INR) Final Performing Location [facility] [address]
--- OUTSIDE RECORDS SUMMARY | 2023-10-27 03:44 | External Medical Summary | Summary of Care ---
Author Name Unknown Organization [facility] Address [address] [place] [address] Phone [phone] Care Team Providers Care College Administrator Name Role Phone Howard Silva MD Primary Care Provider + Reason for Visit * Reason Onset Date Comments Medication Refill 08/19/2023 Encounter Details Date Type Department Care Team (Late st Contact Info) Description 08/19/2023 Refill Cardiology, [facility] [address] [facility] [place] [address] Esperanza Stanley CRNP [address] [place] [address] Paroxysmal atrial fibrillation (HCC)*; Sustained VT (ventricular tachycardia) (HCC) Allergies Active Allergy Reactions Criticality Noted Date Comments Lisinopril Edema face/lips/tongue High 12/21/2017 Angioedema, prompting airway emergency , intubation, [facility] 12/2017 documented as of this encounter (statuses as of 08/19/2023) Medications Medication Sig Dispensed Refills Start Date End Date Status aspirin enteric coated 81 MG TBEC Take 1 Tablet by mouth in the morning. 100 Tab 3 7 Active Nitroglycerin 0.4 MG Sublingual Tablet Sublingual (Nitrostat) Place 1 Tablet under the tongue as needed for Pain, Chest. 1 Active Spironolactone 25 MG Oral Tablet (Aldactone)Indicat ions:HTN, goal below 140/90 Take 1 Tablet by mouth in the morning. 90 Tablet 3 3 Active Metoprolol Succinate ER 50 MG Oral Tablet Extended Release 24 Hour (toPROL XL)Indications:Cor onary artery disease involving [place] coronary artery of [place] heart without angina pectoris Take 1 Tablet [...] MG Oral Tablet (Coumadin)Indicati ons:Anticoagulatio n 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,FDC current use of anticoagulant therapy,Acute saddle pulmonary embolism without acute cor pulmonale (HCC) Take 5mg (1 tablet) Mon, Wed & Thu; 7.5mg (1 1/2 tablets) all other days or as directed by anticoagulation clinic 180 Tablet 3 4 Active Gabapentin 300 MG Oral Capsule (Neurontin)Indicat ions:Numbness and tingling of leg Take 1 Capsule by mouth at bedtime. 90 Capsule 5 4 Active Atorvastatin Calcium 40 MG Oral Tablet (Lipitor)Indicatio ns:Coronary artery disease involving [place] coronary artery of [place] heart without angina pectoris,Mixed hyperlipidemia Take 1 [...] the morning. 90 Tablet 1 4 Active Amiodarone HCl 200 MG Oral Tablet (Cordarone)Indicat ions:Paroxysmal atrial fibrillation (HCC),Sustained VT (ventricular tachycardia) (HCC) Take 1 Tablet by mouth in the morning. 90 Tablet 3 4 Active Amiodarone HCl 200 MG Oral Tablet (Cordarone) Take 1 Tablet by mouth in the morning. 30 Tablet 11 3 08/19/19 24 Discontinu ed(Refill) documented as of this encounter (statuses as of 08/19/2023) Active Problems Problem Noted Date Diagnosed Date History of angioedema 04/24/2023 Sustained VT (ventricular tachycardia) 4 Chronic systolic heart failure 12/24/2021 Splenomegaly 03/21/2021 Chronic venous insufficiency 12/11/2020 S/P ICD (internal cardiac defibrillator) procedu re 12/11/2020 History of CA (myocardial infarction) 12/11/2020 Personal history of pulmonary embolism Overview: Historical-use of Z86.711 Personal History of Pulmonary Embolism is appropriate Ischemic cardiomyopathy 07/17/2020 Coronary artery disease invo lving [place] coronary artery of [place] heart without angina pectoris 04/02/2020 Overview: Stent [...] as of this encounter (statuses as of 08/19/2023) Resolved Problems Problem Noted Date Diagnosed Date Resolved Date Adenopathy 03/26/2021 04/24/2023 Old myocardial infarct 04/02/202004/02 Overview: N Stemi-- from 03/2020 changed to Old Mi (Hx of CA) I25.2 Old myocardial infarct 04/02/202005/31 Overview: 03/2020, [...] as of this encounter (statuses as of 08/19/2023) Immunizations Name Administration Dates Next Due Hepatitis [...] encounter Miscellaneous Notes * Telephone Encounter - Esperanza Stanley CRNP - 08/19/2023 9:41 AM EDTSigned Prescriptions: Disp Refills Amiodarone HCl 200 MG Oral Tablet (Cordaro*90 Tab*3 Sig: Take 1 Tablet by mouth in the morning. Authorizing Provider: ESPERANZA STANLEY * Telephone Encounter - Lola Medina CMA - 08/19/2023 9:26 AM EDTPending Prescriptions: Disp Refills Amiodarone HCl 200 MG Oral Tablet (Cordaro*90 Tab*3 Sig: Take 1 Tablet by mouth in the morning. * Telephone Encounter - Lola Medina CMA - 08/19/2023 9:14 AM EDT Did you pend patient's preferred pharmacy and medication before forwarding?yes Pharmacy: [facility] Pending Prescriptions: Disp Refills Amiodarone HCl 200 MG Oral Tablet (Cordar*90 Tab*3 Sig: Take 1 Tablet by mouth in the morning. Last Visit: 03/03/2023 (in office), Visit date not found (telemedicine) Next Visit: 09/28/2023 If no future appointments scheduled, and last appointment is greater than a year ago, please schedule patient for a follow-up appointment Last date the medication was ordered: 07/14/22 Is this request for a controlled substance?No Urine Drug Screen:No results found for this or any previous visit. Patient Phone Numbers [employer] [phone] Labs: Lab Results Component Value Date/Time CREAT 1.0 04/24/2023 09:26 AM CREAT 0.98 11/26/2020 12:00 AM CREAT 1.0 02/11/2019 08:42 AM POTASSIUM 4.8 04/24/2023 09:26 AM POTASSIUM 3.6 11/26/2020 12:00 AM POTASSIUM 5.0 02/11/2019 08:42 AM TSH 3.33 04/24/2023 09:26 AM TSH 3.61 03/26/2018 07:32 AM LDLCALC 71 04/24/2023 09:26 AM LDLCALC 73 02/11/2019 08:42 AM LDLDIRECT NOT APPLICABLE 02/11/2019 08:42 AM LDLDIRECT 118 09/07/2015 08:55 AM ALT 19 04/24/2023 09:26 AM ALT 18 02/11/2019 08:42 AM HGBA1C 8.7 (H) 07/24/2023 08:01 AM HGBA1C 7.6 (A) 11/27/2020 12:00 AM HGBA1C 9.5 (H) 02/11/2019 08:42 AM documented in this encounter Plan of Treatment Upcoming Encounters Date Type Department Care Team (Latest Contact Info) Description 09/04/2023 9:30 AM EDT 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 Pharmacy, [facility] [place] [address] [facility] [place] [address] Pharmacist2, [facility] [address] [facility] [place] [address] 09/04/2023 9:40 AM EDT Office Visit Pharmacy, [facility] [place] [address] [facility] [place] [address] Pharmacist2, [facility] [place] [address] 09/23/2023 8:31 AM EDT Hospital Encounter OR [facility], Operating Room, [facility] - 4th Floor [address] [place] [address] Sudhakar Salcedo, DO [address] [place] [address] 09/23/2023 8:31 AM EDT - 09/23/2023 9:11 AM EDT Surgery OR [facility], Operating Room, [facility] - 4th Floor [address] [place] [address] Sudhakar Salcedo, DO [address] [place] [address] COLONOSCOPY FLEXIBLE PROXIMAL DIAGNOSTIC 09/28/2023 8:30 AM EDT Cardiac Studies Cardiology, [facility] [address] [place] [address] [facility] [address] [place] [address] 10/30/2023 9:20 AM EDT Office Visit General Internal [facility] [address] [place] [address] Howard Silva MD 200 [place] [address] 11/17/2023 8:45 AM EDT Office Visit Urology, [facility] [address] [place] [address] Gordon Muniz MD [address] [place] [address] Scheduled Procedures Name Priority Associated Diagnoses Date/Ti [...] as of this encounter Visit Diagnoses Diagnosis Paroxysmal atrial fibrillation (HCC)- Primary Atrial fibrillation Sustained VT (ventricular tachycardia) (HCC) Paroxysmal ventricular tachycardia History of colonic polyps Personal history of colonic polyps documented in this encounter Care Teams College Administrator Relationship Specialty Start Date End Date Howard Silva MD [address] [place] [address] PCP - General Internal Medicine 09/07/15 documented as of this encounter
--- OUTSIDE RECORDS SUMMARY | 2023-10-27 03:44 | External Medical Summary | Summary of Care ---
Author Name Unknown Organization [facility] Address [address] [place] [address] Phone [phone] Care Team Providers Care Examiner Rating Clerk Name Role Phone Howard Guerrier MD Primary Care Provider + Reason for Visit * Reason Comments eRx-Medication Refill Encounter Details Date Type Department Care Team (Late st Contact Info) Description 07/10/2023 Refill General Internal Medicine [facility] 200 [place] [address] Howard Guerrier MD [address] [place] [address] Type 2 diabetes mellitus with hemoglobin A1c goal of less than 7.0% ([facility]) Allergies Active Allergy Reactions Criticality Noted Date Comments Lisinopril Edema face/lips/tongue High 12/21/2017 Angioedema, prompting airway emergency , intubation, [facility] 12/2017 documented as of this encounter (statuses as of 07/13/2023) Medications Medication Sig Dispensed Refills Start Date End Date Status aspirin enteric coated 81 MG TBEC Take 1 Tablet by mouth in the morning. 100 Tab 3 07/16/19 17 Active Nitroglycerin 0.4 MG Sublingual Tablet Sublingual (Nitrostat) Place 1 Tablet under the tongue as needed for Pain, Chest. 03/29/19 21 Active Empagliflozin 25 MG Oral Tablet (Jardiance)Indicat ions:Type 2 diabetes mellitus with hemoglobin A1c goal of less than 7.0% (HCC) Take 1 Tablet by mouth in the morning. 30 Tablet 11 06/12/19 23 Active Amiodarone HCl 200 MG Oral Tablet (Cordarone) Take 1 Tablet by mouth in the morning. 30 Tablet 11 07/15/19 23 Active Spironolactone 25 MG Oral Tablet (Aldactone)Indicat ions:HTN, goal below 140/90 Take 1 Tablet by mouth in the morning. 90 Tablet 3 09/24/19 23 Active Metoprolol Succinate ER 50 MG Oral Tablet Extended Release 24 Hour (toPROL XL)Indications:Cor onary artery disease involving [place] coronary artery of [place] heart without angina pectoris Take 1 Tablet by mouth in the morning. 90 Tablet 3 10/22/19 23 Active Furosemide 40 MG Oral Tablet (Lasix)Indications :HTN, goal below 140/90 Take 1 Tablet by mouth in the morning. 90 Tablet 1 12/19/19 23 Active Tamsulosin HCl 0.4 MG Oral Capsule (Flomax) Take 1 Capsule by mouth in the morning. 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 90 Capsule 5 04/09/19 24 Active Atorvastatin Calcium 40 MG Oral Tablet (Lipitor)Indicatio ns:Coronary artery disease involving [place] coronary artery of [place] heart without angina pectoris,Mixed hyperlipidemia Take 1 Tablet by mouth in the morning. 90 Tablet 3 04/12/19 24 Active metFORMIN HCl ER 500 MG Oral Tablet Extended Release 24 Hour (Glucophage XR)Indications:Typ e 2 diabetes mellitus with hemoglobin A1c goal of less than 7.0% (HCC) TAKE 4 TABLETS BY MOUTH DAILY WITH DINNER 360 Tablet 2 07/13/19 24 Active metFORMIN HCl ER 500 MG Oral Tablet Extended Release 24 Hour (Glucophage XR)Indications:Typ e 2 diabetes mellitus with hemoglobin A1c goal of less than 7.0% (HCC) Take 4 Tablets by mouth daily with dinner. 360 Tablet 1 12/05/19 23 024 Discontinued documented as of this encounter (statuses as of 07/13/2023) Active Problems Problem Noted Date Diagnosed Date History of angioedema 04/24/2023 Sustained VT (ventricular tachycardia) 4 Chronic systolic heart failure 12/24/2021 Splenomegaly 03/21/2021 Chronic venous insufficiency 12/11/2020 S/P ICD (internal cardiac defibrillator) procedu re 12/11/2020 History of [place] (myocardial infarction) 12/11/2020 Personal history of pulmonary embolism Overview: Historical-use of Z86.711 Personal History of Pulmonary Embolism is appropriate Ischemic cardiomyopathy 07/17/2020 Coronary artery disease invo lving [place] coronary artery of [place] heart without angina pectoris 04/02/2020 Overview: Stent [...] as of this encounter (statuses as of 07/13/2023) Resolved Problems Problem Noted Date Diagnosed Date Resolved Date Adenopathy 03/26/2021 04/24/2023 Old myocardial infarct 04/02/202004/02 Overview: N Stemi-- from 03/2020 changed to Old Mi (Hx of SC) I25.2 Old myocardial infarct 04/02/202005/31 Overview: 03/2020, [...] as of this encounter (statuses as of 07/13/2023) Immunizations Name Administration Dates Next Due Hepatitis [...] encounter Miscellaneous Notes * Telephone Encounter - Oksana Burnette [facility] - 07/13/2023 11:29 AM EDTSigned Prescriptions: Disp Refills metFORMIN HCl ER 500 MG Oral Tablet Extend*360 Ta*2 Sig: TAKE 4 TABLETS BY MOUTH DAILY WITH DINNERAuthorizing Provider: HOWARD GUERRIER User: OKSANA BURNETTE documented in this encounter Plan of Treatment Upcoming Encounters Date Type Department Care Team (Latest Contact Info) Description 07/24/2023 8:30 AM EDT 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 Pharmacy, [facility] [address] [place] [address] Pharmacist2, [facility] [address] [place] [address] 07/24/2023 8:40 AM EDT Office Visit Pharmacy, [facility] [address] [place] [address] Pharmacist2, [facility] [address] [place] [address] 09/23/2023 8:41 AM EDT Hospital Encounter OR [facility], Operating Room, [facility] - 4[facility] Floor [address] [place] [id number] Sudhakar Salcedo, DO [address] [place] [address] 09/23/2023 8:41 AM EDT - 09/23/2023 9:21 AM EDT Surgery OR [facility], Operating Room, [facility] - 4th Floor 400 [facility] [place] [address] Sudhakar Salcedo DO 132 [facility] [place] [address] COLONOSCOPY FLEXIBLE PROXIMAL DIAGNOSTIC 09/28/2023 8:30 AM EDT Cardiac Studies Cardiology, [facility] [address] [facility] [place] [address] [place], [facility] [address] [facility] [place] [address] 10/30/2023 9:20 AM EDT Office Visit General Internal Medicine [facility] 200 [place] [address] Howard [facility] [address] 11/17/2023 8:45 AM EDT Office Visit Urology, [facility] [address] [facility] [place] [address] Gordon Muniz MD 27 [facility] [address] [place] [address] Scheduled Procedures Name Priority Associated Diagnoses Date/Ti [...] polyps documented in this encounter Care Teams Examiner Rating Clerk Relationship Specialty Start Date End Date Howard Gurerier MD [address] [place] [address] PCP - General Internal Medicine 09/07/15 documented as of this encounter
--- OUTSIDE RECORDS SUMMARY | 2023-10-27 03:44 | External Medical Summary | Summary of Care ---
Author Name Unknown Organization [facility] Address [address] [place] [facility] [place] [place] [address] Phone [phone] Care Team Providers Care Magazine Grinder Loader Name Role Phone Howard Silva MD Primary Care Provider + Encounter Details Date Type Department Care Team (Late st Contact Info) Description 07/06/2023 Result Scan Unspecified Department Shawanda Gomez, DO [address] [facility] [place] [address] <No scans attached> Allergies Active Allergy Reactions Criticality Noted Date Comments Lisinopril Edema face/lips/tongue High 12/21/2017 Angioedema, prompting airway emergency , intubation, [facility] 12/2017 documented as of this encounter (statuses as of 07/06/2023) Medications Medication Sig Dispensed Refills Start Date [...] Hour (toPROL XL)Indications:Margaux nary artery disease involving [place] coronary artery of [place] heart without angina pectoris Take 1 Tablet [...] 5 MG Oral Tablet (Coumadin)Indicatio ns: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,[facility] current use of anticoagulant therapy,Acute saddle pulmonary [...] Oral Tablet (Lipitor)Indication s:Coronary artery disease involving [place] coronary artery of [place] heart without angina pectoris,Mixed hyperlipidemia Take 1 Tablet by mouth in the morning. 90 Tablet 3 04/12/2023 Active documented as of this encounter (statuses as of 07/06/2023) Active Problems Problem Noted Date Diagnosed Date History of angioedema 04/24/2023 Sustained VT (ventricular tachycardia) 4 Chronic systolic heart failure 12/24/2021 Splenomegaly 03/21/2021 Chronic venous insufficiency 12/11/2020 S/P ICD (internal cardiac defibrillator) procedu re 12/11/2020 History of [place] (myocardial infarction) 12/11/2020 Personal history of pulmonary embolism 10/21/202 1 Overview: Historical-use of Z86.711 Personal History of Pulmonary Embolism is appropriate Ischemic cardiomyopathy 07/17/2020 Coronary artery disease invo lving ione coronary artery of ione heart without angina pectoris 04/02/2020 Overview: Stent [...] as of this encounter (statuses as of 07/06/2023) Resolved Problems Problem Noted Date Diagnosed Date Resolved Date Adenopathy 03/26/2021 04/24/2023 Old myocardial infarct 04/02/202004/02 Overview: N Stemi-- from 03/2020 changed to Old Mi (Hx of NV) I25.2 Old myocardial infarct 04/02/202005/31 Overview: 03/2020, [...] as of this encounter (statuses as of 07/06/2023) Immunizations Name Administration Dates Next Due Hepatitis [...] Description 07/24/2023 8:30 AM EDT 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 Pharmacy, [facility] [place] [address] [place] [address] Pharmacist2, [facility] [address] [facility] [place] [address] 07/24/2023 8:40 AM EDT Office Visit Pharmacy, [facility] [place] [address] [facility] [place] [address] Pharmacist2, [facility] [address] [facility] [place] [address] 09/23/2023 8:41 AM EDT Hospital Encounter OR [facility], Operating Room, [facility] - 4th Floor 400 [facility] [place] [address] Sudhakar Salcedo, DO [address] [place] [address] 09/23/2023 8:41 AM EDT - 09/23/2023 9:21 AM EDT Surgery OR [facility], Operating Room, [facility] - 4th Floor [address] [place] [address] Sudhakar Salcedo, DO [address] [place] [address] COLONOSCOPY FLEXIBLE PROXIMAL DIAGNOSTIC 09/28/2023 8:30 AM EDT Cardiac Studies Cardiology, [facility] [address] [place] [address] [facility] [address] [place] [address] 10/30/2023 9:20 AM EDT Office Visit General Internal Medicine [facility] [place] [address] Howard Silva MD 200 [facility] [place] [address] 11/17/2023 8:45 AM EDT Office Visit Urology, [facility] [address] [place] [address] Gordon Muniz MD 27 [facility] [address] [address] [place] [address] Scheduled Procedures [...] Date/Time Associated Diagnosis Comments CARDIOLOGY SCANNED RESULT 07/06/2023 documented in this encounter Results * CARDIOLOGY SCANNED RESULT (07/06/2023) 07/06/2023 Shawanda MARIANO documented in this encounter Care Teams Magazine Grinder Loader Relationship Specialty Start Date End Date Howard Silva MD 200 [place] [address] PCP - General Internal Medicine 09/07/15 documented as of this encounter
--- OUTSIDE RECORDS SUMMARY | 2023-10-27 03:45 | External Medical Summary | Summary of Care ---
Author Name Unknown Organization [facility] Address [address] [place] [address] Phone [phone] Care Team Providers Care Curator [employer] Name Role Phone Howard Silva MD Primary Care Provider + Reason for Visit * Reason Comments Dosage Adjustment In Person (Anticoag Cl inic) Encounter Details Date Type Department Care Team (Latest Contact Info) Description 06/12/2023 8:20 AM EDT 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 Pharmacy, [facility] [address] [place] [address] Pharmacist2, [facility] [address] [place] [address] 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*; Personal history of pulmonary embolism Allergies Active Allergy Reactions Criticality Noted Date Comments Lisinopril Edema face/lips/tongue High 12/21/2017 Angioedema, prompting airway emergency , intubation, [facility] 12/2017 documented as of this encounter (statuses as of 06/12/2023) Medications Medication Sig Dispensed Refills Start Date End Date Status aspirin enteric coated 81 MG TBEC Take 1 Tablet by mouth in the morning. 100 Tab 3 07/15/2016 Active Nitroglycerin 0.4 MG Sublingual Tablet Sublingual (Nitrostat) Place 1 Tablet under the tongue as needed for Pain, Chest. 0 03/29/2020 Active Empagliflozin 25 MG Oral Tablet [...] Hour (toPROL XL)Indications:Margaux nary artery disease involving [place] coronary artery of [place] heart without angina pectoris Take 1 Tablet [...] 5 MG Oral Tablet (Coumadin)Indicatio ns: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,assisted current use of anticoagulant therapy,Acute saddle pulmonary [...] Oral Tablet (Lipitor)Indication s:Coronary artery disease involving [place] coronary artery of [place] heart without angina pectoris,Mixed hyperlipidemia Take 1 Tablet by mouth in the morning. 90 Tablet 3 04/12/2023 Active documented as of this encounter (statuses as of 06/12/2023) Active Problems Problem Noted Date Diagnosed Date [...] cardiomyopathy 07/17/2020 Coronary artery disease invo lving [place] coronary artery of [place] heart without angina pectoris 04/02/2020 Overview: Stent [...] as of this encounter (statuses as of 06/12/2023) Resolved Problems Problem Noted Date Diagnosed Date [...] as of this encounter (statuses as of 06/12/2023) Immunizations Name Administration Dates Next Due Hepatitis [...] this encounter Progress Notes * Gold Sanders RP - 06/12/2023 7:52 AM EDT Images from the original note were not included. Medication Therapy Disease Management - 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 Patient: Roldan Thrasher | : 1960 Subjective Patient-Reported Symptoms: Patient Findings Positives: Change in activity (Pt reports being more active recently) Negatives: Signs/symptoms of thrombosis, Signs/symptoms of bleeding, Change in health, Change in alcohol use, Upcoming invasive procedure, Missed doses, Extra doses, Change in medications, Change in diet/appetite, Bruising Objective Current Warfarin Dose As of 06/12/2023 Warfarin maintenance plan: 5 mg (5 mg x 1) every Mon, Fri; 7.5 mg (5 mg x 1.5) all other days INR Result As of 06/12/2023 INR goal: 2.0-3.0 INR used for dosin.3 (06/12/2023) Assessment & Plan Warfarin Plan As of 06/12/2023 Full warfarin instructions: 7.5 mg every day Next INR check: 07/03/2023 Repeat PT/INR in 3 week(s) Weekly dose: increased Additional Dosing Information: Description Takes in PM Gold Sanders [facility] Clinical Pharmacist 06/12/2023, 7:52 AM documented in this encounter Plan of Treatment Upcoming Encounters Date Type Department Care Team (Latest Contact Info) Description 06/18/2023 9:30 AM EDT Office Visit Cardiology, [place] [address] [place] [address] Mirna Stanley CRNP [address] [place] [address] 06/29/2023 11:20 AM EDT Hospital Encounter OR [facility], Operating Room, [facility] - 4th Floor [address] [place] [address] Alberto Delgado MD 132 [facility] [place] [address] 06/29/2023 11:20 AM EDT - 06/29/2023 12:09 PM EDT Surgery OR [facility], Operating Room, [facility] - 4th Floor 400 [facility] [place] [address] Alberto Delgado MD [address] [place] [address] COLONOSCOPY FLEXIBLE PROXIMAL DIAGNOSTIC 07/03/2023 8:10 AM EDT 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 Pharmacy, [facility] [address] [place] [address] Pharmacist2, [facility] [address] [place] [address] 07/03/2023 8:20 AM EDT Office Visit Pharmacy, [facility] [address] [place] [address] Pharmacist2, [facility] 200 [facility] [place] [address] 09/28/2023 8:30 AM EDT Cardiac Studies Cardiology, [facility] 132 [place] [address] Vonda Quinterosr [facility] [address] [place] [address] 10/30/2023 9:20 AM EDT Office Visit General Internal Medicine [facility] [address] [facility] [place] [address] Howard Silva MD 200 [facility] [place] [address] 11/17/2023 8:45 AM EDT Office Visit Urology, [facility] 132 [place] [address] Gordon Muniz MD 27 [facility] [address] [place] [id number] Scheduled Orders Name Type Priority Associated Diagnoses Orde r Schedule PT INR Lab Routine Personal history of pulmonary embolism 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 26 Occurrences starting 06/12/2023 until 06/11/2024 INR FINGERSTICK, POINT OF CARE Point of Care Testing - Unsolicited Results STAT Personal history of pulmonary embolism 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 Every 2 Weeks for 26 Occurrences starting 06/12/2023 until 06/12/2024, 1 completed Scheduled Procedures Name Priority Associated Diagnoses Date/Ti me COLONOSCOPY FLEXIBLE PROXIMAL DIAGNOSTIC History of colonic polyps 06/29/2023 11:20 AM EDT Health Maintenance Due Date Last [...] Comments INR FINGERSTICK, POINT OF CARE STAT 06/12/2023 7:58 AM EDT Personal history of pulmonary embolism 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 documented in this encounter Results * INR FINGERSTICK, POINT OF CARE (06/12/2023 7:58 AM EDT) Fingerstick INR 1.3 INR 8:10 AM EDT [facility] 56- Blood 06/12/2023 7:58 AM EDT 06/12/2023 8:10 AM EDT Narrative [facility] 56- - 06/12/2023 8:10 AM EDT Therapeutic ranges for non-operative patients: Prophylaxsis/treatment of DVT: (Range:2.0-3.0) Treatment of pulmonary embolism:(Range:2.0-3.0) Prevention of systemic embolism from: -tissue heart valves -acute myocardial infarction -valvular heart disease -atrial fibrillation (Range: 2.0-3.0) Mechanical prosthetic valves: (Range: 2.5-3.5) Gold Sanders [facility] LAB POINT O F CARE TEST DOCKED DEVICE UNSOLICITED RESULTS [facility] 56- [address] [facility] [address] documented in this encounter Visit Diagnoses Diagnosis 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- Primary Encounter for therapeutic drug monitoring Personal history of pulmonary embolism History of colonic polyps Personal history of colonic polyps documented in this encounter Care Teams Curator [employer] Relationship Specialty Start Date End Date Howard Silva MD [address] [facility] [address] PCP - General Internal Medicine 09/07/15 documented as of this encounter"
--- OUTSIDE RECORDS SUMMARY | 2023-10-27 03:45 | External Medical Summary | Summary of Care ---
Author Name Unknown Organization [facility] Address [address] [place] [address] Phone [phone] Care Team Providers Care Porcelain Enameler Name Role Phone Howard Silva MD Primary Care Provider + Reason for Visit * Reason Comments Status Check Encounter Details Date Type Department Care Team (Late st Contact Info) Description 06/18/2023 9:30 AM EDT Office Visit Cardiology, [place] 400 [facility] [place] [address] Mirna Stanley CRNP [address] [place] [address] Coronary artery disease involving [place] coronary artery of [place] heart without angina pectoris*; Paroxysmal atrial fibrillation (HCC); Ischemic cardiomyopathy; Type 2 diabetes mellitus with hemoglobin A1c goal of less than 7.0% (HCC); Dyslipidemia, goal LDL below 70; Encounter for monitoring amiodarone therapy Allergies Active Allergy Reactions Criticality Noted Date Comments Lisinopril Edema face/lips/tongue High 12/21/2017 Angioedema, prompting airway emergency , intubation, [facility] 12/2017 documented as of this encounter (statuses as of 06/22/2023) Medications Medication Sig Dispensed Refills Start Date [...] Hour (toPROL XL)Indications:Margaux nary artery disease involving [place] coronary artery of [place] heart without angina pectoris Take 1 Tablet [...] 5 MG Oral Tablet (Coumadin)Indicatio ns: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,intermediate current use of anticoagulant therapy,Acute saddle pulmonary [...] Oral Tablet (Lipitor)Indication s:Coronary artery disease involving [place] coronary artery of [place] heart without angina pectoris,Mixed hyperlipidemia Take 1 Tablet by mouth in the morning. 90 Tablet 3 04/12/2023 Active documented as of this encounter (statuses as of 06/22/2023) Active Problems Problem Noted Date Diagnosed Date History of angioedema 04/24/2023 Sustained VT (ventricular tachycardia) 4 Chronic systolic heart failure 12/24/2021 Splenomegaly 03/21/2021 Chronic venous insufficiency 12/11/2020 S/P ICD (internal cardiac defibrillator) procedu re 12/11/2020 History of [place] (myocardial infarction) 12/11/2020 Personal history of pulmonary embolism Overview: Historical-use of Z86.711 Personal History of Pulmonary Embolism is appropriate Ischemic cardiomyopathy 07/17/2020 Coronary artery disease invo lving [place] coronary artery of [place] heart without angina pectoris 04/02/2020 Overview: Stent [...] as of this encounter (statuses as of 06/22/2023) Resolved Problems Problem Noted Date Diagnosed Date Resolved Date Adenopathy 03/26/2021 04/24/2023 Old myocardial infarct 04/02/202004/02 Overview: N Stemi-- from 03/2020 changed to Old Mi (Hx of [place]) I25.2 Old myocardial infarct 04/02/202005/31 Overview: 03/2020, [...] as of this encounter (statuses as of 06/22/2023) Immunizations Name Administration Dates Next Due Hepatitis B, 20+ yrs 02/20/2017,09/19/2016,08/15 Pneumococcal Polysaccharide PPV23 (Pneumovax) 04/11/2016 TD, Preservative Free 12/24/2021 TDAP (age 11 and older)(Adacel) 07/09/2011 Zoster Vaccine Recombinant (Shingrix) 07/22/2019 ,02/11/2019 documented as of this encounter Social History Tobacco Use Types Packs/Day Years Used Date Smoking Tobacco: Former Cigarettes 0.8 15 0 02/10/1972 - 02/09/1987 Smokeless Tobacco: Current Snuff Tobacco Cessation:Ready to Q uit: Not Asked; Counseling Given: Not Answered Alcohol Use Standard Drinks/Week Comments No 0 [...] on file documented as of this encounter Last Filed Vital Signs Vital Sign Reading Time Taken Comments Blood Pressure 138/72 06/18/2023 9:28 AM EDT Pulse 84 06/18/2023 9:28 AM EDT Temperature - - Respiratory Rate - - Oxygen Saturation - - Inhaled Oxygen Concentration - - Weight 173.7 kg (383 lb) 06/18/2023 9:28 AM EDT Height - - Body Mass Index 50.53 12/11/2022 10:12 AM EDT documented in this encounter Progress Notes * Shawanda Gomez DO - 06/22/2023 2:53 PM EDT I have reviewed the advanced practitioner's documentation on the date of service referenced in note, and I agree with, and take responsibility for the plan of care. Pt returns to EP for 4 month f/u due to ICM and pAF He is doing well; stable from a cardiac perspective No further VT on device checks he remains on amio No change in cardiac medications Continue with routine device checks He needs to follow with MTM for his DM which is scheduled later this month EP f/u in 9 months Shawanda Gomez DO Department of Cardiology [facility] [place] [address] documented in this encounter Nursing Notes * Jen Almaraz LPN - 06/18/2023 9:25 AM EDT Patient was identified by name and date of . Name: Roldan Thrasher Date of : (1960). Examination Room: 4 Reason for Visit: Chief Complaint Patient presents with Status Check Interim Hospitalization(s): NO Interim Emergency room visit(s): NO Current symptoms: None Medications reviewed and are up to date via: Patient's memory Would you like to sign up for [facility]? ALREADY ACTIVE Patient was instructed to not get up on the exam table/exam chair until directed and assisted by their provider; patient is to remain seated in the chair/ wheelchair/ exam table/ exam chair for fall prevention and safety reasons. Patient is aware to have assistance to step down off exam table/exam chair with personnel. Patient voiced full comprehension of instructions. Jen Almaraz LPN 9:25 AM 06/18/2023 documented in this encounter Plan of Treatment Upcoming Encounters Date Type Department Care Team (Latest Contact Info) Description 07/03/2023 8:10 AM EDT 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 Pharmacy, [facility] 200 [facility] [place] [address] Pharmacist2, [facility] [address] [facility] [place] [address] 07/03/2023 8:20 AM EDT Office Visit Pharmacy, [facility] 200 [facility] [place] [address] Pharmacist2, [facility] 200 [facility] [place] [address] 09/23/2023 8:41 AM EDT Hospital Encounter OR [facility], Operating Room, [facility] - 4th Floor [address] [place] [address] Sudhakar Salcedo, DO [address] [place] [address] 09/23/2023 8:41 AM EDT - 09/23/2023 9:21 AM EDT Surgery OR [facility], Operating Room, [facility] - 4th Floor [address] [place] [address] Sudhakar Salcedo, DO [address] [place] [address] COLONOSCOPY FLEXIBLE PROXIMAL DIAGNOSTIC 09/28/2023 8:30 AM EDT Cardiac Studies Cardiology, [facility] [address] [address] [place], [facility] [address] [place] [address] 10/30/2023 9:20 AM EDT Office Visit General Internal Medicine [facility] 200 [facility] [place], [place] [address] Howard Silva MD [address] [facility] [place] [address] 11/17/2023 8:45 AM EDT Office Visit Urology, [facility] [place] [address] Gordon Muniz MD [address] [place] [address] [place] [address] Scheduled Procedures Name Priority Associated Diagnoses Date/Ti [...] Not on filedocumented as of this encounter Results * EKG (06/18/2023 10:23 AM EDT) 06/18/2023 10:2 3 AM EDT Narrative Procedure Note Jimi Barbosa DO - 06/18/2023 10:23 AM EDT REASON FOR STUDY: amio;amio CONCLUSIONS: Normal sinus rhythm Inferior infarct , age undetermined Anterolateral infarct , age undetermined Abnormal ECG When compared with ECG of 18-Feb-2019 08:14, Criteria for Anterior infarct is now present Ventricular Rate: 67 Atrial Rate: 67 MN Interval: 174 QRS Duration: 98 QT/QTc: 418/441 ms P-R-T [place]: 48 : 128 : -70 degrees Mirna CONNOLLY EKG [facility] documented in this encounter Visit Diagnoses Diagnosis Coronary artery disease involving [place] coronary artery of [place] heart without angina pectoris- Primary Paroxysmal atrial fibrillation (HCC) Atrial fibrillation Ischemic cardiomyopathy Other specified forms of chronic ischemic heart disease Type 2 diabetes mellitus with hemoglobin A1c goal of less than 7.0% (HCC) Dyslipidemia, goal LDL below 70 Other and unspecified hyperlipidemia Encounter for monitoring amiodarone therapy Encounter for therapeutic drug monitoring Coronary artery disease involving [place] coronary artery of [place] heart without angina pectoris Paroxysmal atrial fibrillation (HCC) Atrial fibrillation Ischemic cardiomyopathy Other specified forms of chronic ischemic heart disease Type 2 diabetes mellitus with hemoglobin A1c goal of less than 7.0% (HCC) Dyslipidemia, goal LDL below 70 Other and unspecified hyperlipidemia Encounter for monitoring amiodarone therapy Encounter for therapeutic drug monitoring History of colonic polyps Personal history of colonic polyps documented in this encounter Care Teams Porcelain Enameler Relationship Specialty Start Date End Date Howard Silva MD [address] [place] [address] PCP - General Internal Medicine 09/07/15 documented as of this encounter
--- OUTSIDE RECORDS SUMMARY | 2023-10-27 03:45 | External Medical Summary ---
Author Name Unknown Address Unknown Organization K09:[facility] [place] [address] Laboratory Report Ordering Provider Test Date Status BAYLEE ZEE 06/12/2023 07:58:55 Final Therapeutic ranges for non-o perative patients:
Prophylaxsis/treatment of DVT: (Range:2.0-3.0)
Treatment of pulmonary embolism:(Range:2.0-3.0)
Prevention of systemic embolism from:
-tissue heart valves
-acute myocardial infarction
-valvular heart disease
-atrial fibrillation
(Range: 2.0-3.0)
Mechanical prosthetic valves: (Range: 2.5-3.5) Observation Date Value Abnormality Reference (Units ) Status INR in Capillary blood by Coagulation assay 06/12/2023 07:58:55 1.3 (INR) Final Performing Location [facility] [place] [address]
--- OUTSIDE RECORDS SUMMARY | 2023-10-27 03:46 | External Medical Summary | Summary of Care ---
Author Name Unknown Organization [facility] Address [address] [place] [address] Phone [phone] Care Team Providers Care Mission Assessment Specialist Name Role Phone Howard Silva MD Primary Care Provider + Reason for Visit * Reason Onset Date Comments Test Results 04/27/2023 Encounter Details Date Type Department Care Team (Late st Contact Info) Description 04/27/2023 Telephone General Internal Medicine [facility] 200 [place] [address] Howard Silva MD [address] [facility] [address] Test Results Allergies Active Allergy Reactions Criticality Noted Date Comments Lisinopril Edema face/lips/tongue High 12/21/2017 Angioedema, prompting airway emergency , intubation, [facility] 12/2017 documented as of this encounter (statuses as of 05/13/2023) Medications Medication Sig Dispensed Refills Start Date [...] Hour (toPROL XL)Indications:Margaux nary artery disease involving [place] coronary artery of [place] heart without angina pectoris Take 1 Tablet [...] 5 MG Oral Tablet (Coumadin)Indicatio ns: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,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 90 Tablet 3 04/12/2023 Active documented as of this encounter (statuses as of 05/13/2023) Active Problems Problem Noted Date Diagnosed Date History of angioedema 04/24/2023 Sustained VT (ventricular tachycardia) Chronic systolic heart failure 12/24/2021 Splenomegaly 03/21/2021 Chronic venous insufficiency 12/11/2020 S/P ICD (internal cardiac defibrillator) procedu re 12/11/2020 History of [place] (myocardial infarction) 12/11/2020 Personal history of pulmonary embolism Overview: Historical-use of Z86.711 Personal History of Pulmonary Embolism is appropriate Ischemic cardiomyopathy 07/17/2020 Coronary artery disease invo lving [place] coronary artery of [place] heart without angina pectoris 04/02/2020 Overview: Stent [...] as of this encounter (statuses as of 05/13/2023) Resolved Problems Problem Noted Date Diagnosed Date Resolved Date Adenopathy 03/26/2021 04/24/2023 Old myocardial infarct 04/02/202004/02 Overview: N Stemi-- from 03/2020 changed to Old Mi (Hx of [place]) I25.2 Old myocardial infarct 04/02/202005/31 Overview: 03/2020, [...] as of this encounter (statuses as of 05/13/2023) Immunizations Name Administration Dates Next Due Hepatitis [...] encounter Miscellaneous Notes * Telephone Encounter - Joelle Looney, MED ASSIST - 04/27/2023 9:51 AM EDT Patient aware and verbalized understanding Please assist with scheduling mtm * Telephone Encounter - Joelle Looney MED ASSIST - 04/27/2023 9:48 AM EDT ----- Message from Howard Silva MD sent at 04/26/2023 11:40 AM EDT ----- Thyroid fine Lipids ok as is kidney, liver DM control not at goal. Suggest seeing mtm (he sees for coumadin already) for med mgmt of diabetes to get under better control which can help improve wound healing. documented in this encounter Plan of Treatment Upcoming Encounters Date Type Department Care Team (Latest Contact Info) Description 05/22/2023 8:30 AM EDT 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 Pharmacy, [facility] 200 [facility] [place] [address] Pharmacist2, [facility] [address] [facility] [place] [address] 05/22/2023 8:40 AM EDT Office Visit Pharmacy, [facility] 200 [facility] [place] [address] Pharmacist2, [facility] [address] [facility] [place] [address] 06/18/2023 9:30 AM EDT Office Visit Cardiology, [place] [address] [place] [address] Mirna Stanley CRNP [address] [place] [address] 06/29/2023 12:09 PM EDT Hospital Encounter OR [facility], Operating Room, [facility] - 4th Floor [address] [place] [id number] Alberto Delgado MD [address] [place] [address] 06/29/2023 12:09 PM EDT - 06/29/2023 12:58 PM EDT Surgery OR [facility], Operating Room, [facility] - 4th Floor 400 [facility] [place] [address] Alberto Delgado MD [address] [place] [address] COLONOSCOPY FLEXIBLE PROXIMAL DIAGNOSTIC 09/28/2023 8:30 AM EDT Cardiac Studies Cardiology, [facility] 132 [facility] [place] [address] [facility] [address] [facility] [place] [address] 10/30/2023 9:20 AM EDT Office Visit General Internal Medicine [facility] 200 [place] [address] Howard Silva MD 200 [facility] [address] 11/17/2023 8:45 AM EDT Office Visit Urology, [facility] 132 [facility] [place] [address] Gordon Muniz MD [address] [place] [address] [place] [address] Scheduled Procedures Name Priority Associated Diagnoses Date/Ti me COLONOSCOPY FLEXIBLE PROXIMAL DIAGNOSTIC History of colonic polyps 06/29/2023 12:09 PM EDT Health Maintenance Due Date Last Done Comments Pneumococcal Vaccine: Pediatrics (0 to 5 Years) and At-Risk Patients (6 to 64 Years) (2 of 2 - PCV) 04/11/2017 04/11/2016 Albumin/Creatinine Ratio 08/14/2019 08/13/2018 COLONOSCOPY-EVERY 3 YRS AGES 18-100 03/12/2021 03/12/2018 Diabetic Foot Exam 06/28/2022 06/28/2021, 0 03/16/2020, [...] filedocumented as of this encounter Care Teams Mission Assessment Specialist Relationship Specialty Start Date End Date Howard Silva MD 200 [facility] [place] [address] PCP - General Internal Medicine 09/07/15 documented as of this encounter
--- OUTSIDE RECORDS SUMMARY | 2023-10-27 03:46 | External Medical Summary | Summary of Care ---
Author Name Unknown Organization [facility] Address [address] [place] [address] Phone [phone] Care Team Providers Care Football Pad Repairer Name Role Phone Howard Silva MD Primary Care Provider + Encounter Details Date Type Department Care Team (Late st Contact Info) Description 05/12/2023 Population Health External Data Unspecified Department Allergies Active Allergy Reactions Criticality Noted Date Comments Lisinopril Edema face/lips/tongue High 12/21/2017 Angioedema, prompting airway emergency , intubation, [facility] 12/2017 documented as of this encounter (statuses as of 05/12/2023) Medications Medication Sig Dispensed Refills Start Date [...] Hour (toPROL XL)Indications:Margaux nary artery disease involving cantwell coronary artery of cantwell heart without angina pectoris Take 1 Tablet [...] 5 MG Oral Tablet (Coumadin)Indicatio ns: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,vermin exterminator current use of anticoagulant therapy,Acute saddle [...] Oral Tablet (Lipitor)Indication s:Coronary artery disease involving cantwell coronary artery of cantwell heart without angina pectoris,Mixed hyperlipidemia Take 1 Tablet by mouth in the morning. 90 Tablet 3 04/12/2023 Active documented as of this encounter (statuses as of 05/12/2023) Active Problems Problem Noted Date Diagnosed Date History of angioedema 04/24/2023 Sustained VT (ventricular tachycardia) 4 Chronic systolic heart failure 12/24/2021 Splenomegaly 03/21/2021 Chronic venous insufficiency 12/11/2020 S/P ICD (internal cardiac defibrillator) procedu re 12/11/2020 History of [place] (myocardial infarction) 12/11/2020 Personal history of pulmonary embolism 1 Overview: Historical-use of Z86.711 Personal History of Pulmonary Embolism is appropriate Ischemic cardiomyopathy 07/17/2020 Coronary artery disease invo lving cantwell coronary artery of cantwell heart without angina pectoris 04/02/2020 Overview: Stent [...] as of this encounter (statuses as of 05/12/2023) Resolved Problems Problem Noted Date Diagnosed Date [...] as of this encounter (statuses as of 05/12/2023) Immunizations Name Administration Dates Next Due Hepatitis [...] Info) Description 05/22/2023 8:30 AM EDT 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 [facility] [employer] [address] [place] [address] Pharmacist2, [facility] [address] [place] [address] 05/22/2023 8:40 AM EDT Office Visit Pharmacy, [facility] [address] [facility] [place] [address] Pharmacist2, [facility] [address] [address] 06/18/2023 9:30 AM EDT Office Visit Cardiology, [place] [address] [facility] [place] [address] Mirna Stanley CRNP [address] [place] [address] 06/29/2023 12:19 PM EDT Hospital Encounter [facility], Operating Room, [facility] - 4th Floor [address] [facility] [place] [address] Alberto Delgado MD [address] [place] [address] 06/29/2023 12:19 PM EDT - 06/29/2023 1:08 PM EDT Surgery OR [facility], Operating Room, [facility] - 4th Floor [address] [facility] [place] [address] Alberto Delgado MD [address] [place] [address] COLONOSCOPY FLEXIBLE PROXIMAL DIAGNOSTIC 09/28/2023 8:30 AM EDT Cardiac Studies Cardiology, [facility] [address] [place] [address] [facility] [address] [place] [address] 10/30/2023 9:20 AM EDT Office Visit General Internal Medicine [facility] [address] [address] Howard Silva MD [address] [address] 11/17/2023 8:45 AM EDT Office Visit Urology, [facility] [address] [facility] [place] [address] Gordon Muniz MD [address] [address] [place] [address] Scheduled Procedures Name Priority Associated Diagnoses Date/Ti me COLONOSCOPY FLEXIBLE PROXIMAL DIAGNOSTIC History of colonic polyps 06/29/2023 12:19 PM EDT Health Maintenance Due Date Last [...] filedocumented as of this encounter Care Teams Football Pad Repairer Relationship Specialty Start Date End Date Howard Silva MD [address] [place] [address] PCP - General Internal Medicine 09/07/15 documented as of this encounter
[2023-10-27 04:40] LABS: Basophils # (auto) 0.08 K/uL (0.00-0.20); Basophils % (auto) 1.1 %; Eosinophils # (auto) 0.23 K/uL (0.00-0.50); Eosinophils % (auto) 3.1 %; Hematocrit (blood only) 44.7 % (42.0-52.0); Hemoglobin 14.1 g/dl (14.0-18.0); Immature Granulocytes # (auto) 0.04 K/uL (0.01-0.20); Immature Granulocytes % (auto) 0.5 %; Lymphocytes # (auto) 1.87 K/uL (1.20-3.40); Lymphocytes % (auto) 24.9 %; Mean Corpuscular Hemoglobin 27.4 pg (25.0-34.0); Mean Corpuscular Hgb Conc 31.5 g/dL (32.0-36.0); Mean Platelet Volume 10.3 fL (9.4-12.4); Monocytes # (auto) 0.71 K/uL (0.11-0.59); Monocytes % (auto) 9.5 %; Neutrophils # (auto) 4.57 K/uL (1.40-6.50); Neutrophils % (auto) 60.9 %; Platelet Count 201 K/uL (130-400); RDW Standard Deviation 44.9 fL (36.4-46.3); Red Blood Count 5.14 M/uL (4.70-6.10)
[2023-10-27 04:56] LABS: BUN Creatinine Ratio 20.8 (10-20); Calcium 9.5 mg/dl (8.6-10.3); Chol HDL Ratio 4.4 (0-5); Est GFR (African American) 52.4 ml/min; Est GFR (Non-African American) 45.2 ml/min
[2023-10-27 05:06] LABS: INR 2.6 (0.9-1.1); Prothrombin Time 26.2 Seconds (9.0-12.0)
[2023-10-27 05:11] LABS: Thyroid Stimulating Hormone 6.212 uIu/ml (0.300-4.500)
[2023-10-27 05:46] LABS: T4 Free Thyroxine 1.12 ng/dl (0.61-1.60)
--- NOTE | 2023-10-27 07:58 | XRay Report ---
XR chest 1V portable HISTORY: neuro deficit, acute stroke suspected COMPARISON: Chest 11/26/2020. FINDINGS: No pneumothorax. Moderate enlargement of the cardiac silhouette. There is a left-sided pace maker/defibrillator. No acute fractures. No pleural effusions. No focal lung consolidations to sugges t a pneumonia. No evidence for pulmonary edema. IMPRESSION: Cardiomegaly. Otherwise, no acute process within the chest. ACT 112: Negative or not required by law. Electronically signed by: Eddy Silva M.D. 10/27/2023 7:57 AM
--- NOTE | 2023-10-27 08:31 | Electrocardiogram Report ---
Test Reason : Blood Pressure : */* mmHG Vent. Rate : 78 BPM Atrial Rate : 78 BPM P-R Int : 200 ms QRS Dur : 102 ms QT Int : 378 ms P-R-T Axes : 62 -32 74 degrees QTcB Int : 430 ms Sinus rhythm with Premature atrial complexes Left atrial enlargement Left axis deviation Old Inferior infarct (cited on or before 27-Mar-2020) Old Anterolateral infarct (cited on or before 27-Mar-2020) Abnormal ECG When compared with ECG of 28-Feb-2023 16:55, Sinus rhythm has replaced Electronic atrial pacemaker Confirmed by Deep Coronel ([id number]) on 10/27/2023 8:31:22 AM Referred By: REFERRED SELF Confirmed By: Deep Coronel
--- NOTE | 2023-10-27 08:48 | Neurology Consultation ---
Date of Consultation October 27, 2023 Assessment & Plan (1) TIA due to embolism: Likely TIA secondary to holding coumadin for colonoscopy. CT and CTA were unremarkable. I suspect the TIA was secondary to holding the coumadin for he procedure Plan -- echocardiogram -- continue coumadin and statin -- symptoms resolved no need for PT/OT/ELECTRICAL ENGINEERING INTERN Telehealth Consultation Telehealth Information Telehealth Information: I performed this visit using a real-time telehealth connection between my location and the patients location ([facility]). After connecting through interactive tele-video, patient was identified by name and date of and/or wristband check.Patient (or authorized healthcare leather goods sales representative) was informed that this was a telemedicine visit and it was being conducted confidentially over secure lines. My office door was closed and no one else was present in the room with me.Patient (or authorized healthcare leather goods sales representative) provided consent to proceed with the visit, expressed an understanding of privacy and security of the telemedicine visit, and gave permission to have a hospital leather goods sales representative in the room in order to assist with the visit and to conduct portions of the visit, as needed. I informed the patient (or authorized healthcare leather goods sales representative) that I reviewed their record and presented the opportunity for them to ask any questions regarding the visit today. The patient agreed to participate. History of Present Illness Reason for Consultation: Stroke Like Symptoms Attending Physician: Toan Davila MD History of Present Illness At about 7pm, he was washing the dishes and was feeling fine; but then noticed he couldn't move his right hand. He sat down for a while and EMS was called and by the time they arrived the hand was fine. He does report that he had a colonoscopy a couple of weeks ago and had been holding his coumdin until about a week ago for that procedure. He denies any headache, chest pain, SOB, nausea, vomiting, slurred speech, difficulty getting words out, or double vision. He is currently at his baseline with no symptoms. Allergies Allergy/AdvReac Type Severity Reaction Status Date / Time lisinopril Allergy Severe Difficulty Verified 11/26/20 07:32 Breathing Home Medications Medication Instructions Recorded Confirmed Type amiodarone 200 mg tablet 200 mg PO DAILY 10/27/23 10/27/23 History atorvastatin 40 mg tablet 40 mg PO DAILY 10/27/23 10/27/23 History empagliflozin 25 mg tablet 25 mg PO DAILY 10/27/23 10/27/23 History (Jardiance) furosemide 40 mg tablet 40 mg PO DAILY 10/27/23 10/27/23 History gabapentin 300 mg capsule 300 mg PO HS 10/27/23 10/27/23 History metformin 500 mg tablet,extended 2,000 mg PO HS 10/27/23 10/27/23 History release 24 hr metoprolol succinate 50 mg 50 mg PO DAILY 10/27/23 10/27/23 History tablet,extended release 24 hr nitroglycerin 0.4 mg sublingual 0.4 mg sublingual UD 10/27/23 10/27/23 History tablet spironolactone 25 mg tablet 25 mg PO DAILY 10/27/23 10/27/23 History tamsulosin 0.4 mg capsule 0.4 mg PO DAILY 10/27/23 10/27/23 History warfarin 5 mg tablet 5 mg PO UD 10/27/23 10/27/23 History Patient History Medical History Acute ST elevation myocardial infarction (STEMI) Angioedema due to angiotensin converting enzyme inhibitor (KENDELL-I) Atrial fibrillation follows with Dr. Damico Chronic venous stasis dermatitis Diabetes mellitus, type 2 Elevated troponin Hyperlipidemia Hypertension On anticoagulant therapy warfarin daily Surgical History History of colonoscopy Hx of prostate biopsy benign S/P coronary artery stent placement Successful PCI of mid LAD with single drug-eluting stent (3.0 x 33 mm Xience; postdilated with 4.0 NC) Dr Flores, 03/27/20 Family History Father Family history of reaction to anesthesia "heart rate went irregular, was able to fix quick", not sure what he had done or what he was given Cancer Mother Diabetes Sister Celiac disease Denies family history of Heart disease Myocardial infarction Social History (Updated 11/26/20 @ 09:52 by Lupe Nelson PA-C) Smoking Status: Former smoker packs per day: 1; Second Hand Exposure: No; Do You Dip or Chew Tobacco: No; Hx Alcohol Use: No Hx Substance Use: No Preferred Language: Qatari Communication Ability: Effective Briquette Operator Required: No Beliefs That Will Affect Care: None marital status: Current Living Situation: Spouse current occupational status: previously employed 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 Feels Safe at Home: Yes Safety Concerns: Feels Safe At This Time Assistive Devices: None Physical Exam NEUROLOGIC EXAMINATION: Mental Status:alert, oriented to time, place, person, normal recent memory, normal remote memory, normal attention span, normal concentration, normal language, and normal fund of knowledge Cranial Nerves: CN 2 - no visual defect on confrontation and pupils round, equal, reactive to light CN 3, 4, 6 - extra-ocular movements intact and no nystagmus CN 5 - facial sensation intact CN 7 - no facial asymmetry CN 8 - intact hearing CN 9, 10 - palate symmetric, normal gag CN 11 - good shoulder shrug CN 12 - tongue midline MOTOR: Strength was at least antigravity throughout, Pronator drift was absent, and There were no abnormal movements SENSATION: intact and symmetric to plight touch GAIT: deferred COORDINATION: no ataxia with finger to nose testing and heel to laws testing REFLEXES: cannot assess over telemedicine Results & Data Vital Signs (Past 12 Hours) Vital Signs Pulse Pulse Resp BP Pulse Ox Pulse Ox O2 Del Method 10/27/23 07:33 61 18 130/68 94 Room Air 10/27/23 02:48 64 18 138/67 98 Room Air 10/27/23 02:48 98 10/27/23 00:46 64 10/26/23 21:54 70 16 149/65 H 93 Room Air 10/26/23 21:03 73 20 94 Room Air 10/26/23 20:47 75 O2 Del Method 10/27/23 07:33 10/27/23 02:48 10/27/23 02:48 Room Air 10/27/23 00:46 10/26/23 21:54 10/26/23 21:03 10/26/23 20:47 Laboratory Results Abnormal Lab Results 10/26/23 10/26/23 10/26/23 20:30 20:48 23:23 WBC 7.61 RBC 5.16 Hgb 14.4 Hct 44.3 MCV 85.9 MCH 27.9 MCHC 32.5 RDW Std Deviation 43.5 RDW Coeff of Stella 13.9 Plt Count 194 MPV 10.1 Immature Gran % (Auto) 0.4 Neut % (Auto) 67.7 Lymph % (Auto) 20.4 Slope % (Auto) 8.0 Eos % (Auto) 2.8 Baso % (Auto) 0.7 Neut # (Auto) 5.16 Lymph # (Auto) 1.55 Slope # (Auto) 0.61 H Eos # (Auto) 0.21 Baso # (Auto) 0.05 Immature Gran # (Auto) 0.03 PT 27.7 H INR 2.8 H APTT 36 H PTT Ratio 1.3 Sodium 134 L Potassium 4.4 Chloride 101 Carbon Dioxide 27 Anion Gap 6 BUN 23 Creatinine 2.13 H Est Cr Clr Drug Dosing 59.7 Est GFR ( Amer) 36.8 Est GFR (Non-Af Amer) 31.7 BUN/Creatinine Ratio 10.8 Glucose 164 H POC Glucose 148 H Calcium 9.4 Magnesium 1.9 Total Bilirubin 0.4 AST 14 ALT 12 Alkaline Phosphatase 57 Troponin I High Sens 8.8 Total Protein 6.9 Albumin 3.6 Globulin 3.3 Albumin/Globulin Ratio 1.1 Triglycerides Cholesterol LDL Cholesterol, Calc VLDL Cholesterol, Calc HDL Cholesterol Cholesterol/HDL Ratio TSH Free T4 Urine Color Yellow Urine Appearance Clear Urine pH 6.0 Ur Specific Ulm > 1.045 H Urine Protein Negative Urine Glucose (UA) 3+ H Urine Ketones Trace H Urine Blood Negative Urine Nitrite Negative Urine Bilirubin Negative Urine Urobilinogen Negative Ur Leukocyte Esterase Negative Blood Type A Positive Antibody Screen NEGATIVE 10/27/23 03:59 WBC 7.50 RBC 5.14 Hgb 14.1 Hct 44.7 MCV 87.0 MCH 27.4 MCHC 31.5 L RDW Std Deviation 44.9 RDW Coeff of Stella 14.0 Plt Count 201 MPV 10.3 Immature Gran % (Auto) 0.5 Neut % (Auto) 60.9 Lymph % (Auto) 24.9 Slope % (Auto) 9.5 Eos % (Auto) 3.1 Baso % (Auto) 1.1 Neut # (Auto) 4.57 Lymph # (Auto) 1.87 Slope # (Auto) 0.71 H Eos # (Auto) 0.23 Baso # (Auto) 0.08 Immature Gran # (Auto) 0.04 PT 26.2 H INR 2.6 H APTT PTT Ratio Sodium 134 L Potassium 4.0 Chloride 102 Carbon Dioxide 24 Anion Gap 8 BUN 33 H Creatinine 1.59 H D Est Cr Clr Drug Dosing 80.0 Est GFR ( Amer) 52.4 Est GFR (Non-Af Amer) 45.2 BUN/Creatinine Ratio 20.8 H Glucose 149 H POC Glucose Calcium 9.5 Magnesium 2.0 Total Bilirubin AST ALT Alkaline Phosphatase Troponin I High Sens Total Protein Albumin Globulin Albumin/Globulin Ratio Triglycerides 206 H Cholesterol 109 LDL Cholesterol, Calc 43 VLDL Cholesterol, Calc 41 H HDL Cholesterol 25 Cholesterol/HDL Ratio 4.4 TSH 6.212 H Free T4 1.12 Urine Color Urine Appearance Urine pH Ur Specific Ulm Urine Protein Urine Glucose (UA) Urine Ketones Urine Blood Urine Nitrite Urine Bilirubin Urine Urobilinogen Ur Leukocyte Esterase Blood Type Antibody Screen Diagnostic Findings Chest X-Ray 10/26/23 20:21 XR chest 1V portable HISTORY: neuro deficit, acute stroke suspected COMPARISON: Chest 11/26/2020. FINDINGS: No pneumothorax. Moderate enlargement of the cardiac silhouette. There is a left-sided pacemaker/defibrillator. No acute fractures. No pleural effus ions. No focal lung consolidations to suggest a pneumonia. No evidence for pulmonary edema. IMPRESSION: Cardiomegaly. Otherwise, no acute process within the chest. ACT 112: Negative or not required by law. Electronically signed by: Eddy Silva M.D. 10/27/2023 7:[address] 10/26/23 20:21 CR Exam(s): CT HEAD Without Contrast EXAM: CT Head Without Intravenous Contrast CLINICAL HISTORY: Reason for exam: neuro deficit, acute stroke suspected. TECHNIQUE: Axial computed tomography images of the head/brain without intravenous contrast. CTDI is 45.62 mGy and DLP is 774.27 mGy-cm. Automated exposure control was utilized for the study. A dose lowering technique was utilized adhering to the principles of ALARA. COMPARISON: None FINDINGS: Brain: No acute infarct or hemorrhage. No extra-axial fluid collection. No mass effect or midline shift. Ventricles and sulci: Normal. No ventriculomegaly or intraventricular hemorrhage. Bones: Mild hyperostosis frontalis interna. No bony lesion or acute fracture. Subcutaneous tissues: Normal. Sinuses: Normal. No air-fluid levels or mucosal thickening. Mastoid air cells: Normal. Orbits: Grossly unremarkable. IMPRESSION: No acute intracranial abnormality. Further evaluation could be performed with MRI if clinically indicated. Communications: Call Doctor Stroke Electronically signed by: Kumar Kwong M.D. 10/26/23 20:54 PM Head CTA 10/26/23 20:21 CR Exam(s): CTA HEAD With Contrast IV Amt: 118 cc opti 320 EXAM: CT Angiography Head With Intravenous Contrast CLINICAL HISTORY: Reason for exam: neuro deficit, acute stroke suspected. TECHNIQUE: Axial computed tomographic angiography images of the head with intravenous contrast. CTDI is 14.07 mGy and DLP is 626.69 mGy-cm. Automated exposure control was utilized for the study. A dose lowering technique was utilized adhering to the principles of ALARA. MIP reconstructed images were created and reviewed. CONTRAST: Patient received 118 cc opti 320 of IV contrast COMPARISON: None FINDINGS: Right internal carotid artery: No acute findings. Intracranial segment is patent with no significant stenosis. No aneurysm. Right anterior cerebral artery: Unremarkable. No occlusion or significant stenosis. No aneurysm. Right middle cerebral artery: Unremarkable. No occlusion or significant stenosis. No aneurysm. Right posterior cerebral artery: Unremarkable. No occlusion or significant stenosis. No aneurysm. Right vertebral artery: Unremarkable as visualized. Left internal carotid artery: No acute findings. Intracranial segment is patent with no significant stenosis. No aneurysm. Left anterior cerebral artery: Unremarkable. No occlusion or significant stenosis. No aneurysm. Left middle cerebral artery: Unremarkable. No occlusion or significant stenosis. No aneurysm. Left posterior cerebral artery: Unremarkable. No occlusion or significant stenosis. No aneurysm. Left vertebral artery: Unremarkable as visualized. Basilar artery: Unremarkable. No occlusion or significant stenosis. No aneurysm. IMPRESSION: Normal head CTA. Communications: 10/26/23 21:01 Call Doctor Regarding Stroke, called Dr. Ortiz on 10/25 21:00 (-04:00) Electronically signed by: Kumar Kwong M.D. 10/26/23 21:00 PM Neck CTA 10/26/23 20:21 CR Exam(s): CTA NECK With Contrast IV Amt: 118 cc opti 320 EXAM: CT Angiography Neck With Intravenous Contrast CLINICAL HISTORY: Reason for exam: neuro deficit, acute stroke suspected. TECHNIQUE: Routine carotid CT angiography protocol was performed with intravenous contrast. NASCET criteria using the distal ICAs for comparison were used for evaluation of stenoses. CTDI is 14.07 mGy and DLP is 626.69 mGy-cm. Automated exposure control was utilized for the study. A dose lowering technique was utilized adhering to the principles of ALARA. MIP reconstructed images were created and reviewed. CONTRAST: Patient received 118 cc opti 320 of IV contrast COMPARISON: None FINDINGS: VASCULATURE: Right common carotid artery: Unremarkable. No occlusion or significant stenosis. No dissection. Right internal carotid artery: Mild atherosclerotic calcification in the right carotid bulb. No significant stenosis. Medially coursing right ICA. No dissection. Right external carotid artery: Unremarkable. No occlusion. Right vertebral artery: Unremarkable. No occlusion or significant stenosis. No dissection. Left common carotid artery: Unremarkable. No occlusion or significant stenosis. No dissection. Left internal carotid artery: Medially coursing left ICA. Extracranial segment is patent with no occlusion or significant stenosis. No dissection. Left external carotid artery: Unremarkable. No occlusion. Left vertebral artery: Unremarkable. No occlusion or significant stenosis. No dissection. Aorta: Atherosclerotic changes in the aorta. 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 Degenerative changes of the spine. No acute fracture. Soft tissues: Unremarkable. Lung apices: Clear. CAROTID STENOSIS REFERENCE USING NASCET CRITERIA: % ICA stenosis = (1 - narrowest ICA diameter/diameter of distal cervical ICA) x 100. Mild - <50% stenosis. Moderate - 50-69% stenosis. Severe - 70-94% stenosis. Near occlusion - 95-99% stenosis. Occluded - 100% stenosis. IMPRESSION: No significant stenosis, occlusion, or dissection. Communications: Call Doctor Stroke Electronically signed by: Kumar Kwong M.D. 10/26/23 20:58 PM
[2023-10-27] MEDS ORDERED: SPIRONOLACTONE 25 MG TAB PO SCH (09:00)
[2023-10-27] MEDS ORDERED: METOPROLOL SUCC 50MG EXT REL TAB PO SCH (09:00)
[2023-10-27] MEDS ORDERED: FUROSEMIDE 40 MG TAB PO SCH (09:00)
[2023-10-27] MEDS: AMIODARONE 200 MG TAB PO SCH (09:09)
[2023-10-27] MEDS: ATORVASTATIN 40 MG TAB PO SCH (09:10)
[2023-10-27] MEDS: TAMSULOSIN HCL 0.4 MG CAP PO SCH (09:10)
[2023-10-27] MEDS: INSULIN ASPART PER UNIT CHARGE SC SCH (09:26)
[2023-10-27 09:28] LABS: Estimated Average Glucose 183 mg/dl
[2023-10-27] MEDS: METOPROLOL SUCC 25MG EXT REL TAB PO SCH (10:03)
--- NOTE | 2023-10-27 12:50 | Magnetic Resonance Report ---
MR brain wo con HISTORY: 63 years-old Male tia/cva acute stroke like symptoms COMPARISON: Head CT 10/26/2023 TECHNIQUE: Multiplanar multisequence MRI of the brain was obtained without IV contrast. FINDINGS: No restricted diffusion to suggest acute or subacute infarct. The midline structures appear unremarka ble. The study is motion degraded. Degenerative changes of the imaged cervical spine. Study is mildly motion degraded. No acute intracranial hemorrhage, midline shift, abnormal extra-axial collection, hydrocephalus or in tra-axial mass. Minimal T2/FLAIR hyperintense foci throughout the white matter, likely of no clinical significance. Hyperostosis frontalis interna. Subcentimeter chronic lacunar infarcts of the cerebell um. Cerebral venous sinuses and major arterial flow voids appear patent. IMPRESSION: 1. No acute intracranial abnormality, specifically there is no acute or subacute infarct. 2. Chronic cerebellar lacunar infarcts. ACT 112: Negative or not required by law. The above report was generated using voice recognition software. It may contain grammatical, syntax o r spelling errors. Electronically signed by: Lev Raphael M.D. 10/27/2023 12:48 PM
[2023-10-27 14:17] VITALS: RESP 19; O2SAT 91
[2023-10-27] MEDS ORDERED: STROKE PATIENT DISCHARGE STA (14:19)
[2023-10-27 14:48] VITALS: BP 147/90; PULSE 66
--- NOTE | 2023-10-27 16:18 | Discharge Summary ---
Date of Service October 27, 2023 Admission HPI Per Admitting Provider 63-year-old male with past medical history significant for type 2 diabetes, hyperlipidemia, chronic systolic CHF, paroxysmal atrial fibrillation, CAD, chronic venous insufficiency, sustained V. tach, status post ICD, history of PE, splenomegaly, history of angioedema comes because of strokelike symptoms. Around 7 PM he was cleaning his dishes when suddenly he felt he could not use his right hand, he sat down and at the time he had some difficulty speaking and his called EMS. By the time EMS came his symptoms resolved. He thinks all symptoms lasted for about 15 minutes. Since then is doing fine. Denies any headache. No dizziness. Vision is okay. No runny nose or sore throat. No headache. No cough. No difficulty swallowing. Denies chest pain or shortness of breath. No nausea. No abdominal pain. Normal bowel and bladder movements. Resting comfortably and hemodynamically stable. Past medical history. As mentioned above Past surgical history. Colonoscopy. Status post ICD Social history. . Quit smoking 1987. Smoked 0.8 pack a day for 15 years. No alcohol use. No drug use. Family history. Mother had brain aneurysm. Father had cancer. Admission Exam Per Admitting Provider General- Not in acute distress Head- atraumatic Eyes- PERRL, EOMI. ENT- oropharynx clear Neck- supple, no JVD. Lungs- clear to auscultation no wheezing or crackles Heart- regular rate and rhythm; no murmur, no gallop. Abdomen- normal bowel sounds, soft, nontender, no distension Extremities- b/l lower extremity chronic lymphedema with chronic skin changes .seen Neuro- alert, oriented PERRL, EOMI; no facial palsy; no dysarthria; power 5/5 upper extremities 4/5 lower extremities, co ordination of movements ok. No pronator drift, sensations and position sense intact. Principal Diagnosis TIA Discharge Exam Constitutional: WD/WN, vitals as above, NAD, sitting up in bed, pleasant, conversing easily Respiratory: normal respiratory effort, lungs clear to auscultation, no wheeze, rales, rhonchi. Normal insp/exp effort, no accessory muscle use Cardiovascular: RRR, no murmur, no edema Vessels: no JVD or carotid bruit Chest: normal inspection of chest Abdomen: normal bowel sounds, soft, nontender, no hepatosplenomegaly Musculoskeletal: no cyanosis or clubbing, extremities motor strength 5/5 Skin: no rashes, warm and dry normal turgor Neurologic: PERRL, EOMI, accommodation nl, no face palsy, no dysarthria CN's II- XI intact bilaterally and moves all extremities Psychiatric: A+Ox3, euthymic affect Discharge Data Allergies Allergy/AdvReac Type Severity Reaction Status Date / Time lisinopril Allergy Severe Difficulty Verified 11/26/20 07:32 Breathing Consultations 10/26/23 22:29 ED Decision to Admit Stat 10/27/23 08:00 Consult Neurology Routine Ordered Studies 10/26/23 20:21 CT angio head w con Stat CT angio neck with con Stat CT head/brain wo con Stat 10/27/23 01:03 MR brain wo con Routine Hospital Course (1) Stroke-like symptoms: 63-year-old male with past medical history significant for type 2 diabetes, hyperlipidemia, chronic systolic CHF, paroxysmal atrial fibrillation, CAD, chronic venous insufficiency, sustained V. tach, status post ICD, history of PE, splenomegaly, history of angioedema comes because of strokelike symptoms due to weakness of right hand and difficulties speaking. It lasted about 15 minutes. Patient reported resolution of symptoms prior to presentation to the hospital. Patient underwent workup for stroke during the hospitalization including CT head, CTA head and neck which was unremarkable. Patient also underwent MRI brain which did not show any acute findings. Neurology was consulted for comanagement; recommended to continue Coumadin and statin. Echocardiogram showed similar heart function. Patient reported feeling at baseline. He wanted to go home. Patient discharged home with instructions to follow-up with his PCP. Please note the above document was generated using voice recognition software. It may contain grammatical, syntax or spelling errors. Any formal questions or concerns about the content, text or information contained within the body of this dictation should be directly addressed to the provider for clarification Total Time Total Time Spent Total Time Spent (In Minutes): 35 Total Time Includes: Examination of the Patient, Discharge Planning, Medication Reconciliation, Communication With Other Providers and Other Discharge Plan Discharge Items Patient Disposition: Home - Self-Care Reason For Visit: STROKE-LIKE SYMPTOMS Discharge Diagnosis: TIA Activity: Resume your previous activity Non-emergency contact: Primary Care Provider Call non-emergency contact if: you have any medication questions and your symptoms worsen Follow-up/Referrals: Howard Silva MD [Primary Care Provider] - Diet: Regular Addtl Attending Provider Instructions: You were admitted to the hospital due to strokelike symptoms. MRI of the brain did not reveal any stroke. Please continue to take your medication as prescribed previously. Follow-up with your primary care doctor Pending Studies at Discharge: No Stand-Alone Forms: My [facility], Smoking Cessation Medications and DC Order Prescriptions: Continued furosemide 40 mg tablet 40 mg PO DAILY atorvastatin 40 mg tablet 40 mg PO DAILY amiodarone 200 mg tablet 200 mg PO DAILY metoprolol succinate 50 mg tablet extended release 24 hr 50 mg PO DAILY spironolactone 25 mg tablet 25 mg PO DAILY tamsulosin 0.4 mg capsule 0.4 mg PO DAILY warfarin 5 mg tablet 5 mg PO UD Rx Instructions: 5mg po daily on thu, thu and thursday. And 7.5mg po on all other days gabapentin 300 mg capsule 300 mg PO HS metformin 500 mg tablet extended release 24 hr 2,000 mg PO HS Jardiance 25 mg tablet 25 mg PO DAILY nitroglycerin 0.4 mg Tablet, Sublingual 0.4 mg sublingual UD Rx Instructions: prn chest pain x3 q 5 min Discharge Orders: Discharge Order (Routine); Ordered 10/27/23 Ordered By: Toan Jefferson/Other Patient Handouts: Managing Type 2 Diabetes, Diabetes: Meal Planning Admission Data Admit Date/Time: 10/27/23 00:32 Attending Provider: Toan Davila Admit Provider: Conrad Stanton Primary Care Provider: Howard Silva Other Providers: Conrad Stanton; Shawanda Calderon; Alessio Acosta; Shawanda Ross; Jimenez Vizcarra; Tiago Perez; Guillermo Greenberg; Deep Vallecillo; Lexus Townsend; Daniel Disla; Omar Moreno; [place]; Adam Knott; Yael Ochoa; Odessa Howard; Deep Turpin Other Interventions: Discharge Summary Assessment (RN) Last Done: 10/27/23 14:38
[2023-10-27] MEDS ORDERED: GABAPENTIN 300 MG CAP PO SCH (21:00)
== END 2023-10-27 14:45 | disposition home or self-care (01) | DRG 69 ==
LOC: ED 20:19 → EDINP 10-27 00:32